=== PATIENT | male | born 1945 | race Caucasian/White ===

== ENCOUNTER 2017-10-19 16:24 | Inpatient (IN) | payer MEDICARE, BC ==
[2017-10-19] MEDS ORDERED: DILTIAZEM 5 MG/ML 5 ML VIAL IVP STA (16:54)
[2017-10-19 17:09] LABS: Basophils # (A) 0.1 k/uL (0-0.2); Basophils % (A) 1 %; Eosinophils # (A) 0.4 k/uL (0-0.7); Eosinophils % (A) 6 %; HGB 11.8 gm/dL (13.0-17.5); Hypochromasia Slight; Lymphocytes % (A) 14 %; MCH 28.2 pg (25.0-35.0); MCHC 30.3 g/dL (31.0-37.0); MCV 93.2 fL (80.0-100.0); Mean Platelet Volume 8.1; Monocytes # (A) 0.4 k/uL (0-1.0); Monocytes % (A) 6 %; Neutrophils % (A) 72 %; Platelet Count 215 k/uL (150-450); RBC 4.18 m/uL (4.30-5.90); RDW 15.4 % (11.5-15.5)
[2017-10-19 17:21] LABS: Partial Thromboplastin Time 25.6 sec (22.0-30.0)
[2017-10-19 17:22] LABS: ALT 28 U/L (21-72); AST 49 U/L (17-59); Albumin 4.4 g/dL (3.5-5.0); Alkaline Phosphatase 136 U/L (38-126); Anion Gap 11 mmol/L; Blood Urea Nitrogen 25 mg/dL (9-20); Calcium 9.5 mg/dL (8.4-10.2); Carbon Dioxide 25 mmol/L (22-30); Chloride 102 mmol/L (98-107); Creatine Kinase 276 U/L (55-170); Glucose 108 mg/dL (74-99); Magnesium 2.1 mg/dL (1.6-2.3); Phosphorus 3.3 mg/dL (2.5-4.5); Sodium 138 mmol/L (137-145); Total Protein 7.6 g/dL (6.3-8.2)
--- NOTE | 2017-10-19 17:22 | XR ---
EXAMINATION: XR chest 2V DATE AND TIME: 10/19/2017 5:13 PM ORDERING PROVIDER: Narciso Ferris DO CLINICAL INDICATION: Weakness; abnormal EKG with history atrial fibrillation and tachycardia. TECHNIQUE: 09/30/2011 COMPARISON: None. DESCRIPTION: EKG leads. The cardiac silhouette is mildly moderately enlarged, similar to the prior st udy. There is mild obscuration of the pulmonary vasculature by a fine reticular pattern, which can correla te with a clinical diagnosis of mild interstitial phase pulmonary edema, presumably of cardiogenic et iology. The right hemidiaphragm is elevated, similar to the prior study, with interposed colon underneath the right hemidiaphragm also seen on the prior study. Pectus excavatum and dextrocurvature of the thoracic spine also redemonstrated. There are no abnormal gas collections. IMPRESSION: EVIDENCE OF MILD CARDIOGENIC PULMONARY EDEMA.
[2017-10-19 17:23] LABS: Potassium 4.5 mmol/L (3.5-5.1)
[2017-10-19 17:28] LABS: INR 1.5 (<1.2); Prothrombin Time 13.7 sec (9.0-12.0)
[2017-10-19 17:34] LABS: Troponin I <0.012 ng/mL (0.000-0.034)
[2017-10-19 17:40] LABS: Creatine Kinase MB 2.6 ng/mL (0.0-2.4)
--- NOTE | 2017-10-19 17:57 | ED ---
General Adult HPI - General Chief complaint: Recheck/Abnormal Lab/Rx Stated complaint: sent by PCP abnormal EKG Time Seen by Provider: 10/19/17 16:35 Source: patient, RN notes reviewed, old records reviewed Mode of arrival: ambulatory Limitations: no limitations - History of Present Illness Initial comments: This is a 72-year-old male to the ER for evaluation of shortness of breath, increasing shortness of breath. Patient does have recent flight history. Patient suffers from heart disease CHF A. fib with RVR and anticoagulation. Patient denies any fevers does admit to congestion cough. Significant lower extremity edema and positive wakening. - Related Data Home Medications Medication Instructions Recorded Confirmed Atorvastatin [Lipitor] 20 mg PO HS 10/19/17 10/19/17 Furosemide [Lasix] 20 mg PO DAILY 10/19/17 10/19/17 Irbesartan [Avapro] 150 mg PO HS 10/19/17 10/19/17 Levothyroxine Sodium [Synthroid] 175 mcg PO DAILY 10/19/17 10/19/17 Metoprolol Succinate (ER) [Toprol 50 mg PO HS 10/19/17 10/19/17 Xl] Potassium Chloride ER [K-Dur 10] 10 meq PO DAILY 10/19/17 10/19/17 Rivaroxaban [Xarelto] 20 mg PO HS 10/19/17 10/19/17 Ubidecarenone [Co Q-10] 100 mg PO BID 10/19/17 10/19/17 Allergies Allergy/AdvReac Type Severity Reaction Status Date / Time No Known Allergies Allergy Verified 10/19/17 17:08 Review of Systems ROS Statement: Those systems with pertinent positive or pertinent negative responses have been documented in the HPI. ROS Other: All systems not noted in ROS Statement are negative. Past Medical History Past Medical History: Atrial Fibrillation, Cancer, Hyperlipidemia, Hypertension , Thyroid Disorder Additional Past Medical History / Comment(s): prostate cancer History of Any Multi-Drug Resistant Organisms: None Reported Past Surgical History: Prostate Surgery Past Psychological History: No Psychological Hx Reported Smoking Status: Never smoker Past Alcohol Use History: None Reported Past Drug Use History: None Reported General Exam Limitations: no limitations General appearance: alert, in no apparent distress, anxious Head exam: Present: atraumatic, normocephalic, normal inspection Eye exam: Present: normal appearance, PERRL, EOMI. Absent: scleral icterus, conjunctival injection, periorbital swelling ENT exam: Present: normal exam, mucous membranes moist Neck exam: Present: normal inspection. Absent: tenderness, meningismus, lymphadenopathy Respiratory exam: Present: normal lung sounds bilaterally. Absent: respiratory distress, wheezes, rales, rhonchi, stridor Cardiovascular Exam: Present: tachycardia, irregular rhythm, normal heart sounds. Absent: systolic murmur, diastolic murmur, rubs, gallop, clicks GI/Abdominal exam: Present: soft, normal bowel sounds. Absent: distended, tenderness, guarding, rebound, rigid Extremities exam: Present: normal inspection, full ROM, normal capillary refill. Absent: tenderness, pedal edema, joint swelling, calf tenderness Back exam: Present: normal inspection Neurological exam: Present: alert, oriented X3, CN II-XII intact Psychiatric exam: Present: normal affect, normal mood Skin exam: Present: warm, dry, intact, normal color. Absent: rash Course Vital Signs 10/19/17 16:28 Temperature 98.0 F Pulse Rate 124 H Respiratory 20 Rate Blood Pressure 137/82 O2 Sat by Pulse 98 Oximetry - Reevaluation(s) Reevaluation #1: 10/19/17 17:54 Dr noonan is in Ed evaluating patient EKG Findings - EKG Comments: EKG Findings:: EKG shows A. fib with RVR rate 116, QRS 94, QTC 489 Medical Decision Making - Medical Decision Making 72 male to the ED co sob, weight gain, chf on CXR and bilateral LE edema, patient also in AfibRVR and currently has adequate rate control. - Lab Data Result diagrams: 10/19/17 16:50 10/19/17 16:50 Lab Results 10/19/17 10/19/17 10/19/17 Range/Units 16:50 16:50 16:50 WBC 7.0 (3.8-10.6) k/uL RBC 4.18 L (4.30-5.90) m/uL Hgb 11.8 L (13.0-17.5) gm/dL Hct 39.0 (39.0-53.0) % MCV 93.2 (80.0-100.0) fL MCH 28.2 (25.0-35.0) pg MCHC 30.3 L (31.0-37.0) g/dL RDW 15.4 (11.5-15.5) % Plt Count 215 (150-450) k/uL Neutrophils % 72 % Lymphocytes % 14 % Monocytes % 6 % Eosinophils % 6 % Basophils % 1 % Neutrophils # 5.0 (1.3-7.7) k/uL Lymphocytes # 1.0 (1.0-4.8) k/uL Monocytes # 0.4 (0-1.0) k/uL Eosinophils # 0.4 (0-0.7) k/uL Basophils # 0.1 (0-0.2) k/uL Hypochromasia Slight PT (9.0-12.0) sec INR (<1.2) APTT (22.0-30.0) sec Sodium 138 (137-145) mmol/L Potassium 4.5 (3.5-5.1) mmol/L Chloride 102 (98-107) mmol/L Carbon Dioxide 25 (22-30) mmol/L Anion Gap 11 mmol/L BUN 25 H (9-20) mg/dL Creatinine 1.32 H (0.66-1.25) mg/dL Est GFR (MDRD) Af Amer >60 (>60 ml/min/1.73 sqM) Est GFR (MDRD) Non-Af 54 (>60 ml/min/1.73 sqM) Glucose 108 H (74-99) mg/dL Calcium 9.5 (8.4-10.2) mg/dL Phosphorus 3.3 (2.5-4.5) mg/dL Magnesium 2.1 (1.6-2.3) mg/dL Total Bilirubin 2.0 H (0.2-1.3) mg/dL AST 49 (17-59) U/L ALT 28 (21-72) U/L Alkaline Phosphatase 136 H (38-126) U/L Total Creatine Kinase 276 H (55-170) U/L CK-MB (CK-2) 2.6 H* (0.0-2.4) ng/mL CK-MB (CK-2) Rel Index 0.9 Troponin I <0.012 (0.000-0.034) ng/mL Total Protein 7.6 (6.3-8.2) g/dL Albumin 4.4 (3.5-5.0) g/dL 10/19/17 Range/Units 16:50 WBC (3.8-10.6) k/uL RBC (4.30-5.90) m/uL Hgb (13.0-17.5) gm/dL Hct (39.0-53.0) % MCV (80.0-100.0) fL MCH (25.0-35.0) pg MCHC (31.0-37.0) g/dL RDW (11.5-15.5) % Plt Count (150-450) k/uL Neutrophils % % Lymphocytes % % Monocytes % % Eosinophils % % Basophils % % Neutrophils # (1.3-7.7) k/uL Lymphocytes # (1.0-4.8) k/uL Monocytes # (0-1.0) k/uL Eosinophils # (0-0.7) k/uL Basophils # (0-0.2) k/uL Hypochromasia PT 13.7 H (9.0-12.0) sec INR 1.5 H (<1.2) APTT 25.6 (22.0-30.0) sec Sodium (137-145) mmol/L Potassium (3.5-5.1) mmol/L Chloride (98-107) mmol/L Carbon Dioxide (22-30) mmol/L Anion Gap mmol/L BUN (9-20) mg/dL Creatinine (0.66-1.25) mg/dL Est GFR (MDRD) Af Amer (>60 ml/min/1.73 sqM) Est GFR (MDRD) Non-Af (>60 ml/min/1.73 sqM) Glucose (74-99) mg/dL Calcium (8.4-10.2) mg/dL Phosphorus (2.5-4.5) mg/dL Magnesium (1.6-2.3) mg/dL Total Bilirubin (0.2-1.3) mg/dL AST (17-59) U/L ALT (21-72) U/L Alkaline Phosphatase (38-126) U/L Total Creatine Kinase (55-170) U/L CK-MB (CK-2) (0.0-2.4) ng/mL CK-MB (CK-2) Rel Index Troponin I (0.000-0.034) ng/mL Total Protein (6.3-8.2) g/dL Albumin (3.5-5.0) g/dL - Radiology Data Radiology results: report reviewed (CXR is positive for pulmonary edema), image reviewed Disposition Clinical Impression: Atrial fibrillation with RVR, CHF (congestive heart failure), Pulmonary edema Disposition: ADMITTED IP TO THIS [facility] Condition: Good Referrals: Misha Noonan MD [Primary Care Provider] - 1-2 days
[2017-10-19] MEDS: FUROSEMIDE 10 MG/ML 4 ML VIAL IV SCH (20:59)
[2017-10-19] MEDS: RIVAROXABAN 10 MG TAB PO SCH (21:00)
[2017-10-19] MEDS: ATORVASTATIN 20 MG TAB PO SCH (21:00)
[2017-10-19] MEDS ORDERED: LOSARTAN 50 MG TAB PO SCH ×2 (21:00)
[2017-10-19] MEDS ORDERED: METOPROLOL SUCCINATE (ER) 50 MG TAB.ER.24H PO SCH (21:00)
[2017-10-20] MEDS: FUROSEMIDE 10 MG/ML 4 ML VIAL IV SCH ×4 (03:15→23:33)
[2017-10-20 05:57] LABS: Anisocytosis Slight; Basophils % (A) 1 %; Eosinophils # (A) 0.3 k/uL (0-0.7); Eosinophils % (A) 6 %; HCT 32.6 % (39.0-53.0); Hypochromasia Moderate; Lymphocytes % (A) 20 %; MCH 28.4 pg (25.0-35.0); MCHC 30.4 g/dL (31.0-37.0); MCV 93.3 fL (80.0-100.0); Mean Platelet Volume 7.8; Monocytes # (A) 0.5 k/uL (0-1.0); Monocytes % (A) 10 %; Neutrophils # (A) 3.2 k/uL (1.3-7.7); Neutrophils % (A) 61 %; Platelet Count 172 k/uL (150-450); RBC 3.49 m/uL (4.30-5.90); RDW 16.5 % (11.5-15.5); WBC 5.3 k/uL (3.8-10.6)
[2017-10-20 05:58] LABS: HGB 9.9 gm/dL (13.0-17.5)
[2017-10-20 06:18] LABS: Anion Gap 8 mmol/L; Blood Urea Nitrogen 24 mg/dL (9-20); Calcium 9.1 mg/dL (8.4-10.2); Carbon Dioxide 30 mmol/L (22-30); Chloride 102 mmol/L (98-107); Glucose 101 mg/dL (74-99); Sodium 140 mmol/L (137-145)
[2017-10-20] MEDS: LEVOTHYROXINE 75 MCG TAB PO SCH (06:30)
[2017-10-20] MEDS: LEVOTHYROXINE 100 MCG TAB PO SCH (06:30)
[2017-10-20 07:37] LABS: T4, Free (Free Thyroxine) 1.52 ng/dL (0.78-2.19)
[2017-10-20] MEDS: POTASSIUM CHLORIDE ER 10 MEQ TAB.ER.PRT PO SCH (08:18)
--- NOTE | 2017-10-20 09:37 | CONS ---
CONSULTATION Mr. Hopper is a 72-year-old male with a history of hyperlipidemia, chronic persistent atrial fibrillation, who presented with progressive dyspnea, weight gain and peripheral edema. Patient has a longstanding history of atrial fibrillation, but has been stable and anticoagulated. He is active physically without difficulty, but for over the last month, he has gained about 20 pounds and has noted a progressive dyspnea predominantly when he bends down, as well as worsening peripheral edema. He denies any change in his eating habit. He denies any chest pain. No dizziness. No palpitation. No syncope. No clear PND, orthopnea, or peripheral edema. His coronary risk factors are remarkable for hyperlipidemia. He is nondiabetic. He has hypertension. He is a nonsmoker. MEDICATIONS: Include Avapro 150 mg daily, metoprolol succinate 50 mg daily, levothyroxine 0.175 mg daily, Lipitor 20 mg daily, Lasix 20 mg daily, potassium, and Xarelto 20 mg daily. REVIEW OF SYSTEMS: RESPIRATORY SYSTEM: He has mild dry cough. No wheezing. He has dyspnea on exertion. GI SYSTEM: No recent GI bleeding. No peptic ulcer disease. SYSTEM: No dysuria, hematuria. NERVOUS SYSTEM: no stroke or seizure. PHYSICAL EXAMINATION: He is a 72-year-old male, alert, oriented, in no apparent distress. Blood pressure running in the high 90s to 100 with a heart rate in the 90s. HEAD: Normocephalic, eyes sclerae nonicteric. NECK: Good upstroke. No bruit. Lungs with crackles bilaterally. HEART: Irregular, regular, S1, S2. No S3 with systolic murmur at the base. No diastolic murmur. No rub. ABDOMEN: Soft, nontender. Positive bowel sounds. No organomegaly. EXTREMITIES: +2 edema bilaterally. LAB DATA: Revealed BUN and creatinine 22 and 1.31, potassium 4.0. Troponin less than 0.012. NT proBNP is 1670. TSH of 5.5. EKG reveals atrial fibrillation with a rate of [address]-T wave changes. Chest x-ray shows evidence of CHF. IMPRESSION: 1. Congestive heart failure with increased weight gain over the last months. Evaluation of his systolic function is not available to me. 2. Chronic persistent atrial fibrillation, anticoagulated with episode of rapid ventricular response. 3. History of hypertension. 4. Hyperlipidemia. 5. Abnormal renal function tests of unknown duration. RECOMMENDATION: From the cardiac standpoint, will continue IV diuresis for another 24 hours. I will cut down the dose of his angiotensin receptor jorge because of his low blood pressure. Follow his renal function. Will evaluate his systolic function by echocardiography and depending on his progress, further recommendation will be made. Thank you for this consult. Will follow with you. MAREN / LALA: [id number] /
--- NOTE | 2017-10-20 10:41 | ECHOF ---
Referral Reason:chf MEASUREMENTS -------- HEIGHT: 182.9 cm WEIGHT: 111.6 kg BP: 96/69 RVIDd: 3.3 cm (< 3.3) IVSd: 1.0 cm (0.6 - 1.1) LVIDd: 3.2 cm (3.9 - 5.3) LVPWd: 1.1 cm (0.6 - 1.1) IVSs: 1.3 cm LVIDs: 2.9 cm LVPWs: 1.3 cm LA Diam: 3.8 cm (2.7 - 3.8) LAESV Index (A-L): 29.90 ml/m Ao Diam: 3.0 cm (2.0 - 3.7) AV Cusp: 1.8 cm (1.5 - 2.6) LA Diam: 4.1 cm (2.7 - 3.8) MV EXCURSION: 14.751 mm (> 18.000) MV EF SLOPE: 87 mm/s (70 - 150) EPSS: 0.5 cm RAP: 5.00 mmHg RVSP: 22.99 mmHg FINDINGS -------- Atrial fibrillation. This was a technically good study. The left ventricular size is normal. Left ventricular wall thickness is normal. Overall left vent ricular systolic function is low-normal with, an EF between 50 - 55 %. The right ventricle is mild to moderately enlarged. LA is moderately dilated 34-39 ml/m2 The right atrial size is normal. The aortic valve is trileaflet, and appears structurally normal. No aortic stenosis or regurgitation. Mild mitral regurgitation is present. [id number] tricuspid regurgitation present. There is no evidence of pulmonary hypertension. The right ventricular systolic pressure, as measured by Doppler, is 22.99mmHg. There is no pulmonic regurgitation present. The aortic root size is normal. There is no pericardial effusion. CONCLUSIONS -------- 1. The left ventricular size is normal. 2. Left ventricular wall thickness is normal. 3. Overall left ventricular systolic function is low-normal with, an EF between 50 - 55 %. 4. The right ventricle is mild to moderately enlarged. 5. LA is moderately dilated 34-39 ml/m2 6. The aortic valve is trileaflet, and appears structurally normal. No aortic stenosis or regurgitati on. 7. Mild mitral regurgitation is present. 8. [id number]-lrdskvlz tricuspid regurgitation present. 9. There is no evidence of pulmonary hypertension. 10. The right ventricular systolic pressure, as measured by Doppler, is 22.99mmHg. 11. There is no pulmonic regurgitation present. 12. The aortic root size is normal. 13. There is no pericardial effusion. NOVELTY CANDY MAKER: Merced Epstein RDCS
--- NOTE | 2017-10-20 11:20 | P.HPIM ---
History of Present Illness H&P Date: 10/20/17 Chief Complaint: Worsening shortness of breath and lower extremity edema This is a 72-year-old male with a known past medical history of congestive heart failure, hypothyroidism, atrial fibrillation, hyperlipidemia and prostate cancer. Patient does a lot of flying he lives in [place]. And he had recently visiting family in [place] as well. Patient came to see his father who is been sick here in [place]. And noted that his shortness of breath and lower extremity edema that he has been dealing with for the last month has continued to worsen. He therefore came into the emergency room for further evaluation and treatment. Was found to have an acute CHF exacerbation as well as A. fib with RVR. He was started on IV Lasix. Was given a dose of IV Cardizem. Patient is already noticed some improvement in his breathing as well as lower extremity edema. Cardiology is following. Echocardiogram was ordered and shows an EF of 50-55% with mild to moderate tricuspid regurgitation. EKG had shown atrial fibrillation with a heart rate of 116. BNP was elevated at 1670. Troponins were negative 3 sets. Patient remains in A. fib heart rate has shown improvement. He denies any chest pain heart palpitations any dizziness or lightheadedness. Denies any nausea or vomiting. Denies any bowel movement changes. She denies any blood in his stools. Denies any burning with urination. He has evidence of elevated kidney functions with a creatinine of 1.31 in BUN of 24. Patient was hypotensive this morning. Cardiology has decreased his losartan to 25 units daily. Patient doesn't having a cough with clear sputum for the past 2 weeks. However the cough is improving he is been afebrile with no chills or sweats. White count was normal on admission. Hemoglobin has dropped from 11.8-9.9. Patient has had no colonoscopy Review of Systems Please refer to HPI otherwise unremarkable Past Medical History Past Medical History: Atrial Fibrillation, Cancer, Hyperlipidemia, Hypertension , Thyroid Disorder Additional Past Medical History / Comment(s): prostate cancer History of Any Multi-Drug Resistant Organisms: None Reported Past Surgical History: Adenoidectomy, Prostate Surgery, Tonsillectomy Past Anesthesia/Blood Transfusion Reactions: No Reported Reaction Past Psychological History: No Psychological Hx Reported Smoking Status: Never smoker Past Alcohol Use History: None Reported Past Drug Use History: None Reported - Past Family History Father Family Medical History: Cancer Additional Family Medical History / Comment(s): prostate Mother Additional Family Medical History / Comment(s): CABG-rheumatic fever Medications and Allergies Home Medications Medication Instructions Recorded Confirmed Type Atorvastatin [Lipitor] 20 mg PO HS 10/19/17 10/19/17 History Furosemide [Lasix] 20 mg PO DAILY 10/19/17 10/19/17 History Irbesartan [Avapro] 150 mg PO HS 10/19/17 10/19/17 History Levothyroxine Sodium [Synthroid] 175 mcg PO DAILY 10/19/17 10/19/17 History Metoprolol Succinate (ER) [Toprol 50 mg PO HS 10/19/17 10/19/17 History Xl] Potassium Chloride ER [K-Dur 10] 10 meq PO DAILY 10/19/17 10/19/17 History Rivaroxaban [Xarelto] 20 mg PO HS 10/19/17 10/19/17 History Ubidecarenone [Co Q-10] 100 mg PO BID 10/19/17 10/19/17 History Allergies Allergy/AdvReac Type Severity Reaction Status Date / Time No Known Allergies Allergy Verified 10/19/17 17:08 Physical Exam Vitals: Vital Signs Temp Pulse Pulse Resp BP BP BP 10/20/17 09:27 101 H 16 97/63 10/20/17 08:00 97.4 F L 106 H 18 89/56 88/61 10/20/17 04:00 97.4 F L 109 H 18 92/69 10/20/17 00:14 119 H 18 105/67 10/19/17 20:00 97.4 F L 104 H 16 105/77 10/19/17 19:31 98.4 F 110 H 16 135/73 10/19/17 18:18 97.6 F 85 18 115/85 10/19/17 18:06 97 18 117/88 10/19/17 16:34 94 18 119/88 10/19/17 16:28 98.0 F 124 H 20 137/82 Pulse Ox 10/20/17 09:27 97 10/20/17 08:00 96 10/20/17 04:00 98 10/20/17 00:14 99 10/19/17 20:00 99 10/19/17 19:31 100 10/19/17 18:18 99 01/10/18 18:06 99 10/19/17 16:34 98 10/19/17 16:28 98 Intake and Output 10/19/17 10/20/17 10/20/17 22:59 06:59 14:59 Intake Total 240 240 Output Total 1300 200 Balance 240 -1300 40 Intake: Oral 240 240 Output: Urine 1300 200 Other: Voiding Method Urinal Urinal Weight 113.9 kg 111.7 kg Head normocephalic Neck supple Lungs crackles right lower lobe Heart regular rate and rhythm S1-S2, no rub or gallop Abdomen is soft nontender nondistended positive bowel sounds no hepatosplenomegaly Extremities no edema Neuro alert and orientated to 3 Results CBC & Chem 7: 10/20/17 05:29 10/20/17 05:29 Labs: Abnormal Lab Results - Last 24 Hours (Table) 10/19/17 10/19/17 10/19/17 Range/Units 16:50 16:50 16:50 RBC 4.18 L (4.30-5.90) m/uL Hgb 11.8 L (13.0-17.5) gm/dL Hct (39.0-53.0) % MCHC 30.3 L (31.0-37.0) g/dL RDW (11.5-15.5) % PT (9.0-12.0) sec INR (<1.2) BUN 25 H (9-20) mg/dL Creatinine 1.32 H (0.66-1.25) mg/dL Glucose 108 H (74-99) mg/dL Total Bilirubin 2.0 H (0.2-1.3) mg/dL Alkaline Phosphatase 136 H (38-126) U/L Total Creatine Kinase 276 H (55-170) U/L CK-MB (CK-2) 2.6 H* (0.0-2.4) ng/mL TSH (0.465-4.680) mIU/L 10/19/17 10/20/17 10/20/17 Range/Units 16:50 05:29 05:29 RBC 3.49 L (4.30-5.90) m/uL Hgb 9.9 L D (13.0-17.5) gm/dL Hct 32.6 L (39.0-53.0) % MCHC 30.4 L (31.0-37.0) g/dL RDW 16.5 H (11.5-15.5) % PT 13.7 H (9.0-12.0) sec INR 1.5 H (<1.2) BUN 24 H (9-20) mg/dL Creatinine 1.31 H (0.66-1.25) mg/dL Glucose 101 H (74-99) mg/dL Total Bilirubin (0.2-1.3) mg/dL Alkaline Phosphatase (38-126) U/L Total Creatine Kinase (55-170) U/L CK-MB (CK-2) (0.0-2.4) ng/mL TSH 5.560 H (0.465-4.680) mIU/L Thrombosis Risk Factor Assmnt - Choose All That Apply Any of the Below Risk Factors Present?: No Each Risk Factor Represents 2 Points: Age 61-74 years Thrombosis Risk Factor Assessment Total Risk Factor Score: 2 Thrombosis Risk Factor Assessment Level: Low Risk Assessment and Plan Assessment: 1. Acute diastolic CHF exacerbation: EF on echo was 50-55% with evidence of mild to moderate tricuspid regurgitation. Cardiology following. Patient currently on Lasix 40 mg IV every 8 hours. 2. Chronic persistent atrial fibrillation with an episode of atrial fibrillation with rapid ventricular response. Patient Harvey dose of IV Cardizem. He remains on Xarelto and metoprolol 50 mg at bedtime 3. History of essential hypertension. Patient was hypotensive this morning cardiology is decreased the losartan from 50-25 mg at bedtime 4. Anemia hemoglobin 9.9. Repeat CBC in a.m. Check iron studies. No previous history of colonoscopy. No evidence of bleeding. 5. History of hypothyroidism continue Synthroid. TSH elevated at 5.560 and free T4 normal at 1.52 6. Hyperlipidemia continue Lipitor GI prophylaxis Pepcid and DVT prophylaxis xarelto Time with Patient: Greater than 30 (Greater than 50% of the total time spent in counseling and coordination of care.I performed an examination of the patient and discussed their management with the physician Senior Trial Attorney. I have reviewed the Physician Senior Trial Attorney's notes and agree with the documented findings and plan of care)
[2017-10-20] MEDS: BENZOCAINE/MENTHOL LOZENG 1 EACH LOZENGE MUCOUS MEM PRN ×2 (13:59→21:01)
[2017-10-20 14:19] VITALS: BMI 32.5
[2017-10-20] MEDS: METOPROLOL TARTRATE 50 MG TAB PO SCH ×2 (14:43→21:00)
[2017-10-20 15:25] LABS: Iron Saturation 6.81 (15.00-50.00)
[2017-10-20] MEDS: RIVAROXABAN 10 MG TAB PO SCH (17:25)
[2017-10-20] MEDS: LOSARTAN 25 MG TAB PO SCH (21:00)
[2017-10-20] MEDS: ATORVASTATIN 20 MG TAB PO SCH (21:01)
[2017-10-21] MEDS: LEVOTHYROXINE 100 MCG TAB PO SCH (06:35)
[2017-10-21] MEDS: LEVOTHYROXINE 75 MCG TAB PO SCH (06:35)
[2017-10-21 06:43] LABS: Anisocytosis Slight; Basophils % (A) 1 %; Eosinophils # (A) 0.3 k/uL (0-0.7); Eosinophils % (A) 6 %; HCT 35.7 % (39.0-53.0); HGB 10.8 gm/dL (13.0-17.5); Hypochromasia Moderate; Lymphocytes # (A) 1.2 k/uL (1.0-4.8); Lymphocytes % (A) 25 %; MCH 28.1 pg (25.0-35.0); MCHC 30.3 g/dL (31.0-37.0); MCV 92.8 fL (80.0-100.0); Mean Platelet Volume 7.8; Monocytes # (A) 0.5 k/uL (0-1.0); Monocytes % (A) 9 %; Neutrophils # (A) 2.8 k/uL (1.3-7.7); Neutrophils % (A) 58 %; Platelet Count 195 k/uL (150-450); RBC 3.85 m/uL (4.30-5.90); RDW 16.7 % (11.5-15.5)
[2017-10-21 07:03] LABS: ALT 49 U/L (21-72); AST 30 U/L (17-59); Albumin 3.6 g/dL (3.5-5.0); Alkaline Phosphatase 114 U/L (38-126); Anion Gap 11 mmol/L; Blood Urea Nitrogen 24 mg/dL (9-20); Calcium 9.4 mg/dL (8.4-10.2); Carbon Dioxide 31 mmol/L (22-30); Chloride 99 mmol/L (98-107); Glucose 97 mg/dL (74-99); Potassium 4.2 mmol/L (3.5-5.1); Sodium 141 mmol/L (137-145); Total Bilirubin 1.7 mg/dL (0.2-1.3); Total Protein 6.4 g/dL (6.3-8.2)
[2017-10-21] MEDS: FUROSEMIDE 10 MG/ML 4 ML VIAL IV SCH ×3 (09:20→20:28)
[2017-10-21] MEDS: METOPROLOL TARTRATE 50 MG TAB PO SCH ×2 (09:20→20:28)
[2017-10-21] MEDS: POTASSIUM CHLORIDE ER 10 MEQ TAB.ER.PRT PO SCH (09:20)
[2017-10-21] MEDS: FAMOTIDINE 20 MG TAB PO SCH (09:20)
--- NOTE | 2017-10-21 09:29 | PN ---
PROGRESS NOTE Mr. Hopper is a 72-year-old male who presented with symptoms of worsening dyspnea and peripheral edema. He is feeling much better today. His breathing is stable. He is denying any chest pain. No dizziness or palpitation. He denies any nausea. He is diuresing quite well and has lost over 4 kg since his presentation. He has continued to be on Pepcid 20 mg daily, Lasix 40 mg IV q.8 hours, losartan 25 mg daily, metoprolol tartrate 50 mg twice a day and Xarelto 20 mg daily, and potassium. PHYSICAL EXAMINATION: Blood pressure 103/60 with a heart in 90s. LUNGS: Clear. HEART: Irregular, irregular. S1, S2. No S3. No rub with a systolic murmur. No diastolic murmur. ABDOMEN: Soft, nontender. EXTREMITIES: +1 edema, improved compared with pre-admission. LAB DATA: Lab data revealed a hemoglobin of 10.8, BUN and creatinine 24 and 1.41. He had an echocardiogram that showed a preserved systolic function with a mild mitral and mild-to- moderate tricuspid regurgitation. No evidence of pulmonary hypertension. IMPRESSION: 1. Symptoms of congestive heart failure with preserved systolic function. 2. Atrial fibrillation. 3. Worsening renal function. RECOMMENDATION: I will cut down the dose of his Lasix to twice a day. Continue with his medical regimen. Follow his renal function. If he remains stable, I would expect we should be able to switch him to oral diuretics tomorrow and he may be able to be discharged home. MMODL / IJN: [id number] /
--- NOTE | 2017-10-21 11:02 | P.PN ---
Subjective Progress Note Date: 10/21/17 This is a 72-year-old male with a known past medical history of congestive heart failure, hypothyroidism, atrial fibrillation, hyperlipidemia and prostate cancer. Patient does a lot of flying he lives in [facility]. And he had recently visiting family in [place] as well. Patient came to see his father who is been sick here in [place]. And noted that his shortness of breath and lower extremity edema that he has been dealing with for the last month has continued to worsen. He therefore came into the emergency room for further evaluation and treatment. Was found to have an acute CHF exacerbation as well as A. fib with RVR. He was started on IV Lasix. Was given a dose of IV Cardizem. Patient is already noticed some improvement in his breathing as well as lower extremity edema. Cardiology is following. Echocardiogram was ordered and shows an EF of 50-55% with mild to moderate tricuspid regurgitation. EKG had shown atrial fibrillation with a heart rate of 116. BNP was elevated at 1670. Troponins were negative 3 sets. Patient remains in A. fib heart rate has shown improvement. He denies any chest pain heart palpitations any dizziness or lightheadedness. Denies any nausea or vomiting. Denies any bowel movement changes. She denies any blood in his stools. Denies any burning with urination. He has evidence of elevated kidney functions with a creatinine of 1.31 in BUN of 24. Patient was hypotensive this morning. Cardiology has decreased his losartan to 25 units daily. Patient doesn't having a cough with clear sputum for the past 2 weeks. However the cough is improving he is been afebrile with no chills or sweats. White count was normal on admission. Hemoglobin has dropped from 11.8-9.9. Patient has had no colonoscopy. On 10/21/2017 patient is alert and oriented 3 in no apparent distress, he states he is feeling better, shortness of breath has improved and lower extremity swelling has improved. He denies any chest pain no headache no dizziness no palpitation no cough no nausea or vomiting no abdominal pain and no urinary symptoms. Hemoglobin has dropped, iron studies revealed evidence of low iron levels, will give 1 dose of IV iron today and tomorrow morning. Kidney function has worsened and dose of IV Lasix was cut down to twice daily Will recheck labs in a.m.. Objective - Vital Signs Vital signs: Vital Signs Temp 97.6 F 10/21/17 08:43 Pulse 109 H 10/21/17 08:43 Resp 16 10/21/17 08:43 BP 110/75 10/21/17 08:43 Pulse Ox 97 10/21/17 08:43 Intake & Output 10/20/17 10/21/17 10/21/17 18:59 06:59 18:59 Intake Total 960 180 Output Total 2200 2100 Balance -1240 -2100 180 Weight 111.7 kg 109.5 kg Intake: Oral 960 180 Output: Urine 2200 2100 Other: Voiding Method Urinal Urinal - Exam In general patient is alert and oriented 3 in no apparent distress HEENT head normocephalic and atraumatic Neck is supple no JVD no goiter no lymphadenopathy Chest exam reveals a few scattered crackles bilaterally no wheezing Cardiac exam reveals irregular heart sounds no gallops no murmurs Abdomen is soft nontender no organomegaly Extremity exam reveals 2+ edema right slightly worse than left no cyanosis or clubbing Neurological examination reveals no gross focal deficit - Labs CBC & Chem 7: 10/21/17 06:21 10/21/17 06:21 Labs: Abnormal Lab Results - Last 24 Hours (Table) 10/20/17 10/21/17 10/21/17 Range/Units 05:29 06:21 06:21 RBC 3.85 L (4.30-5.90) m/uL Hgb 10.8 L (13.0-17.5) gm/dL Hct 35.7 L (39.0-53.0) % MCHC 30.3 L (31.0-37.0) g/dL RDW 16.7 H (11.5-15.5) % Carbon Dioxide 31 H (22-30) mmol/L BUN 24 H (9-20) mg/dL Creatinine 1.41 H (0.66-1.25) mg/dL Iron 25 L (65-175) ug/dL Iron Saturation 6.81 L (15.00-50.00) Ferritin 18.0 L (22.0-322.0) ng/mL Total Bilirubin 1.7 H (0.2-1.3) mg/dL Assessment and Plan Plan: 1. Acute diastolic CHF exacerbation: EF on echo was 50-55% with evidence of mild to moderate tricuspid regurgitation. Cardiology following. Patient currently on Lasix 40 mg IV every 12 hours, will monitor electrolyte and kidney function until tomorrow 2. Chronic persistent atrial fibrillation with an episode of atrial fibrillation with rapid ventricular response. Patient Harvey dose of IV Cardizem. He remains on Xarelto and metoprolol 50 mg at bedtime 3. History of essential hypertension. Patient was hypotensive this morning cardiology is decreased the losartan from 50-25 mg at bedtime 4. Anemia hemoglobin 9.9. Repeat CBC in a.m. Check iron studies. No previous history of colonoscopy. No evidence of bleeding. Patient had colonoscopy scheduled in the past, however he was unable to keep appointment to due to busy schedule patient lives mostly in [place] and very rarely in the [place], we have discussed colonoscopy again today he is traveling away this Tuesday and will be back on December 08 where he will stay here for about 6 weeks will arrange for colonoscopy at that time, today Will give a dose of Venofer and 1 dose tomorrow 5. History of hypothyroidism continue Synthroid. TSH elevated at 5.560 and free T4 normal at 1.52 6. Hyperlipidemia continue Lipitor GI prophylaxis Pepcid and DVT prophylaxis xarelto
[2017-10-21] MEDS ORDERED: SODIUM FERRIC GLUCONAT-SUCROSE 125 MG in SODIUM CHLORIDE 0.9% 100 ML IVPB ONE (11:30)
[2017-10-21] MEDS: RIVAROXABAN 10 MG TAB PO SCH (18:05)
[2017-10-21] MEDS: LOSARTAN 25 MG TAB PO SCH (20:28)
[2017-10-21] MEDS: ATORVASTATIN 20 MG TAB PO SCH (20:28)
[2017-10-22 06:03] LABS: Anisocytosis Slight; Basophils # (A) 0.1 k/uL (0-0.2); Basophils % (A) 1 %; Eosinophils # (A) 0.3 k/uL (0-0.7); Eosinophils % (A) 7 %; HGB 10.1 gm/dL (13.0-17.5); Hypochromasia Moderate; Lymphocytes % (A) 22 %; MCH 28.2 pg (25.0-35.0); MCHC 30.7 g/dL (31.0-37.0); MCV 91.9 fL (80.0-100.0); Mean Platelet Volume 8.3; Monocytes # (A) 0.5 k/uL (0-1.0); Monocytes % (A) 10 %; Neutrophils # (A) 2.5 k/uL (1.3-7.7); Neutrophils % (A) 56 %; Platelet Count 172 k/uL (150-450); RBC 3.59 m/uL (4.30-5.90); RDW 16.5 % (11.5-15.5); WBC 4.5 k/uL (3.8-10.6)
[2017-10-22 06:22] LABS: Albumin 3.3 g/dL (3.5-5.0); Calcium 9.2 mg/dL (8.4-10.2); Potassium 3.8 mmol/L (3.5-5.1); Total Bilirubin 1.5 mg/dL (0.2-1.3); Total Protein 5.9 g/dL (6.3-8.2)
[2017-10-22] MEDS: LEVOTHYROXINE 75 MCG TAB PO SCH (06:34)
[2017-10-22] MEDS: LEVOTHYROXINE 100 MCG TAB PO SCH (06:34)
[2017-10-22] MEDS ORDERED: SODIUM FERRIC GLUCONAT-SUCROSE 125 MG in SODIUM CHLORIDE 0.9% 100 ML IVPB ONE (08:00)
[2017-10-22] MEDS: METOPROLOL TARTRATE 50 MG TAB PO SCH (08:53)
[2017-10-22] MEDS: FUROSEMIDE 10 MG/ML 4 ML VIAL IV SCH (08:53)
[2017-10-22] MEDS: FAMOTIDINE 20 MG TAB PO SCH (08:53)
[2017-10-22] MEDS: POTASSIUM CHLORIDE ER 10 MEQ TAB.ER.PRT PO SCH (08:53)
--- NOTE | 2017-10-22 12:28 | P.DS ---
Providers Date of admission: 10/19/17 18:00 Expected date of discharge: 10/22/17 Attending physician: Misha Noonan Consults: 10/19/17 20:11 Consult Physician Routine Consulting Provider: Stacy Em Consult Reason/Comments: chf,pulmonary edema,afib rvr Do you want consulting provider notified?: Yes, Notify in am Primary care physician: Misha Noonan [facility] Course: Diagoses on discharge: 1. Acute diastolic CHF exacerbation: EF on echo was 50-55% with evidence of mild to moderate tricuspid regurgitation. Cardiology following. Patient currently on Lasix 40 mg IV every 12 hours, will monitor electrolyte and kidney function until tomorrow 2. Chronic persistent atrial fibrillation with an episode of atrial fibrillation with rapid ventricular response. Patient Harvey dose of IV Cardizem. He remains on Xarelto and metoprolol 50 mg at bedtime 3. History of essential hypertension. Patient was hypotensive this morning cardiology is decreased the losartan from 50-25 mg at bedtime 4. Anemia hemoglobin 9.9. Repeat CBC in a.m. Check iron studies. No previous history of colonoscopy. No evidence of bleeding. Patient had colonoscopy scheduled in the past, however he was unable to keep appointment to due to busy schedule patient lives mostly in [place] and very rarely in the [place], we have discussed colonoscopy again today he is traveling away this Tuesday and will be back on December 08 where he will stay here for about 6 weeks will arrange for colonoscopy at that time, today Will give a dose of Venofer and 1 dose tomorrow 5. History of hypothyroidism continue Synthroid. TSH elevated at 5.560 and free T4 normal at 1.52 6. Hyperlipidemia continue Lipitor Hospital course: This is a 72-year-old male with a known past medical history of congestive heart failure, hypothyroidism, atrial fibrillation, hyperlipidemia and prostate cancer. Patient does a lot of flying he lives in [facility]. And he had recently visiting family in [place] as well. Patient came to see his father who is been sick here in [place]. And noted that his shortness of breath and lower extremity edema that he has been dealing with for the last month has continued to worsen. He therefore came into the emergency room for further evaluation and treatment. Was found to have an acute CHF exacerbation as well as A. fib with RVR. He was started on IV Lasix. Was given a dose of IV Cardizem. Patient is already noticed some improvement in his breathing as well as lower extremity edema. Cardiology is following. Echocardiogram was ordered and shows an EF of 50-55% with mild to moderate tricuspid regurgitation. EKG had shown atrial fibrillation with a heart rate of 116. BNP was elevated at 1670. Troponins were negative 3 sets. Patient remains in A. fib heart rate has shown improvement. He denies any chest pain heart palpitations any dizziness or lightheadedness. Denies any nausea or vomiting. Denies any bowel movement changes. She denies any blood in his stools. Denies any burning with urination. He has evidence of elevated kidney functions with a creatinine of 1.31 in BUN of 24. Patient was hypotensive this morning. Cardiology has decreased his losartan to 25 units daily. Patient doesn't having a cough with clear sputum for the past 2 weeks. However the cough is improving he is been afebrile with no chills or sweats. White count was normal on admission. Hemoglobin has dropped from 11.8-9.9. Patient has had no colonoscopy. On 10/21/2017 patient is alert and oriented 3 in no apparent distress, he states he is feeling better, shortness of breath has improved and lower extremity swelling has improved. He denies any chest pain no headache no dizziness no palpitation no cough no nausea or vomiting no abdominal pain and no urinary symptoms. Hemoglobin has dropped, iron studies revealed evidence of low iron levels, will give 1 dose of IV iron today and tomorrow morning. Kidney function has worsened and dose of IV Lasix was cut down to twice daily Will recheck labs in a.m.. 10/22/2017 patient is alert and oriented 3 in no apparent distress, he states he is feeling better, shortness of breath has improved and lower extremity swelling has improved. He denies any chest pain no headache no dizziness no palpitation no cough. Blood pressure slightly low, patient feeling better requesting to be discharged. Patient Condition at Discharge: Good Plan - Discharge Summary Discharge Rx Participant: No New Discharge Prescriptions: New Furosemide [Lasix] 40 mg PO DAILY 90 Days #90 tablet Losartan [Cozaar] 25 mg PO HS tab Metoprolol Tartrate [Lopressor] 50 mg PO BID tab Continue Potassium Chloride ER [K-Dur 10] 10 meq PO DAILY Rivaroxaban [Xarelto] 20 mg PO HS Ubidecarenone [Co Q-10] 100 mg PO BID Levothyroxine Sodium [Synthroid] 175 mcg PO DAILY Atorvastatin [Lipitor] 20 mg PO HS Discontinued Furosemide [Lasix] 20 mg PO DAILY Irbesartan [Avapro] 150 mg PO HS Metoprolol Succinate (ER) [Toprol Xl] 50 mg PO HS Discharge Medication List Atorvastatin [Lipitor] 20 mg PO HS 10/19/17 [History] Levothyroxine Sodium [Synthroid] 175 mcg PO DAILY 10/19/17 [History] Potassium Chloride ER [K-Dur 10] 10 meq PO DAILY 10/19/17 [History] Rivaroxaban [Xarelto] 20 mg PO HS 10/19/17 [History] Ubidecarenone [Co Q-10] 100 mg PO BID 10/19/17 [History] Furosemide [Lasix] 40 mg PO DAILY 90 Days #90 tablet 10/22/17 [Rx] Losartan [Cozaar] 25 mg PO HS tab 10/22/17 [Rx] Metoprolol Tartrate [Lopressor] 50 mg PO BID tab 10/22/17 [Rx] Follow up Appointment(s)/Referral(s): Stacy Em MD [STAFF PHYSICIAN] - 1 Week Misha Noonan MD [Primary Care Provider] - 1-2 days Patient Instructions/Handouts: Heart Failure (DC), A-fib (Atrial Fibrillation) (DC), Pulmonary Edema (DC)
[2017-10-22 12:34] VITALS: BP 97/59; PULSE 107; RESP 17; TEMP 98.3
--- NOTE | 2017-10-22 12:48 | PN ---
PROGRESS NOTE Mr. Hopper is a 72-year-old male who presented with symptoms of congestive heart failure. He received intravenous diuretics. He has history of persistent atrial fibrillation. He is feeling much better today. His breathing is stable. He has no chest pain. No dizziness. No palpitation. His breathing is better and he has been ambulating without much difficulty. He continues to be on IV Lasix 40 mg IV q.12 hours, metoprolol tartrate 50 mg twice a day, Xarelto 20 mg daily, potassium 10 mEq daily, losartan 25 mg daily, and Lipitor 20 mg daily. PHYSICAL EXAMINATION: Blood pressure 100/60 with the heart rate in the 90s. His blood pressure earlier dropped to the high 90s. LUNGS: Clear HEART: Irregular, irregular. S1, S2. No S3 with a systolic murmur. ABDOMEN: Soft, nontender. EXTREMITIES: +1 edema. LAB DATA: Lab data revealed BUN and creatinine of 28 and 1.5, potassium 3.8. IMPRESSION: 1. Congestive heart failure with preserved systolic function. 2. Chronic persistent atrial fibrillation. 3. Chronic kidney disease. RECOMMENDATION: From the cardiac standpoint, will switch him to oral diuretics. He should be able to be discharged home today and have revaluation of his renal function as an outpatient. MMODL / IJN: [id number] /
== END 2017-10-22 13:30 | disposition home or self-care (01) | DRG 291 ==
LOC: EC 16:24 → 6SEL 18:00
PROVIDERS: ADMIT Internal Medicine; ATTEND Internal Medicine
DX: I13.0 Hypertensive heart and chronic kidney disease with heart failure and stage 1 through stage 4 chronic kidney disease, or unspecified chronic kidney disease (principal); I50.33 Acute on chronic diastolic (congestive) heart failure; D64.9 Anemia, unspecified; I07.1 Rheumatic tricuspid insufficiency; I48.1 Persistent atrial fibrillation; N18.9 Chronic kidney disease, unspecified; E03.9 Hypothyroidism, unspecified; E78.5 Hyperlipidemia, unspecified; I48.2 Chronic atrial fibrillation; Z79.01 Long term (current) use of anticoagulants; Z79.899 Other long term (current) drug therapy; Z85.46 Personal history of malignant neoplasm of prostate
CPT/HCPCS: 36415; 71046; 80048; 80053; 82550; 82553; 82728; 83540; 83550; 83735; 83880; 84100; 84439; 84443; 84484; 85025; 85610; 85730; 93005; 93306; 94760; 96374; 99285

== ENCOUNTER 2017-12-15 13:50 | Day surgery (SDC) | payer MEDICARE, BC ==
[2017-12-13 16:00] VITALS: BMI 29.7
[~2017-12-15 13:50] MED LIST: LACTATED RINGERS 1,000 ML IV SCH; LIDOCAINE 1% 20 ML VIAL (10MG/ML) FOR IV START INTRADERMA PRN
[2017-12-15 14:19] VITALS: TEMP 97.2
[2017-12-15] MEDS ORDERED: LIDOCAINE 1% INJ 10MG/ML (20 ML MDV) ONE (15:17)
[2017-12-15] MEDS ORDERED: PROPOFOL 10 MG/ML 20 ML VIAL IV ONE (15:17)
--- NOTE | 2017-12-15 15:45 | P.PCN ---
Date of Procedure: 12/15/17 Procedure(s) Performed: Procedure: Colonoscopy and polypectomy. Preoperative diagnosis: Screening for neoplasia. Postoperative diagnosis: 1. Small distal sigmoid polyp snared but no large polyps or cancer. 2. Sigmoid diverticulosis with no evidence of acute diverticulitis or strictures. Preparation: HalfLytely prep. Sedation: Was provided by anesthesia. Brief clinical history: The patient is a 72-year-old male who is referred for this evaluation for screening for neoplasia age being his risk factor. There is no family history of colon cancer. He has no abdominal complaints, bleeding or anemia. This would be his first colonoscopy. Procedure: With the patient on his left lateral decubitus position and after informed consent and adequate sedation, the perianal area was inspected and it did not show any fissures or fistulas. There were no masses felt on digital rectal examination. The Olympus CFQ 160L video colonoscope was then inserted in the rectum in the usual fashion and advanced to the cecum. There were several diverticular orifices seen scattered in the sigmoid with no evidence of acute diverticulitis or strictures. In the distal sigmoid, there was a small polyp which I snared and retrieved by suction but there were no large polyps or cancer. I retroflexed the endoscope in the rectum before the endoscope was withdrawn. The patient tolerated the procedure well. Plan: The patient was reassured. Discussed dietary measures. He will follow- up with you as planned and I recommended repeat exam in 5 years.
[2017-12-15 16:06] VITALS: BP 121/89; PULSE 98; RESP 18
== END 2017-12-15 16:57 | disposition home or self-care (01) ==
LOC: ORWHC2ENDO 13:50
DX: Z12.11 Encounter for screening for malignant neoplasm of colon (principal); D12.5 Benign neoplasm of sigmoid colon; K57.30 Diverticulosis of large intestine without perforation or abscess without bleeding; I10 Essential (primary) hypertension; E78.5 Hyperlipidemia, unspecified; E07.9 Disorder of thyroid, unspecified; I48.91 Unspecified atrial fibrillation; Z79.01 Long term (current) use of anticoagulants; Z85.46 Personal history of malignant neoplasm of prostate; Z79.899 Other long term (current) drug therapy
CPT/HCPCS: 88305; 45385; J2001; J2704

== ENCOUNTER → 2017-12-23 | Outpatient (CLI) | payer MEDICARE, BC ==
[2017-12-23 11:24] LABS: Basophils % (A) 1 %; Eosinophils # (A) 0.2 k/uL (0-0.7); Eosinophils % (A) 5 %; HCT 36.4 % (39.0-53.0); HGB 10.9 gm/dL (13.0-17.5); Hypochromasia Slight; Lymphocytes # (A) 0.8 k/uL (1.0-4.8); Lymphocytes % (A) 17 %; MCH 27.4 pg (25.0-35.0); MCV 91.2 fL (80.0-100.0); Mean Platelet Volume 9.1; Monocytes # (A) 0.3 k/uL (0-1.0); Monocytes % (A) 7 %; Neutrophils # (A) 3.1 k/uL (1.3-7.7); Neutrophils % (A) 68 %; Platelet Count 126 k/uL (150-450); RBC 3.99 m/uL (4.30-5.90); RDW 15.5 % (11.5-15.5); WBC 4.6 k/uL (3.8-10.6)
[2017-12-23 11:55] LABS: Potassium 4.4 mmol/L (3.5-5.1)
== END | disposition home or self-care (01) ==
LOC: LABPAT 10:53
PROVIDERS: ATTEND Surgery
DX: Z01.812 Encounter for preprocedural laboratory examination (principal); K43.9 Ventral hernia without obstruction or gangrene; D64.9 Anemia, unspecified; F17.200 Nicotine dependence, unspecified, uncomplicated
CPT/HCPCS: 36415; 80051; 85025

== ENCOUNTER 2017-12-28 07:00 | Day surgery (SDC) | payer MEDICARE, BC ==
[2017-12-23 13:02] VITALS: BMI 29.7
[~2017-12-28 07:00] MED LIST changes: +HEPARIN SODIUM,PORCINE 5,000 UNIT/ML 1 ML VIAL SQ ONE; +HYDROmorphone 0.5 MG/0.5 ML SYRINGE IVP PRN; -LIDOCAINE 1% 20 ML VIAL (10MG/ML) FOR IV START INTRADERMA PRN; +ONDANSETRON 4 MG/2 ML VIAL IVP PRN
[2017-12-28] MEDS ORDERED: LIDOCAINE 1% 20 ML VIAL (10MG/ML) FOR IV START INTRADERMA ONE (08:00)
--- NOTE | 2017-12-28 08:17 | P.GSHP ---
History of Present Illness H&P Date: 12/28/17 Chief Complaint: Ventral hernia Assessment 72-year-old male referred from Dr. may. Patient developed a ventral hernia above his umbilicus. He presents today for laparoscopic robotic system repair. Past Medical History Past Medical History: Atrial Fibrillation, Cancer, Hyperlipidemia, Hypertension , Thyroid Disorder Additional Past Medical History / Comment(s): abdominal hernia,prostate cancer- 2011-no radiation/chemo History of Any Multi-Drug Resistant Organisms: None Reported Past Surgical History: Adenoidectomy, Prostate Surgery, Tonsillectomy Additional Past Surgical History / Comment(s): prostatectomy,hinge applied sternum post traumatic accident Past Anesthesia/Blood Transfusion Reactions: No Reported Reaction Additional Past Anesthesia/Blood Transfusion Reaction / Comment(s): claustrophobic Past Psychological History: No Psychological Hx Reported Smoking Status: Never smoker Past Alcohol Use History: Occasional Past Drug Use History: None Reported - Past Family History Father Family Medical History: Cancer Additional Family Medical History / Comment(s): prostate Mother Additional Family Medical History / Comment(s): CABG-rheumatic fever Medications and Allergies Home Medications Medication Instructions Recorded Confirmed Type Atorvastatin [Lipitor] 20 mg PO HS 10/19/17 12/23/17 History Levothyroxine Sodium [Synthroid] 175 mcg PO QAM 10/19/17 12/23/17 History Potassium Chloride ER [K-Dur 10] 10 meq PO DAILY 10/19/17 12/23/17 History Rivaroxaban [Xarelto] 20 mg PO HS 10/19/17 12/23/17 History Ubidecarenone [Co Q-10] 100 mg PO BID 10/19/17 12/23/17 History Furosemide [Lasix] 40 mg PO DAILY 90 Days #90 tablet 10/22/17 12/23/17 Rx Losartan [Cozaar] 25 mg PO HS tab 10/22/17 12/23/17 Rx Metoprolol Tartrate [Lopressor] 50 mg PO BID tab 10/22/17 12/23/17 Rx Cholecalciferol [Vitamin D3] 1,000 unit PO DAILY 12/13/17 12/23/17 History Cyanocobalamin (Vitamin B-12) 1,000 mcg PO DAILY 12/13/17 12/23/17 History [Vitamin B-12] Magnesium Oxide 400 mg PO DAILY 12/13/17 12/23/17 History Allergies Allergy/AdvReac Type Severity Reaction Status Date / Time No Known Allergies Allergy Verified 12/22/17 11:33 Surgical - Exam Vital Signs Temp Pulse Resp BP Pulse Ox 97.7 F 94 18 114/76 100 12/28/17 08:13 12/28/17 08:13 12/28/17 08:13 12/28/17 08:13 12/28/17 08:13 - General well developed, no distress - Eyes PERRL - ENT normal pinna - Neck no masses - Respiratory normal expansion - Cardiovascular Rhythm: regular - Abdomen Or centimeter ventral hernia located approximately 5 cm above the umbilicus Abdomen: soft, non tender Assessment and Plan Assessment: Ventral hernia. We'll perform laparoscopic robotic system repair.
[2017-12-28] MEDS ORDERED: GLYCOPYRROLATE 0.2 MG/ML 2 ML VIAL ONE (08:21)
[2017-12-28] MEDS ORDERED: fentaNYL (PF) 50 MCG/ML 2 ML AMP ONE (08:21)
[2017-12-28] MEDS ORDERED: KETOROLAC 30 MG/ML 1 ML VIAL ONE (08:21)
[2017-12-28] MEDS ORDERED: PHENYLEPHRINE-0.9% NACL SYG 1 MG/10 ML SYRINGE ONE (08:21)
[2017-12-28] MEDS ORDERED: PROPOFOL 10 MG/ML 20 ML VIAL IV ONE (08:21)
[2017-12-28] MEDS: ceFAZolin IN SWFI 2 GM/20 ML SYRINGE IVP ONE ×2 (08:21→08:50)
[2017-12-28] MEDS ORDERED: NEOSTIGMINE 1 MG/ML 10 ML VIAL ONE (08:21)
[2017-12-28] MEDS ORDERED: ePHEDrine SULFATE/0.9% NACL/PF 50 MG/5 ML SYRINGE IV ONE (08:21)
[2017-12-28] MEDS ORDERED: SUCCINYLCHOLINE CHLORIDE 100 MG/5 ML SYR IV ONE (08:21)
[2017-12-28] MEDS ORDERED: MIDAZOLAM 2 MG/2 ML VIAL ONE (08:21)
[2017-12-28] MEDS ORDERED: ROCURONIUM BROMIDE 10 MG/ML 10 ML VIAL IV ONE (08:21)
[2017-12-28] MEDS ORDERED: BUPIVACAINE (PF) 0.25% 30 ML VIAL SQ ONE (08:50)
[2017-12-28] MEDS ORDERED: LIDOCAINE 1%-EPI 1:100,000 30 ML VIAL SQ ONE (09:15)
[2017-12-28 10:01] VITALS: TEMP 97
--- NOTE | 2017-12-28 10:15 | P.OP ---
Date of Procedure: 12/28/17 Preoperative Diagnosis: Incarcerated ventral hernia Postoperative Diagnosis: Carcinoid ventral hernia Procedure(s) Performed: Laparoscopic robotic-assisted repair of incarcerated ventral hernia Excision of omentum and hernia sac Anesthesia: JOSEPH Surgeon: Kd Amezquita Estimated Blood Loss (ml): 10 Pathology: other (Hernia sac/omentum) Condition: stable Disposition: PACU Description of Procedure: The patient was placed on the operating table in the supine position. He received general anesthesia. His abdomen was prepped and draped usual fashion. Using a 5 mm optical trocar under direct visualization the peritoneal cavity was entered in the left upper quadrant. The abdomen was then insufflated. The laparoscope was placed back into the perineal cavity. Next a 8 mm robotic trocar was placed in the left lower quadrant and a 12 mm robotic trocar was placed in the left lateral position. The original 5 mm trocar was exchanged for a 8 mm robotic trocar. The patient's placed in the left side up position. And the patient was docked to the robot. The ventral hernia was visualized. Using hook cautery the peritoneum over the incisional hernia was excised. The incarcerated omentum was dissected free using cautery. The fascial opening was repaired using 0V LOC suture. Next a piece of 11 cm round ventral light ST mesh was placed into the. Cavity and secured with 2 OV lock suture. The patient was undocked the robot. The needles were retrieved. The hernia sac and omentum were retrieved. The fascia of the 12 mm trocar site was closed with 0 Ethibond suture. Skin was closed interrupted 3-0 Monocryl suture. Dermabond dressings was applied. Patient tolerated procedure well and was sent to recovery room stable condition.
[2017-12-28 10:25] VITALS: RESP 16
[2017-12-28] MEDS ORDERED: HYDROcodone/APAP 7.5-325MG 1 EACH TAB PO ONE (11:01)
[2017-12-28 12:23] VITALS: BP 124/80; PULSE 100
[2017-12-28] MEDS ORDERED: LACTATED RINGERS 1,000 ML IV ONE ×2 (12:43→14:38)
== END 2017-12-28 15:45 | disposition home or self-care (01) ==
LOC: OR 07:00
PROVIDERS: ATTEND Surgery
DX: I10 Essential (primary) hypertension (principal); E78.5 Hyperlipidemia, unspecified; E07.9 Disorder of thyroid, unspecified; I48.91 Unspecified atrial fibrillation; Z79.01 Long term (current) use of anticoagulants; Z85.46 Personal history of malignant neoplasm of prostate; Z79.899 Other long term (current) drug therapy
CPT/HCPCS: 49653; 88302; C1781; J2250; J1644; J2710; J2405; J3010; J1885; J2370; J0330; J2704; J0690; 86850; 86900; 86901

== ENCOUNTER 2018-05-29 07:15 | Emergency (ER) | payer MEDICARE, BC ==
[2018-05-29 07:25] VITALS: RESP 18; TEMP 98.2
[2018-05-29] MEDS ORDERED: LIDOCAINE 2%-EPI 1:200,000 20 ML VIAL SQ STA (07:34)
[2018-05-29] MEDS ORDERED: LIDOCAINE 1%-EPI 1:100,000 30 ML VIAL SQ STA (07:40)
--- NOTE | 2018-05-29 07:56 | ED ---
Lower Extremity Injury HPI - General Chief Complaint: Extremity Injury, Lower Stated Complaint: Leg bleeding Time Seen by Provider: 05/29/18 07:28 Source: patient, RN notes reviewed Mode of arrival: ambulatory Limitations: no limitations - History of Present Illness Initial Comments: This is a 72-year-old male presents emergency Department with chief complaint of bleeding varicose vein on his left leg. Patient states started earlier this morning he has put pressure on it but the bleeding persists. Patient states that he does take Xarelto. Patient states she's had this happen twice in the past. He has not seen a vascular surgeon for this issue. Patient states that he has no pain to the area he states that he had no injury. - Related Data Home Medications Medication Instructions Recorded Confirmed Atorvastatin [Lipitor] 20 mg PO HS 10/19/17 12/23/17 Levothyroxine Sodium [Synthroid] 175 mcg PO QAM 10/19/17 12/23/17 Potassium Chloride ER [K-Dur 10] 10 meq PO DAILY 10/19/17 12/23/17 Rivaroxaban [Xarelto] 20 mg PO HS 10/19/17 12/23/17 Ubidecarenone [Co Q-10] 100 mg PO BID 10/19/17 12/23/17 Cholecalciferol [Vitamin D3] 1,000 unit PO DAILY 12/13/17 12/23/17 Cyanocobalamin (Vitamin B-12) 1,000 mcg PO DAILY 12/13/17 12/23/17 [Vitamin B-12] Magnesium Oxide 400 mg PO DAILY 12/13/17 12/23/17 Previous Rx's Medication Instructions Recorded Furosemide [Lasix] 40 mg PO DAILY 90 Days #90 tablet 10/22/17 Losartan [Cozaar] 25 mg PO HS tab 10/22/17 Metoprolol Tartrate [Lopressor] 50 mg PO BID tab 10/22/17 Docusate [Colace] 100 mg PO BID #20 capsule 12/28/17 HYDROcodone/APAP 7.5-325MG [Valatie 1 each PO Q4H PRN #30 tab 12/28/17 7.5] Allergies Allergy/AdvReac Type Severity Reaction Status Date / Time No Known Allergies Allergy Verified 12/22/17 11:33 Review of Systems ROS Statement: Those systems with pertinent positive or pertinent negative responses have been documented in the HPI. ROS Other: All systems not noted in ROS Statement are negative. Past Medical History Past Medical History: Atrial Fibrillation, Cancer, Hyperlipidemia, Hypertension , Thyroid Disorder Additional Past Medical History / Comment(s): abdominal hernia,prostate cancer- 2011-no radiation/chemo History of Any Multi-Drug Resistant Organisms: None Reported Past Surgical History: Adenoidectomy, Prostate Surgery, Tonsillectomy Additional Past Surgical History / Comment(s): prostatectomy,hinge applied sternum post traumatic accident Past Anesthesia/Blood Transfusion Reactions: No Reported Reaction Additional Past Anesthesia/Blood Transfusion Reaction / Comment(s): claustrophobic Past Psychological History: No Psychological Hx Reported Smoking Status: Never smoker Past Alcohol Use History: Occasional Past Drug Use History: None Reported - Past Family History Father Family Medical History: Cancer Additional Family Medical History / Comment(s): prostate Mother Additional Family Medical History / Comment(s): CABG-rheumatic fever General Exam Limitations: no limitations General appearance: alert, in no apparent distress Head exam: Present: atraumatic, normocephalic, normal inspection Respiratory exam: Present: normal lung sounds bilaterally. Absent: respiratory distress, wheezes, rales, rhonchi, stridor Cardiovascular Exam: Present: regular rate, normal rhythm, normal heart sounds. Absent: systolic murmur, diastolic murmur, rubs, gallop, clicks Extremities exam: Present: other (Left lower extremity there is however, she is noted pedal pulses equal bilaterally, there is a varicose vein that is bleeding significantly at this time it is able to stop with pressure) Course Vital Signs 05/29/18 07:20 Temperature 98.2 F Pulse Rate 106 H Respiratory 18 Rate Blood Pressure 105/67 O2 Sat by Pulse 100 Oximetry Procedures - Procedures Initial comment: left lower extremity varicosity: 1% lidocaine with epinephrine 8 mL of lidocaine were used to anesthetize the area bleeding and asked side with epinephrine, 4-0 Ethilon suture was used, 2 [id number] sutures were placed bleeding subsided. Patient tolerated well no complications Medical Decision Making - Medical Decision Making 72-year-old male presented for a bleeding varicosity. This was ligated using 4 SUTURES. HE HAS BEEN STABLE FOR OVER 30 MINUTES AND WAS ABLE TO FAMILY WITH NO REBLEEDING. PATIENT WILL BE DISCHARGED AND FOLLOW-UP WITH VASCULAR SURGERY. Disposition Clinical Impression: Bleeding from varicose veins of left lower extremity Disposition: HOME SELF-CARE Condition: Stable Instructions: Varicose Veins (ED) Additional Instructions: Have sutures removed in 10 days. Please follow-up with vascular surgery.Please return to the Emergency Department if symptoms worsen or any other concerns. Is patient prescribed a controlled substance at d/c from ED?: No Referrals: Misha Noonan MD [Primary Care Provider] - 1-2 days Socrates Cormier MD [STAFF PHYSICIAN] - 1-2 days Time of Disposition: 08:40
[2018-05-29 08:52] VITALS: BP 105/62; PULSE 96
== END 2018-05-29 08:52 | disposition home or self-care (01) ==
LOC: EC 07:15
DX: I83.892 Varicose veins of left lower extremity with other complications (principal); E78.5 Hyperlipidemia, unspecified; I10 Essential (primary) hypertension; I48.91 Unspecified atrial fibrillation; E07.9 Disorder of thyroid, unspecified; Z79.01 Long term (current) use of anticoagulants; Z79.899 Other long term (current) drug therapy; Z85.46 Personal history of malignant neoplasm of prostate; Z90.79 Acquired absence of other genital organ(s)
CPT/HCPCS: 12001; 99283

== ENCOUNTER 2018-08-28 15:32 | Observation (INO) | payer MEDICARE, BC ==
--- NOTE | 2018-08-28 16:00 | ED ---
General Adult HPI - General Chief complaint: Recheck/Abnormal Lab/Rx Stated complaint: abn test results Source: patient Mode of arrival: wheelchair Limitations: no limitations - History of Present Illness Initial comments: Dictation was produced using [employer] dictation software. please excuse any grammatical, word or spelling errors. Chief Complaint: 73-year-old male past medical history of atrial fibrillation, prostate disorder, hypertension presents with abnormal outpatient CBC History of Present Illness: Is a 73-year-old male with multiple comorbidities presents with abnormal outpatient CBC. Patient was sent in by his primary care physician Dr. Noonan for hemoglobin of 6.2. Patient denies any pain. He does feel short of breath with exertion. Denies any shortness of breath at rest. Patient has history of atrial fibrillation for which she takes Xarelto. Patient has any blood or coffee-ground stool. Denies any nausea or vomiting. Denies any back pain. Patient has had serial hemoglobins for several months now that have been managed outpatient. Patient is well traveled and has also received transfusions oversees while he vacations in [facility]. Patient otherwise feels fine. Patient is on Xarelto for atrial fibrillation. The ROS documented in this emergency department record has been reviewed and confirmed by me. Those systems with pertinent positive or negative responses have been documented in the HPI. All other systems are other negative and/or noncontributory. - Related Data Home Medications Medication Instructions Recorded Confirmed Atorvastatin [Lipitor] 20 mg PO DAILY 10/19/17 08/28/18 Levothyroxine Sodium [Synthroid] 200 mcg PO DAILY 10/19/17 08/28/18 Potassium Chloride ER [K-Dur 10] 10 meq PO DAILY 10/19/17 08/28/18 Rivaroxaban [Xarelto] 20 mg PO AC-SUPPER 10/19/17 08/28/18 Ubidecarenone [Co Q-10] 100 mg PO BID 10/19/17 08/28/18 Cholecalciferol [Vitamin D3] 1,000 unit PO DAILY 12/13/17 08/28/18 Cyanocobalamin (Vitamin B-12) 1,000 mcg PO DAILY 12/13/17 08/28/18 [Vitamin B-12] Furosemide [Lasix] 40 mg PO DAILY 06/09/18 08/28/18 Previous Rx's Medication Instructions Recorded Losartan [Cozaar] 25 mg PO HS tab 10/22/17 Metoprolol Tartrate [Lopressor] 50 mg PO BID tab 10/22/17 Allergies Allergy/AdvReac Type Severity Reaction Status Date / Time No Known Allergies Allergy Verified 08/28/18 16:41 Review of Systems ROS Statement: Those systems with pertinent positive or pertinent negative responses have been documented in the HPI. ROS Other: All systems not noted in ROS Statement are negative. Past Medical History Past Medical History: Atrial Fibrillation, Blood Disorder, Cancer, Hyperlipidemia, Hypertension, Thyroid Disorder Additional Past Medical History / Comment(s): abdominal hernia,prostate cancer- 2011-no radiation/chemo. Anemia with blood transfusion d/t ruptured varicose vein on left leg. History of Any Multi-Drug Resistant Organisms: None Reported Past Surgical History: Adenoidectomy, Hernia Repair, Prostate Surgery, Tonsillectomy Additional Past Surgical History / Comment(s): prostatectomy,hinge applied sternum post traumatic accident. Sutured varicose vein left leg. Past Anesthesia/Blood Transfusion Reactions: No Reported Reaction Additional Past Anesthesia/Blood Transfusion Reaction / Comment(s): claustrophobic Past Psychological History: No Psychological Hx Reported Smoking Status: Never smoker Past Alcohol Use History: None Reported Past Drug Use History: None Reported - Past Family History Father Family Medical History: Cancer Additional Family Medical History / Comment(s): prostate Mother Additional Family Medical History / Comment(s): CABG-rheumatic fever General Exam - General Exam Comments Initial Comments: PHYSICAL EXAM: General Impression: Alert and oriented x3, not in acute distress HEENT: Normocephalic atraumatic, extra-ocular movements intact, pupils equal and reactive to light bilaterally, mucous membranes moist. Cardiovascular: Heart regular rate and rhythm, S1&S2 audible, no murmurs, rubs or gallops Chest: Lungs clear to auscultation bilaterally, no rhonchi, no wheeze, no rales Abdomen: Bowel sounds present, abdomen soft, non-tender, non-distended, no organomegaly Musculoskeletal: Pulses present and equal in all extremities, no peripheral edema Motor: Power 5/5 bilaterally, no focal deficits noted Neurological: CN II-XII grossly intact, no focal motor or sensory deficits noted Skin: Intact with no visualized rashes Psych: Normal affect and mood Limitations: no limitations Course Vital Signs 1108/28/18 08/28/18 15:33 16:07 16:30 Temperature 97.5 F L Pulse Rate 133 H 129 H Respiratory 18 20 18 Rate Blood Pressure 115/73 128/71 O2 Sat by Pulse 100 100 Oximetry 08/28/18 08/28/18 17:00 17:30 Temperature Pulse Rate 113 H 118 H Respiratory 20 21 Rate Blood Pressure 136/78 O2 Sat by Pulse 100 100 Oximetry Medical Decision Making - Medical Decision Making ED course: 73-year-old male with multiple comorbidities presents with abnormal hemoglobin done outpatient by his primary care physician. As upon arrival shows heart rate of 133, rest of vital signs within normal limits. Patient has a history of atrial fibrillation. He does take beta blockers. Medications were reviewed. Patient is on Xarelto for atrial fibrillation.Laboratory evaluation obtained. Hemoglobin is 7.5 which is above patient's stated level of 6.2. Aggressive CBC shows microcytic anemia with elevated RDW. Coag panel unremarkable. Metabolic panel is within acceptable limits. Rest of labs unremarkable. Chest x-ray shows no acute processes. Patient vital signs improved with his heart rate in the low 100s. No indication for aggressive rate controlling medications at this time. Discussed patient case with primary care physician of aggressive patient be admitted to the hospital. Patient is agreeable with disposition. We will continue patient on current medications. EKG interpretation: Ventricular rate 117, atrial fibrillation with rapid ventricular response, QS 96, QTC 390. No CT prolongation, no QTC prolongation, no ST or T-wave changes noted. - Lab Data Result diagrams: 08/28/18 15:49 08/28/18 15:49 Lab Results 08/28/18 08/28/18 08/28/18 Range/Units 15:49 15:49 15:49 WBC 5.1 (3.8-10.6) k/uL RBC 3.05 L (4.30-5.90) m/uL Hgb 7.5 L (13.0-17.5) gm/dL Hct 24.7 L (39.0-53.0) % MCV 81.0 (80.0-100.0) fL MCH 24.7 L (25.0-35.0) pg MCHC 30.5 L (31.0-37.0) g/dL RDW 19.4 H (11.5-15.5) % Plt Count 251 (150-450) k/uL Neutrophils % (Manual) 68 % Lymphocytes % (Manual) 16 % Monocytes % (Manual) 7 % Eosinophils % (Manual) 8 % Basophils % (Manual) 1 % Neutrophils # (Manual) 3.47 (1.3-7.7) k/uL Lymphocytes # (Manual) 0.82 L (1.0-4.8) k/uL Monocytes # (Manual) 0.36 (0-1.0) k/uL Eosinophils # (Manual) 0.41 (0-0.7) k/uL Basophils # (Manual) 0.05 (0-0.2) k/uL Nucleated RBCs 0 (0-0) /100 WBC Manual Slide Review Performed Polychromasia Present Hypochromasia Marked Anisocytosis Slight Anisocytosis (manual) Present Microcytosis Slight Target Cells Present PT (9.0-12.0) sec INR (<1.2) APTT (22.0-30.0) sec Sodium (137-145) mmol/L Potassium (3.5-5.1) mmol/L Chloride (98-107) mmol/L Carbon Dioxide (22-30) mmol/L Anion Gap mmol/L BUN (9-20) mg/dL Creatinine (0.66-1.25) mg/dL Est GFR (CKD-EPI)AfAm (>60 ml/min/1.73 sqM) Est GFR (CKD-EPI)NonAf (>60 ml/min/1.73 sqM) Glucose (74-99) mg/dL Calcium (8.4-10.2) mg/dL Magnesium (1.6-2.3) mg/dL Total Bilirubin (0.2-1.3) mg/dL AST (17-59) U/L ALT (21-72) U/L Alkaline Phosphatase (38-126) U/L Total Creatine Kinase 93 (55-170) U/L CK-MB (CK-2) 0.7 (0.0-2.4) ng/mL CK-MB (CK-2) Rel Index 0.8 Troponin I <0.012 (0.000-0.034) ng/mL Total Protein (6.3-8.2) g/dL Albumin (3.5-5.0) g/dL Blood Type O Positive Blood Type Recheck No Antibody Screen POSITIVE Direct Antiglob Test Negative Spec Expiration Date 08/31/2018 - 234808/28/18 08/28/18 Range/Units 15:49 15:49 WBC (3.8-10.6) k/uL RBC (4.30-5.90) m/uL Hgb (13.0-17.5) gm/dL Hct (39.0-53.0) % MCV (80.0-100.0) fL MCH (25.0-35.0) pg MCHC (31.0-37.0) g/dL RDW (11.5-15.5) % Plt Count (150-450) k/uL Neutrophils % (Manual) % Lymphocytes % (Manual) % Monocytes % (Manual) % Eosinophils % (Manual) % Basophils % (Manual) % Neutrophils # (Manual) (1.3-7.7) k/uL Lymphocytes # (Manual) (1.0-4.8) k/uL Monocytes # (Manual) (0-1.0) k/uL Eosinophils # (Manual) (0-0.7) k/uL Basophils # (Manual) (0-0.2) k/uL Nucleated RBCs (0-0) /100 WBC Manual Slide Review Polychromasia Hypochromasia Anisocytosis Anisocytosis (manual) Microcytosis Target Cells PT 14.5 H (9.0-12.0) sec INR 1.6 H (<1.2) APTT 29.2 (22.0-30.0) sec Sodium 140 (137-145) mmol/L Potassium 4.4 (3.5-5.1) mmol/L Chloride 103 (98-107) mmol/L Carbon Dioxide 27 (22-30) mmol/L Anion Gap 10 mmol/L BUN 39 H (9-20) mg/dL Creatinine 1.64 H (0.66-1.25) mg/dL Est GFR (CKD-EPI)AfAm 48 (>60 ml/min/1.73 sqM) Est GFR (CKD-EPI)NonAf 42 (>60 ml/min/1.73 sqM) Glucose 101 H (74-99) mg/dL Calcium 9.2 (8.4-10.2) mg/dL Magnesium 2.2 (1.6-2.3) mg/dL Total Bilirubin 2.1 H (0.2-1.3) mg/dL AST 32 (17-59) U/L ALT 30 (21-72) U/L Alkaline Phosphatase 317 H (38-126) U/L Total Creatine Kinase (55-170) U/L CK-MB (CK-2) (0.0-2.4) ng/mL CK-MB (CK-2) Rel Index Troponin I (0.000-0.034) ng/mL Total Protein 6.9 (6.3-8.2) g/dL Albumin 3.6 (3.5-5.0) g/dL Blood Type Blood Type Recheck Antibody Screen Direct Antiglob Test Spec Expiration Date Disposition Clinical Impression: Dyspnea Disposition: ADMITTED IP TO THIS HOSP Condition: Fair Referrals: Misha Noonan MD [Primary Care Provider] - 1-2 days Decision Time: 18:52
--- NOTE | 2018-08-28 16:32 | XR ---
EXAMINATION TYPE: XR chest 2V DATE OF EXAM: 08/28/2018 COMPARISON: Prior chest x-ray 10/19/2017 HISTORY: Difficulty breathing TECHNIQUE: Frontal and lateral views of the chest are obtained. FINDINGS: There is no focal air space opacity, pleural effusion, or pneumothorax seen. The cardiac silhouette size is stable, enlarged. There is elevation of the right hemidiaphragm, there may be inf iltration. There is a spinal curvature, suspect a pectus deformity. The osseous structures are intact . IMPRESSION: No acute cardiopulmonary process.
[2018-08-28 16:34] LABS: Albumin 3.6 g/dL (3.5-5.0); Calcium 9.2 mg/dL (8.4-10.2); Magnesium 2.2 mg/dL (1.6-2.3); Potassium 4.4 mmol/L (3.5-5.1); Total Bilirubin 2.1 mg/dL (0.2-1.3); Total Protein 6.9 g/dL (6.3-8.2)
[2018-08-28 16:38] LABS: Anisocytosis Slight; HCT 24.7 % (39.0-53.0); HGB 7.5 gm/dL (13.0-17.5); Hypochromasia Marked; MCH 24.7 pg (25.0-35.0); MCHC 30.5 g/dL (31.0-37.0); Mean Platelet Volume 7.2; Microcytosis Slight; Platelet Count 251 k/uL (150-450); RBC 3.05 m/uL (4.30-5.90); RDW 19.4 % (11.5-15.5); WBC 5.1 k/uL (3.8-10.6)
[2018-08-28 16:39] LABS: INR 1.6 (<1.2); Partial Thromboplastin Time 29.2 sec (22.0-30.0); Prothrombin Time 14.5 sec (9.0-12.0)
[2018-08-28 16:45] LABS: Creatine Kinase 93 U/L (55-170)
[2018-08-28 16:58] LABS: Creatine Kinase MB 0.7 ng/mL (0.0-2.4); Troponin I <0.012 ng/mL (0.000-0.034)
[2018-08-28 17:02] LABS: Basophils # (M) 0.05 k/uL (0-0.2); Eosinophils # (M) 0.41 k/uL (0-0.7); Lymphocytes # (M) 0.82 k/uL (1.0-4.8); Monocytes # (M) 0.36 k/uL (0-1.0); Neutrophils # (M) 3.47 k/uL (1.3-7.7); Neutrophils % (M) 68 %; Nucleated Red Blood Cells 0 /100 WBC (0-0); Total Cells Counted 100
[2018-08-28 17:03] LABS: Anisocytosis (M) Present; Polychromasia Present; Target Cells Present
[2018-08-28] MEDS ORDERED: NALOXONE 0.4 MG/ML 1 ML VIAL IV PRN (18:36)
[2018-08-28] MEDS ORDERED: LOSARTAN 25 MG TAB PO SCH (21:00)
[2018-08-28] MEDS: METOPROLOL TARTRATE 50 MG TAB PO SCH (22:33)
[2018-08-29] MEDS: LEVOTHYROXINE 100 MCG TAB PO SCH (05:24)
[2018-08-29] MEDS ORDERED: ATORVASTATIN 20 MG TAB PO SCH (09:00)
[2018-08-29] MEDS: CHOLECALCIFEROL 1,000 UNIT TAB PO SCH (09:07)
[2018-08-29] MEDS: METOPROLOL TARTRATE 50 MG TAB PO SCH ×2 (09:10→21:18)
[2018-08-29 10:06] LABS: Anisocytosis Slight; HCT 23.5 % (39.0-53.0); HGB 7.1 gm/dL (13.0-17.5); Hypochromasia Marked; INR 1.7 (<1.2); MCH 24.7 pg (25.0-35.0); MCHC 30.1 g/dL (31.0-37.0); MCV 82.1 fL (80.0-100.0); Microcytosis Slight; Platelet Count 223 k/uL (150-450); Prothrombin Time 15.9 sec (9.0-12.0); RBC 2.87 m/uL (4.30-5.90); RDW 19.9 % (11.5-15.5); WBC 4.8 k/uL (3.8-10.6)
[2018-08-29 10:30] LABS: Calcium 9.2 mg/dL (8.4-10.2); Potassium 4.8 mmol/L (3.5-5.1)
--- NOTE | 2018-08-29 11:24 | P.HPIM ---
History of Present Illness H&P Date: 08/29/18 Chief Complaint: Shortness of breath and weakness This is a 73-year-old male patient who presented to the emergency room for low hemoglobin. Patient states he presented to his primary care provider and he was told his hemoglobin was 6.2. Patient has known past medical history of atrial fibrillation in which hes has been on Xeralto for 3 years. Patient states that in May of this year he had a varicose vein that bled profusely which led him to come to the emergency room and receive stitches. After that patient was seen by primary care provider with complaints of weakness and was found to have a a low hemoglobin. Patient at that time received 2 units of PRBCs. Patient then traveled to [facility]. During his time over sees patient states he became weak and received 2 additional units of PRBC in [facility]. Additional medical history includes atrial fibrillation, prostate, cancer, hyperlipidemia, hypertension and thyroid disorder. Patient also reports that over the past few weeks he's noticed yellowing in his eyes in a.m. that seem to subside throughout the day. Chest x-ray completed in emergency room showing no acute cardiopulmonary process. EKG completed showing atrial fibrillation with rapid ventricular response. Heart rate 117. At this time will order abdominal ultrasound and hepatitis panel. Patient denies any signs of bleeding in stool or urine. Hemoglobin 7.1. Total bili elevated at 2.1 alkaline phosphatase 317. GI services have been consulted. Dr. Wright also consulted for hematology. At this time patient denies chest pain or shortness breath. Patient denies nausea vomiting or diarrhea. Patient denies any urinary burning or frequency. Review of Systems Please refer to HPI otherwise Past Medical History Past Medical History: Atrial Fibrillation, Blood Disorder, Cancer, Hyperlipidemia, Hypertension, Thyroid Disorder Additional Past Medical History / Comment(s): abdominal hernia with repain in 2017 ,prostate [id number] radiation/chemo. Anemia with blood transfusion d/ t ruptured varicose vein on left leg. History of Any Multi-Drug Resistant Organisms: None Reported Past Surgical History: Adenoidectomy, Appendectomy, Hernia Repair, Prostate Surgery, Tonsillectomy Additional Past Surgical History / Comment(s): prostatectomy,hinge applied sternum post traumatic accident. Sutured varicose vein left leg. Past Anesthesia/Blood Transfusion Reactions: No Reported Reaction Additional Past Anesthesia/Blood Transfusion Reaction / Comment(s): claustrophobic Smoking Status: Never smoker - Past Family History Father Family Medical History: Cancer Additional Family Medical History / Comment(s): prostate Mother Additional Family Medical History / Comment(s): CABG-rheumatic fever Medications and Allergies Home Medications Medication Instructions Recorded Confirmed Type Atorvastatin [Lipitor] 20 mg PO DAILY 10/19/17 08/28/18 History Levothyroxine Sodium [Synthroid] 200 mcg PO DAILY 10/19/17 08/28/18 History Potassium Chloride ER [K-Dur 10] 10 meq PO DAILY 10/19/17 08/28/18 History Rivaroxaban [Xarelto] 20 mg PO AC-SUPPER 10/19/17 08/28/18 History Ubidecarenone [Co Q-10] 250 mg PO BID 10/19/17 08/28/18 History Losartan [Cozaar] 25 mg PO HS tab 10/22/17 08/28/18 Rx Metoprolol Tartrate [Lopressor] 50 mg PO BID tab 10/22/17 08/28/18 Rx Cholecalciferol [Vitamin D3] 1,000 unit PO DAILY 12/13/17 08/28/18 History Cyanocobalamin (Vitamin B-12) 1,000 mcg PO DAILY 12/13/17 08/28/18 History [Vitamin B-12] Furosemide [Lasix] 40 mg PO DAILY 06/09/18 08/28/18 History Allergies Allergy/AdvReac Type Severity Reaction Status Date / Time No Known Allergies Allergy Verified 08/28/18 22:30 Physical Exam Vitals: Vital Signs Temp Pulse Pulse Resp BP BP Pulse Ox 08/29/18 08:00 94 18 08/29/18 07:15 97.5 F L 94 18 98/69 100 08/29/18 03:26 16 08/29/18 03:20 97.7 F 91 18 92/57 97 08/28/18 22:35 16 08/28/18 22:24 97.9 F 110 H 16 105/71 100 08/28/18 22:11 97.8 F 08/28/18 22:00 94/72 08/28/18 21:30 105 H 5 L 106/71 99 08/28/18 21:00 110 H 17 99/74 100 08/28/18 18:30 99 20 97/70 98 08/28/18 18:00 105 H 16 90/69 100 08/28/18 17:30 118 H 21 136/78 100 08/28/18 17:00 113 H 20 100 08/28/18 16:30 129 H 18 128/71 100 08/28/18 16:07 20 08/28/18 15:33 97.5 F L 133 H 18 115/73 100 Intake and Output 08/28/18 08/29/18 08/29/18 22:59 06:59 14:59 Other: Voiding Method Toilet Toilet Toilet # Voids 2 Weight 109.8 kg Head normocephalic Neck supple Lungs clear to auscultation bilaterally no wheezing or crackles Heart regular rate and rhythm S1-S2, no rub or gallop Abdomen is soft nontender nondistended positive bowel sounds no hepatosplenomegaly Extremities no edema Neuro alert and orientated to 3 Results CBC & Chem 7: 08/29/18 08:08 08/29/18 08:08 Labs: Abnormal Lab Results - Last 24 Hours (Table) 08/28/18 08/28/18 08/28/18 Range/Units 15:49 15:49 15:49 RBC 3.05 L (4.30-5.90) m/uL Hgb 7.5 L (13.0-17.5) gm/dL Hct 24.7 L (39.0-53.0) % MCH 24.7 L (25.0-35.0) pg MCHC 30.5 L (31.0-37.0) g/dL RDW 19.4 H (11.5-15.5) % Lymphocytes # (Manual) 0.82 L (1.0-4.8) k/uL PT 14.5 H (9.0-12.0) sec INR 1.6 H (<1.2) BUN 39 H (9-20) mg/dL Creatinine 1.64 H (0.66-1.25) mg/dL Glucose 101 H (74-99) mg/dL Total Bilirubin 2.1 H (0.2-1.3) mg/dL Alkaline Phosphatase 317 H (38-126) U/L 08/29/18 08/29/18 08/29/18 Range/Units 08:08 08:08 08:08 RBC 2.87 L (4.30-5.90) m/uL Hgb 7.1 L (13.0-17.5) gm/dL Hct 23.5 L (39.0-53.0) % MCH 24.7 L (25.0-35.0) pg MCHC 30.1 L (31.0-37.0) g/dL RDW 19.9 H (11.5-15.5) % Lymphocytes # (Manual) (1.0-4.8) k/uL PT 15.9 H (9.0-12.0) sec INR 1.7 H (<1.2) BUN 39 H (9-20) mg/dL Creatinine 1.63 H (0.66-1.25) mg/dL Glucose 106 H (74-99) mg/dL Total Bilirubin (0.2-1.3) mg/dL Alkaline Phosphatase (38-126) U/L Thrombosis Risk Factor Assmnt - Choose All That Apply Any of the Below Risk Factors Present?: Yes Each Factor Represents 1 point: Obesity (BMI >25), Swollen legs (current) Other Risk Factors: Yes Each Risk Factor Represents 2 Points: Age 61-74 years Other congenital or acquired thrombophilia - If yes, enter type in comment: No Thrombosis Risk Factor Assessment Total Risk Factor Score: 4 Thrombosis Risk Factor Assessment Level: Moderate Risk Assessment and Plan Assessment: 1. Anemia. Patient currently maintained on Xarelto for atrial fibrillation. Hemoglobin 7.1. Stool for occult blood ordered. Dr. wright consulted for hematology 2. Recent international travel with blood transfusions overseas. Patient recently and [facility] where he received 2 units of PRBCs 3. Elevated total bilirubin and alkaline phosphatase. Patient also reporting yellowing of eyes in a.m. total bilirubin 2.1 and alkaline 317. Abdominal ultrasound ordered. Hepatitis panel ordered. GI services consult 4. Acute on chronic kidney disease. Creatinine elevated at 1.63 and bun 39. This does appear higher than baseline for patient. Lasix 40 mg daily currently on hold 5. Atrial fibrillation. Patient currently maintained on Xarelto. 6. History of essential hypertension. Patient maintained on Lopressor and Cozaar 7. History of hypothyroidism. Patient maintained on Synthroid 8. Hyperlipidemia. Lipitor currently on hold due to elevated liver enzymes 9. History of prostate cancer 10. History of abdominal hernia with repair in December 2017 DVT prophylaxis Xarelto. GI prophylaxis Protonix Time with Patient: Greater than 30 (Greater than 60% of the total time spent in counseling and coordination of care. I performed an examination of the patient and discussed their management with the Nurse Practitioner. I have reviewed the Nurse Practitioner's notes and agree with the documented findings and plan of care)
[2018-08-29 11:48] LABS: Albumin 3.5 g/dL (3.5-5.0); Bilirubin, Delta 1.3 mg/dL (0.0-0.2); Bilirubin,Unconjugated 0.6 mg/dL (0.0-1.1); Total Bilirubin 1.9 mg/dL (0.2-1.3); Total Protein 6.7 g/dL (6.3-8.2)
--- NOTE | 2018-08-29 16:45 | US ---
EXAMINATION TYPE: US abdomen complete DATE OF EXAM: 08/29/2018 COMPARISON: NONE CLINICAL HISTORY: elevated liver enzymes. low hemoglobin EXAM MEASUREMENTS: Liver Length: 18.6 cm Gallbladder Wall: 0.5 cm CBD: 0.7 cm Spleen: 11.1 cm Right Kidney: 9.9 x 5.6 x 5.7 cm Left Kidney: 10.4 x 4.4 x 5.6 cm Pancreas: wnl Liver: There is a somewhat coarse appearance, nodular contour is present and I suspect the measureme nt obtained under represents the size. Gallbladder: multiple echogenic foci with thickened wall and there is ringdown artifact Evidence for sonographic Mathis's sign: no CBD: wnl Spleen: 1.8cm well circumscribed isoechoic area medially that may represent a splenule is present ad jacent to the spleen Right Kidney: wnl Left Kidney: wnl Upper IVC: wnl Abd Aorta: bowel gas obscures portions Kidneys show normal cortical medullary differentiation. There is no ascites. IMPRESSION: There may be underlying hepatocellular disease, cirrhosis. There may be underlying adenom yomatosis within the gallbladder, possible cholelithiasis
[2018-08-29] MEDS ORDERED: RIVAROXABAN 20 MG TAB PO SCH (17:30)
[2018-08-29 20:40] LABS: Hepatitis A Antibody IgM Non-Reactive (Non-Reactive); Hepatitis B Core IgM Non-Reactive (Non-Reactive)
[2018-08-30] MEDS: LEVOTHYROXINE 100 MCG TAB PO SCH (06:21)
[2018-08-30] MEDS ORDERED: PANTOPRAZOLE 40 MG TABLET PO SCH (07:30)
[2018-08-30 08:19] VITALS: RESP 16
[2018-08-30] MEDS: METOPROLOL TARTRATE 50 MG TAB PO SCH (09:14)
[2018-08-30] MEDS: CHOLECALCIFEROL 1,000 UNIT TAB PO SCH (09:14)
[2018-08-30 09:32] LABS: Albumin 3.7 g/dL (3.5-5.0); Anisocytosis Slight; Calcium 9.3 mg/dL (8.4-10.2); HCT 25.7 % (39.0-53.0); HGB 7.5 gm/dL (13.0-17.5); Hypochromasia Marked; MCH 24.1 pg (25.0-35.0); MCHC 29.1 g/dL (31.0-37.0); MCV 82.6 fL (80.0-100.0); Mean Platelet Volume 7.4; Microcytosis Slight; Platelet Count 241 k/uL (150-450); RBC 3.11 m/uL (4.30-5.90); RDW 19.3 % (11.5-15.5); Total Bilirubin 2.1 mg/dL (0.2-1.3); Total Protein 7.1 g/dL (6.3-8.2); WBC 4.9 k/uL (3.8-10.6)
[2018-08-30 09:54] LABS: Eosinophils # (M) 0.15 k/uL (0-0.7); Lymphocytes # (M) 0.88 k/uL (1.0-4.8); Monocytes # (M) 0.54 k/uL (0-1.0); Neutrophils # (M) 3.33 k/uL (1.3-7.7); Neutrophils % (M) 68 %; Nucleated Red Blood Cells 0 /100 WBC (0-0); Total Cells Counted 100
[2018-08-30 09:55] LABS: Poikilocytosis (M) Present
[2018-08-30 11:51] LABS: Reticulocyte % 3.2 % (0.5-2.0)
[2018-08-30 12:16] VITALS: BP 98/69; PULSE 89; TEMP 97.4
--- NOTE | 2018-08-30 13:00 | P.CONS ---
History of Present Illness - Reason for Consult Consult date: 08/30/18 Elevated liver enzymes Requesting physician: Misha Noonan - Chief Complaint Weakness - History of Present Illness The patient is a very pleasant 73-year-old male with a known medical history of atrial fibrillation on Xarelto, hyperlipidemia, hypertension and thyroid disorder who presented to the hospital with complaints of weakness. The patient has a recent history of bleeding from a varicose vein in his legs which required stitching and transfusion of blood. He traveled to his home in [facility] and continue to be symptomatic and required further transfusions of blood there. He reports that almost immediately after the transfusions he noticed jaundice. With significant yellowing of his skin and eyes. His urine. He denies any prior episodes of jaundice or liver dysfunction. The patient reports that he had serologic evaluation for viral hepatitis and Marquez which was negative. He also reports evaluation with an abdominal ultrasound which was also negative. He reports that the jaundice resolved within approximately one week time. He's had no further yellowing of the skin. He denies any history of illicit drug use, tobacco use, excessive alcohol use, recent antibiotics or changes in his medications and notes that all tattoos were done in the remote past. On admission the patient has has stable elevation in his liver enzymes and predominantly a cholestatic pattern, with a normal AST and ALTs, a total bilirubin of 2.1 and an alkaline phosphatase in the 300s on repeat labs. Ultrasound of the liver was very nonspecific regarding possible hepatocellular disease, and possible choledocholithiasis. The patient reports he is in a monogamous sexual relationship. Review of Systems On physical examination, patient appears comfortable in no apparent distress. HEAD: Normocephalic, atraumatic. EYES: No scleral icterus. No conjunctival injection. MOUTH: No lesions, tongue midline. NECK: Trachea midline, no gross abnormalities. CHEST: Clear to auscultation with no wheezing or rhonchi appreciated. HEART: Irregularly irregular. ABDOMEN: Soft, obese. Bowel sounds are positive. No organomegaly. No guarding or rigidity. EXTREMITIES: Bilateral pedal edema. SKIN: No rashes, no jaundice, he reports that previously noted jaundice resolved in approximately 7 days. NEUROLOGIC: Alert and oriented x3. No focal deficits. Past Medical History Past Medical History: Atrial Fibrillation, Blood Disorder, Cancer, Hyperlipidemia, Hypertension, Thyroid Disorder Additional Past Medical History / Comment(s): abdominal hernia with repain in 2017 ,prostate [id number] radiation/chemo. Anemia with blood transfusion d/ t ruptured varicose vein on left leg. History of Any Multi-Drug Resistant Organisms: None Reported Past Surgical History: Adenoidectomy, Appendectomy, Hernia Repair, Prostate Surgery, Tonsillectomy Additional Past Surgical History / Comment(s): prostatectomy,hinge applied sternum post traumatic accident. Sutured varicose vein left leg. Past Anesthesia/Blood Transfusion Reactions: No Reported Reaction Additional Past Anesthesia/Blood Transfusion Reaction / Comm: claustrophobic Smoking Status: Never smoker - Past Family History Father Family Medical History: Cancer Additional Family Medical History / Comment(s): prostate Mother Additional Family Medical History / Comment(s): CABG-rheumatic fever Medications and Allergies Home Medications Medication Instructions Recorded Confirmed Type Atorvastatin [Lipitor] 20 mg PO DAILY 10/19/17 08/28/18 History Levothyroxine Sodium [Synthroid] 200 mcg PO DAILY 10/19/17 08/28/18 History Potassium Chloride ER [K-Dur 10] 10 meq PO DAILY 10/19/17 08/28/18 History Rivaroxaban [Xarelto] 20 mg PO AC-SUPPER 10/19/17 08/28/18 History Ubidecarenone [Co Q-10] 250 mg PO BID 10/19/17 08/28/18 History Losartan [Cozaar] 25 mg PO HS tab 10/22/17 08/28/18 Rx Metoprolol Tartrate [Lopressor] 50 mg PO BID tab 10/22/17 08/28/18 Rx Cholecalciferol [Vitamin D3] 1,000 unit PO DAILY 12/13/17 08/28/18 History Cyanocobalamin (Vitamin B-12) 1,000 mcg PO DAILY 12/13/17 08/28/18 History [Vitamin B-12] Furosemide [Lasix] 40 mg PO DAILY 06/09/18 08/28/18 History Allergies Allergy/AdvReac Type Severity Reaction Status Date / Time No Known Allergies Allergy Verified 08/28/18 22:30 Physical Exam Vitals: Vital Signs Temp Pulse Resp BP Pulse Ox 08/30/18 12:15 97.4 F L 89 98/69 93 L 08/30/18 08:00 97.9 F 94 16 105/74 100 08/30/18 03:57 97.5 F L 96 18 102/69 98 08/30/18 03:33 16 08/30/18 00:00 16 08/29/18 23:52 97.5 F L 85 16 89/59 99 08/29/18 20:00 16 08/29/18 19:52 97.4 F L 114 H 16 112/60 99 08/29/18 16:00 98 18 08/29/18 15:40 97.5 F L 98 18 97/65 100 Intake and Output 08/29/18 08/30/18 08/30/18 22:59 06:59 14:59 Intake Total 300 Balance 300 Intake: Oral 300 Other: Voiding Method Toilet Toilet # Voids 2 2 Results CBC & Chem 7: 08/30/18 08:49 08/30/18 08:49 Labs: Abnormal Lab Results - Last 24 Hours (Table) 08/30/18 08/30/18 08/30/18 Range/Units 08:49 08:49 08:49 RBC 3.11 L (4.30-5.90) m/uL Hgb 7.5 L (13.0-17.5) gm/dL Hct 25.7 L (39.0-53.0) % MCH 24.1 L (25.0-35.0) pg MCHC 29.1 L (31.0-37.0) g/dL RDW 19.3 H (11.5-15.5) % Lymphocytes # (Manual) 0.88 L (1.0-4.8) k/uL Retic Count 3.2 H (0.5-2.0) % BUN 41 H (9-20) mg/dL Creatinine 1.58 H (0.66-1.25) mg/dL Glucose 100 H (74-99) mg/dL Total Bilirubin 2.1 H (0.2-1.3) mg/dL Alkaline Phosphatase 373 H (38-126) U/L Lactate Dehydrogenase (313-618) U/L 08/30/18 Range/Units 08:49 RBC (4.30-5.90) m/uL Hgb (13.0-17.5) gm/dL Hct (39.0-53.0) % MCH (25.0-35.0) pg MCHC (31.0-37.0) g/dL RDW (11.5-15.5) % Lymphocytes # (Manual) (1.0-4.8) k/uL Retic Count (0.5-2.0) % BUN (9-20) mg/dL Creatinine (0.66-1.25) mg/dL Glucose (74-99) mg/dL Total Bilirubin (0.2-1.3) mg/dL Alkaline Phosphatase (38-126) U/L Lactate Dehydrogenase 643 H (313-618) U/L US - abdomen: report reviewed (Ultrasound showing possible hepatocellular disease and possible cholelithiasis) Assessment and Plan (1) Elevated liver enzymes Narrative/Plan: Nonspecific elevation of the patient's liver enzymes and predominantly a cholestatic pattern with the patient reporting a prior episode of jaundice. Etiology is unclear, but the liver enzymes remain stable with no elevation in the AST or ALT. Differential diagnosis includes viral etiology, with hepatitis A/B/C testing all negative other viruses including herpes simplex virus, EBV and CMV are all known to cause elevation in liver enzymes. Differential also includes medication effect, although the patient reports medications of been stable denies any recent antibiotics, with consideration for full serology as well as testing for sexually transmitted diseases if liver enzymes remain persistently elevated. Current Visit: Yes Status: Acute Code(s): R74.8 - ABNORMAL LEVELS OF OTHER SERUM ENZYMES SNOMED Code(s): 593910211 Plan: Supportive care Okay for diet Okay for discharge with follow-up in 1-2 weeks for repeat liver enzymes testing His liver enzymes remain elevated consideration is for a full serology and possible evaluation with liver fibrosis testing Patient is okay for discharge from a gastroenterology standpoint Thank you for allowing us to participate in the care of this patient we will continue to follow
--- NOTE | 2018-08-30 15:04 | P.DS ---
Providers Date of admission: 08/28/18 18:36 Expected date of discharge: 08/30/18 Attending physician: Misha Noonan Consults: 08/29/18 10:58 Consult Physician Routine Consulting Provider: Ismael Wright Consult Reason/Comments: reoccuring anemia Do you want consulting provider notified?: Yes 08/29/18 10:59 Consult Physician Routine Consulting Provider: Gifty Rodríguez Consult Reason/Comments: elevated liver enzymes. recent international travel Do you want consulting provider notified?: Yes Primary care physician: Misha Noonan [facility] Course: Discharge diagnosis 1. Anemia. Patient currently maintained on Xarelto for atrial fibrillation. Hemoglobin 7.1. Stool for occult blood ordered. Hemoglobin improving 7.5. Discussed case with Dr. Wright per oncology services. Okay to discharge patient at this time with hemoglobin of 7.5. Iron studies have been ordered prior to discharge. patient to follow-up closely with oncology services and may require outpatient IV iron infusions 2. Recent international travel with blood transfusions overseas. Patient recently and [facility] where he received 2 units of PRBCs 3. Elevated total bilirubin and alkaline phosphatase. Patient also reporting yellowing of eyes in a.m. total bilirubin 2.1 and alkaline 317. Hepatitis negative. Abdominal ultrasound completed showing underlying hepatocellular disease, cirrhosis there may be underlining adeno may notice within the gallbladder possible cholecystolithiasis. Patient has been cleared for discharge from GI standpoint. Will repeat CMP in 1 week. Patient may require possible evaluation with liver fibrosis testing. 4. Acute on chronic kidney disease. Creatinine elevated at 1.63 and bun 39. This does appear higher than baseline for patient. Cozaar will be discontinued. Repeat Lasix resumed 5. Atrial fibrillation. Patient currently maintained on Xarelto. 6. History of essential hypertension. Patient maintained on Lopressor 7. History of hypothyroidism. Patient maintained on Synthroid 8. Hyperlipidemia. Lipitor currently on hold due to elevated liver enzymes. Lipitor DC'd 9. History of prostate cancer 10. Abdominal ultrasound showing underlining adenomyomatosiss within the gallbladder, possible cholelithiasis. Patient to follow up outpatient with Dr. ocampo for surgical evaluation. Hospital Course This is a 73-year-old male patient who presented to the emergency room for low hemoglobin. Patient states he presented to his primary care provider and he was told his hemoglobin was 6.2. Patient has known past medical history of atrial fibrillation in which hes has been on Xeralto for 3 years. Patient states that in May of this year he had a varicose vein that bled profusely which led him to come to the emergency room and receive stitches. After that patient was seen by primary care provider with complaints of weakness and was found to have a a low hemoglobin. Patient at that time received 2 units of PRBCs. Patient then traveled to [facility]. During his time over sees patient states he became weak and received 2 additional units of PRBC in [facility]. Additional medical history includes atrial fibrillation, prostate, cancer, hyperlipidemia, hypertension and thyroid disorder. Patient also reports that over the past few weeks he's noticed yellowing in his eyes in a.m. that seem to subside throughout the day. Chest x-ray completed in emergency room showing no acute cardiopulmonary process. EKG completed showing atrial fibrillation with rapid ventricular response. Heart rate 117. At this time will order abdominal ultrasound and hepatitis panel. Patient denies any signs of bleeding in stool or urine. Hemoglobin 7.1. Total bili elevated at 2.1 alkaline phosphatase 317. GI services have been consulted. Dr. Wright also consulted for hematology. At this time patient denies chest pain or shortness breath. Patient denies nausea vomiting or diarrhea. Patient denies any urinary burning or frequency. On 08/30/2018 patient is alert and oriented 3. Patient is very eager to go home. Discussed case with Dr. Rizzo cardiology services. Patient has been cleared for discharge patient to follow-up outpatient for possible iron transfusions. Iron studies to be completed prior to discharge. GI services also cleared patient for discharge. We'll repeat CBC and CMP outpatient to monitor liver enzymes and hemoglobin. Patient follow-up with GI services outpatient. At this time patient denies chest pain or shortness breath. Patient denies nausea vomiting or diarrhea. Patient denies any urinary burning or frequency. I performed an examination of the patient and discussed their management with the Nurse Practitioner. I have reviewed the Nurse Practitioner's notes and agree with the documented findings and plan of care Patient Condition at Discharge: Stable Plan - Discharge Summary Discharge Rx Participant: No New Discharge Prescriptions: Continue Rivaroxaban [Xarelto] 20 mg PO AC-SUPPER Ubidecarenone [Co Q-10] 250 mg PO BID Levothyroxine Sodium [Synthroid] 200 mcg PO DAILY Metoprolol Tartrate [Lopressor] 50 mg PO BID tab Cholecalciferol [Vitamin D3] 1,000 unit PO DAILY Cyanocobalamin (Vitamin B-12) [Vitamin B-12] 1,000 mcg PO DAILY Furosemide [Lasix] 40 mg PO DAILY Discontinued Potassium Chloride ER [K-Dur 10] 10 meq PO DAILY Atorvastatin [Lipitor] 20 mg PO DAILY Losartan [Cozaar] 25 mg PO HS tab Discharge Medication List Levothyroxine Sodium [Synthroid] 200 mcg PO DAILY 10/19/17 [History] Rivaroxaban [Xarelto] 20 mg PO AC-SUPPER 10/19/17 [History] Ubidecarenone [Co Q-10] 250 mg PO BID 10/19/17 [History] Metoprolol Tartrate [Lopressor] 50 mg PO BID tab 10/22/17 [Rx] Cholecalciferol [Vitamin D3] 1,000 unit PO DAILY 12/13/17 [History] Cyanocobalamin (Vitamin B-12) [Vitamin B-12] 1,000 mcg PO DAILY 12/13/17 [ History] Furosemide [Lasix] 40 mg PO DAILY 06/09/18 [History] Follow up Appointment(s)/Referral(s): Misha Noonan MD [Primary Care Provider] - 1-2 days Ismael Wright MD [STAFF PHYSICIAN] - 1 Week Dave Blunt MD [STAFF PHYSICIAN] - 1 Week Ambulatory/Diagnostic Orders: Complete Blood Count w/diff [LAB.AMB] Time Frame: 1 Week, Location: None Selected Comprehensive Metabolic Panel [LAB.AMB] Time Frame: 1 Week, Location: None Selected Activity/Diet/Wound Care/Special Instructions: Diet heart healthy Activity as tolerated Discharge Disposition: HOME SELF-CARE
--- NOTE | 2018-08-30 17:45 | P.CONS ---
History of Present Illness - Reason for Consult Consult date: 08/30/18 anemia - History of Present Illness The patient is a 73-year-old white male with overall well-controlled medical problems. He has been on xarelto for more than 3 years for atrial fibrillation. The patient had presented in 05/27 with hemoglobin of 6.2. This was found, after he came to the emergency room due to bleeding from a varicose vein that he had cut accidentally. He did receive 2 units of blood at the time. He had a GI workup in 12/25 that was negative other than one to 2 small polyps. The patient was in [facility], a few weeks ago and went in progressive weakness and shortness of breath on exertion or a few weeks. He was again found with hemoglobin in the 6 range and received 2 units of blood. He states that he was placed on oral iron but stopped taking it due to severe constipation. He continued to feel easily fatigued and went to his PCP's office where CBC revealed a hemoglobin in the 6 range. He was therefore sent in to the emergency room. However repeat hemoglobin here has been in the 7 range. He denies any obvious bleeding. Consult was placed for further evaluation and recommendations. No family history of any blood related problems. Review of Systems Constitutional: Reports weakness Eyes: denies blurred vision, denies pain Ears: deny: decreased hearing, ear discharge, earache, tinnitus Ears, nose, mouth and throat: Denies headache, Denies sore throat Cardiovascular: Reports dyspnea on exertion Respiratory: Reports dyspnea Gastrointestinal: Denies abdominal pain, Denies diarrhea, Denies nausea, Denies vomiting Genitourinary: Reports as per HPI Musculoskeletal: Denies myalgias Integumentary: Reports wounds (Bleeding due to laceration involving lower extremity varicose veins in 05/27. No recurrence) Neurological: Reports weakness, Denies numbness Psychiatric: Denies anxiety, Denies depression Endocrine: Denies fatigue, Denies weight change Hematologic/Lymphatic: Reports as per HPI Past Medical History Past Medical History: Atrial Fibrillation, Blood Disorder, Cancer, Hyperlipidemia, Hypertension, Thyroid Disorder Additional Past Medical History / Comment(s): abdominal hernia with repain in 2017 ,prostate [id number] radiation/chemo. Anemia with blood transfusion d/ t ruptured varicose vein on left leg. History of Any Multi-Drug Resistant Organisms: None Reported Past Surgical History: Adenoidectomy, Appendectomy, Hernia Repair, Prostate Surgery, Tonsillectomy Additional Past Surgical History / Comment(s): prostatectomy,hinge applied sternum post traumatic accident. Sutured varicose vein left leg. Past Anesthesia/Blood Transfusion Reactions: No Reported Reaction Additional Past Anesthesia/Blood Transfusion Reaction / Comm: claustrophobic Smoking Status: Never smoker - Past Family History Father Family Medical History: Cancer Additional Family Medical History / Comment(s): prostate Mother Additional Family Medical History / Comment(s): CABG-rheumatic fever Medications and Allergies Home Medications Medication Instructions Recorded Confirmed Type Levothyroxine Sodium [Synthroid] 200 mcg PO DAILY 10/19/17 08/28/18 History Rivaroxaban [Xarelto] 20 mg PO AC-SUPPER 10/19/17 08/28/18 History Ubidecarenone [Co Q-10] 250 mg PO BID 10/19/17 08/28/18 History Metoprolol Tartrate [Lopressor] 50 mg PO BID tab 10/22/17 08/28/18 Rx Cholecalciferol [Vitamin D3] 1,000 unit PO DAILY 12/13/17 08/28/18 History Cyanocobalamin (Vitamin B-12) 1,000 mcg PO DAILY 12/13/17 08/28/18 History [Vitamin B-12] Furosemide [Lasix] 40 mg PO DAILY 06/09/18 08/28/18 History Allergies Allergy/AdvReac Type Severity Reaction Status Date / Time No Known Allergies Allergy Verified 08/28/18 22:30 Physical Exam Vitals: Vital Signs Temp Pulse Resp BP Pulse Ox 08/30/18 12:15 97.4 F L 89 98/69 93 L 08/30/18 08:00 97.9 F 94 16 105/74 100 08/30/18 03:57 97.5 F L 96 18 102/69 98 08/30/18 03:33 16 08/30/18 00:00 16 08/29/18 23:52 97.5 F L 85 16 89/59 99 08/29/18 20:00 16 08/29/18 19:52 97.4 F L 114 H 16 112/60 99 08/29/18 16:00 98 18 08/29/18 15:40 97.5 F L 98 18 97/65 100 Intake and Output 08/30/18 08/30/18 08/30/18 06:59 14:59 22:59 Intake Total 118 Balance 118 Intake: Oral 118 Other: Voiding Method Toilet # Voids 2 1 - Constitutional General appearance: no acute distress - EENT Eyes: EOMI, PERRLA ENT: hearing grossly normal, normal oropharynx - Neck Neck: no lymphadenopathy Thyroid: bilateral: normal size - Respiratory Respiratory: bilateral: CTA - Cardiovascular Rhythm: regular Heart sounds: normal: S1, S2 - Gastrointestinal General gastrointestinal: normal bowel sounds, soft - Integumentary Integumentary: normal - Neurologic Neurologic: CNII-XII intact - Musculoskeletal Musculoskeletal: generalized weakness, strength equal bilaterally - Psychiatric Psychiatric: A&O x's 3, appropriate affect Results CBC & Chem 7: 08/30/18 08:49 08/30/18 08:49 Labs: Abnormal Lab Results - Last 24 Hours (Table) 08/30/18 08/30/18 08/30/18 Range/Units 08:49 08:49 08:49 RBC 3.11 L (4.30-5.90) m/uL Hgb 7.5 L (13.0-17.5) gm/dL Hct 25.7 L (39.0-53.0) % MCH 24.1 L (25.0-35.0) pg MCHC 29.1 L (31.0-37.0) g/dL RDW 19.3 H (11.5-15.5) % Lymphocytes # (Manual) 0.88 L (1.0-4.8) k/uL Retic Count 3.2 H (0.5-2.0) % BUN 41 H (9-20) mg/dL Creatinine 1.58 H (0.66-1.25) mg/dL Glucose 100 H (74-99) mg/dL Total Bilirubin 2.1 H (0.2-1.3) mg/dL Alkaline Phosphatase 373 H (38-126) U/L Lactate Dehydrogenase (313-618) U/L 08/30/18 Range/Units 08:49 RBC (4.30-5.90) m/uL Hgb (13.0-17.5) gm/dL Hct (39.0-53.0) % MCH (25.0-35.0) pg MCHC (31.0-37.0) g/dL RDW (11.5-15.5) % Lymphocytes # (Manual) (1.0-4.8) k/uL Retic Count (0.5-2.0) % BUN (9-20) mg/dL Creatinine (0.66-1.25) mg/dL Glucose (74-99) mg/dL Total Bilirubin (0.2-1.3) mg/dL Alkaline Phosphatase (38-126) U/L Lactate Dehydrogenase 643 H (313-618) U/L Chest x-ray: report reviewed US - abdomen: report reviewed Assessment and Plan (1) Anemia Narrative/Plan: At this time anemia due to chronic blood loss is most likely. The patient has been on Xarelto for 3 years for atrial fibrillation. Doppler ultrasound revealed possible hepatocellular disease, that is a risk factor for small bowel arteriovenous malformations. - The patient's colonoscopy report and pathology were reviewed. He stated that he had an EGD also at that time, but I did not see any record of that in the EMR. - The patient's peripheral smear does show microcytosis, spherocytosis, target cells. However these findings can occur due to recent blood transfusion and breakdown of transfused cells. - The liver check iron studies. I will also check hemolysis labs. Repeat hemoglobin during this admission was in the 7 range and has remained stable. Case was discussed in detail with the admitting service. With hemoglobin greater than 7, and the patient being relatively symptomatic, blood transfusion is not required currently. He can be discharged from our standpoint. If iron studies are appropriate, he'll receive IV iron as an outpatient, and will be set up for outpatient follow-up and monitoring. - As stopping Xarelto could expose him to increased risk of thromboembolism, and thus it would be reasonable to continue along with close monitoring and aggressive iron supplementation (likely from the IV, given his intolerance of oral iron). If we're able to maintain his hemoglobin with aggressive iron supplementation, then he can continue on Xarelto Status: Acute Code(s): D64.9 - ANEMIA, UNSPECIFIED SNOMED Code(s): 849165786 Plan: Defer to the admitting service for management of his other medical problems
[2018-08-30 20:14] LABS: Iron Saturation 3.96 (15.00-50.00)
[2018-09-01 12:15] LABS: Haptoglobin 87.7 mg/dL (31.2-198.0)
== END 2018-08-30 16:54 | disposition home or self-care (01) ==
LOC: EC 15:32 → 1SOBS 18:36
PROVIDERS: ADMIT Internal Medicine; ATTEND Internal Medicine
DX: D64.9 Anemia, unspecified (principal); I48.91 Unspecified atrial fibrillation; Z79.01 Long term (current) use of anticoagulants; I12.9 Hypertensive chronic kidney disease with stage 1 through stage 4 chronic kidney disease, or unspecified chronic kidney disease; E80.7 Disorder of bilirubin metabolism, unspecified; N18.9 Chronic kidney disease, unspecified; K76.9 Liver disease, unspecified; E03.9 Hypothyroidism, unspecified; E78.5 Hyperlipidemia, unspecified; R74.8 Abnormal levels of other serum enzymes; I83.90 Asymptomatic varicose veins of unspecified lower extremity; D50.0 Iron deficiency anemia secondary to blood loss (chronic); Z85.46 Personal history of malignant neoplasm of prostate; Z79.899 Other long term (current) drug therapy; Z79.890 Hormone replacement therapy; E66.9 Obesity, unspecified; M79.89 Other specified soft tissue disorders; Z68.31 Body mass index [BMI] 31.0-31.9, adult; Z82.49 Family history of ischemic heart disease and other diseases of the circulatory system; D58.0 Hereditary spherocytosis
CPT/HCPCS: 99284; 36415; 93005; 86900; 86901; 80053 ×2; 80048; 80076; 80074; 82728; 82550; 82553; 83540; 83550; 83615; 83735; 84484; 85025 ×2; 85027; 85610 ×2; 85045; 85730; 86850 ×2; 86870; 86880 ×2; 86860; 86885; 83010; 71046; 76700; G0378 ×3

== ENCOUNTER 2018-09-28 09:12 | Day surgery (SDC) | payer MEDICARE, BC ==
[2018-09-28 09:51] VITALS: TEMP 98.4
[2018-09-28] MEDS ORDERED: LACTATED RINGERS 1,000 ML IV ONE (09:55)
[2018-09-28] MEDS ORDERED: PROPOFOL 10 MG/ML 20 ML VIAL IV ONE (10:44)
[2018-09-28] MEDS ORDERED: LIDOCAINE 1% INJ 10MG/ML (20 ML MDV) ONE (10:44)
[2018-09-28 11:36] VITALS: BP 114/75; PULSE 103; RESP 18
--- NOTE | 2018-09-28 12:00 | P.PCN ---
Date of Procedure: 09/28/18 Description of Procedure: BRIEF HISTORY: Patient is a 73-year-old, pleasant, patient with a known history of atrial fibrillation, hyperlipidemia, hypertension and thyroid disorder who was seen in the clinic after recent hospitalization for elevation in his liver enzymes. During discussion with the patient he noted a long-standing history of anemia for which she has been was receiving treatment with iron infusions. Initially the patient thought that the anemia was secondary to a lower extremity bleed however has remained persistent. He does have a colonoscopy which was performed in 12/2017 significant for a tubular adenoma in the sigmoid colon and is up-to-date. He has no prior history of EGD. PROCEDURE PERFORMED: Esophagogastroduodenoscopy with biopsy. PREOPERATIVE DIAGNOSIS: Iron deficiency anemia. ESTIMATED BLOOD LOSS: Minimal. IV sedation per anesthesia. PROCEDURE: After informed consent was obtained, the patient was brought into the endoscopy unit. IV sedation was administered by Anesthesia under continuous monitoring. Initially the Olympus GIF-190 video endoscope was inserted into the mouth. Esophagus intubated without any difficulty. It was gradually advanced into the stomach and duodenum and carefully examined. The bulb and the second part of the duodenum appeared normal, with biopsies taken given history of anemia. The scope at this time was withdrawn to the stomach, adequately insufflated with air, and upon careful examination, mucosa of the antrum, body, cardia and the fundus appeared normal. Moderate scattered erythema in the antrum of the stomach was noted and biopsied. No active evidence of GI bleeding. A small polyp was noted in the body of the stomach and was removed with cold forcep polypectomy. The scope was then withdrawn into the esophagus. The GE junction was located at 39 cm from the incisors. The esophagus appeared normal. There were no erosions or ulcerations seen and the patient tolerated the procedure well. IMPRESSION: 1. Duodenal biopsies. 2. Moderate antral gastritis, biopsied. 3. Gastric polyp, biopsied. RECOMMENDATIONS: The findings of this examination were discussed with the patient. Continue to monitor hemoglobin. Continue iron therapy. Await pathology from biopsies. We' ll initiate daily PPI therapy. If the patient remains anemic would recommend capsule endoscopy.
== END 2018-09-28 12:13 | disposition home or self-care (01) ==
LOC: ORWHC2ENDO 09:12
PROVIDERS: ATTEND Internal Medicine
DX: K29.50 Unspecified chronic gastritis without bleeding (principal); K22.10 Ulcer of esophagus without bleeding; K31.7 Polyp of stomach and duodenum; Z80.42 Family history of malignant neoplasm of prostate; D50.9 Iron deficiency anemia, unspecified; I48.91 Unspecified atrial fibrillation; E78.5 Hyperlipidemia, unspecified; I10 Essential (primary) hypertension; E07.9 Disorder of thyroid, unspecified; Z85.46 Personal history of malignant neoplasm of prostate; Z90.79 Acquired absence of other genital organ(s); Z79.01 Long term (current) use of anticoagulants; Z79.890 Hormone replacement therapy; Z79.899 Other long term (current) drug therapy
CPT/HCPCS: 88305; 43239; J2001; J2704

== ENCOUNTER → 2018-10-12 | Outpatient (CLI) | payer MEDICARE, BC ==
--- NOTE | 2018-10-15 17:30 | MR ---
EXAMINATION TYPE: MR abdomen wo/w con DATE OF EXAM: 10/12/2018 COMPARISON: 08/29/2018 HISTORY: 73-year-old male abnormal levels of serum enzymes Technique: Multiplanar, multisequence images of the abdomen were obtained before and after administra tion of 12 mL intravenous Gadavist gadolinium contrast. FINDINGS: Heart upper limits of normal in size. Mild diffuse anasarca type changes noted. No pleural effusion. Tiny hiatal hernia. Liver is mildly enlarged at 19.1 cm and shows a 1.1 cm cyst along gallbladder fossa. There is no sig nificant loss of signal on T1 out of phase sequence to suggest fatty infiltration. No discrete enhanc ing liver lesion seen. There is distention of the IVC suggesting fluid overload state. The numerous abnormal echogenic foci seen within the gallbladder on the patient's 08/29/2018 ultrasou nd shows no corresponding abnormality on MRI. No abnormal gallbladder distention. No biliary ductal dilatation. Portal venous system is patent. There appears to be a replaced left hepatic artery from the left gastric artery. There is interposition of the hepatic flexure of the colon between the right hemidiaphragm and hepati c dome. Small 8 mm T2 hyperintensity within the lower pole right kidney, likely cyst. Larger exophytic 1.9 cm cortical cyst from the lower pole of the left kidney. Spleen is normal size with a small inferior splenule. Adrenal glands appear satisfactory. Nodular appearing area of tissue along the pancreatic tail measuring 1.6 cm shows relatively similar enhancement as the remainder of the pancreas. Otherwise, the pancreas appears within normal limits. Some borderline-sized upper abdominal lymph nodes measure up to 8 mm in the lore hepatis and 6 mm in the gastrohepatic ligament region. Some additional mildly enlarged mesenteric lymph nodes measure up to 1.1 cm, coronal postcontrast image 35. No upper abdominal ascites or gross bowel abnormality seen. IMPRESSION: 1. Mild hepatomegaly (19.1 cm). No suspicious hepatic lesion. No MRI evidence for significant fatty i nfiltration. Further clinical correlation recommended if concern for underlying nonspecific hepatocel lular disease. 2. There is distention of the IVC and mild diffuse anasarca type change suggesting fluid overload sta te. Clinically correlate. 3. Some nonspecific borderline in mildly enlarged upper abdominal lymph nodes measuring up to 1.1 cm in the mesentery. Findings likely reactive/post inflammatory. 4. 1.6 cm nodular configuration of tissue at the pancreatic tail could represent normal variation in pancreatic parenchyma. Overall enhancement of this region measures that of the pancreas. 3 month foll ow-up CT recommended as a precautionary measure to ensure stability and exclude the less likely possi bility of a small early pancreatic mass.
== END | disposition home or self-care (01) ==
LOC: RADMRIMAIN 14:37
PROVIDERS: ATTEND Internal Medicine
DX: R16.0 Hepatomegaly, not elsewhere classified (principal); R60.1 Generalized edema; R59.0 Localized enlarged lymph nodes
CPT/HCPCS: 82565; 74183; 36415; A9585

== ENCOUNTER 2018-10-13 14:32 | Inpatient (IN) | payer MEDICARE, BC ==
--- NOTE | 2018-10-13 15:04 | ED ---
Recheck HPI - General Chief Complaint: Recheck/Abnormal Lab/Rx Stated Complaint: low hemoglobin, trouble walking and breathing Time Seen by Provider: 10/13/18 14:46 Source: patient, RN notes reviewed Mode of arrival: wheelchair Limitations: no limitations - History of Present Illness Initial Comments: This is a 73-year-old male who presents with complaints of shortness of breath increased weakness. He has a history of anemia he's had a total 6 blood transfusions since May of this past year 2 of them were in [place]. He states he has a lot of antibodies and blood he has had no bleeding he is on Xarelto for A. fib. He had an MRI done yesterday is receiving an ultrasound done. He does not know the results. A chest pain he does have exertional dyspnea and weakness as stated. Fevers chills or sweats no nausea vomiting. No blood per rectum - Related Data Home Medications Medication Instructions Recorded Confirmed Rivaroxaban [Xarelto] 20 mg PO AC-SUPPER 10/19/17 10/13/18 Ubidecarenone [Co Q-10] 100 mg PO BID 10/19/17 10/13/18 Cholecalciferol [Vitamin D3] 1,000 unit PO DAILY 12/13/17 10/13/18 Cyanocobalamin (Vitamin B-12) 1,000 mcg PO DAILY 12/13/17 10/13/18 [Vitamin B-12] Furosemide [Lasix] 40 mg PO DAILY@0530 06/09/18 10/13/18 Levothyroxine Sodium [Synthroid] 200 mcg PO DAILY@0530 10/13/18 10/13/18 Previous Rx's Medication Instructions Recorded Metoprolol Tartrate [Lopressor] 50 mg PO BID tab 10/22/17 Allergies Allergy/AdvReac Type Severity Reaction Status Date / Time No Known Allergies Allergy Verified 10/13/18 16:16 Review of Systems ROS Statement: Those systems with pertinent positive or pertinent negative responses have been documented in the HPI. ROS Other: All systems not noted in ROS Statement are negative. Past Medical History Past Medical History: Atrial Fibrillation, Blood Disorder, Cancer, Hyperlipidemia, Hypertension, Thyroid Disorder Additional Past Medical History / Comment(s): abdominal hernia,prostate cancer- 2011-no radiation/chemo. Anemia with blood transfusion d/t ruptured varicose vein on left leg. History of Any Multi-Drug Resistant Organisms: None Reported Past Surgical History: Adenoidectomy, Hernia Repair, Prostate Surgery, Tonsillectomy Additional Past Surgical History / Comment(s): prostatectomy,hinge applied sternum post traumatic accident. Sutured varicose vein left leg. Past Anesthesia/Blood Transfusion Reactions: No Reported Reaction Additional Past Anesthesia/Blood Transfusion Reaction / Comment(s): claustrophobic Past Psychological History: No Psychological Hx Reported Smoking Status: Never smoker Past Alcohol Use History: None Reported Past Drug Use History: None Reported - Past Family History Father Family Medical History: Cancer Additional Family Medical History / Comment(s): prostate Mother Additional Family Medical History / Comment(s): CABG-rheumatic fever General Exam - General Exam Comments Initial Comments: This is a well-developed well-nourished awake alert pale appearing male Limitations: no limitations General appearance: alert, in no apparent distress Head exam: Present: atraumatic, normocephalic, normal inspection Eye exam: Present: normal appearance, PERRL, EOMI. Absent: scleral icterus, conjunctival injection, periorbital swelling ENT exam: Present: normal exam, mucous membranes moist Neck exam: Present: normal inspection. Absent: tenderness, meningismus, lymphadenopathy Respiratory exam: Present: normal lung sounds bilaterally. Absent: respiratory distress, wheezes, rales, rhonchi, stridor Cardiovascular Exam: Present: tachycardia, irregular rhythm, normal heart sounds. Absent: systolic murmur, diastolic murmur, rubs, gallop, clicks GI/Abdominal exam: Present: soft, normal bowel sounds. Absent: distended, tenderness, guarding, rebound, rigid Rectal exam: Present: deferred Extremities exam: Present: normal inspection, full ROM, normal capillary refill. Absent: tenderness, pedal edema, joint swelling, calf tenderness Back exam: Present: normal inspection Neurological exam: Present: alert, oriented X3, CN II-XII intact Psychiatric exam: Present: normal affect, normal mood Skin exam: Present: warm, dry, intact, pallor. Absent: rash Course Vital Signs 10/13/18 10/13/18 14:37 15:12 Temperature 97.8 F Pulse Rate 105 H Respiratory 20 20 Rate Blood Pressure 123/77 O2 Sat by Pulse 100 Oximetry Medical Decision Making - Medical Decision Making I did discuss [employer] the patient family members and with Dr. Noonan. Patient be admitted with consultation by Dr. Wright and KIMMY. - Lab Data Result diagrams: 10/13/18 15:00 10/13/18 15:00 Lab Results 10/13/18 10/13/18 10/13/18 Range/Units 15:00 15:00 15:00 WBC 5.6 (3.8-10.6) k/uL RBC 2.93 L (4.30-5.90) m/uL Hgb 7.2 L (13.0-17.5) gm/dL Hct 25.4 L (39.0-53.0) % MCV 86.6 (80.0-100.0) fL MCH 24.5 L (25.0-35.0) pg MCHC 28.2 L (31.0-37.0) g/dL RDW 23.9 H (11.5-15.5) % Plt Count 279 (150-450) k/uL Neutrophils % 69 % Lymphocytes % 12 % Monocytes % 8 % Eosinophils % 7 % Basophils % 1 % Neutrophils # 3.8 (1.3-7.7) k/uL Lymphocytes # 0.7 L (1.0-4.8) k/uL Monocytes # 0.5 (0-1.0) k/uL Eosinophils # 0.4 (0-0.7) k/uL Basophils # 0.1 (0-0.2) k/uL Polychromasia Present Hypochromasia Marked Poikilocytosis Slight Anisocytosis Moderate Microcytosis Slight Macrocytosis Slight Ovalocytes Present PT (9.0-12.0) sec INR (<1.2) APTT (22.0-30.0) sec Sodium 137 (137-145) mmol/L Potassium 3.9 (3.5-5.1) mmol/L Chloride 98 (98-107) mmol/L Carbon Dioxide 30 (22-30) mmol/L Anion Gap 9 mmol/L BUN 37 H (9-20) mg/dL Creatinine 1.46 H (0.66-1.25) mg/dL Est GFR (CKD-EPI)AfAm 55 (>60 ml/min/1.73 sqM) Est GFR (CKD-EPI)NonAf 48 (>60 ml/min/1.73 sqM) Glucose 113 H (74-99) mg/dL Calcium 8.9 (8.4-10.2) mg/dL Magnesium 2.1 (1.6-2.3) mg/dL Total Bilirubin 2.4 H (0.2-1.3) mg/dL AST 44 (17-59) U/L ALT 36 (21-72) U/L Alkaline Phosphatase 264 H (38-126) U/L Total Creatine Kinase 81 (55-170) U/L CK-MB (CK-2) 0.6 (0.0-2.4) ng/mL CK-MB (CK-2) Rel Index 0.7 Troponin I <0.012 (0.000-0.034) ng/mL NT-Pro-B Natriuret Pep pg/mL Total Protein 6.9 (6.3-8.2) g/dL Albumin 3.7 (3.5-5.0) g/dL 10/13/18 10/13/18 Range/Units 15:00 15:00 WBC (3.8-10.6) k/uL RBC (4.30-5.90) m/uL Hgb (13.0-17.5) gm/dL Hct (39.0-53.0) % MCV (80.0-100.0) fL MCH (25.0-35.0) pg MCHC (31.0-37.0) g/dL RDW (11.5-15.5) % Plt Count (150-450) k/uL Neutrophils % % Lymphocytes % % Monocytes % % Eosinophils % % Basophils % % Neutrophils # (1.3-7.7) k/uL Lymphocytes # (1.0-4.8) k/uL Monocytes # (0-1.0) k/uL Eosinophils # (0-0.7) k/uL Basophils # (0-0.2) k/uL Polychromasia Hypochromasia Poikilocytosis Anisocytosis Microcytosis Macrocytosis Ovalocytes PT 14.1 H (9.0-12.0) sec INR 1.4 H (<1.2) APTT 28.5 (22.0-30.0) sec Sodium (137-145) mmol/L Potassium (3.5-5.1) mmol/L Chloride (98-107) mmol/L Carbon Dioxide (22-30) mmol/L Anion Gap mmol/L BUN (9-20) mg/dL Creatinine (0.66-1.25) mg/dL Est GFR (CKD-EPI)AfAm (>60 ml/min/1.73 sqM) Est GFR (CKD-EPI)NonAf (>60 ml/min/1.73 sqM) Glucose (74-99) mg/dL Calcium (8.4-10.2) mg/dL Magnesium (1.6-2.3) mg/dL Total Bilirubin (0.2-1.3) mg/dL AST (17-59) U/L ALT (21-72) U/L Alkaline Phosphatase (38-126) U/L Total Creatine Kinase (55-170) U/L CK-MB (CK-2) (0.0-2.4) ng/mL CK-MB (CK-2) Rel Index Troponin I (0.000-0.034) ng/mL NT-Pro-B Natriuret Pep 1230 pg/mL Total Protein (6.3-8.2) g/dL Albumin (3.5-5.0) g/dL - EKG Data -: EKG Interpreted by Al EKG shows normal: sinus rhythm (Atrial fibrillation rate of 109 QRS 92 QT since QTC 382/514 low-voltage QRS nonspecific inferior and anterior changes) - Radiology Data Radiology results: report reviewed (Review the imaging no acute findings), image reviewed Disposition Clinical Impression: Symptomatic anemia, Renal insufficiency syndrome, Chronic atrial fibrillation Disposition: ADMITTED IP TO THIS [facility] Condition: Stable Referrals: Misha Noonan MD [Primary Care Provider] - 1-2 days
[2018-10-13 15:20] LABS: Anisocytosis Moderate; Basophils # (A) 0.1 k/uL (0-0.2); Basophils % (A) 1 %; Eosinophils # (A) 0.4 k/uL (0-0.7); Eosinophils % (A) 7 %; HCT 25.4 % (39.0-53.0); HGB 7.2 gm/dL (13.0-17.5); Hypochromasia Marked; Lymphocytes # (A) 0.7 k/uL (1.0-4.8); Lymphocytes % (A) 12 %; MCH 24.5 pg (25.0-35.0); MCHC 28.2 g/dL (31.0-37.0); MCV 86.6 fL (80.0-100.0); Macrocytosis Slight; Mean Platelet Volume 7.8; Microcytosis Slight; Monocytes # (A) 0.5 k/uL (0-1.0); Monocytes % (A) 8 %; Neutrophils # (A) 3.8 k/uL (1.3-7.7); Neutrophils % (A) 69 %; Platelet Count 279 k/uL (150-450); Poikilocytosis Slight; RBC 2.93 m/uL (4.30-5.90); RDW 23.9 % (11.5-15.5); WBC 5.6 k/uL (3.8-10.6)
[2018-10-13 15:23] LABS: INR 1.4 (<1.2); Partial Thromboplastin Time 28.5 sec (22.0-30.0); Prothrombin Time 14.1 sec (9.0-12.0)
[2018-10-13 15:28] LABS: Albumin 3.7 g/dL (3.5-5.0); Calcium 8.9 mg/dL (8.4-10.2); Magnesium 2.1 mg/dL (1.6-2.3); Potassium 3.9 mmol/L (3.5-5.1); Total Bilirubin 2.4 mg/dL (0.2-1.3); Total Protein 6.9 g/dL (6.3-8.2)
[2018-10-13 15:30] LABS: Creatine Kinase 81 U/L (55-170)
--- NOTE | 2018-10-13 15:30 | XR ---
EXAMINATION TYPE: XR chest 2V DATE OF EXAM: 10/13/2018 COMPARISON: 08/28/2018 HISTORY: Shortness of breath TECHNIQUE: Frontal and lateral views of the chest are obtained. FINDINGS: Scattered senescent parenchymal changes noted. Hyperinflation compatible with COPD. Patchy density right lower lobe may reflect atelectasis or infiltrate. Heart size is stable. Mediastinal structures are stable and grossly unremarkable. No evidence for hilar prominence. Degenerative changes dorsal spine. IMPRESSION: 1. Patchy density right lower lobe may reflect atelectasis or infiltrate.
[2018-10-13 15:40] LABS: Ovalocytes Present; Polychromasia Present
[2018-10-13 15:42] LABS: Creatine Kinase MB 0.6 ng/mL (0.0-2.4); Troponin I <0.012 ng/mL (0.000-0.034)
[2018-10-13] MEDS ORDERED: NALOXONE 0.4 MG/ML 1 ML VIAL IV PRN (17:10)
[2018-10-13] MEDS ORDERED: NON-FORMULARY DRUG (Ubidecarenone [Co Q-10] 100 MG) PO SCH (21:00)
[2018-10-13] MEDS: RIVAROXABAN 20 MG TAB PO SCH (22:27)
[2018-10-13] MEDS: METOPROLOL TARTRATE 50 MG TAB PO SCH (22:28)
[2018-10-14] MEDS: FUROSEMIDE 40 MG TAB PO SCH (07:06)
[2018-10-14] MEDS: LEVOTHYROXINE 100 MCG TAB PO SCH (07:06)
[2018-10-14] MEDS: CYANOCOBALAMIN 500 MCG TAB PO SCH (09:22)
[2018-10-14] MEDS: PANTOPRAZOLE 40 MG/10 ML VIAL IV SCH (09:23)
[2018-10-14] MEDS: METOPROLOL TARTRATE 50 MG TAB PO SCH ×2 (09:23→21:18)
--- NOTE | 2018-10-14 11:42 | P.HPIM ---
History of Present Illness H&P Date: 10/14/18 Chief Complaint: Severe weakness Walker Hopper is a 73-year-old male who presented to [facility] emergency room with a chief complaint of severe weakness, and shortness of breath, patient has a known history of anemia he has required multiple red blood cell transfusions, in fact he had 6 transfusion in the last 1 year 2 of them were in [place] where he partially lives, he has multiple antibodies and blood for transfusion is extremely hard to get. Patient also has a known history of atrial fibrillation he is maintained on Xarelto, he does not have any evidence of gastrointestinal bleeding, he is followed as outpatient by gastroenterology for evaluation of his chronic anemia he had an EGD and colonoscopy recently biopsies were done and results are still pending he also had an MRI of the abdomen on 10/12/2018 results are still pending. Patient was evaluated in the emergency room he had evidence of atrial fibrillation was rapid ventricular response heart rate improved gradually, his hemoglobin on presentation was 7.2, BUN and creatinine were elevated at 37 and 1.46 he was admitted to medical floor gastroenterology consultation and hematology consultation were requested. On presentation patient had a chest x-ray that revealed evidence of a small infiltrate versus atelectasis patient does not have any clinical symptoms of pneumonia there is no fever or cough his white blood count is 5.6 at this time will withhold antibiotics will use incentive spirometry and recheck chest x-ray in a.m.. Past Medical History Past Medical History: Atrial Fibrillation, Blood Disorder, Cancer, Hyperlipidemia, Hypertension, Thyroid Disorder Additional Past Medical History / Comment(s): abdominal hernia,prostate cancer- 2011-no radiation/chemo. Anemia with blood transfusion d/t ruptured varicose vein on left leg. has had a pne vaccine approx 3 years ago not sure of date.journalists and other writers unable to verify date at time of admit,please f/u in am w/dr office. History of Any Multi-Drug Resistant Organisms: None Reported Past Surgical History: Adenoidectomy, Hernia Repair, Prostate Surgery, Tonsillectomy Additional Past Surgical History / Comment(s): prostatectomy,hinge applied sternum post traumatic accident. Sutured varicose vein left leg.EGD W/ BX PT STATED HE HAS'NT GOTTEN RESULTS YET. Past Anesthesia/Blood Transfusion Reactions: No Reported Reaction Additional Past Anesthesia/Blood Transfusion Reaction / Comment(s): claustrophobic Past Psychological History: No Psychological Hx Reported Smoking Status: Never smoker Past Alcohol Use History: Rare Past Drug Use History: None Reported - Past Family History Father Family Medical History: Cancer Additional Family Medical History / Comment(s): prostate Mother Additional Family Medical History / Comment(s): CABG-rheumatic fever Medications and Allergies Home Medications Medication Instructions Recorded Confirmed Type Rivaroxaban [Xarelto] 20 mg PO AC-SUPPER 10/19/17 10/13/18 History Ubidecarenone [Co Q-10] 100 mg PO BID 10/19/17 10/13/18 History Metoprolol Tartrate [Lopressor] 50 mg PO BID tab 10/22/17 10/13/18 Rx Cholecalciferol [Vitamin D3] 1,000 unit PO DAILY 12/13/17 10/13/18 History Cyanocobalamin (Vitamin B-12) 1,000 mcg PO DAILY 12/13/17 10/13/18 History [Vitamin B-12] Furosemide [Lasix] 40 mg PO DAILY@0530 06/09/18 10/13/18 History Levothyroxine Sodium [Synthroid] 200 mcg PO DAILY@0530 10/13/18 10/13/18 History Allergies Allergy/AdvReac Type Severity Reaction Status Date / Time No Known Allergies Allergy Verified 10/13/18 16:16 Physical Exam Vitals: Vital Signs Temp Pulse Pulse Resp BP BP Pulse Ox 10/14/18 05:24 95 10/14/18 00:15 97.8 F 119 H 17 110/72 100 10/13/18 22:15 97.8 F 108 H 18 105/70 100 10/13/18 19:50 98.0 F 115 H 17 101/66 96 10/13/18 18:15 97.4 F L 110 H 111/74 99 10/13/18 18:03 98.4 F 104 H 18 104/80 96 10/13/18 16:45 101 H 18 101/70 99 10/13/18 15:12 20 10/13/18 14:37 97.8 F 105 H 20 123/77 100 Intake and Output 10/13/18 10/14/18 10/14/18 22:59 06:59 14:59 Other: # Voids 1 2 Weight 113.398 kg In general patient is alert and oriented 3 in no apparent distress HEENT head normocephalic and atraumatic Neck is supple no JVD no goiter no lymphadenopathy Chest exam reveals a few scattered rhonchi bilaterally no wheezing Cardiac exam reveals irregular heart sounds S1 and S2 no gallops no murmurs Abdomen is soft nontender no organomegaly with normal bowel sounds Extremity exam reveals mild edema bilaterally no cyanosis or clubbing Neurological examination reveals no gross focal deficit Results CBC & Chem 7: 10/13/18 15:00 10/13/18 15:00 Labs: Abnormal Lab Results - Last 24 Hours (Table) 10/13/18 10/13/18 10/13/18 Range/Units 15:00 15:00 15:00 RBC 2.93 L (4.30-5.90) m/uL Hgb 7.2 L (13.0-17.5) gm/dL Hct 25.4 L (39.0-53.0) % MCH 24.5 L (25.0-35.0) pg MCHC 28.2 L (31.0-37.0) g/dL RDW 23.9 H (11.5-15.5) % Lymphocytes # 0.7 L (1.0-4.8) k/uL PT (9.0-12.0) sec INR (<1.2) BUN 37 H (9-20) mg/dL Creatinine 1.46 H (0.66-1.25) mg/dL Glucose 113 H (74-99) mg/dL Total Bilirubin 2.4 H (0.2-1.3) mg/dL Alkaline Phosphatase 264 H (38-126) U/L Crossmatch See Detail 10/13/18 Range/Units 15:00 RBC (4.30-5.90) m/uL Hgb (13.0-17.5) gm/dL Hct (39.0-53.0) % MCH (25.0-35.0) pg MCHC (31.0-37.0) g/dL RDW (11.5-15.5) % Lymphocytes # (1.0-4.8) k/uL PT 14.1 H (9.0-12.0) sec INR 1.4 H (<1.2) BUN (9-20) mg/dL Creatinine (0.66-1.25) mg/dL Glucose (74-99) mg/dL Total Bilirubin (0.2-1.3) mg/dL Alkaline Phosphatase (38-126) U/L Crossmatch Thrombosis Risk Factor Assmnt - Choose All That Apply Each Risk Factor Represents 2 Points: Age 61-74 years Thrombosis Risk Factor Assessment Total Risk Factor Score: 2 Thrombosis Risk Factor Assessment Level: Low Risk Assessment and Plan Plan: #1 chronic anemia, cause is unclear, will admit to inpatient, will check iron levels vitamin B12 level and folate level, will give IV iron if iron level is low, consultation for gastroenterology and hematology were initiated, patient had extensive workup in the last 3 months by hematology and gastroenterology. #2 severe weakness likely related to anemia will monitor progress closely #3 infiltrate on chest x-ray without any clinical evidence of pneumonia will use incentive spirometry and recheck chest x-ray in a.m. no need for antibiotic at this time no evidence of pneumonia clinically. #4 underlying history of hypothyroidism maintained on Synthroid 200 g will continue Will check TSH level #5 underlying history of atrial fibrillation, heart rate was elevated on presentation, also patient had abnormal EKG with T-wave inversion in anterior and inferior leads, cardiology consult was initiated. #6 chronic kidney disease cause is unclear patient was never evaluated by nephrology consultation was requested #7 underlying history of hypertension well-controlled continue Cozaar and Lopressor #8 underlying history of hyperlipidemia #9 previous history of prostate cancer with history of prostatectomy At this time will monitor patient on the medical floor awaiting specialist input Will give IV iron if iron level is low Will follow closely
[2018-10-14 12:16] LABS: Anisocytosis Moderate; Basophils % (A) 1 %; Eosinophils # (A) 0.4 k/uL (0-0.7); Eosinophils % (A) 9 %; HCT 22.1 % (39.0-53.0); Hypochromasia Marked; Lymphocytes # (A) 0.7 k/uL (1.0-4.8); Lymphocytes % (A) 14 %; MCHC 29.4 g/dL (31.0-37.0); MCV 84.9 fL (80.0-100.0); Microcytosis Slight; Monocytes # (A) 0.5 k/uL (0-1.0); Monocytes % (A) 10 %; Neutrophils # (A) 2.9 k/uL (1.3-7.7); Neutrophils % (A) 62 %; Platelet Count 236 k/uL (150-450); Poikilocytosis Slight; RBC 2.61 m/uL (4.30-5.90); RDW 23.7 % (11.5-15.5); WBC 4.7 k/uL (3.8-10.6)
[2018-10-14 12:24] LABS: Albumin 3.3 g/dL (3.5-5.0); Calcium 8.7 mg/dL (8.4-10.2); Potassium 3.8 mmol/L (3.5-5.1); Total Bilirubin 2.1 mg/dL (0.2-1.3); Total Protein 6.2 g/dL (6.3-8.2)
--- NOTE | 2018-10-14 13:11 | P.NPCON ---
History of Present Illness - Reason for Consult Consult date: 10/14/18 acute renal failure, chronic renal failure - Chief Complaint Chronic kidney disease - History of Present Illness This is a 73-year-old male seen in consultation because of an elevated creatinine. He has chronic kidney disease with a baseline 1.4. Previously in 2013 creatinine was 1.2. He came in because of weakness and shortness of breath he has chronic recurrent anemia requiring large amount of blood transfusion has had trouble with obtaining transfusion because of antibody levels. Also relevant history is off the prostate 2011 with robotic surgery. Fairly asymptomatic since then. No history of hematuria. He is known with atrial fibrillation, uncontrolled toe, Does not have obvious bleeding. His anemia has been thoroughly worked up including EGD colonoscopy and supposedly MRI of the abdomen. A capsule endoscopy has not been performed. He also has significant edema and is on Lasix. His Lasix was decreased recently from 68-40 a day. This morning he does complain of postural dizziness. No history of falls. Past Medical History Past Medical History: Atrial Fibrillation, Blood Disorder, Cancer, Hyperlipidemia, Hypertension, Thyroid Disorder Additional Past Medical History / Comment(s): abdominal hernia,prostate cancer- 2011-no radiation/chemo. Anemia with blood transfusion d/t ruptured varicose vein on left leg. has had a pne vaccine approx 3 years ago not sure of date.travel writer unable to verify date at time of admit,please f/u in am w/dr office. History of Any Multi-Drug Resistant Organisms: None Reported Past Surgical History: Adenoidectomy, Hernia Repair, Prostate Surgery, Tonsillectomy Additional Past Surgical History / Comment(s): prostatectomy,hinge applied sternum post traumatic accident. Sutured varicose vein left leg.EGD W/ BX PT STATED HE HAS'NT GOTTEN RESULTS YET. Past Anesthesia/Blood Transfusion Reactions: No Reported Reaction Additional Past Anesthesia/Blood Transfusion Reaction / Comment(s): claustrophobic Past Psychological History: No Psychological Hx Reported Smoking Status: Never smoker Past Alcohol Use History: Rare Past Drug Use History: None Reported - Past Family History Father Family Medical History: Cancer Additional Family Medical History / Comment(s): prostate Mother Additional Family Medical History / Comment(s): CABG-rheumatic fever Medications and Allergies Home Medications Medication Instructions Recorded Confirmed Type Rivaroxaban [Xarelto] 20 mg PO AC-SUPPER 10/19/17 10/13/18 History Ubidecarenone [Co Q-10] 100 mg PO BID 10/19/17 10/13/18 History Metoprolol Tartrate [Lopressor] 50 mg PO BID tab 10/22/17 10/13/18 Rx Cholecalciferol [Vitamin D3] 1,000 unit PO DAILY 12/13/17 10/13/18 History Cyanocobalamin (Vitamin B-12) 1,000 mcg PO DAILY 12/13/17 10/13/18 History [Vitamin B-12] Furosemide [Lasix] 40 mg PO DAILY@52906/09/18 10/13/18 History Levothyroxine Sodium [Synthroid] 200 mcg PO DAILY@52910/13/18 10/13/18 History Allergies Allergy/AdvReac Type Severity Reaction Status Date / Time No Known Allergies Allergy Verified 10/13/18 16:16 Physical Exam Vitals: Vital Signs Temp Pulse Pulse Resp BP BP Pulse Ox 10/14/18 07:00 97.8 F 103 H 18 114/78 100 10/14/18 05:24 95 10/14/18 00:15 97.8 F 119 H 17 110/72 100 10/13/18 22:15 97.8 F 108 H 18 105/70 100 10/13/18 19:50 98.0 F 115 H 17 101/66 96 10/13/18 18:15 97.4 F L 110 H 111/74 99 10/13/18 18:03 98.4 F 104 H 18 104/80 96 10/13/18 16:45 101 H 18 101/70 99 10/13/18 15:12 20 10/13/18 14:37 97.8 F 105 H 20 123/77 100 Intake and Output 10/13/18 10/14/18 10/14/18 22:59 06:59 14:59 Other: # Voids 1 2 Weight 113.398 kg On examination is awake alert oriented somewhat pale HEENT exam no JVP neck is supple no facial asymmetry. Lungs are clear to auscultation good air entry bilaterally Heart sounds are unremarkable for any murmur rub gallop he is in atrial fibrillation Abdomen is obese nontender no masses felt Extremity exam was moderate edema warm to touch Neurologically awake alert oriented. Was able to sit up but did feel some dizziness. Moves all his extremities. Results - Lab Results Most recent lab results Calcium 8.7 mg/dL (8.4-10.2) 10/14/18 11:44 Magnesium 2.1 mg/dL (1.6-2.3) 10/13/18 15:00 10/14/18 11:44 10/14/18 11:44 Assessment and Plan Assessment: Impression 1. Chronic kidney disease Baseline creatinine 1.4 currently 1.4. Etiology is nephrosclerosis. His creatinine was 1.2 on 04/03/2014. No urinalysis available. An abdominal ultrasound dated 08/29/2018 shows right kidney to be 9.9 and left kidney be 10.4 cm. 2. Chronic edema, ejection fraction is 50-50% on echocardiogram done on 2017 a year ago, no evidence of pulmonary hypertension. causes of this edema is not clear. Rule out any nephrotic syndrome although doubt it. Serum albumin is 3.7 yesterday and 3.3 today 3. Ultrasound of the abdomen October 2017 a year ago shows steatosis in the liver that might possibly cause cirrhosis and edema. Recommendation. 1. Maintain diuretic regimen. 2. check orthostatic changes. 3. Check urinalysis. Check urine protein to creatinine ratio. 4. If there is significant orthostatic change we'll reduce the diuretic dose. 5. We will continue to follow thank you for this consultation
[2018-10-14] MEDS: RIVAROXABAN 20 MG TAB PO SCH (16:51)
[2018-10-14 17:27] LABS: Folate, Serum 14.3 ng/mL; Iron Saturation 3.46 (15.00-50.00)
[2018-10-14] MEDS ORDERED: SODIUM FERRIC GLUCONAT-SUCROSE 125 MG in SODIUM CHLORIDE 0.9% 100 ML IVPB ONE (18:00)
[2018-10-14] MEDS: SODIUM FERRIC GLUCONAT-SUCROSE 125 MG in SODIUM CHLORIDE 0.9% 100 ML IVPB SCH (18:24)
[2018-10-14 22:26] LABS: Appearance,Urine Clear (Clear); Bilirubin,Urine Negative (Negative); Blood,Urine Negative (Negative); Color,Urine Yellow; Glucose,Urine (UA) Negative (Negative); Ketones,Urine Negative (Negative); Leukocyte Esterase,Urine Negative (Negative); Nitrite,Urine Negative (Negative); Protein,Urine Negative (Negative); Specific Gravity,Urine 1.017 (1.001-1.035); Urobilinogen,Urine <2.0 mg/dL (<2.0)
[2018-10-15] MEDS: LEVOTHYROXINE 100 MCG TAB PO SCH (06:04)
[2018-10-15] MEDS: FUROSEMIDE 40 MG TAB PO SCH (06:04)
--- NOTE | 2018-10-15 08:28 | CONS ---
CONSULTATION DATE OF SERVICE: October 14, 2018. REASON FOR CONSULTATION: Anemia. CHIEF COMPLAINT: Weak and swollen legs. HISTORY OF PRESENT ILLNESS: Miguel is a very pleasant, 73 years old gentleman known to our practice. He was previously evaluated by Dr. Wright for anemia. His anemia started in May of 2017 when he required blood transfusion and he has had about 6 times. The part of it was done in [place] and the issues the patient has had issues with multiple antibodies which had delayed multiple blood transfusions. He did have a extensive GI workup done in the past, which was which was negative. He was started on Xarelto for atrial fibrillation about 3 years ago. His previous iron studies have indicated evidence of significant iron deficiency anemia and he did receive parenteral iron supplement in our office on 09/12/2018 and 09/15/2018. The patient came in this time to the hospital with significant drop in his hemoglobin. He was feeling very tired. He did have a CBC done on 10/12/2017, which revealed hemoglobin down to 7.3 g/dL. The patient ended up being admitted to the hospital for blood transfusion. Repeat CBC in the hospital today revealed that his hemoglobin is down to 6.5 g/dL. The patient complains of chronic swelling in his legs. He denies any fever or chills. He has chronic exertional dyspnea and fatigue. His weight is relatively stable. No dysphagia. No nausea or vomiting. He denies any melena. However, he stated that back in early September, he had 2 episodes of large bowel movement which were black tarry stool. Denies any hematuria, hemoptysis, hematemesis or epistaxis. PAST MEDICAL HISTORY: In addition to what is stated with his anemia, he has a history of atrial fibrillation, hyperlipidemia hypertension, congestive heart failure. He has a history of prostate cancer diagnosed in 2011. He has a hernia repair in the past. Prostatectomy, inguinal hernia repair, tonsillectomy, and appendectomy. Chronic kidney disease. FAMILY HISTORY: For malignancy, his father had prostate cancer. SOCIAL HISTORY: No history of smoking, alcohol abuse, substance abuse. REVIEW OF SYSTEMS: As stated above in the history of present illness, otherwise negative. ALLERGIES: No known drug allergies. CURRENT MEDICATION: Reviewed in his electronic medical record which includes Xarelto 20 mg daily. PHYSICAL EXAMINATION: He is alert, oriented x3. He does not appear to be in distress. His vital signs are temperature 97.6 afebrile, pulse 67 and irregular, respiration 19, the blood pressure 93/62. HEENT: Normocephalic, atraumatic. He has obvious scleral icterus. NECK: Supple. No jugular venous distention. Chest equal expansion bilaterally. LUNGS: Clear to auscultation and percussion. Heart is irregularly irregular. ABDOMEN: Soft. He has mild hepatic splenomegaly. No obvious ascites. Extremities reveal 3+ edema bilaterally. Skin a few bruises. No ecchymosis or petechiae. LYMPHATICS: No peripherally enlarged cervical or supraclavicular nodes. MUSCULOSKELETAL: Moving all extremities appropriately. No percussion tenderness detected over the spine or sternum. RECENT LABORATORY DATA: WBC are 4.7, hemoglobin 6.5, hematocrit 22.1, platelet 236. Sodium 139, potassium 4.8, chloride 92, BUN 35, creatinine 1.4. His total bilirubin is 2.1, AST is 29, ALT 30 alkaline phosphatase 232, ferritin is 20, B12 is 948. IMPRESSION: 1. Recurrent anemia. His previous iron studies and his current ferritin level being only 20. This is highly suggestive of iron deficiency anemia. This is probably related to chronic use of anticoagulation. The patient has clinical and radiographic evidence of underlying hepatocellular disease. His previous ultrasound of the abdomen revealed evidence of hepatocellular disease and possible liver cirrhosis. He has just had an MRI of his abdomen and results are pending. That could explain his elevated bilirubin and liver enzymes and significant lower extremity edema, which is probably related to that. His cardiac ejection fraction is about 50 percent, which may not account for this significant edema the patient has by itself. Underlying hepatocellular disease is highly suspected and this could make the risk of bleeding from oral Xarelto even higher. The patient has underlying chronic kidney disease, which also may add to potential increased risk of bleeding from Xarelto. 2. Atrial fibrillation requiring anticoagulation. 3. Multiple antibodies related to blood transfusion, in the past. 4. Multiple other comorbidities as stated above. RECOMMENDATION: 1. I would recommend to proceed with parenteral iron supplement. 2. We will obtain other additional laboratory workup to rule out any significant hemolytic anemia which is felt to be less likely usually most hemolytic anemia related to antibodies are extravascular and usually associated with high iron level. 3. Awaiting result of liver MRI. 4. Consider Gastroenterology evaluation for possible underlying liver cirrhosis. 5. I would highly recommend to reduce the dose of Xarelto. The above was discussed in detail with the patient. I have answered all his questions. Thank you very much for asking me to partake in the care of this nice gentleman. MAREN / LALA: [id number] /
[2018-10-15] MEDS ORDERED: SODIUM FERRIC GLUCONAT-SUCROSE 125 MG in SODIUM CHLORIDE 0.9% 100 ML IVPB ONE (08:32)
[2018-10-15] MEDS: SODIUM FERRIC GLUCONAT-SUCROSE 125 MG in SODIUM CHLORIDE 0.9% 100 ML IVPB SCH (09:43)
[2018-10-15] MEDS: PANTOPRAZOLE 40 MG/10 ML VIAL IV SCH (09:43)
[2018-10-15] MEDS: CYANOCOBALAMIN 500 MCG TAB PO SCH (09:44)
[2018-10-15] MEDS: METOPROLOL TARTRATE 50 MG TAB PO SCH ×2 (09:44→21:16)
--- NOTE | 2018-10-15 10:11 | P.PN ---
Subjective Progress Note Date: 10/15/18 Principal diagnosis: This is a 73-year-old male seen in consultation because of chronic kidney disease stage III, nephrosclerosis with a baseline creatinine 1.4. Previously creatinine was 1.2 in 2014. Additionally he has chronic edema for the last 3 years with no clear-cut cause. His serum albumin is nearly normal at 3.3 or 3.7. Urine protein to creatinine ratio was unremarkable, pcr is 9/133. Echocardiogram does not show any systolic compromise with ejection fraction 50- 55% and no pulmonary hypertension. Does not have liver disease. He does have hypothyroidism and is on replacement therapy. Last TSH is normal at 2.8 on He came in because of chronic anemia with recurrent requiring frequent blood transfusions. He has had trouble obtaining blood because of antibody levels. No cause of his chronic iron deficiency anemia is been found out he has had workup. He has atrial fibrillation and is on anticoagulation with Xaralto. Objective - Vital Signs Vital signs: Vital Signs Temp 97.3 F L 10/15/18 07:00 Pulse 98 10/15/18 07:00 Resp 15 10/15/18 07:00 BP 104/71 10/15/18 07:00 Pulse Ox 99 10/15/18 07:00 Intake & Output 10/14/18 10/15/18 10/15/18 18:59 06:59 18:59 Other: # Voids 4 1 On examination is awake alert oriented comfortable somewhat pale. HEENT exam no JVP lymphadenopathy neck is supple no facial asymmetry Lungs clear to auscultation good air entry bilaterally Heart sounds are unremarkable for any murmur rub gallop he is in atrial fibrillation. Abdomen soft nontender no masses felt Extremity exam was moderate edema. Neurologically awake alert oriented. - Labs CBC & Chem 7: 10/14/18 11:44 10/14/18 11:44 Labs: Abnormal Lab Results - Last 24 Hours (Table) 10/14/18 10/14/18 10/14/18 Range/Units 11:44 11:44 11:44 RBC 2.61 L (4.30-5.90) m/uL Hgb 6.5 L* (13.0-17.5) gm/dL Hct 22.1 L (39.0-53.0) % MCHC 29.4 L (31.0-37.0) g/dL RDW 23.7 H (11.5-15.5) % Lymphocytes # 0.7 L (1.0-4.8) k/uL Retic Count (0.5-2.0) % Carbon Dioxide 32 H (22-30) mmol/L BUN 35 H (9-20) mg/dL Creatinine 1.40 H (0.66-1.25) mg/dL Glucose 101 H (74-99) mg/dL Iron (65-175) ug/dL Iron Saturation (15.00-50.00) Ferritin 20.8 L (22.0-322.0) ng/mL Total Bilirubin 2.1 H (0.2-1.3) mg/dL Alkaline Phosphatase 232 H (38-126) U/L Total Protein 6.2 L (6.3-8.2) g/dL Albumin 3.3 L (3.5-5.0) g/dL Vitamin B12 (200.0-944.0) pg/mL 10/14/18 10/14/18 10/14/18 Range/Units 11:44 11:44 11:44 RBC (4.30-5.90) m/uL Hgb (13.0-17.5) gm/dL Hct (39.0-53.0) % MCHC (31.0-37.0) g/dL RDW (11.5-15.5) % Lymphocytes # (1.0-4.8) k/uL Retic Count 3.0 H (0.5-2.0) % Carbon Dioxide (22-30) mmol/L BUN (9-20) mg/dL Creatinine (0.66-1.25) mg/dL Glucose (74-99) mg/dL Iron 14 L (65-175) ug/dL Iron Saturation 3.46 L (15.00-50.00) Ferritin (22.0-322.0) ng/mL Total Bilirubin (0.2-1.3) mg/dL Alkaline Phosphatase (38-126) U/L Total Protein (6.3-8.2) g/dL Albumin (3.5-5.0) g/dL Vitamin B12 948.0 H (200.0-944.0) pg/mL Assessment and Plan Assessment: Impression 1. Chronic kidney disease stage III, GFR is estimated between 46 by MDRD and 50 by CK DAP equation. Baseline creatinine 1.4 currently 1.4. Etiology is nephrosclerosis. His creatinine was 1.2 on 04/03/2014. No urinalysis available. An abdominal ultrasound dated 08/29/2018 shows right kidney to be 9.9 and left kidney be 10.4 cm. 2. Chronic edema, ejection fraction is 50-50% on echocardiogram done on 2017 a year ago, no evidence of pulmonary hypertension. causes of this edema is not clear. Ruled out any nephrotic syndrome, with a urine protein to creatinine ratio of 9/133. No liver disease. Likely is a combination of chronic diastolic heart failure, chronic kidney disease and some amount of venous insufficiency. An MRI of the abdomen has been done but not reported. We 'll rule out any masses in the pelvic area that might be causing venous obstruction. 3. Ultrasound of the abdomen October 2017 a year ago shows steatosis in the liver that might possibly cause cirrhosis and edema. Recommendation. 1. Maintain diuretic regimen. 2. check orthostatic changes. 3. If there is significant orthostatic change we'll reduce the diuretic dose. 5. We will continue to follow thank you for this consultation
[2018-10-15 10:14] LABS: Anisocytosis Moderate; Hypochromasia Marked; MCH 24.7 pg (25.0-35.0); MCHC 28.1 g/dL (31.0-37.0); MCV 87.7 fL (80.0-100.0); Macrocytosis Slight; Mean Platelet Volume 7.1; Microcytosis Slight; Platelet Count 228 k/uL (150-450); Poikilocytosis Slight; RBC 2.73 m/uL (4.30-5.90); RDW 23.4 % (11.5-15.5)
[2018-10-15 10:20] LABS: Albumin 3.3 g/dL (3.5-5.0); Total Bilirubin 2.3 mg/dL (0.2-1.3); Total Protein 6.3 g/dL (6.3-8.2)
[2018-10-15 10:29] LABS: HGB 6.7 gm/dL (13.0-17.5)
--- NOTE | 2018-10-15 10:36 | P.PN ---
Subjective Progress Note Date: 10/15/18 Walker Hopper is a 73-year-old male who presented to [facility] emergency room with a chief complaint of severe weakness, and shortness of breath, patient has a known history of anemia he has required multiple red blood cell transfusions, in fact he had 6 transfusion in the last 1 year 2 of them were in [place] where he partially lives, he has multiple antibodies and blood for transfusion is extremely hard to get. Patient also has a known history of atrial fibrillation he is maintained on Xarelto, he does not have any evidence of gastrointestinal bleeding, he is followed as outpatient by gastroenterology for evaluation of his chronic anemia he had an EGD and colonoscopy recently biopsies were done and results are still pending he also had an MRI of the abdomen on 10/12/2018 results are still pending. Patient was evaluated in the emergency room he had evidence of atrial fibrillation was rapid ventricular response heart rate improved gradually, his hemoglobin on presentation was 7.2, BUN and creatinine were elevated at 37 and 1.46 he was admitted to medical floor gastroenterology consultation and hematology consultation were requested. On presentation patient had a chest x-ray that revealed evidence of a small infiltrate versus atelectasis patient does not have any clinical symptoms of pneumonia there is no fever or cough his white blood count is 5.6 at this time will withhold antibiotics will use incentive spirometry and recheck chest x-ray in a.m.. On 10/15/2018 patient was seen and examined on the medical floor he is alert and oriented 3 in no apparent distress he is still complaining of severe weakness and complaining of lower extremity edema otherwise he denies any other complaint there is no fever or chills no headache or dizziness no chest pain no shortness of breath at rest he has shortness of breath with activity there is no cough no nausea or vomiting no abdominal pain no diarrhea and no urinary symptoms. Objective - Vital Signs Vital signs: Vital Signs Temp 97.3 F L 10/15/18 07:00 Pulse 98 10/15/18 07:00 Resp 15 10/15/18 07:00 BP 104/71 10/15/18 07:00 Pulse Ox 99 10/15/18 07:00 Intake & Output 10/14/18 10/15/18 10/15/18 18:59 06:59 18:59 Other: # Voids 4 1 - Exam In general patient is alert and oriented 3 in no apparent distress HEENT head normocephalic and atraumatic Neck is supple no JVD no goiter no lymphadenopathy Chest exam reveals a few scattered rhonchi bilaterally no wheezing Cardiac exam reveals irregular heart sounds S1 and S2 no gallops no murmurs Abdomen is soft nontender no organomegaly with normal bowel sounds Extremity exam reveals 3+ edema bilaterally no cyanosis or clubbing Neurological examination reveals no gross focal deficit - Labs CBC & Chem 7: 10/15/18 09:33 10/15/18 09:33 Labs: Abnormal Lab Results - Last 24 Hours (Table) 10/14/18 10/14/18 10/14/18 Range/Units 11:44 11:44 11:44 RBC 2.61 L (4.30-5.90) m/uL Hgb 6.5 L* (13.0-17.5) gm/dL Hct 22.1 L (39.0-53.0) % MCH (25.0-35.0) pg MCHC 29.4 L (31.0-37.0) g/dL RDW 23.7 H (11.5-15.5) % Lymphocytes # 0.7 L (1.0-4.8) k/uL Retic Count (0.5-2.0) % Carbon Dioxide 32 H (22-30) mmol/L BUN 35 H (9-20) mg/dL Creatinine 1.40 H (0.66-1.25) mg/dL Glucose 101 H (74-99) mg/dL Iron (65-175) ug/dL Iron Saturation (15.00-50.00) Ferritin 20.8 L (22.0-322.0) ng/mL Total Bilirubin 2.1 H (0.2-1.3) mg/dL Alkaline Phosphatase 232 H (38-126) U/L Total Protein 6.2 L (6.3-8.2) g/dL Albumin 3.3 L (3.5-5.0) g/dL Vitamin B12 (200.0-944.0) pg/mL 10/14/18 10/14/18 10/14/18 Range/Units 11:44 11:44 11:44 RBC (4.30-5.90) m/uL Hgb (13.0-17.5) gm/dL Hct (39.0-53.0) % MCH (25.0-35.0) pg MCHC (31.0-37.0) g/dL RDW (11.5-15.5) % Lymphocytes # (1.0-4.8) k/uL Retic Count 3.0 H (0.5-2.0) % Carbon Dioxide (22-30) mmol/L BUN (9-20) mg/dL Creatinine (0.66-1.25) mg/dL Glucose (74-99) mg/dL Iron 14 L (65-175) ug/dL Iron Saturation 3.46 L (15.00-50.00) Ferritin (22.0-322.0) ng/mL Total Bilirubin (0.2-1.3) mg/dL Alkaline Phosphatase (38-126) U/L Total Protein (6.3-8.2) g/dL Albumin (3.5-5.0) g/dL Vitamin B12 948.0 H (200.0-944.0) pg/mL 10/15/18 10/15/18 Range/Units 09:33 09:33 RBC 2.73 L (4.30-5.90) m/uL Hgb 6.7 L* (13.0-17.5) gm/dL Hct 24.0 L (39.0-53.0) % MCH 24.7 L (25.0-35.0) pg MCHC 28.1 L (31.0-37.0) g/dL RDW 23.4 H (11.5-15.5) % Lymphocytes # (1.0-4.8) k/uL Retic Count (0.5-2.0) % Carbon Dioxide (22-30) mmol/L BUN 36 H (9-20) mg/dL Creatinine 1.45 H (0.66-1.25) mg/dL Glucose 108 H (74-99) mg/dL Iron (65-175) ug/dL Iron Saturation (15.00-50.00) Ferritin (22.0-322.0) ng/mL Total Bilirubin 2.3 H (0.2-1.3) mg/dL Alkaline Phosphatase 236 H (38-126) U/L Total Protein (6.3-8.2) g/dL Albumin 3.3 L (3.5-5.0) g/dL Vitamin B12 (200.0-944.0) pg/mL Assessment and Plan Plan: #1 chronic anemia, cause is unclear, will admit to inpatient, will check iron levels vitamin B12 level and folate level, will give IV iron if iron level is low, consultation for gastroenterology and hematology were initiated, patient had extensive workup in the last 3 months by hematology and gastroenterology. #2 severe weakness likely related to anemia will monitor progress closely #3 infiltrate on chest x-ray without any clinical evidence of pneumonia will use incentive spirometry and recheck chest x-ray in a.m. no need for antibiotic at this time no evidence of pneumonia clinically. #4 underlying history of hypothyroidism maintained on Synthroid 200 g will continue Will check TSH level #5 underlying history of atrial fibrillation, heart rate was elevated on presentation, also patient had abnormal EKG with T-wave inversion in anterior and inferior leads, cardiology consult was initiated. #6 chronic kidney disease cause is unclear patient was never evaluated by nephrology consultation was requested #7 underlying history of hypertension well-controlled continue Cozaar and Lopressor #8 underlying history of hyperlipidemia #9 previous history of prostate cancer with history of prostatectomy At this time will continue to monitor patient on the medical floor Will continue to give IV iron, Input from hematology reviewed at this time will discontinue Xarelto, will restart at a lower dose when hemoglobin Stabilize Input from nephrology reviewed Will follow closely, recheck labs in a.m.
[2018-10-15 12:26] LABS: Eosinophils # (M) 0.35 k/uL (0-0.7); Lymphocytes # (M) 0.65 k/uL (1.0-4.8); Neutrophils % (M) 76 %; Nucleated Red Blood Cells 0 /100 WBC (0-0); Total Cells Counted 100
[2018-10-15 12:28] LABS: Mixed Population RBC Present; Polychromasia Present
[2018-10-15 12:29] LABS: Toxic Granulation Present
--- NOTE | 2018-10-15 16:21 | PN ---
PROGRESS NOTE DATE OF SERVICE: October 15, 2018. CHIEF COMPLAINT: Tired. Walker is seen today as a followup. He feels tired. He continues to have swelling in lower extremities. He has been receiving parenteral iron. He denies any melena, hematochezia, hematuria, hemoptysis or hematemesis. His was held last night by Dr. Noonan. CURRENT MEDICATION: Reviewed in the electronic medical record. PHYSICAL EXAMINATION: He is alert, oriented x3. He does not appear to be in distress. Vital signs: Temperature 97.9, pulse 106 and regular, respiration 15, blood pressure 96/65. HEENT: Normocephalic, atraumatic. He has scleral icterus. NECK: Supple. Chest equal expansion bilaterally. LUNGS: Clear. ABDOMEN: Soft. No tenderness. Extremities: Revealed 2+ edema. LABORATORY DATA: From today, WBC are 5.0, hemoglobin 6.7, hematocrit 24.0, platelets are 228. Sodium 139, potassium 4.0, chloride 100, CO2 is 30, BUN 36, creatinine 1.45. Iron saturation is 3.4. Serum iron is 14, total iron-binding capacity is 405, ferritin is 20.8, total bilirubin is 2.3, alkaline phosphatase 239. IMPRESSION: 1. Recurrent anemia. This is related to iron deficiency anemia. His previous and current iron studies are highly consistent with iron deficiency anemia. This is likely related to chronic use of anticoagulation. In addition the patient has underlying clinical and radiographic evidence consistent with liver cirrhosis which puts him at high risk of bleeding complication from oral anticoagulation and also he has underlying chronic kidney disease, which also puts him at high risk of bleeding complication with the use of oral . 2. Atrial fibrillation. 3. Other comorbidities. RECOMMENDATION: 1. Continue parenteral iron supplement. The patient appears to be responding to it. 2. Agree with holding and I would highly recommend if needed if indicated for his atrial fibrillation to resume it at a reduced dose. 3. His hemoglobin remains stable, he could be discharged home and follow up with Dr. Wright in the outpatient setting. Likely he will require additional parenteral iron supplement. 4. Avoid anti-platelet therapy at the present time. MMODL / IJN: [id number] /
[2018-10-15] MEDS: SPIRONOLACTONE 25 MG TAB PO SCH (21:16)
[2018-10-16] MEDS: FUROSEMIDE 40 MG TAB PO SCH ×2 (06:36→15:37)
[2018-10-16] MEDS: LEVOTHYROXINE 100 MCG TAB PO SCH (06:36)
[2018-10-16 08:23] LABS: HGB 6.5 gm/dL (13.0-17.5)
[2018-10-16] MEDS: PANTOPRAZOLE 40 MG/10 ML VIAL IV SCH (08:43)
[2018-10-16] MEDS: CYANOCOBALAMIN 500 MCG TAB PO SCH (08:43)
[2018-10-16] MEDS: METOPROLOL TARTRATE 50 MG TAB PO SCH ×2 (08:43→21:49)
[2018-10-16] MEDS: SPIRONOLACTONE 25 MG TAB PO SCH ×2 (08:43→21:49)
[2018-10-16 08:55] LABS: Anisocytosis Moderate; Basophils # (A) 0.1 k/uL (0-0.2); Basophils % (A) 1 %; Eosinophils # (A) 0.3 k/uL (0-0.7); Eosinophils % (A) 6 %; HCT 23.1 % (39.0-53.0); Hypochromasia Marked; Lymphocytes # (A) 0.7 k/uL (1.0-4.8); Lymphocytes % (A) 13 %; MCH 24.9 pg (25.0-35.0); MCHC 28.9 g/dL (31.0-37.0); MCV 86.1 fL (80.0-100.0); Macrocytosis Slight; Mean Platelet Volume 7.4; Microcytosis Slight; Monocytes # (A) 0.5 k/uL (0-1.0); Monocytes % (A) 9 %; Neutrophils # (A) 3.5 k/uL (1.3-7.7); Neutrophils % (A) 67 %; Platelet Count 245 k/uL (150-450); Poikilocytosis Moderate; RBC 2.69 m/uL (4.30-5.90); WBC 5.1 k/uL (3.8-10.6)
[2018-10-16 08:57] LABS: HGB 6.7 gm/dL (13.0-17.5)
[2018-10-16 09:09] LABS: Albumin 3.3 g/dL (3.5-5.0); Calcium 8.9 mg/dL (8.4-10.2); Total Bilirubin 2.1 mg/dL (0.2-1.3); Total Protein 6.3 g/dL (6.3-8.2)
[2018-10-16] MEDS: SODIUM FERRIC GLUCONAT-SUCROSE 125 MG in SODIUM CHLORIDE 0.9% 100 ML IVPB SCH (09:39)
--- NOTE | 2018-10-16 10:20 | CONS ---
CONSULTATION This patient's records reviewed and the patient was interrogated. The patient was admitted primarily with weakness and swollen legs. The patient has been found to have significant anemia. This patient has been found to be anemic for the last 6 months. He had multiple blood transfusions. Patient has extensive workup done in the past and a GI workup has been negative. The patient's previous studies are suggestive of iron deficiency anemia. The patient is admitted this time and his hemoglobin is 6.5 g. He is feeling weak. He says he had some black stools in September. The patient also has a history suggestive of some hepatocellular disease with a past history of alcohol abuse. The patient has elevated liver enzymes. The patient is currently getting supplementation. He has a problem with multiple antibodies and so it is difficult to give him frequent blood transfusion. The patient denies any orthopnea or PND. He has chronic swelling in the legs, however, his BNP is not significantly elevated. The patient also has a mild degree of chronic kidney disease. The patient has a history of chronic atrial fibrillation and has been treated with Xarelto for last 3-4 years. There is no prior history of myocardial infarction. PAST MEDICAL HISTORY: Includes a history of prostate cancer. History of hernia repair, appendectomy and chronic kidney disease. MEDICATIONS: The patient's current medications are reviewed. The patient used to take Xarelto 15 mg daily, which has been on hold at present. PHYSICAL EXAMINATION: At present reveals a 73-year-old gentleman who does not appear to be in any acute distress. Patient's blood pressure is 100/60 mmHg. HEENT examination is negative. Neck is supple. No significant jugular venous pressure, distention can be appreciated. HEART: First and second heart sounds are normal. LUNGS are clear to auscultation and percussion. ABDOMEN is soft. It appears to be distended. Possible he has some ascites. The liver is palpable. EXTREMITIES: There is a 2+ pedal edema. The patient's recent hemoglobin is 6.5, bilirubin is 2.1. MRI of the liver is being awaited. FINAL IMPRESSION: 1. This patient has been admitted with recurrent anemia. The patient has a significant iron deficiency anemia. However exact source of gastrointestinal bleeding is not found. 2. Atrial fibrillation with a controlled ventricular response. Patient has been currently getting Xarelto 50 mg daily. RECOMMENDATIONS: At present, we will recommend to hold the Xarelto. Continue to give iron supplementation. Echo and Doppler study will be obtained. We will discuss with Dr. Del Real and if the Xarelto is contributing significantly to this patient's anemia, we can consider the patient for left atrial appendage closure device, Watchman device placement. Thank you very much for letting us participate in the care of this nice gentleman. MMRENEE / HUMPHREYN: [id number] /
--- NOTE | 2018-10-16 12:45 | P.PN ---
Subjective Progress Note Date: 10/16/18 Walker Hopper is a 73-year-old male who presented to [facility] emergency room with a chief complaint of severe weakness, and shortness of breath, patient has a known history of anemia he has required multiple red blood cell transfusions, in fact he had 6 transfusion in the last 1 year 2 of them were in [place] where he partially lives, he has multiple antibodies and blood for transfusion is extremely hard to get. Patient also has a known history of atrial fibrillation he is maintained on Xarelto, he does not have any evidence of gastrointestinal bleeding, he is followed as outpatient by gastroenterology for evaluation of his chronic anemia he had an EGD and colonoscopy recently biopsies were done and results are still pending he also had an MRI of the abdomen on 10/12/2018 results are still pending. Patient was evaluated in the emergency room he had evidence of atrial fibrillation was rapid ventricular response heart rate improved gradually, his hemoglobin on presentation was 7.2, BUN and creatinine were elevated at 37 and 1.46 he was admitted to medical floor gastroenterology consultation and hematology consultation were requested. On presentation patient had a chest x-ray that revealed evidence of a small infiltrate versus atelectasis patient does not have any clinical symptoms of pneumonia there is no fever or cough his white blood count is 5.6 at this time will withhold antibiotics will use incentive spirometry and recheck chest x-ray in a.m.. On 10/15/2018 patient was seen and examined on the medical floor he is alert and oriented 3 in no apparent distress he is still complaining of severe weakness and complaining of lower extremity edema otherwise he denies any other complaint there is no fever or chills no headache or dizziness no chest pain no shortness of breath at rest he has shortness of breath with activity there is no cough no nausea or vomiting no abdominal pain no diarrhea and no urinary symptoms. On 10/16/2018 patient is alert and oriented 3. Still complaining of some weakness. At this time patient denies chest pain or shortness of breath. Patient denies nausea vomiting or diarrhea. Patient denies any urinary burning or frequency Objective - Vital Signs Vital signs: Vital Signs Temp 97.9 F 10/16/18 07:00 Pulse 98 10/16/18 07:00 Resp 16 10/16/18 07:00 BP 108/75 10/16/18 07:00 Pulse Ox 98 10/16/18 07:00 Intake & Output 10/15/18 10/16/18 10/16/18 18:59 06:59 18:59 Intake Total 100 Balance 100 Weight 124 kg Intake: Intake, IV Titration 100 Amount Sodium Ferric Gluconat- 100 Sucrose 125 mg In Sodium Chloride 0.9% 100 ml @ 100 mls/hr IVPB ONCE ONE Rx#:[id number] Other: # Voids 1 - Exam In general patient is alert and oriented 3 in no apparent distress HEENT head normocephalic and atraumatic Neck is supple no JVD no goiter no lymphadenopathy Chest exam reveals a few scattered rhonchi bilaterally no wheezing Cardiac exam reveals irregular heart sounds S1 and S2 no gallops no murmurs Abdomen is soft nontender no organomegaly with normal bowel sounds Extremity exam reveals 3+ edema bilaterally no cyanosis or clubbing Neurological examination reveals no gross focal deficit - Labs CBC & Chem 7: 10/16/18 08:15 10/16/18 08:15 Labs: Abnormal Lab Results - Last 24 Hours (Table) 10/14/18 10/16/18 10/16/18 Range/Units 11:44 08:15 08:15 RBC 2.69 L (4.30-5.90) m/uL Hgb 6.5 L* 6.7 L* (13.0-17.5) gm/dL Hct 23.1 L (39.0-53.0) % MCH 24.9 L (25.0-35.0) pg MCHC 28.9 L (31.0-37.0) g/dL RDW 24.0 H (11.5-15.5) % Lymphocytes # 0.7 L (1.0-4.8) k/uL Carbon Dioxide 32 H (22-30) mmol/L BUN 34 H (9-20) mg/dL Creatinine 1.44 H (0.66-1.25) mg/dL Glucose 115 H (74-99) mg/dL Total Bilirubin 2.1 H (0.2-1.3) mg/dL Alkaline Phosphatase 247 H (38-126) U/L Albumin 3.3 L (3.5-5.0) g/dL Assessment and Plan Assessment: #1 chronic anemia, cause is unclear, will admit to inpatient, will check iron levels vitamin B12 level and folate level, will give IV iron if iron level is low, consultation for gastroenterology and hematology were initiated, patient had extensive workup in the last 3 months by hematology and gastroenterology. #2 severe weakness likely related to anemia will monitor progress closely #3 infiltrate on chest x-ray without any clinical evidence of pneumonia will use incentive spirometry and recheck chest x-ray in a.m. no need for antibiotic at this time no evidence of pneumonia clinically. #4 underlying history of hypothyroidism maintained on Synthroid 200 g will continue Will check TSH level #5 underlying history of atrial fibrillation, heart rate was elevated on presentation, also patient had abnormal EKG with T-wave inversion in anterior and inferior leads, cardiology consult was initiated. At this time cardiology recommended to hold Xarelto. 2-D echo has been ordered. Possible consideration for left atrial appendage closure device, watchman device placement. #6 chronic kidney disease cause is unclear patient was never evaluated by nephrology consultation was requested #7 underlying history of hypertension well-controlled continue Cozaar and Lopressor #8 underlying history of hyperlipidemia #9 previous history of prostate cancer with history of prostatectomy I performed an examination of the patient and discussed their management with the Nurse Practitioner. I have reviewed the Nurse Practitioner's notes and agree with the documented findings and plan of care
--- NOTE | 2018-10-16 14:10 | P.PN ---
Subjective This is a pleasant 73-year-old male past medical history significant for chronic persistent atrial fibrillation on termite helper anticoagulation with xarelto, hyperetnsion, dyslipidemia and anemia. He follows with Dr. Em in the office. He presented to the hospital with increased weakness and shortness of breath. he was found to have hgb of 6.5. Due to specific antibodies, he is unable to undergo a simple blood transfusion. His xaerlto has been held. Dr. Del Real has seen the patient and due to his underlying liver and kidney disease which places him at higher risk for bleeding. Also his iron deficiency anemia seems to be related to chronic use of anti-coagulation. 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 Laboratory data reviewed, hemoglobin 6.7, platelets 245, sodium 138, potassium 4, creatinine 1.44. Currently maintained on Aldactone 25 mg twice a day, Lopressor 50 mg twice a day and Lasix 40 mg twice a day. Blood pressure 108/75 heart rate 98 afebrile maintaining oxygen saturation on room air. Echocardiogram obtained October 20, 2017 reveals preserved left ventricular systolic function with ejection fraction 50-55%, moderately dilated left atrium, mild MR and mild to moderate TR. GENERAL: Well-appearing, well-nourished and in no acute distress. NECK: Supple without JVD or thyromegaly. LUNGS: Breath sounds clear to auscultation bilaterally. Respiration equal and unlabored. No wheezes, rales or rhonchi. HEART: Irregular rate and rhythm without murmurs, rubs or gallops. S1 and S2 heard. EXTREMITIES: Normal range of motion, 2+ pitting lower extremity edema bilaterally. No clubbing or cyanosis. Peripheral pulses intact. ASSESSMENT Chronic persistent atrial fibrillation, anti-coagulation currently held. Iron deficiency anemia Hypertension Dyslipidemia Chronic kidney disease History of chronic liver disease PLAN Continue to hold anti-coagulation. Follow up with Dr. Em in the office in 1 week for discussion of Watchman procedure. Appointment has been made. Risks of holding anti-coagulation explained to the patient in great detail including blood clot, stroke and even . Nurse Practitioner note has been reviewed, I agree with a documented findings and plan of care. Patient was seen and examined. Objective - Vital Signs Vital signs: Vital Signs Temp 97.9 F 10/16/18 07:00 Pulse 98 10/16/18 07:00 Resp 16 10/16/18 07:00 BP 108/75 10/16/18 07:00 Pulse Ox 98 10/16/18 07:00 Intake & Output 10/15/18 10/16/18 10/16/18 18:59 06:59 18:59 Intake Total 100 Balance 100 Weight 124 kg Intake: Intake, IV Titration 100 Amount Sodium Ferric Gluconat- 100 Sucrose 125 mg In Sodium Chloride 0.9% 100 ml @ 100 mls/hr IVPB ONCE ONE Rx#:[id number] Other: # Voids 1 - Labs CBC & Chem 7: 10/16/18 08:15 10/16/18 08:15 Labs: Abnormal Lab Results - Last 24 Hours (Table) 10/14/18 10/16/18 10/16/18 Range/Units 11:44 08:15 08:15 RBC 2.69 L (4.30-5.90) m/uL Hgb 6.5 L* 6.7 L* (13.0-17.5) gm/dL Hct 23.1 L (39.0-53.0) % MCH 24.9 L (25.0-35.0) pg MCHC 28.9 L (31.0-37.0) g/dL RDW 24.0 H (11.5-15.5) % Lymphocytes # 0.7 L (1.0-4.8) k/uL Carbon Dioxide 32 H (22-30) mmol/L BUN 34 H (9-20) mg/dL Creatinine 1.44 H (0.66-1.25) mg/dL Glucose 115 H (74-99) mg/dL Total Bilirubin 2.1 H (0.2-1.3) mg/dL Alkaline Phosphatase 247 H (38-126) U/L Albumin 3.3 L (3.5-5.0) g/dL
--- NOTE | 2018-10-16 14:52 | P.PN ---
Subjective Progress Note Date: 10/16/18 Principal diagnosis: anemia Patient seen today in follow-up. Denies any bleeding, no black or bloody stool , hematuria. Patient has significant lower extremity swelling, patient states he is currently carrying an additional 35+ pounds. He has tolerated parenteral iron, today is day 3 of dosing. Denies any other complaints on a 10 point review of systems at this time. Objective - Vital Signs Vital signs: Vital Signs Temp 97.9 F 10/16/18 07:00 Pulse 98 10/16/18 07:00 Resp 16 10/16/18 07:00 BP 108/75 10/16/18 07:00 Pulse Ox 98 10/16/18 07:00 Intake & Output 10/15/18 10/16/18 10/16/18 18:59 06:59 18:59 Intake Total 100 200 Balance 100 200 Weight 124 kg Intake: Intake, IV Titration 100 Amount Sodium Ferric Gluconat- 100 Sucrose 125 mg In Sodium Chloride 0.9% 100 ml @ 100 mls/hr IVPB ONCE ONE Rx#:[id number] Other 200 Other: # Voids 1 3 - Constitutional General appearance: Present: cooperative, morbidly obese, no acute distress - EENT Eyes: Present: anicteric sclerae, EOMI ENT: Present: hearing grossly normal - Respiratory Respiratory: bilateral: CTA - Cardiovascular Heart sounds: normal: S1, S2 - Peripheral edema leg Peripheral Edema: bilateral: 4+ - Gastrointestinal General gastrointestinal: Present: distended, normal bowel sounds, soft - Integumentary Integumentary: Present: pale - Neurologic Neurologic: Present: CNII-XII intact - Musculoskeletal Musculoskeletal: Present: generalized weakness, strength equal bilaterally - Psychiatric Psychiatric: Present: A&O x's 3, appropriate affect, intact judgment & insight - Labs CBC & Chem 7: 10/16/18 08:15 10/16/18 08:15 Labs: Abnormal Lab Results - Last 24 Hours (Table) 10/14/18 10/16/18 10/16/18 Range/Units 11:44 08:15 08:15 RBC 2.69 L (4.30-5.90) m/uL Hgb 6.5 L* 6.7 L* (13.0-17.5) gm/dL Hct 23.1 L (39.0-53.0) % MCH 24.9 L (25.0-35.0) pg MCHC 28.9 L (31.0-37.0) g/dL RDW 24.0 H (11.5-15.5) % Lymphocytes # 0.7 L (1.0-4.8) k/uL Carbon Dioxide 32 H (22-30) mmol/L BUN 34 H (9-20) mg/dL Creatinine 1.44 H (0.66-1.25) mg/dL Glucose 115 H (74-99) mg/dL Total Bilirubin 2.1 H (0.2-1.3) mg/dL Alkaline Phosphatase 247 H (38-126) U/L Albumin 3.3 L (3.5-5.0) g/dL Assessment and Plan (1) Symptomatic anemia Narrative/Plan: Anemia workup suggestive of chronic blood loss related to chronic anticoagulation. Patient has required iron infusions in the past and these have improved his hemoglobin. Patient also has a degree of renal insufficiency that may be contributing. Hemoglobin today is stable at 6.7. no transfusion, continue monitoring with daily CBC. Pt has f/u with Dr. Wright already scheduled next week, he will keep that f/u. Current Visit: Yes Status: Acute Priority: High Code(s): D64.9 - ANEMIA, UNSPECIFIED SNOMED Code(s): 275616044 (2) Chronic atrial fibrillation Current Visit: Yes Status: Chronic Priority: Medium Code(s): I48.2 - CHRONIC ATRIAL FIBRILLATION SNOMED Code(s): 984636899
[2018-10-16] MEDS ORDERED: FUROSEMIDE 10 MG/ML 4 ML VIAL IV STA (15:36)
--- NOTE | 2018-10-16 17:55 | PN ---
PROGRESS NOTE Patient is seen for followup for her acute kidney injury. Renal function is fairly stable with creatinine staying at about 1.4 mg/dL. The patient has had good urine output. His creatinine previously has been at about 1.4 as well. He is currently being diuresed and patient states he continues to have lower extremity edema. He denies any shortness of breath. EXAMINATION: Today blood pressure was 108/75, heart rate 98 per minute. He is afebrile. Examination of the heart S1, S2. Examination of lungs bilateral breath sounds are heard. Abdomen is soft, nontender. Examination lower extremities shows edema 2+ bilaterally. 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 LABS: Hemoglobin 6.7, sodium 138, potassium 4.0, BUN 34, serum creatinine 1.4. UA is completely benign. ASSESSMENT: 1. Chronic kidney disease stage 3 with baseline GFR at 1.4, which is stable. Etiology is nephrosclerosis. 2. Chronic edema. No evidence of nephrotic syndrome. No significant liver disease. Possibly related to elevated right heart pressures. I will continue with the diuretics and give the patient a dose of IV Lasix today. We will also check his weight today. 3. Chronic atrial fibrillation with controlled ventricular response. 4. Anemia with multiple antibodies, currently anticoagulation is on hold. The patient is being followed by Hematology. No active bleeding noted at this time. PLAN: IV Lasix times one today as well as in a.m. Repeat labs in a.m. Avoid nephrotoxic agents. MMODL / IJN: [id number] /
--- NOTE | 2018-10-17 01:41 | P.PN ---
Subjective Progress Note Date: 10/16/18 Principal diagnosis: Anemia, elevated liver enzymes Patient sitting in bed with no acute complaints. Tolerating diet. No abdominal pain. Objective - Vital Signs Vital signs: Vital Signs Temp 97.6 F 10/16/18 19:15 Pulse 98 10/16/18 19:15 Resp 16 10/16/18 19:15 BP 103/66 10/16/18 19:15 Pulse Ox 95 10/16/18 19:15 Intake & Output 10/16/18 10/16/18 10/17/18 06:59 18:59 06:59 Intake Total 200 Balance 200 Weight 124 kg Intake: Other 200 Other: # Voids 1 3 - Exam On physical examination, patient appears comfortable in no apparent distress. HEAD: Normocephalic, atraumatic. EYES: No scleral icterus. No conjunctival injection. MOUTH: No lesions, tongue midline. NECK: Trachea midline, no gross abnormalities. CHEST: Clear to auscultation with no wheezing or rhonchi appreciated. HEART: Regular rate and rhythm. ABDOMEN: Soft, obese. Bowel sounds are positive. No organomegaly. No guarding or rigidity. EXTREMITIES: Bilateral lower extremity edema. SKIN: No rashes, no jaundice. NEUROLOGIC: Alert and oriented x3. No focal deficits. - Labs CBC & Chem 7: 10/16/18 08:15 10/16/18 08:15 Labs: Abnormal Lab Results - Last 24 Hours (Table) 10/14/18 10/16/18 10/16/18 Range/Units 11:44 08:15 08:15 RBC 2.69 L (4.30-5.90) m/uL Hgb 6.5 L* 6.7 L* (13.0-17.5) gm/dL Hct 23.1 L (39.0-53.0) % MCH 24.9 L (25.0-35.0) pg MCHC 28.9 L (31.0-37.0) g/dL RDW 24.0 H (11.5-15.5) % Lymphocytes # 0.7 L (1.0-4.8) k/uL Carbon Dioxide 32 H (22-30) mmol/L BUN 34 H (9-20) mg/dL Creatinine 1.44 H (0.66-1.25) mg/dL Glucose 115 H (74-99) mg/dL Total Bilirubin 2.1 H (0.2-1.3) mg/dL Alkaline Phosphatase 247 H (38-126) U/L Albumin 3.3 L (3.5-5.0) g/dL Assessment and Plan (1) Symptomatic anemia Narrative/Plan: Symptomatic anemia of unknown etiology. Evaluation for GI bleed with colonoscopy and EGD has been negative. Patient denies any signs or symptoms of GI bleeding. Current Visit: Yes Status: Acute Priority: High Code(s): D64.9 - ANEMIA, UNSPECIFIED SNOMED Code(s): 110338264 (2) Elevated liver enzymes Narrative/Plan: Predominantly cholestatic pattern of unknown etiology. MRI of the abdomen essentially negative for biliary etiology. Full serology was ordered an outpatient setting and is pending. Current Visit: No Status: Acute Code(s): R74.8 - ABNORMAL LEVELS OF OTHER SERUM ENZYMES SNOMED Code(s): 280742167 Plan: Supportive care Okay for diet Monitor hemoglobin and transfuse as needed Liver serology pending EGD and colonoscopy negative for GI bleed, we'll plan on ordering capsule endoscopy prior to discharge Thank you for allowing us to participate in the care of the patient we will continue to follow
[2018-10-17] MEDS: LEVOTHYROXINE 100 MCG TAB PO SCH (05:31)
[2018-10-17] MEDS: FUROSEMIDE 40 MG TAB PO SCH ×2 (05:31→15:12)
[2018-10-17] MEDS: SPIRONOLACTONE 25 MG TAB PO SCH ×2 (08:04→20:43)
[2018-10-17] MEDS: PANTOPRAZOLE 40 MG/10 ML VIAL IV SCH (08:04)
[2018-10-17] MEDS: METOPROLOL TARTRATE 50 MG TAB PO SCH ×2 (08:05→20:43)
[2018-10-17] MEDS: CYANOCOBALAMIN 500 MCG TAB PO SCH (08:05)
--- NOTE | 2018-10-17 08:27 | XR ---
EXAMINATION TYPE: XR chest 2V DATE OF EXAM: 10/17/2018 COMPARISON: Prior chest x-ray 10/13/2018 HISTORY: Cough and congestion, abnormal chest x-ray TECHNIQUE: Frontal and lateral views of the chest are obtained. FINDINGS: Heart remains enlarged. There is a spinal curvature. No pneumothorax or evident effusion. No airspace disease. Pulmonary vascularity and vitaly are not significantly changed. There is elevation of the right hemidiaphragm. Interstitium is mildly increased. IMPRESSION: Cardiomegaly, elevated right hemidiaphragm. Correlate to exclude pulmonary venous hypert ension and edema, possible underlying interstitial lung disease.
[2018-10-17 09:37] LABS: Albumin 3.6 g/dL (3.5-5.0); Calcium 8.9 mg/dL (8.4-10.2); Potassium 3.9 mmol/L (3.5-5.1); Total Bilirubin 2.3 mg/dL (0.2-1.3); Total Protein 6.7 g/dL (6.3-8.2)
[2018-10-17 10:12] LABS: Anisocytosis Marked; HCT 24.4 % (39.0-53.0); Hypochromasia Marked; MCH 24.7 pg (25.0-35.0); MCHC 28.4 g/dL (31.0-37.0); MCV 86.9 fL (80.0-100.0); Macrocytosis Slight; Microcytosis Slight; Platelet Count 240 k/uL (150-450); Poikilocytosis Slight; RBC 2.81 m/uL (4.30-5.90); RDW 24.9 % (11.5-15.5)
[2018-10-17 10:19] LABS: HGB 6.9 gm/dL (13.0-17.5)
--- NOTE | 2018-10-17 10:31 | P.PN ---
Subjective Progress Note Date: 10/17/18 Principal diagnosis: Anemia elevated liver enzymes 73-year-old male iron deficiency anemia. Denies hematemesis hematochezia melena. No fevers. No abdominal pain. Tolerating diet. Hemoglobin 6.9. Total bilirubin slightly elevated 2.3 chronically elevated greater than one year. AST ALT within normal limits. AP 258. Chronic serologic workup for chronic liver disease and process. Objective - Vital Signs Vital signs: Vital Signs Temp 98.0 F 10/17/18 07:26 Pulse 103 H 10/17/18 07:26 Resp 16 10/17/18 07:26 BP 96/65 10/17/18 07:26 Pulse Ox 99 10/17/18 07:26 Intake & Output 10/16/18 10/17/18 10/17/18 18:59 06:59 18:59 Intake Total 200 150 296 Balance 200 150 296 Weight 124 kg Intake: Oral 150 296 Other 200 Other: Voiding Method Toilet Toilet # Voids 3 2 1 - Exam General appearance: The patient is alert, oriented, in no acute distress. HET: Head is normocephalic and atraumatic. Pupils are equal and reactive. Oropharynx is clear without lesions. Neck: Supple without lymphadenopathy. Trachea midline. Heart: S1 S2. Regular rate and rhythm. Lungs: No crackles or wheezes are heard. Abdomen: Soft, nontender, nondistended with bowel sounds. No peritoneal signs. No palpable organomegaly or masses. Extremities: + lower extremity edema. Neurological: No focal deficits. Strength and sensation are grossly intact. - Labs CBC & Chem 7: 10/17/18 08:39 10/17/18 08:39 Labs: Abnormal Lab Results - Last 24 Hours (Table) 10/17/18 10/17/18 Range/Units 08:39 08:39 RBC 2.81 L (4.30-5.90) m/uL Hgb 6.9 L* (13.0-17.5) gm/dL Hct 24.4 L (39.0-53.0) % MCH 24.7 L (25.0-35.0) pg MCHC 28.4 L (31.0-37.0) g/dL RDW 24.9 H (11.5-15.5) % BUN 35 H (9-20) mg/dL Creatinine 1.58 H (0.66-1.25) mg/dL Glucose 100 H (74-99) mg/dL Total Bilirubin 2.3 H (0.2-1.3) mg/dL Alkaline Phosphatase 258 H (38-126) U/L Assessment and Plan (1) Symptomatic anemia Narrative/Plan: Symptomatic iron deficiency anemia without overt bleeding such as hematemesis hematochezia or melena status post recent EGD moderate antral gastritis. Colonoscopy December 2017 polypectomy no significant findings. Underlying small bowel source contributing to his anemia cannot be entirely excluded. Current Visit: Yes Status: Acute Priority: High Code(s): D64.9 - ANEMIA, UNSPECIFIED SNOMED Code(s): 080971048 (2) Elevated liver enzymes Narrative/Plan: Chronic elevation of total bilirubin greater than 1 year, AST ALT unremarkable elevated alkaline phosphatase 2 months. MRI abdomen 10/12/2018 reported hepatomegaly 19.1 cm with no suspicious hepatic lesion. Distention and IVC diffuse anasarca suggestive of fluid overload state. Nonspecific borderline mild enlarged upper abdominal lymph nodes 1.1 cm. 1.6 and later nodular configuration of tissue at the pancreatic tail possible normal variation pancreatic parenchyma less likely possibility of a small early pancreatic mass. Repeat CT 3 months recommended. Current Visit: No Status: Acute Code(s): R74.8 - ABNORMAL LEVELS OF OTHER SERUM ENZYMES SNOMED Code(s): 203844141 (3) Chronic kidney disease, stage 3 Current Visit: Yes Status: Acute Code(s): N18.3 - CHRONIC KIDNEY DISEASE, STAGE 3 (MODERATE) SNOMED Code(s): 486434585 (4) Chronic atrial fibrillation Current Visit: Yes Status: Chronic Priority: Medium Code(s): I48.2 - CHRONIC ATRIAL FIBRILLATION SNOMED Code(s): 305842366 Plan: 1. CBC monitoring. Continue with iron transfusions. Will set up for small bowel capsule endoscopy in a.m. Stool occult blood requested. We'll continue to follow. Assessment and plan a care discussed with Dr. Blunt
--- NOTE | 2018-10-17 12:16 | P.PN ---
Subjective Progress Note Date: 10/17/18 Walker Hopper is a 73-year-old male who presented to [facility] emergency room with a chief complaint of severe weakness, and shortness of breath, patient has a known history of anemia he has required multiple red blood cell transfusions, in fact he had 6 transfusion in the last 1 year 2 of them were in [place] where he partially lives, he has multiple antibodies and blood for transfusion is extremely hard to get. Patient also has a known history of atrial fibrillation he is maintained on Xarelto, he does not have any evidence of gastrointestinal bleeding, he is followed as outpatient by gastroenterology for evaluation of his chronic anemia he had an EGD and colonoscopy recently biopsies were done and results are still pending he also had an MRI of the abdomen on 10/12/2018 results are still pending. Patient was evaluated in the emergency room he had evidence of atrial fibrillation was rapid ventricular response heart rate improved gradually, his hemoglobin on presentation was 7.2, BUN and creatinine were elevated at 37 and 1.46 he was admitted to medical floor gastroenterology consultation and hematology consultation were requested. On presentation patient had a chest x-ray that revealed evidence of a small infiltrate versus atelectasis patient does not have any clinical symptoms of pneumonia there is no fever or cough his white blood count is 5.6 at this time will withhold antibiotics will use incentive spirometry and recheck chest x-ray in a.m.. On 10/15/2018 patient was seen and examined on the medical floor he is alert and oriented 3 in no apparent distress he is still complaining of severe weakness and complaining of lower extremity edema otherwise he denies any other complaint there is no fever or chills no headache or dizziness no chest pain no shortness of breath at rest he has shortness of breath with activity there is no cough no nausea or vomiting no abdominal pain no diarrhea and no urinary symptoms. On 10/16/2018 patient is alert and oriented 3. Still complaining of some weakness. At this time patient denies chest pain or shortness of breath. Patient denies nausea vomiting or diarrhea. Patient denies any urinary burning or frequency L1 05/29/2019 patient is alert and oriented 3. Hemoglobin slightly improving to 6.9. Possible capsule study per GI services. Patient is still complaining of significant lower extremity edema. Patient did receive an additional 40 mg of IV Lasix history per nephrology services. At this time patient denies chest pain or shortness of breath. Patient denies nausea vomiting or diarrhea. Patient denies any urinary burning or frequency or frequency Objective - Vital Signs Vital signs: Vital Signs Temp 98.0 F 10/17/18 07:26 Pulse 103 H 10/17/18 07:26 Resp 16 10/17/18 07:26 BP 96/65 10/17/18 07:26 Pulse Ox 99 10/17/18 07:26 Intake & Output 10/16/18 10/17/18 10/17/18 18:59 06:59 18:59 Intake Total 200 150 296 Balance 200 150 296 Weight 124 kg 124.8 kg Intake: Oral 150 296 Other 200 Other: Voiding Method Toilet Toilet # Voids 3 2 1 - Exam In general patient is alert and oriented 3 in no apparent distress HEENT head normocephalic and atraumatic Neck is supple no JVD no goiter no lymphadenopathy Chest exam reveals a few scattered rhonchi bilaterally no wheezing Cardiac exam reveals irregular heart sounds S1 and S2 no gallops no murmurs Abdomen is soft nontender no organomegaly with normal bowel sounds Extremity exam reveals 3+ edema bilaterally no cyanosis or clubbing Neurological examination reveals no gross focal deficit - Labs CBC & Chem 7: 10/17/18 08:39 10/17/18 08:39 Labs: Abnormal Lab Results - Last 24 Hours (Table) 10/17/18 10/17/18 Range/Units 08:39 08:39 RBC 2.81 L (4.30-5.90) m/uL Hgb 6.9 L* (13.0-17.5) gm/dL Hct 24.4 L (39.0-53.0) % MCH 24.7 L (25.0-35.0) pg MCHC 28.4 L (31.0-37.0) g/dL RDW 24.9 H (11.5-15.5) % BUN 35 H (9-20) mg/dL Creatinine 1.58 H (0.66-1.25) mg/dL Glucose 100 H (74-99) mg/dL Total Bilirubin 2.3 H (0.2-1.3) mg/dL Alkaline Phosphatase 258 H (38-126) U/L Assessment and Plan Assessment: #1 chronic anemia, cause is unclear, will admit to inpatient, will check iron levels vitamin B12 level and folate level, will give IV iron if iron level is low, consultation for gastroenterology and hematology were initiated, patient had extensive workup in the last 3 months by hematology and gastroenterology. Per GI services patient will have small bowel capsule endoscopy in a.m. tomorrow #2 severe weakness likely related to anemia will monitor progress closely #3 infiltrate on chest x-ray without any clinical evidence of pneumonia will use incentive spirometry and recheck chest x-ray in a.m. no need for antibiotic at this time no evidence of pneumonia clinically. Repeat chest x-ray completed showing cardiomegaly, elevated right hemidiaphragm. Correlate to exclude pulmonary venous hypertension edema, possible underlining interstitial lung disease. #4 underlying history of hypothyroidism maintained on Synthroid 200 g will continue Will check TSH level #5 underlying history of atrial fibrillation, heart rate was elevated on presentation, also patient had abnormal EKG with T-wave inversion in anterior and inferior leads, cardiology consult was initiated. At this time cardiology recommended to hold Xarelto. 2-D echo has been ordered. Per cardiology continue to hold anticoagulation. Plan to follow-up with Dr. Marin office in one week for discussion of watchman procedure. Per cardiology risk of only anticoagulation explained to the patient #6 acute on chronic chronic kidney disease. Per nephrology etiologies nephrosclerosis #7 underlying history of hypertension well-controlled continue Cozaar and Lopressor #8 underlying history of hyperlipidemia #9 previous history of prostate cancer with history of prostatectomy #10. Increased peripheral edema. Patient currently on scheduled by mouth Lasix. Patient did receive an additional IV Lasix per nephrology services yesterday I performed an examination of the patient and discussed their management with the Nurse Practitioner. I have reviewed the Nurse Practitioner's notes and agree with the documented findings and plan of care
[2018-10-17 12:35] LABS: Eosinophils # (M) 0.31 k/uL (0-0.7); Neutrophils % (M) 76 %; Nucleated Red Blood Cells 1 /100 WBC (0-0); Total Cells Counted 200
[2018-10-17 12:36] LABS: Lymphocytes # (M) 0.56 k/uL (1.0-4.8); Monocytes # (M) 0.41 k/uL (0-1.0); Neutrophils # (M) 3.88 k/uL (1.3-7.7); WBC 5.1 k/uL (3.8-10.6)
[2018-10-17 12:37] LABS: Polychromasia Present; Target Cells Present
--- NOTE | 2018-10-17 15:12 | PN ---
PROGRESS NOTE Patient is seen for followup for acute kidney injury. He currently has significant lower extremity edema. Patient was given IV Lasix yesterday. His creatinine is slightly high at 1.5 today. However, he had put on a significant amount of fluid weight. Patient denies any shortness of breath. PHYSICAL EXAMINATION: Blood pressure was 96/65, heart rate 103 per minute. He is afebrile. Examination of the heart, S1, S2. Examination of the lungs, decreased breath sounds at the bases. Abdomen is soft, nontender. Examination of lower extremities shows edema 2+ bilaterally. COMMISSIONING ENGINEER exam is grossly intact. LABS: Show sodium of 137, potassium 3.9, BUN 35, serum creatinine 1.58, hemoglobin of 6.9 g/dL. ASSESSMENT: 1. Chronic kidney disease, NKF stage III, with baseline creatinine about 1.2 current mg/dL. Patient does have an element of acute kidney injury associated with recent diuresis. His blood pressure remains on the lower side. However, he is not on any antihypertensive medications. I will give another dose of IV Lasix tonight and then continue with oral tablets tomorrow. I will also add midodrine as blood pressure remains low. This should help with renal perfusion as well. Serum creatinine was at 1.4 more recently, it was 1.2 in 2014. Therefore, patient is not too far from his baseline. 2. Chronic lower extremity edema with no evidence of proteinuria. 3. History of prostatic cancer, status post prostatectomy. 4. Atrial fibrillation with controlled ventricular response. PLAN: Add midodrine. Repeat IV Lasix tonight and then switch to oral Lasix. Maintain good oral protein intake. Repeat labs in a.m. MMODL / IJN: [id number] /
[2018-10-17 15:38] LABS: T4, Free (Free Thyroxine) 2.25 ng/dL (0.78-2.19)
[2018-10-17] MEDS: MIDODRINE 5 MG TAB PO SCH (16:39)
[2018-10-17] MEDS ORDERED: MAGNESIUM CITRATE 296 ML BOTTLE PO ONE (17:00)
[2018-10-17] MEDS ORDERED: FUROSEMIDE 10 MG/ML 2 ML VIAL IV ONE (17:26)
[2018-10-18] MEDS ORDERED: SIMETHICONE 40 MG/0.6 ML DROPS 2,000 MG/30 ML BOTTLE PO ONE (07:04)
[2018-10-18] MEDS: FUROSEMIDE 40 MG TAB PO SCH ×2 (09:27→17:35)
[2018-10-18 09:31] LABS: Albumin 3.5 g/dL (3.5-5.0); Calcium 9.1 mg/dL (8.4-10.2); Potassium 4.6 mmol/L (3.5-5.1); Total Bilirubin 2.8 mg/dL (0.2-1.3); Total Protein 6.6 g/dL (6.3-8.2)
[2018-10-18 09:41] LABS: Anisocytosis Marked; Basophils % (A) 1 %; Eosinophils # (A) 0.3 k/uL (0-0.7); Eosinophils % (A) 5 %; HCT 26.5 % (39.0-53.0); HGB 7.6 gm/dL (13.0-17.5); Hypochromasia Marked; Lymphocytes % (A) 20 %; MCH 24.9 pg (25.0-35.0); MCHC 28.6 g/dL (31.0-37.0); MCV 87.1 fL (80.0-100.0); Macrocytosis Slight; Mean Platelet Volume 8.7; Microcytosis Slight; Monocytes # (A) 0.5 k/uL (0-1.0); Monocytes % (A) 10 %; Neutrophils % (A) 62 %; Platelet Count 224 k/uL (150-450); Poikilocytosis Slight; RBC 3.05 m/uL (4.30-5.90); RDW 25.8 % (11.5-15.5); WBC 4.8 k/uL (3.8-10.6)
[2018-10-18 11:13] LABS: Polychromasia Present
[2018-10-18 11:14] LABS: RBC Fragments Present
[2018-10-18] MEDS: METOPROLOL TARTRATE 50 MG TAB PO SCH ×2 (11:51→20:42)
[2018-10-18] MEDS: MIDODRINE 5 MG TAB PO SCH ×3 (11:51→17:18)
[2018-10-18] MEDS: CYANOCOBALAMIN 500 MCG TAB PO SCH (11:52)
[2018-10-18] MEDS: SPIRONOLACTONE 25 MG TAB PO SCH ×2 (11:52→20:41)
[2018-10-18] MEDS: PANTOPRAZOLE 40 MG/10 ML VIAL IV SCH (11:53)
[2018-10-18] MEDS: LEVOTHYROXINE 100 MCG TAB PO SCH (11:55)
--- NOTE | 2018-10-18 12:42 | P.PN ---
Subjective Progress Note Date: 10/18/18 Walker Hopper is a 73-year-old male who presented to [facility] emergency room with a chief complaint of severe weakness, and shortness of breath, patient has a known history of anemia he has required multiple red blood cell transfusions, in fact he had 6 transfusion in the last 1 year 2 of them were in [place] where he partially lives, he has multiple antibodies and blood for transfusion is extremely hard to get. Patient also has a known history of atrial fibrillation he is maintained on Xarelto, he does not have any evidence of gastrointestinal bleeding, he is followed as outpatient by gastroenterology for evaluation of his chronic anemia he had an EGD and colonoscopy recently biopsies were done and results are still pending he also had an MRI of the abdomen on 10/12/2018 results are still pending. Patient was evaluated in the emergency room he had evidence of atrial fibrillation was rapid ventricular response heart rate improved gradually, his hemoglobin on presentation was 7.2, BUN and creatinine were elevated at 37 and 1.46 he was admitted to medical floor gastroenterology consultation and hematology consultation were requested. On presentation patient had a chest x-ray that revealed evidence of a small infiltrate versus atelectasis patient does not have any clinical symptoms of pneumonia there is no fever or cough his white blood count is 5.6 at this time will withhold antibiotics will use incentive spirometry and recheck chest x-ray in a.m.. On 10/15/2018 patient was seen and examined on the medical floor he is alert and oriented 3 in no apparent distress he is still complaining of severe weakness and complaining of lower extremity edema otherwise he denies any other complaint there is no fever or chills no headache or dizziness no chest pain no shortness of breath at rest he has shortness of breath with activity there is no cough no nausea or vomiting no abdominal pain no diarrhea and no urinary symptoms. On 10/16/2018 patient is alert and oriented 3. Still complaining of some weakness. At this time patient denies chest pain or shortness of breath. Patient denies nausea vomiting or diarrhea. Patient denies any urinary burning or frequency On 10/17/2018 patient is alert and oriented 3. Hemoglobin slightly improving to 6.9. Possible capsule study per GI services. Patient is still complaining of significant lower extremity edema. Patient did receive an additional 40 mg of IV Lasix history per nephrology services. At this time patient denies chest pain or shortness of breath. Patient denies nausea vomiting or diarrhea. Patient denies any urinary burning or frequency or frequency On 10/18/2018 patient is alert and oriented 3. Capsule study currently in progress. Slight improvement with lower extremity edema. At this time patient denies chest pain or shortness of breath. Patient denies nausea vomiting or diarrhea. Patient denies urinary burning or frequency. Objective - Vital Signs Vital signs: Vital Signs Temp 98.1 F 10/18/18 09:25 Pulse 96 10/18/18 09:25 Resp 16 10/18/18 00:25 BP 104/70 10/18/18 09:25 Pulse Ox 96 10/18/18 09:25 Intake & Output 10/17/18 10/18/18 10/18/18 18:59 06:59 18:59 Intake Total 296 400 Balance 296 400 Weight 124.8 kg Intake: Oral 296 400 Other: Voiding Method Toilet Toilet Toilet # Voids 1 2 - Exam In general patient is alert and oriented 3 in no apparent distress HEENT head normocephalic and atraumatic Neck is supple no JVD no goiter no lymphadenopathy Chest exam reveals a few scattered rhonchi bilaterally no wheezing Cardiac exam reveals irregular heart sounds S1 and S2 no gallops no murmurs Abdomen is soft nontender no organomegaly with normal bowel sounds Extremity exam reveals 3+ edema bilaterally no cyanosis or clubbing Neurological examination reveals no gross focal deficit - Labs CBC & Chem 7: 10/18/18 07:57 10/18/18 07:57 Labs: Abnormal Lab Results - Last 24 Hours (Table) 10/17/18 10/18/18 10/18/18 Range/Units 08:39 07:57 07:57 RBC 3.05 L (4.30-5.90) m/uL Hgb 7.6 L (13.0-17.5) gm/dL Hct 26.5 L (39.0-53.0) % MCH 24.9 L (25.0-35.0) pg MCHC 28.6 L (31.0-37.0) g/dL RDW 25.8 H (11.5-15.5) % BUN 36 H (9-20) mg/dL Creatinine 1.68 H (0.66-1.25) mg/dL Total Bilirubin 2.8 H (0.2-1.3) mg/dL Alkaline Phosphatase 284 H (38-126) U/L TSH 7.500 H (0.465-4.680) mIU/L Free T4 2.25 H (0.78-2.19) ng/dL Assessment and Plan Assessment: #1 chronic anemia, cause is unclear, will admit to inpatient, will check iron levels vitamin B12 level and folate level, will give IV iron if iron level is low, consultation for gastroenterology and hematology were initiated, patient had extensive workup in the last 3 months by hematology and gastroenterology. Capsule study currently in progress per GI services #2 severe weakness likely related to anemia will monitor progress closely #3 infiltrate on chest x-ray without any clinical evidence of pneumonia will use incentive spirometry and recheck chest x-ray in a.m. no need for antibiotic at this time no evidence of pneumonia clinically. Repeat chest x-ray completed showing cardiomegaly, elevated right hemidiaphragm. Correlate to exclude pulmonary venous hypertension edema, possible underlining interstitial lung disease. #4 underlying history of hypothyroidism maintained on Synthroid 200 g will continue Will check TSH level #5 underlying history of atrial fibrillation, heart rate was elevated on presentation, also patient had abnormal EKG with T-wave inversion in anterior and inferior leads, cardiology consult was initiated. At this time cardiology recommended to hold Xarelto. 2-D echo has been ordered. Per cardiology continue to hold anticoagulation. Plan to follow-up with Dr. Marin office in one week for discussion of watchman procedure. Per cardiology risk of only anticoagulation explained to the patient #6 acute on chronic chronic kidney disease. Per nephrology etiologies nephrosclerosis #7 underlying history of hypertension well-controlled continue Cozaar and Lopressor #8 underlying history of hyperlipidemia #9 previous history of prostate cancer with history of prostatectomy #10. Increased peripheral edema. Patient currently on scheduled by mouth Lasix. Patient did receive an additional IV Lasix per nephrology services yesterday I performed an examination of the patient and discussed their management with the Nurse Practitioner. I have reviewed the Nurse Practitioner's notes and agree with the documented findings and plan of care
--- NOTE | 2018-10-18 13:13 | PN ---
PROGRESS NOTE Patient is seen for followup for acute kidney injury and chronic kidney disease. His renal function has been slightly worse with creatinine up to 1.6 today from 1.5. Baseline creatinine is about 1.4 mg/dL. Currently, patient is maintained on loop diuretics. He did have a few doses of IV Lasix. He is now maintained on oral Lasix for lower extremity edema. The patient denies any chest pains or shortness of breath. PHYSICAL EXAMINATION: On examination, blood pressure was 104/70, heart rate 96 per minute. He is afebrile. EXAMINATION OF THE HEART: S1, S2. EXAMINATION OF THE LUNGS: Bilateral breath sounds are heard. Abdomen is soft, nontender. Examination of the lower extremities shows 2+ edema bilaterally. 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 LABS: Labs show sodium 139, potassium 4.6, chloride 99, BUN 36, serum creatinine 1.68, hemoglobin 7.6 g/dL. TSH was 7.5 yesterday. ASSESSMENT: 1. Acute kidney injury associated with hypotension hypoperfusion and recent diuresis. The patient is maintained on midodrine. The patient was started on midodrine yesterday which I will continue. We may continue with the oral diuretics. 2. Chronic anemia with no evidence of active bleeding noted, being followed by Hematology. 3. Hypothyroidism. TSH of 7.5. The patient is maintained on supplementation. 4. Atrial fibrillation with controlled ventricular response. 5. History of prostatic cancer, status post prostatectomy. 6. Chronic lower extremity edema with no evidence of proteinuria. PLAN: May continue with oral diuretics. Continue with midodrine. Maintain good oral intake. Change diet to heart healthy, to avoid high salt intake. MMODL / IJN: [id number] /
[2018-10-19] MEDS: LEVOTHYROXINE 100 MCG TAB PO SCH (05:59)
[2018-10-19] MEDS: FUROSEMIDE 40 MG TAB PO SCH ×2 (06:01→15:57)
[2018-10-19 08:23] LABS: Anisocytosis Marked; HCT 25.7 % (39.0-53.0); HGB 7.5 gm/dL (13.0-17.5); Hypochromasia Marked; MCH 25.9 pg (25.0-35.0); MCHC 29.3 g/dL (31.0-37.0); MCV 88.3 fL (80.0-100.0); Macrocytosis Slight; Mean Platelet Volume 7.6; Microcytosis Slight; Platelet Count 218 k/uL (150-450); Poikilocytosis Slight; RBC 2.91 m/uL (4.30-5.90); WBC 4.6 k/uL (3.8-10.6)
[2018-10-19 08:26] LABS: RDW 26.2 % (11.5-15.5)
[2018-10-19] MEDS: METOPROLOL TARTRATE 50 MG TAB PO SCH ×2 (09:07→20:07)
[2018-10-19] MEDS: CYANOCOBALAMIN 500 MCG TAB PO SCH (09:07)
[2018-10-19] MEDS: MIDODRINE 5 MG TAB PO SCH ×3 (09:07→17:00)
[2018-10-19] MEDS: PANTOPRAZOLE 40 MG/10 ML VIAL IV SCH (09:07)
[2018-10-19] MEDS: SPIRONOLACTONE 25 MG TAB PO SCH ×2 (09:12→20:07)
[2018-10-19 09:21] LABS: Albumin 3.4 g/dL (3.5-5.0); Calcium 9.2 mg/dL (8.4-10.2); Potassium 4.2 mmol/L (3.5-5.1); Total Bilirubin 2.8 mg/dL (0.2-1.3); Total Protein 6.4 g/dL (6.3-8.2)
[2018-10-19] MEDS ORDERED: LACTATED RINGERS 500 ML IV SCH (09:30)
--- NOTE | 2018-10-19 10:40 | US ---
EXAMINATION TYPE: US venous doppler duplex UE LT DATE OF EXAM: 10/19/2018 COMPARISON: NONE CLINICAL HISTORY: swelling . Edema left arm. Recent IV left arm that was removed last night SIDE PERFORMED: left Left Arm: Apparent branch superior to IJV/subclavian vein junction that appears to have debris, non- occlusive, unable to compress. No evidence of DVT at IJV, subclavian vein, axillary vein, brachial ve in, radial vein and ulnar veins. Superficial thrombus noted cephalic vein at antecubital fossa Grayscale, color doppler, spectral doppler imaging performed of the deep veins of the left upper extr emities. IMPRESSION: Partial occlusive thrombus in branch vessel peripheral to the left internal jugular vein. Focal compl etely occlusive thrombus in the superficial left cephalic vein. Subcutaneous edema confirmed in the l eft upper extremity near superficial basilic and cephalic veins. A Yellow level critical message alert has been initiated for Misha Noonan MD via the [employer] Critical Results System on 10/19/2018 10:38 AM. This message alert has been sent to Misha Noonan MD via the preferences provided by the clinician for the receipt of Radiology Critical Findings. Messag e ID [id number].
[2018-10-19 10:43] LABS: Eosinophils # (M) 0.23 k/uL (0-0.7); Lymphocytes # (M) 0.74 k/uL (1.0-4.8); Monocytes # (M) 0.46 k/uL (0-1.0); Neutrophils # (M) 3.17 k/uL (1.3-7.7); Neutrophils % (M) 69 %; Nucleated Red Blood Cells 0 /100 WBC (0-0); Total Cells Counted 100
[2018-10-19 10:47] LABS: Polychromasia Present
--- NOTE | 2018-10-19 10:52 | P.PN ---
Subjective Progress Note Date: 10/19/18 Principal diagnosis: Anemia elevated liver enzymes 73-year-old male iron deficiency anemia. Denies hematemesis hematochezia melena. No fevers. No abdominal pain. Tolerating diet. Hemoglobin stable 7.5. Capsule endoscopy completed yesterday results are pending. Total bilirubin slightly elevated 2.8. AST/ALT within normal limits. AP 278. Objective - Vital Signs Vital signs: Vital Signs Temp 97.9 F 10/19/18 07:10 Pulse 89 10/19/18 07:10 Resp 18 10/19/18 07:10 BP 117/74 10/19/18 07:10 Pulse Ox 98 10/19/18 07:10 Intake & Output 10/18/18 10/19/18 10/19/18 18:59 06:59 18:59 Intake Total 118 Balance 118 Weight 125.1 kg Intake: Oral 118 Other: Voiding Method Toilet # Voids 2 2 - Exam General appearance: The patient is alert, oriented, in no acute distress. HET: Head is normocephalic and atraumatic. Pupils are equal and reactive. Oropharynx is clear without lesions. Neck: Supple without lymphadenopathy. Trachea midline. Heart: S1 S2. Regular rate and rhythm. Lungs: No crackles or wheezes are heard. Abdomen: Soft, nontender, nondistended with bowel sounds. No peritoneal signs. No palpable organomegaly or masses. Extremities: + lower extremity edema. Neurological: No focal deficits. Strength and sensation are grossly intact. - Labs CBC & Chem 7: 10/19/18 07:34 10/19/18 07:34 Labs: Abnormal Lab Results - Last 24 Hours (Table) 10/18/18 10/19/18 10/19/18 Range/Units 07:57 07:34 07:34 RBC 3.05 L 2.91 L (4.30-5.90) m/uL Hgb 7.6 L 7.5 L (13.0-17.5) gm/dL Hct 26.5 L 25.7 L (39.0-53.0) % MCH 24.9 L (25.0-35.0) pg MCHC 28.6 L 29.3 L (31.0-37.0) g/dL RDW 25.8 H 26.2 H (11.5-15.5) % Lymphocytes # (Manual) 0.74 L (1.0-4.8) k/uL Carbon Dioxide 31 H (22-30) mmol/L BUN 38 H (9-20) mg/dL Creatinine 1.58 H (0.66-1.25) mg/dL Total Bilirubin 2.8 H (0.2-1.3) mg/dL Alkaline Phosphatase 278 H (38-126) U/L Albumin 3.4 L (3.5-5.0) g/dL Assessment and Plan (1) Symptomatic anemia Narrative/Plan: Symptomatic iron deficiency anemia without overt bleeding such as hematemesis hematochezia or melena status post recent EGD moderate antral gastritis. Colonoscopy December 2017 polypectomy no significant findings. Underlying small bowel source contributing to his anemia cannot be entirely excluded. Small bowel capsule endoscopy completed results are pending. Current Visit: Yes Status: Acute Priority: High Code(s): D64.9 - ANEMIA, UNSPECIFIED SNOMED Code(s): 628765746 (2) Elevated liver enzymes Narrative/Plan: Chronic elevation of total bilirubin greater than 1 year, AST ALT unremarkable elevated alkaline phosphatase 2 months. MRI abdomen 10/12/2018 reported hepatomegaly 19.1 cm with no suspicious hepatic lesion. Distention and IVC diffuse anasarca suggestive of fluid overload state. Nonspecific borderline mild enlarged upper abdominal lymph nodes 1.1 cm. 1.6 and later nodular configuration of tissue at the pancreatic tail possible normal variation pancreatic parenchyma less likely possibility of a small early pancreatic mass. Repeat CT 3 months recommended. Current Visit: No Status: Acute Code(s): R74.8 - ABNORMAL LEVELS OF OTHER SERUM ENZYMES SNOMED Code(s): 387174057 (3) Chronic kidney disease, stage 3 Current Visit: Yes Status: Acute Code(s): N18.3 - CHRONIC KIDNEY DISEASE, STAGE 3 (MODERATE) SNOMED Code(s): 544012744 (4) Chronic atrial fibrillation Current Visit: Yes Status: Chronic Priority: Medium Code(s): I48.2 - CHRONIC ATRIAL FIBRILLATION SNOMED Code(s): 129321412 Plan: 1. CBC monitoring. Continue with iron transfusions. Event Operations Manager to evaluate capsule study once results are available. Stool occult blood requested. We'll continue to follow. Assessment and plan a care discussed with Dr. Blunt
--- NOTE | 2018-10-19 11:58 | P.PN ---
Subjective Progress Note Date: 10/19/18 Walker Hopper is a 73-year-old male who presented to [facility] emergency room with a chief complaint of severe weakness, and shortness of breath, patient has a known history of anemia he has required multiple red blood cell transfusions, in fact he had 6 transfusion in the last 1 year 2 of them were in [place] where he partially lives, he has multiple antibodies and blood for transfusion is extremely hard to get. Patient also has a known history of atrial fibrillation he is maintained on Xarelto, he does not have any evidence of gastrointestinal bleeding, he is followed as outpatient by gastroenterology for evaluation of his chronic anemia he had an EGD and colonoscopy recently biopsies were done and results are still pending he also had an MRI of the abdomen on 10/12/2018 results are still pending. Patient was evaluated in the emergency room he had evidence of atrial fibrillation was rapid ventricular response heart rate improved gradually, his hemoglobin on presentation was 7.2, BUN and creatinine were elevated at 37 and 1.46 he was admitted to medical floor gastroenterology consultation and hematology consultation were requested. On presentation patient had a chest x-ray that revealed evidence of a small infiltrate versus atelectasis patient does not have any clinical symptoms of pneumonia there is no fever or cough his white blood count is 5.6 at this time will withhold antibiotics will use incentive spirometry and recheck chest x-ray in a.m.. On 10/15/2018 patient was seen and examined on the medical floor he is alert and oriented 3 in no apparent distress he is still complaining of severe weakness and complaining of lower extremity edema otherwise he denies any other complaint there is no fever or chills no headache or dizziness no chest pain no shortness of breath at rest he has shortness of breath with activity there is no cough no nausea or vomiting no abdominal pain no diarrhea and no urinary symptoms. On 10/16/2018 patient is alert and oriented 3. Still complaining of some weakness. At this time patient denies chest pain or shortness of breath. Patient denies nausea vomiting or diarrhea. Patient denies any urinary burning or frequency On 10/17/2018 patient is alert and oriented 3. Hemoglobin slightly improving to 6.9. Possible capsule study per GI services. Patient is still complaining of significant lower extremity edema. Patient did receive an additional 40 mg of IV Lasix history per nephrology services. At this time patient denies chest pain or shortness of breath. Patient denies nausea vomiting or diarrhea. Patient denies any urinary burning or frequency or frequency On 10/18/2018 patient is alert and oriented 3. Capsule study currently in progress. Slight improvement with lower extremity edema. At this time patient denies chest pain or shortness of breath. Patient denies nausea vomiting or diarrhea. Patient denies urinary burning or frequency. On 10/19/2018 patient is alert and oriented 3. Still awaiting results on capsule study. Hemoglobin stable at 7.5. Patient is still having significant lower extremity edema. Patient is also having increasing creatinine IV Lasix DC 'd patient remains on by mouth Lasix. Patient denies chest pain or shortness of breath. Denies any urinary burning or frequency. She also having increased edema to left upper extremity venous Doppler study has been ordered. Objective - Vital Signs Vital signs: Vital Signs Temp 97.9 F 10/19/18 07:10 Pulse 89 10/19/18 09:07 Resp 18 10/19/18 09:07 BP 117/74 10/19/18 07:10 Pulse Ox 98 10/19/18 07:10 Intake & Output 10/18/18 10/19/18 10/19/18 18:59 06:59 18:59 Intake Total 118 Balance 118 Weight 125.1 kg Intake: Oral 118 Other: Voiding Method Toilet Toilet # Voids 2 2 - Exam In general patient is alert and oriented 3 in no apparent distress HEENT head normocephalic and atraumatic Neck is supple no JVD no goiter no lymphadenopathy Chest exam reveals a few scattered rhonchi bilaterally no wheezing Cardiac exam reveals irregular heart sounds S1 and S2 no gallops no murmurs Abdomen is soft nontender no organomegaly with normal bowel sounds Extremity exam reveals 3+ edema bilaterally no cyanosis or clubbing Neurological examination reveals no gross focal deficit - Labs CBC & Chem 7: 10/19/18 07:34 10/19/18 07:34 Labs: Abnormal Lab Results - Last 24 Hours (Table) 10/19/18 10/19/18 Range/Units 07:34 07:34 RBC 2.91 L (4.30-5.90) m/uL Hgb 7.5 L (13.0-17.5) gm/dL Hct 25.7 L (39.0-53.0) % MCHC 29.3 L (31.0-37.0) g/dL RDW 26.2 H (11.5-15.5) % Lymphocytes # (Manual) 0.74 L (1.0-4.8) k/uL Carbon Dioxide 31 H (22-30) mmol/L BUN 38 H (9-20) mg/dL Creatinine 1.58 H (0.66-1.25) mg/dL Total Bilirubin 2.8 H (0.2-1.3) mg/dL Alkaline Phosphatase 278 H (38-126) U/L Albumin 3.4 L (3.5-5.0) g/dL Assessment and Plan Assessment: #1 chronic anemia, cause is unclear, will admit to inpatient, will check iron levels vitamin B12 level and folate level, will give IV iron if iron level is low, consultation for gastroenterology and hematology were initiated, patient had extensive workup in the last 3 months by hematology and gastroenterology. Awaiting capsule study reading #2 severe weakness likely related to anemia will monitor progress closely #3 infiltrate on chest x-ray without any clinical evidence of pneumonia will use incentive spirometry and recheck chest x-ray in a.m. no need for antibiotic at this time no evidence of pneumonia clinically. Repeat chest x-ray completed showing cardiomegaly, elevated right hemidiaphragm. Correlate to exclude pulmonary venous hypertension edema, possible underlining interstitial lung disease. #4 underlying history of hypothyroidism maintained on Synthroid 200 g. TSH level 7.50 #5 underlying history of atrial fibrillation, heart rate was elevated on presentation, also patient had abnormal EKG with T-wave inversion in anterior and inferior leads, cardiology consult was initiated. At this time cardiology recommended to hold Xarelto. 2-D echo has been ordered. Per cardiology continue to hold anticoagulation. Plan to follow-up with Dr. Marin office in one week for discussion of watchman procedure. Per cardiology risk of only anticoagulation explained to the patient #6 acute on chronic chronic kidney disease. Per nephrology etiologies nephrosclerosis #7 underlying history of hypertension well-controlled continue on Lopressor #8 underlying history of hyperlipidemia #9 previous history of prostate cancer with history of prostatectomy #10. Increased peripheral edema. Patient currently on scheduled by mouth Lasix. Patient did receive an additional IV Lasix per nephrology services yesterday #11 increased upper extremity edema to the left arm. Venous Doppler completed showing partial occlusive thrombus in the branch vessels are felt to the left jugular vein. Focal completely occlusive thrombus in the superficial left cephalic vein. Subcutaneous edema confirmed in the left upper extremity near superficial basilic and cephalic veins. I performed an examination of the patient and discussed their management with the Nurse Practitioner. I have reviewed the Nurse Practitioner's notes and agree with the documented findings and plan of care
--- NOTE | 2018-10-19 13:22 | PN ---
PROGRESS NOTE The patient is seen for followup for chronic kidney disease and acute kidney injury. The patient is currently comfortable. He denies any significant complaints. His diuretics have been switched over to p.o. PHYSICAL EXAMINATION: On examination this morning, blood pressure was 117/74, heart rate of 89 per minute. Patient is afebrile. EXAMINATION OF THE HEART: S1, S2. EXAMINATION OF THE LUNGS: Bilateral breath sounds are heard. Abdomen is soft, nontender, obese. Examination of the lower extremities shows 2+ edema bilaterally. VARNISH MIXER exam is grossly intact. LABS: Labs shows hemoglobin 7.5, sodium 139, potassium 4.2, serum creatinine 1.58. ASSESSMENT: 1. Chronic kidney disease NKF stage 3, baseline creatinine 1.4 to 1.5 secondary to nephrosclerosis. 2. Acute kidney injury associated with hypoperfusion and recent diuresis, currently improved. 3. Chronic lower extremity edema with no evidence of proteinuria, ejection fraction on previous echocardiogram was 50% to 55%. PLAN: Continue with current dose of oral diuretics. Monitor labs frequently as outpatient. MMODL / IJN: [id number] /
[2018-10-19] MEDS ORDERED: SODIUM FERRIC GLUCONAT-SUCROSE 125 MG in SODIUM CHLORIDE 0.9% 100 ML IVPB ONE (13:45)
--- NOTE | 2018-10-19 15:53 | US ---
EXAMINATION TYPE: US venous doppler duplex LE DATE OF EXAM: 10/19/2018 3:07 PM COMPARISON: NONE CLINICAL HISTORY: r/o DVT. SIDE PERFORMED: Bilateral TECHNIQUE: The lower extremity deep venous system is examined utilizing real time linear array sonog moshe with graded compression, doppler sonography and color-flow sonography. VESSELS IMAGED: External Iliac Vein (EIV) Common Femoral Vein Deep Femoral Vein Greater Saphenous Vein * Femoral Vein Popliteal Vein Small Saphenous Vein * Proximal Calf Veins (* superficial vessels) Patient has very large legs with extensive swelling. Technically difficult. Right Leg: Negative for DVT Left Leg: Negative for DVT Grayscale, color doppler, spectral doppler imaging performed of the deep veins of the bilateral lower extremities. There is normal flow, compressibility, vascular waveforms. IMPRESSION: Suboptimal study without acute DVT identified in either lower extremity. Subcutaneous ed carolyn is noted below the knees bilaterally on images saved.
[2018-10-19] MEDS: RIVAROXABAN 20 MG TAB PO SCH (17:00)
[2018-10-20] MEDS: LEVOTHYROXINE 100 MCG TAB PO SCH (05:54)
[2018-10-20] MEDS: LEVOTHYROXINE 125 MCG TAB PO SCH (05:54)
[2018-10-20] MEDS: FUROSEMIDE 40 MG TAB PO SCH ×2 (05:54→15:45)
[2018-10-20 08:30] LABS: Anisocytosis Marked; Basophils # (A) 0.1 k/uL (0-0.2); Basophils % (A) 1 %; Eosinophils # (A) 0.2 k/uL (0-0.7); Eosinophils % (A) 4 %; HCT 26.8 % (39.0-53.0); HGB 7.8 gm/dL (13.0-17.5); Hypochromasia Marked; Lymphocytes # (A) 0.8 k/uL (1.0-4.8); Lymphocytes % (A) 14 %; MCH 25.4 pg (25.0-35.0); MCV 87.8 fL (80.0-100.0); Macrocytosis Slight; Microcytosis Slight; Monocytes # (A) 0.5 k/uL (0-1.0); Monocytes % (A) 10 %; Neutrophils # (A) 3.7 k/uL (1.3-7.7); Neutrophils % (A) 68 %; Platelet Count 243 k/uL (150-450); Poikilocytosis Slight; RBC 3.05 m/uL (4.30-5.90); WBC 5.4 k/uL (3.8-10.6)
[2018-10-20 08:38] LABS: RDW 25.8 % (11.5-15.5)
[2018-10-20 08:44] LABS: Albumin 3.8 g/dL (3.5-5.0); Calcium 9.4 mg/dL (8.4-10.2); Potassium 4.5 mmol/L (3.5-5.1); Total Bilirubin 2.9 mg/dL (0.2-1.3)
[2018-10-20] MEDS ORDERED: ENOXAPARIN 40 MG/0.4 ML SYRINGE SQ SCH (09:00)
[2018-10-20] MEDS: MIDODRINE 5 MG TAB PO SCH ×3 (09:39→17:08)
[2018-10-20] MEDS: SPIRONOLACTONE 25 MG TAB PO SCH ×2 (09:39→20:05)
[2018-10-20] MEDS: CYANOCOBALAMIN 500 MCG TAB PO SCH (09:39)
[2018-10-20] MEDS: METOPROLOL TARTRATE 50 MG TAB PO SCH ×2 (09:40→20:05)
[2018-10-20] MEDS: PANTOPRAZOLE 40 MG TABLET PO SCH (09:40)
--- NOTE | 2018-10-20 10:47 | P.PN ---
Subjective Progress Note Date: 10/20/18 Walker Hopper is a 73-year-old male who presented to [facility] emergency room with a chief complaint of severe weakness, and shortness of breath, patient has a known history of anemia he has required multiple red blood cell transfusions, in fact he had 6 transfusion in the last 1 year 2 of them were in [place] where he partially lives, he has multiple antibodies and blood for transfusion is extremely hard to get. Patient also has a known history of atrial fibrillation he is maintained on Xarelto, he does not have any evidence of gastrointestinal bleeding, he is followed as outpatient by gastroenterology for evaluation of his chronic anemia he had an EGD and colonoscopy recently biopsies were done and results are still pending he also had an MRI of the abdomen on 10/12/2018 results are still pending. Patient was evaluated in the emergency room he had evidence of atrial fibrillation was rapid ventricular response heart rate improved gradually, his hemoglobin on presentation was 7.2, BUN and creatinine were elevated at 37 and 1.46 he was admitted to medical floor gastroenterology consultation and hematology consultation were requested. On presentation patient had a chest x-ray that revealed evidence of a small infiltrate versus atelectasis patient does not have any clinical symptoms of pneumonia there is no fever or cough his white blood count is 5.6 at this time will withhold antibiotics will use incentive spirometry and recheck chest x-ray in a.m.. On 10/15/2018 patient was seen and examined on the medical floor he is alert and oriented 3 in no apparent distress he is still complaining of severe weakness and complaining of lower extremity edema otherwise he denies any other complaint there is no fever or chills no headache or dizziness no chest pain no shortness of breath at rest he has shortness of breath with activity there is no cough no nausea or vomiting no abdominal pain no diarrhea and no urinary symptoms. On 10/16/2018 patient is alert and oriented 3. Still complaining of some weakness. At this time patient denies chest pain or shortness of breath. Patient denies nausea vomiting or diarrhea. Patient denies any urinary burning or frequency On 10/17/2018 patient is alert and oriented 3. Hemoglobin slightly improving to 6.9. Possible capsule study per GI services. Patient is still complaining of significant lower extremity edema. Patient did receive an additional 40 mg of IV Lasix history per nephrology services. At this time patient denies chest pain or shortness of breath. Patient denies nausea vomiting or diarrhea. Patient denies any urinary burning or frequency or frequency On 10/18/2018 patient is alert and oriented 3. Capsule study currently in progress. Slight improvement with lower extremity edema. At this time patient denies chest pain or shortness of breath. Patient denies nausea vomiting or diarrhea. Patient denies urinary burning or frequency. On 10/19/2018 patient is alert and oriented 3. Still awaiting results on capsule study. Hemoglobin stable at 7.5. Patient is still having significant lower extremity edema. Patient is also having increasing creatinine IV Lasix DC 'd patient remains on by mouth Lasix. Patient denies chest pain or shortness of breath. Denies any urinary burning or frequency. She also having increased edema to left upper extremity venous Doppler study has been ordered. On 10/20/2017 patient is alert and oriented 3. Patient was found to have left upper extremity DVT. Discussed case and topically with oncology services and per oncology patient was started back on Xarelto. Venous Doppler of lower extremities were negative for DVT bilaterally. Awaiting final results from capsule study. Hemoglobin stable at 7.8 patient rated. Patient did receive IV iron yesterday. Creatinine increasing to 1.82. Nephrology services are following. At this time patient denies chest pain or shortness breath. Patient denies nausea vomiting or diarrhea. Patient denies any urinary burning or frequency. Patient is still complaining of significant lower extremity edema. Patient does remain on by mouth Lasix. IV Lasix DC'd due to increasing creatinine. Objective - Vital Signs Vital signs: Vital Signs Temp 98.1 F 10/20/18 00:30 Pulse 110 H 10/20/18 05:11 Resp 17 10/20/18 00:30 BP 105/69 10/20/18 05:11 Pulse Ox 100 10/20/18 00:30 Intake & Output 10/19/18 10/20/18 10/20/18 18:59 06:59 18:59 Intake Total 694 Balance 694 Intake: Oral 694 Other: Voiding Method Toilet # Voids 3 0 - Exam In general patient is alert and oriented 3 in no apparent distress HEENT head normocephalic and atraumatic Neck is supple no JVD no goiter no lymphadenopathy Chest exam reveals a few scattered rhonchi bilaterally no wheezing Cardiac exam reveals irregular heart sounds S1 and S2 no gallops no murmurs Abdomen is soft nontender no organomegaly with normal bowel sounds Extremity exam reveals 3+ edema bilaterally no cyanosis or clubbing Neurological examination reveals no gross focal deficit - Labs CBC & Chem 7: 10/20/18 07:55 10/20/18 07:55 Labs: Abnormal Lab Results - Last 24 Hours (Table) 10/13/18 10/19/18 10/20/18 Range/Units 15:00 07:34 07:55 RBC 3.05 L (4.30-5.90) m/uL Hgb 7.8 L (13.0-17.5) gm/dL Hct 26.8 L (39.0-53.0) % MCHC 29.0 L (31.0-37.0) g/dL RDW 25.8 H (11.5-15.5) % Lymphocytes # (Manual) 0.74 L (1.0-4.8) k/uL Carbon Dioxide (22-30) mmol/L BUN (9-20) mg/dL Creatinine (0.66-1.25) mg/dL Glucose (74-99) mg/dL Total Bilirubin (0.2-1.3) mg/dL Alkaline Phosphatase (38-126) U/L Crossmatch See Detail 10/20/18 Range/Units 07:55 RBC (4.30-5.90) m/uL Hgb (13.0-17.5) gm/dL Hct (39.0-53.0) % MCHC (31.0-37.0) g/dL RDW (11.5-15.5) % Lymphocytes # (Manual) (1.0-4.8) k/uL Carbon Dioxide 31 H (22-30) mmol/L BUN 38 H (9-20) mg/dL Creatinine 1.82 H (0.66-1.25) mg/dL Glucose 106 H (74-99) mg/dL Total Bilirubin 2.9 H (0.2-1.3) mg/dL Alkaline Phosphatase 285 H (38-126) U/L Crossmatch Assessment and Plan Assessment: #1 chronic anemia, cause is unclear, will admit to inpatient, will check iron levels vitamin B12 level and folate level, will give IV iron if iron level is low, consultation for gastroenterology and hematology were initiated, patient had extensive workup in the last 3 months by hematology and gastroenterology. Awaiting capsule study reading #2 severe weakness likely related to anemia will monitor progress closely #3 infiltrate on chest x-ray without any clinical evidence of pneumonia will use incentive spirometry and recheck chest x-ray in a.m. no need for antibiotic at this time no evidence of pneumonia clinically. Repeat chest x-ray completed showing cardiomegaly, elevated right hemidiaphragm. Correlate to exclude pulmonary venous hypertension edema, possible underlining interstitial lung disease. #4 underlying history of hypothyroidism maintained on Synthroid 200 g. TSH level 7.50. Synthroid increased to 225 #5 underlying history of atrial fibrillation, heart rate was elevated on presentation, also patient had abnormal EKG with T-wave inversion in anterior and inferior leads, cardiology consult was initiated. At this time cardiology recommended to hold Xarelto. 2-D echo has been ordered. Per cardiology continue to hold anticoagulation. Plan to follow-up with Dr. Marin office in one week for discussion of watchman procedure. Per cardiology risk of holding anticoagulation explained to the patient. Xarelto has been resumed per oncology recommendation due to upper extremity venous Doppler result. #6 acute on chronic chronic kidney disease. Per nephrology etiologies nephrosclerosis #7 underlying history of hypertension well-controlled continue on Lopressor #8 underlying history of hyperlipidemia #9 previous history of prostate cancer with history of prostatectomy #10. Increased peripheral edema. Patient currently on scheduled by mouth Lasix. Patient did receive an additional IV Lasix per nephrology services yesterday #11 increased upper extremity edema to the left arm. Venous Doppler completed showing partial occlusive thrombus in the branch vessels are felt to the left jugular vein. Focal completely occlusive thrombus in the superficial left cephalic vein. Subcutaneous edema confirmed in the left upper extremity near superficial basilic and cephalic veins. Discussed case with Elisabeth EDEN per oncology services and cardiology services. Oncology recommending we restart patient Xarelto. DVT prophylaxis Xarelto. GI prophylaxis Protonix I performed an examination of the patient and discussed their management with the Nurse Practitioner. I have reviewed the Nurse Practitioner's notes and agree with the documented findings and plan of care
[2018-10-20 11:18] LABS: RBC Fragments Present; Target Cells Present
[2018-10-20 11:20] LABS: Polychromasia Present
[2018-10-20] MEDS: RIVAROXABAN 20 MG TAB PO SCH (17:08)
[2018-10-21] MEDS: FUROSEMIDE 40 MG TAB PO SCH (05:29)
[2018-10-21] MEDS: LEVOTHYROXINE 125 MCG TAB PO SCH (05:29)
[2018-10-21] MEDS: LEVOTHYROXINE 100 MCG TAB PO SCH (05:29)
[2018-10-21] MEDS: CYANOCOBALAMIN 500 MCG TAB PO SCH (08:53)
[2018-10-21] MEDS: METOPROLOL TARTRATE 50 MG TAB PO SCH ×2 (08:53→21:06)
[2018-10-21] MEDS: MIDODRINE 5 MG TAB PO SCH ×3 (08:53→17:36)
[2018-10-21] MEDS: SPIRONOLACTONE 25 MG TAB PO SCH ×2 (08:53→21:00)
[2018-10-21] MEDS: PANTOPRAZOLE 40 MG TABLET PO SCH (08:53)
--- NOTE | 2018-10-21 11:05 | P.PN ---
Subjective Patient is seen in follow-up for acute kidney injury on chronic kidney disease. Patient has chronic kidney disease stage III with baseline creatinine in the range of 1.4-1.5 secondary to nephrosclerosis. Patient has history of diastolic CHF. Admits to significant edema. Also shortness of breath with minimal exertion. Lasix is held last night due to low blood pressure. Vital signs are stable. General: The patient appeared well nourished and normally developed. HEENT: Head exam is unremarkable. Neck is without jugular venous distension. LUNGS: Breath sounds decreased. HEART: Rate and Rhythm are regular. First and second heart sounds normal. No murmurs, rubs or gallops. ABDOMEN: Abdominal exam reveals normal bowel sounds. Non-tender and non- distended. No evidence of peritonitis. EXTREMITITES: 2+ edema. Objective - Vital Signs Vital signs: Vital Signs Temp 97.8 F 10/21/18 07:07 Pulse 92 10/21/18 07:07 Resp 16 10/21/18 07:07 BP 100/68 10/21/18 07:07 Pulse Ox 99 10/21/18 07:07 Intake & Output 10/20/18 10/21/18 10/21/18 18:59 06:59 18:59 Intake Total 1000 118 Balance 1000 118 Weight 125.1 kg 125.3 kg Intake: Oral 1000 118 Other: Voiding Method Toilet Toilet # Voids 1 - Labs CBC & Chem 7: 10/20/18 07:55 10/20/18 07:55 Labs: Abnormal Lab Results - Last 24 Hours (Table) 10/20/18 Range/Units 07:55 RBC 3.05 L (4.30-5.90) m/uL Hgb 7.8 L (13.0-17.5) gm/dL Hct 26.8 L (39.0-53.0) % MCHC 29.0 L (31.0-37.0) g/dL RDW 25.8 H (11.5-15.5) % Lymphocytes # 0.8 L (1.0-4.8) k/uL Assessment and Plan Plan: Assessment: 1. 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 Creatinine up to 1.82 yesterday. 2. Diastolic CHF. 3. Volume overload. No evidence of DVT. 4. Chronic kidney disease stage III with baseline creatinine in the range of 1.4-1.5 secondary to nephrosclerosis. 5. Hypotension maintained on midodrine. Plan: Increase midodrine to 10 mg 3 times daily. I will change Lasix to 40 mg IV twice daily. Maintain Aldactone. Hold if systolic blood pressure less than 110. Low-salt diet. Avoid nephrotoxins. Repeat electrolytes in the morning.
[2018-10-21 11:39] LABS: Calcium 9.1 mg/dL (8.4-10.2); Magnesium 2.1 mg/dL (1.6-2.3); Potassium 4.5 mmol/L (3.5-5.1)
[2018-10-21] MEDS: FUROSEMIDE 10 MG/ML 4 ML VIAL IV SCH ×2 (12:16→21:06)
--- NOTE | 2018-10-21 13:51 | P.PN ---
Subjective Progress Note Date: 10/21/18 Walker Hopper is a 73-year-old male who presented to [facility] emergency room with a chief complaint of severe weakness, and shortness of breath, patient has a known history of anemia he has required multiple red blood cell transfusions, in fact he had 6 transfusion in the last 1 year 2 of them were in [place] where he partially lives, he has multiple antibodies and blood for transfusion is extremely hard to get. Patient also has a known history of atrial fibrillation he is maintained on Xarelto, he does not have any evidence of gastrointestinal bleeding, he is followed as outpatient by gastroenterology for evaluation of his chronic anemia he had an EGD and colonoscopy recently biopsies were done and results are still pending he also had an MRI of the abdomen on 10/12/2018 results are still pending. Patient was evaluated in the emergency room he had evidence of atrial fibrillation was rapid ventricular response heart rate improved gradually, his hemoglobin on presentation was 7.2, BUN and creatinine were elevated at 37 and 1.46 he was admitted to medical floor gastroenterology consultation and hematology consultation were requested. On presentation patient had a chest x-ray that revealed evidence of a small infiltrate versus atelectasis patient does not have any clinical symptoms of pneumonia there is no fever or cough his white blood count is 5.6 at this time will withhold antibiotics will use incentive spirometry and recheck chest x-ray in a.m.. On 10/15/2018 patient was seen and examined on the medical floor he is alert and oriented 3 in no apparent distress he is still complaining of severe weakness and complaining of lower extremity edema otherwise he denies any other complaint there is no fever or chills no headache or dizziness no chest pain no shortness of breath at rest he has shortness of breath with activity there is no cough no nausea or vomiting no abdominal pain no diarrhea and no urinary symptoms. On 10/16/2018 patient is alert and oriented 3. Still complaining of some weakness. At this time patient denies chest pain or shortness of breath. Patient denies nausea vomiting or diarrhea. Patient denies any urinary burning or frequency On 10/17/2018 patient is alert and oriented 3. Hemoglobin slightly improving to 6.9. Possible capsule study per GI services. Patient is still complaining of significant lower extremity edema. Patient did receive an additional 40 mg of IV Lasix history per nephrology services. At this time patient denies chest pain or shortness of breath. Patient denies nausea vomiting or diarrhea. Patient denies any urinary burning or frequency or frequency On 10/18/2018 patient is alert and oriented 3. Capsule study currently in progress. Slight improvement with lower extremity edema. At this time patient denies chest pain or shortness of breath. Patient denies nausea vomiting or diarrhea. Patient denies urinary burning or frequency. On 10/19/2018 patient is alert and oriented 3. Still awaiting results on capsule study. Hemoglobin stable at 7.5. Patient is still having significant lower extremity edema. Patient is also having increasing creatinine IV Lasix DC 'd patient remains on by mouth Lasix. Patient denies chest pain or shortness of breath. Denies any urinary burning or frequency. She also having increased edema to left upper extremity venous Doppler study has been ordered. On 10/20/2017 patient is alert and oriented 3. Patient was found to have left upper extremity DVT. Discussed case and topically with oncology services and per oncology patient was started back on Xarelto. Venous Doppler of lower extremities were negative for DVT bilaterally. Awaiting final results from capsule study. Hemoglobin stable at 7.8 patient rated. Patient did receive IV iron yesterday. Creatinine increasing to 1.82. Nephrology services are following. At this time patient denies chest pain or shortness breath. Patient denies nausea vomiting or diarrhea. Patient denies any urinary burning or frequency. Patient is still complaining of significant lower extremity edema. Patient does remain on by mouth Lasix. IV Lasix DC'd due to increasing creatinine. On 10/21/2017 patient is alert and oriented 3. Patient remains on Xarelto for DVT in left upper extremity. Creatinine improving to 1.54. Patient has received a one-time dose of Lasix IV per nephrology services. Hemoglobin 7.8 will repeat today and tomorrow. This time patient denies chest pain or shortness of breath. Patient denies nausea vomiting or diarrhea. Patient denies any urinary burning or frequency. Objective - Vital Signs Vital signs: Vital Signs Temp 97.8 F 10/21/18 07:07 Pulse 106 H 10/21/18 12:02 Resp 16 10/21/18 07:07 BP 104/69 10/21/18 12:02 Pulse Ox 100 10/21/18 12:02 Intake & Output 0110/21/18 10/21/18 18:59 06:59 18:59 Intake Total 1000 118 Balance 1000 118 Weight 125.1 kg 125.3 kg Intake: Oral 1000 118 Other: Voiding Method Toilet Toilet # Voids 1 3 - Exam In general patient is alert and oriented 3 in no apparent distress HEENT head normocephalic and atraumatic Neck is supple no JVD no goiter no lymphadenopathy Chest exam reveals a few scattered rhonchi bilaterally no wheezing Cardiac exam reveals irregular heart sounds S1 and S2 no gallops no murmurs Abdomen is soft nontender no organomegaly with normal bowel sounds Extremity exam reveals 3+ edema bilaterally no cyanosis or clubbing Neurological examination reveals no gross focal deficit - Labs CBC & Chem 7: 10/20/18 07:55 10/21/18 11:01 Labs: Abnormal Lab Results - Last 24 Hours (Table) 10/21/18 Range/Units 11:01 BUN 39 H (9-20) mg/dL Creatinine 1.54 H (0.66-1.25) mg/dL Glucose 100 H (74-99) mg/dL Assessment and Plan Assessment: #1 chronic anemia, cause is unclear, will admit to inpatient, will check iron levels vitamin B12 level and folate level, will give IV iron if iron level is low, consultation for gastroenterology and hematology were initiated, patient had extensive workup in the last 3 months by hematology and gastroenterology. Awaiting capsule study reading #2 severe weakness likely related to anemia will monitor progress closely #3 infiltrate on chest x-ray without any clinical evidence of pneumonia will use incentive spirometry and recheck chest x-ray in a.m. no need for antibiotic at this time no evidence of pneumonia clinically. Repeat chest x-ray completed showing cardiomegaly, elevated right hemidiaphragm. Correlate to exclude pulmonary venous hypertension edema, possible underlining interstitial lung disease. #4 underlying history of hypothyroidism maintained on Synthroid 200 g. TSH level 7.50. Synthroid increased to 225 #5 underlying history of atrial fibrillation, heart rate was elevated on presentation, also patient had abnormal EKG with T-wave inversion in anterior and inferior leads, cardiology consult was initiated. At this time cardiology recommended to hold Xarelto. 2-D echo has been ordered. Per cardiology continue to hold anticoagulation. Plan to follow-up with Dr. Marin office in one week for discussion of watchman procedure. Per cardiology risk of holding anticoagulation explained to the patient. Xarelto has been resumed per oncology recommendation due to upper extremity venous Doppler result. #6 acute on chronic chronic kidney disease. Per nephrology etiologies nephrosclerosis #7 underlying history of hypertension well-controlled continue on Lopressor #8 underlying history of hyperlipidemia #9 previous history of prostate cancer with history of prostatectomy #10. Increased peripheral edema. Patient currently on scheduled by mouth Lasix. Patient did receive an additional IV Lasix per nephrology services today #11 increased upper extremity edema to the left arm. Venous Doppler completed showing partial occlusive thrombus in the branch vessels are felt to the left jugular vein. Focal completely occlusive thrombus in the superficial left cephalic vein. Subcutaneous edema confirmed in the left upper extremity near superficial basilic and cephalic veins. Discussed case with Elisabeth EDEN per oncology services and cardiology services. Oncology recommending we restart patient Xarelto. DVT prophylaxis Xarelto. GI prophylaxis Protonix I performed an examination of the patient and discussed their management with the Nurse Practitioner. I have reviewed the Nurse Practitioner's notes and agree with the documented findings and plan of care
[2018-10-21 15:22] LABS: Anisocytosis Marked; HCT 26.8 % (39.0-53.0); HGB 7.7 gm/dL (13.0-17.5); Hypochromasia Marked; MCH 25.4 pg (25.0-35.0); MCHC 28.9 g/dL (31.0-37.0); Macrocytosis Slight; Mean Platelet Volume 7.4; Microcytosis Slight; Platelet Count 192 k/uL (150-450); Poikilocytosis Slight; RBC 3.05 m/uL (4.30-5.90); WBC 4.5 k/uL (3.8-10.6)
[2018-10-21 15:24] LABS: RDW 25.6 % (11.5-15.5)
[2018-10-21 15:34] LABS: Anisocytosis (M) Present; Basophils # (M) 0.09 k/uL (0-0.2); Eosinophils # (M) 0.05 k/uL (0-0.7); Hypochromasia (M) Present; Lymphocytes # (M) 0.54 k/uL (1.0-4.8); Monocytes # (M) 0.41 k/uL (0-1.0); Neutrophils # (M) 3.42 k/uL (1.3-7.7); Neutrophils % (M) 76 %; Nucleated Red Blood Cells 0 /100 WBC (0-0); Polychromasia Present; Total Cells Counted 100
[2018-10-21 15:35] LABS: Mixed Population RBC Present; Poikilocytosis (M) Present
[2018-10-21] MEDS: RIVAROXABAN 20 MG TAB PO SCH (17:36)
--- NOTE | 2018-10-21 19:10 | P.PN ---
Subjective Progress Note Date: 10/21/18 Principal diagnosis: Anemia, elevated liver enzymes Patient sitting in bed with no acute complaints. Tolerating diet. No abdominal pain or signs or symptoms of GI bleeding. Objective - Vital Signs Vital signs: Vital Signs Temp 98.1 F 10/21/18 15:00 Pulse 101 H 10/21/18 15:00 Resp 16 10/21/18 15:00 BP 97/63 10/21/18 15:00 Pulse Ox 100 10/21/18 15:00 Intake & Output 10/21/18 10/21/18 10/22/18 06:59 18:59 06:59 Intake Total 688 Balance 688 Weight 125.3 kg Intake: Oral 688 Other: Voiding Method Toilet # Voids 1 3 - Exam On physical examination, patient appears comfortable in no apparent distress. HEAD: Normocephalic, atraumatic. EYES: No scleral icterus. No conjunctival injection. MOUTH: No lesions, tongue midline. NECK: Trachea midline, no gross abnormalities. CHEST: Clear to auscultation with no wheezing or rhonchi appreciated. ABDOMEN: Soft, obese. Bowel sounds are positive. No organomegaly. No guarding or rigidity. EXTREMITIES: 2+ Bilateral lower extremity edema. SKIN: No rashes, no jaundice. NEUROLOGIC: Alert and oriented x3. No focal deficits. - Labs CBC & Chem 7: 10/21/18 14:22 10/21/18 11:01 Labs: Abnormal Lab Results - Last 24 Hours (Table) 10/21/18 10/21/18 Range/Units 11:01 14:22 RBC 3.05 L (4.30-5.90) m/uL Hgb 7.7 L (13.0-17.5) gm/dL Hct 26.8 L (39.0-53.0) % MCHC 28.9 L (31.0-37.0) g/dL RDW 25.6 H (11.5-15.5) % Lymphocytes # (Manual) 0.54 L (1.0-4.8) k/uL BUN 39 H (9-20) mg/dL Creatinine 1.54 H (0.66-1.25) mg/dL Glucose 100 H (74-99) mg/dL Assessment and Plan (1) Symptomatic anemia Narrative/Plan: Symptomatic anemia of unknown etiology. Evaluation for GI bleed with colonoscopy and EGD has been negative. Capsule endoscopy which was performed during this admission also was negative for any pathology that could explain anemia. Would recommend continued evaluation by the hematology service. Current Visit: Yes Status: Acute Priority: High Code(s): D64.9 - ANEMIA, UNSPECIFIED SNOMED Code(s): 463621883 (2) Elevated liver enzymes Narrative/Plan: Predominantly cholestatic pattern of unknown etiology. MRI of the abdomen essentially negative for biliary etiology. Full serology was ordered an outpatient setting and is pending. Current Visit: No Status: Acute Code(s): R74.8 - ABNORMAL LEVELS OF OTHER SERUM ENZYMES SNOMED Code(s): 774360926 Plan: Supportive care Okay for diet Monitor hemoglobin and transfuse as needed Liver serology pending, patient is scheduled to follow up in the outpatient setting EGD and colonoscopy negative for GI bleed, with video capsule endoscopy on this admission also negative for any pathology to explain anemia Would recommend continued evaluation by hematology service Recommend follow-up with gastroenterology after discharge Patient will need repeat computed tomography scan or MRI in 3 months for evaluation of possible liver lesion Thank you for allowing us to participate in the care of the patient, the gastroenterology service will stand by at this time, please call us back with any questions or concerns or if signs or symptoms of GI bleeding occur while on anticoagulation therapy for second look upper endoscopy
[2018-10-22] MEDS: LEVOTHYROXINE 100 MCG TAB PO SCH (05:31)
[2018-10-22] MEDS: LEVOTHYROXINE 125 MCG TAB PO SCH (05:31)
[2018-10-22 07:50] LABS: Anisocytosis Marked; Basophils % (A) 1 %; Eosinophils # (A) 0.2 k/uL (0-0.7); Eosinophils % (A) 4 %; HCT 25.9 % (39.0-53.0); HGB 7.3 gm/dL (13.0-17.5); Hypochromasia Marked; Lymphocytes # (A) 0.8 k/uL (1.0-4.8); Lymphocytes % (A) 17 %; MCH 24.7 pg (25.0-35.0); MCHC 28.3 g/dL (31.0-37.0); MCV 87.2 fL (80.0-100.0); Macrocytosis Slight; Mean Platelet Volume 8.4; Microcytosis Slight; Monocytes # (A) 0.4 k/uL (0-1.0); Monocytes % (A) 9 %; Neutrophils % (A) 65 %; Platelet Count 206 k/uL (150-450); Poikilocytosis Slight; RBC 2.97 m/uL (4.30-5.90); WBC 4.6 k/uL (3.8-10.6)
[2018-10-22 08:10] LABS: RDW 25.3 % (11.5-15.5)
[2018-10-22 08:26] LABS: Calcium 9.1 mg/dL (8.4-10.2); Potassium 4.6 mmol/L (3.5-5.1)
[2018-10-22] MEDS: SPIRONOLACTONE 25 MG TAB PO SCH ×2 (08:41→20:40)
[2018-10-22] MEDS: PANTOPRAZOLE 40 MG TABLET PO SCH (08:41)
[2018-10-22] MEDS: FUROSEMIDE 10 MG/ML 4 ML VIAL IV SCH ×2 (08:41→20:44)
[2018-10-22] MEDS: CYANOCOBALAMIN 500 MCG TAB PO SCH (08:41)
[2018-10-22] MEDS: MIDODRINE 5 MG TAB PO SCH ×3 (08:41→18:00)
[2018-10-22] MEDS: METOPROLOL TARTRATE 50 MG TAB PO SCH ×2 (08:41→20:44)
--- NOTE | 2018-10-22 10:38 | P.PN ---
Subjective Patient is seen in follow-up for acute kidney injury on chronic kidney disease. Patient has chronic kidney disease stage III with baseline creatinine in the range of 1.4-1.5 secondary to nephrosclerosis. Patient has history of diastolic CHF. Patient's is edema is improved compared to yesterday. Admits to good urine output. Currently maintained on Lasix 40 mg IV twice daily. Vital signs are stable. General: The patient appeared well nourished and normally developed. HEENT: Head exam is unremarkable. Neck is without jugular venous distension. LUNGS: Breath sounds decreased. HEART: Rate and Rhythm are regular. First and second heart sounds normal. No murmurs, rubs or gallops. ABDOMEN: Abdominal exam reveals normal bowel sounds. Non-tender and non- distended. No evidence of peritonitis. EXTREMITITES: 2+ edema. Objective - Vital Signs Vital signs: Vital Signs Temp 98.0 F 10/22/18 07:40 Pulse 108 H 10/22/18 07:40 Resp 16 10/22/18 07:40 BP 101/70 10/22/18 07:40 Pulse Ox 98 10/22/18 07:40 Intake & Output 10/21/18 10/22/18 10/22/18 18:59 06:59 18:59 Intake Total 688 520 296 Balance 688 520 296 Intake: Oral 688 520 296 Other: Voiding Method Toilet Toilet # Voids 3 - Labs CBC & Chem 7: 10/22/18 07:29 10/22/18 07:29 Labs: Abnormal Lab Results - Last 24 Hours (Table) 10/21/18 10/21/18 10/22/18 Range/Units 11:01 14:22 07:29 RBC 3.05 L (4.30-5.90) m/uL Hgb 7.7 L (13.0-17.5) gm/dL Hct 26.8 L (39.0-53.0) % MCH (25.0-35.0) pg MCHC 28.9 L (31.0-37.0) g/dL RDW 25.6 H (11.5-15.5) % Lymphocytes # (1.0-4.8) k/uL Lymphocytes # (Manual) 0.54 L (1.0-4.8) k/uL Carbon Dioxide 31 H (22-30) mmol/L BUN 39 H 47 H (9-20) mg/dL Creatinine 1.54 H 1.63 H (0.66-1.25) mg/dL Glucose 100 H (74-99) mg/dL 10/22/18 Range/Units 07:29 RBC 2.97 L (4.30-5.90) m/uL Hgb 7.3 L (13.0-17.5) gm/dL Hct 25.9 L (39.0-53.0) % MCH 24.7 L (25.0-35.0) pg MCHC 28.3 L (31.0-37.0) g/dL RDW 25.3 H (11.5-15.5) % Lymphocytes # 0.8 L (1.0-4.8) k/uL Lymphocytes # (Manual) (1.0-4.8) k/uL Carbon Dioxide (22-30) mmol/L BUN (9-20) mg/dL Creatinine (0.66-1.25) mg/dL Glucose (74-99) mg/dL Assessment and Plan Plan: Assessment: 1. Acute kidney injury mostly prerenal secondary to cardiorenal syndrome. Creatinine 1.63 today. 2. Diastolic CHF. 3. Volume overload. No evidence of DVT. 4. Chronic kidney disease stage III with baseline creatinine in the range of 1.4-1.5 secondary to nephrosclerosis. 5. Hypotension maintained on midodrine. Plan: Maintain Lasix 40 mg IV twice daily. Maintain Aldactone. Hold if systolic blood pressure less than 110. Low-salt diet. Avoid nephrotoxins. Repeat electrolytes in the morning.
--- NOTE | 2018-10-22 12:13 | P.PN ---
Subjective Progress Note Date: 10/22/18 Walker Hopper is a 73-year-old male who presented to [facility] emergency room with a chief complaint of severe weakness, and shortness of breath, patient has a known history of anemia he has required multiple red blood cell transfusions, in fact he had 6 transfusion in the last 1 year 2 of them were in [place] where he partially lives, he has multiple antibodies and blood for transfusion is extremely hard to get. Patient also has a known history of atrial fibrillation he is maintained on Xarelto, he does not have any evidence of gastrointestinal bleeding, he is followed as outpatient by gastroenterology for evaluation of his chronic anemia he had an EGD and colonoscopy recently biopsies were done and results are still pending he also had an MRI of the abdomen on 10/12/2018 results are still pending. Patient was evaluated in the emergency room he had evidence of atrial fibrillation was rapid ventricular response heart rate improved gradually, his hemoglobin on presentation was 7.2, BUN and creatinine were elevated at 37 and 1.46 he was admitted to medical floor gastroenterology consultation and hematology consultation were requested. On presentation patient had a chest x-ray that revealed evidence of a small infiltrate versus atelectasis patient does not have any clinical symptoms of pneumonia there is no fever or cough his white blood count is 5.6 at this time will withhold antibiotics will use incentive spirometry and recheck chest x-ray in a.m.. On 10/15/2018 patient was seen and examined on the medical floor he is alert and oriented 3 in no apparent distress he is still complaining of severe weakness and complaining of lower extremity edema otherwise he denies any other complaint there is no fever or chills no headache or dizziness no chest pain no shortness of breath at rest he has shortness of breath with activity there is no cough no nausea or vomiting no abdominal pain no diarrhea and no urinary symptoms. On 10/16/2018 patient is alert and oriented 3. Still complaining of some weakness. At this time patient denies chest pain or shortness of breath. Patient denies nausea vomiting or diarrhea. Patient denies any urinary burning or frequency On 10/17/2018 patient is alert and oriented 3. Hemoglobin slightly improving to 6.9. Possible capsule study per GI services. Patient is still complaining of significant lower extremity edema. Patient did receive an additional 40 mg of IV Lasix history per nephrology services. At this time patient denies chest pain or shortness of breath. Patient denies nausea vomiting or diarrhea. Patient denies any urinary burning or frequency or frequency On 10/18/2018 patient is alert and oriented 3. Capsule study currently in progress. Slight improvement with lower extremity edema. At this time patient denies chest pain or shortness of breath. Patient denies nausea vomiting or diarrhea. Patient denies urinary burning or frequency. On 10/19/2018 patient is alert and oriented 3. Still awaiting results on capsule study. Hemoglobin stable at 7.5. Patient is still having significant lower extremity edema. Patient is also having increasing creatinine IV Lasix DC 'd patient remains on by mouth Lasix. Patient denies chest pain or shortness of breath. Denies any urinary burning or frequency. She also having increased edema to left upper extremity venous Doppler study has been ordered. On 10/20/2018 patient is alert and oriented 3. Patient was found to have left upper extremity DVT. Discussed case and topically with oncology services and per oncology patient was started back on Xarelto. Venous Doppler of lower extremities were negative for DVT bilaterally. Awaiting final results from capsule study. Hemoglobin stable at 7.8 patient rated. Patient did receive IV iron yesterday. Creatinine increasing to 1.82. Nephrology services are following. At this time patient denies chest pain or shortness breath. Patient denies nausea vomiting or diarrhea. Patient denies any urinary burning or frequency. Patient is still complaining of significant lower extremity edema. Patient does remain on by mouth Lasix. IV Lasix DC'd due to increasing creatinine. On 10/21/2018 patient is alert and oriented 3. Patient remains on Xarelto for DVT in left upper extremity. Creatinine improving to 1.54. Patient has received a one-time dose of Lasix IV per nephrology services. Hemoglobin 7.8 will repeat today and tomorrow. This time patient denies chest pain or shortness of breath. Patient denies nausea vomiting or diarrhea. Patient denies any urinary burning or frequency. On 10/22/2018 patient is alert and oriented 3. Patient is currently on IV Lasix twice a day per nephrology services. Hemoglobin 7.3. At this time patient denies chest pain or shortness breath. Patient denies nausea vomiting or diarrhea. Patient denies any urinary burning or frequency Objective - Vital Signs Vital signs: Vital Signs Temp 98.0 F 10/22/18 07:40 Pulse 108 H 10/22/18 07:40 Resp 16 10/22/18 07:40 BP 101/70 10/22/18 07:40 Pulse Ox 98 10/22/18 07:40 Intake & Output 10/21/18 10/22/18 10/22/18 18:59 06:59 18:59 Intake Total 688 520 296 Balance 688 520 296 Intake: Oral 688 520 296 Other: Voiding Method Toilet Toilet # Voids 3 - Exam In general patient is alert and oriented 3 in no apparent distress HEENT head normocephalic and atraumatic Neck is supple no JVD no goiter no lymphadenopathy Chest exam reveals a few scattered rhonchi bilaterally no wheezing Cardiac exam reveals irregular heart sounds S1 and S2 no gallops no murmurs Abdomen is soft nontender no organomegaly with normal bowel sounds Extremity exam reveals 3+ edema bilaterally no cyanosis or clubbing Neurological examination reveals no gross focal deficit - Labs CBC & Chem 7: 10/22/18 07:29 10/22/18 07:29 Labs: Abnormal Lab Results - Last 24 Hours (Table) 10/21/18 10/22/18 10/22/18 Range/Units 14:22 07:29 07:29 RBC 3.05 L 2.97 L (4.30-5.90) m/uL Hgb 7.7 L 7.3 L (13.0-17.5) gm/dL Hct 26.8 L 25.9 L (39.0-53.0) % MCH 24.7 L (25.0-35.0) pg MCHC 28.9 L 28.3 L (31.0-37.0) g/dL RDW 25.6 H 25.3 H (11.5-15.5) % Lymphocytes # 0.8 L (1.0-4.8) k/uL Lymphocytes # (Manual) 0.54 L (1.0-4.8) k/uL Carbon Dioxide 31 H (22-30) mmol/L BUN 47 H (9-20) mg/dL Creatinine 1.63 H (0.66-1.25) mg/dL Assessment and Plan Assessment: #1 chronic anemia, cause is unclear, will admit to inpatient, will check iron levels vitamin B12 level and folate level, will give IV iron if iron level is low, consultation for gastroenterology and hematology were initiated, patient had extensive workup in the last 3 months by hematology and gastroenterology. Awaiting capsule study reading #2 severe weakness likely related to anemia will monitor progress closely #3 infiltrate on chest x-ray without any clinical evidence of pneumonia will use incentive spirometry and recheck chest x-ray in a.m. no need for antibiotic at this time no evidence of pneumonia clinically. Repeat chest x-ray completed showing cardiomegaly, elevated right hemidiaphragm. Correlate to exclude pulmonary venous hypertension edema, possible underlining interstitial lung disease. #4 underlying history of hypothyroidism maintained on Synthroid 200 g. TSH level 7.50. Synthroid increased to 225 #5 underlying history of atrial fibrillation, heart rate was elevated on presentation, also patient had abnormal EKG with T-wave inversion in anterior and inferior leads, cardiology consult was initiated. At this time cardiology recommended to hold Xarelto. 2-D echo has been ordered. Per cardiology continue to hold anticoagulation. Plan to follow-up with Dr. Marin office in one week for discussion of watchman procedure. Per cardiology risk of holding anticoagulation explained to the patient. Xarelto has been resumed per oncology recommendation due to upper extremity venous Doppler result. #6 acute on chronic chronic kidney disease. Per nephrology etiologies nephrosclerosis #7 underlying history of hypertension well-controlled continue on Lopressor #8 underlying history of hyperlipidemia #9 previous history of prostate cancer with history of prostatectomy #10. Increased peripheral edema. Patient currently on scheduled by mouth Lasix. Patient did receive an additional IV Lasix per nephrology services today. Patient is now scheduled Lasix twice a day IV per nephrology #11 increased upper extremity edema to the left arm. Venous Doppler completed showing partial occlusive thrombus in the branch vessels are felt to the left jugular vein. Focal completely occlusive thrombus in the superficial left cephalic vein. Subcutaneous edema confirmed in the left upper extremity near superficial basilic and cephalic veins. Discussed case with Elisabeth EDEN per oncology services and cardiology services. Oncology recommending we restart patient Xarelto. DVT prophylaxis Xarelto. GI prophylaxis Protonix I performed an examination of the patient and discussed their management with the Nurse Practitioner. I have reviewed the Nurse Practitioner's notes and agree with the documented findings and plan of care
[2018-10-22] MEDS: DARBEPOETIN ALFA 40 MCG/0.4 ML SYRINGE SQ SCH (13:48)
[2018-10-22] MEDS: RIVAROXABAN 20 MG TAB PO SCH (18:00)
[2018-10-23] MEDS: LEVOTHYROXINE 100 MCG TAB PO SCH (05:23)
[2018-10-23] MEDS: LEVOTHYROXINE 125 MCG TAB PO SCH (05:23)
[2018-10-23 07:33] LABS: Calcium 9.1 mg/dL (8.4-10.2); Magnesium 2.1 mg/dL (1.6-2.3); Potassium 4.9 mmol/L (3.5-5.1)
[2018-10-23 08:00] LABS: Anisocytosis Marked; HCT 24.7 % (39.0-53.0); HGB 7.2 gm/dL (13.0-17.5); Hypochromasia Marked; MCH 25.4 pg (25.0-35.0); MCHC 29.2 g/dL (31.0-37.0); Macrocytosis Slight; Mean Platelet Volume 8.2; Microcytosis Slight; Platelet Count 211 k/uL (150-450); Poikilocytosis Slight; RBC 2.84 m/uL (4.30-5.90); WBC 4.1 k/uL (3.8-10.6)
[2018-10-23] MEDS: PANTOPRAZOLE 40 MG TABLET PO SCH (08:55)
[2018-10-23] MEDS: METOPROLOL TARTRATE 50 MG TAB PO SCH ×2 (08:55→22:06)
[2018-10-23] MEDS: MIDODRINE 5 MG TAB PO SCH ×3 (08:55→17:08)
[2018-10-23] MEDS: CYANOCOBALAMIN 500 MCG TAB PO SCH (08:55)
[2018-10-23] MEDS: FUROSEMIDE 10 MG/ML 4 ML VIAL IV SCH ×2 (08:56→22:07)
[2018-10-23] MEDS: SPIRONOLACTONE 25 MG TAB PO SCH ×2 (08:56→21:58)
[2018-10-23 09:02] LABS: Basophils # (M) 0.04 k/uL (0-0.2); Eosinophils # (M) 0.12 k/uL (0-0.7); Lymphocytes # (M) 0.66 k/uL (1.0-4.8); Monocytes # (M) 0.49 k/uL (0-1.0); Neutrophils # (M) 2.79 k/uL (1.3-7.7); Neutrophils % (M) 68 %; Nucleated Red Blood Cells 0 /100 WBC (0-0); Polychromasia Present; Total Cells Counted 100
[2018-10-23 10:17] LABS: Iron Saturation 7.24 (15.00-50.00)
--- NOTE | 2018-10-23 12:25 | P.PN ---
Subjective Progress Note Date: 10/23/18 Walker Hopper is a 73-year-old male who presented to [facility] emergency room with a chief complaint of severe weakness, and shortness of breath, patient has a known history of anemia he has required multiple red blood cell transfusions, in fact he had 6 transfusion in the last 1 year 2 of them were in [place] where he partially lives, he has multiple antibodies and blood for transfusion is extremely hard to get. Patient also has a known history of atrial fibrillation he is maintained on Xarelto, he does not have any evidence of gastrointestinal bleeding, he is followed as outpatient by gastroenterology for evaluation of his chronic anemia he had an EGD and colonoscopy recently biopsies were done and results are still pending he also had an MRI of the abdomen on 10/12/2018 results are still pending. Patient was evaluated in the emergency room he had evidence of atrial fibrillation was rapid ventricular response heart rate improved gradually, his hemoglobin on presentation was 7.2, BUN and creatinine were elevated at 37 and 1.46 he was admitted to medical floor gastroenterology consultation and hematology consultation were requested. On presentation patient had a chest x-ray that revealed evidence of a small infiltrate versus atelectasis patient does not have any clinical symptoms of pneumonia there is no fever or cough his white blood count is 5.6 at this time will withhold antibiotics will use incentive spirometry and recheck chest x-ray in a.m.. On 10/15/2018 patient was seen and examined on the medical floor he is alert and oriented 3 in no apparent distress he is still complaining of severe weakness and complaining of lower extremity edema otherwise he denies any other complaint there is no fever or chills no headache or dizziness no chest pain no shortness of breath at rest he has shortness of breath with activity there is no cough no nausea or vomiting no abdominal pain no diarrhea and no urinary symptoms. On 10/16/2018 patient is alert and oriented 3. Still complaining of some weakness. At this time patient denies chest pain or shortness of breath. Patient denies nausea vomiting or diarrhea. Patient denies any urinary burning or frequency On 10/17/2018 patient is alert and oriented 3. Hemoglobin slightly improving to 6.9. Possible capsule study per GI services. Patient is still complaining of significant lower extremity edema. Patient did receive an additional 40 mg of IV Lasix history per nephrology services. At this time patient denies chest pain or shortness of breath. Patient denies nausea vomiting or diarrhea. Patient denies any urinary burning or frequency or frequency On 10/18/2018 patient is alert and oriented 3. Capsule study currently in progress. Slight improvement with lower extremity edema. At this time patient denies chest pain or shortness of breath. Patient denies nausea vomiting or diarrhea. Patient denies urinary burning or frequency. On 10/19/2018 patient is alert and oriented 3. Still awaiting results on capsule study. Hemoglobin stable at 7.5. Patient is still having significant lower extremity edema. Patient is also having increasing creatinine IV Lasix DC 'd patient remains on by mouth Lasix. Patient denies chest pain or shortness of breath. Denies any urinary burning or frequency. She also having increased edema to left upper extremity venous Doppler study has been ordered. On 10/20/2018 patient is alert and oriented 3. Patient was found to have left upper extremity DVT. Discussed case and topically with oncology services and per oncology patient was started back on Xarelto. Venous Doppler of lower extremities were negative for DVT bilaterally. Awaiting final results from capsule study. Hemoglobin stable at 7.8 patient rated. Patient did receive IV iron yesterday. Creatinine increasing to 1.82. Nephrology services are following. At this time patient denies chest pain or shortness breath. Patient denies nausea vomiting or diarrhea. Patient denies any urinary burning or frequency. Patient is still complaining of significant lower extremity edema. Patient does remain on by mouth Lasix. IV Lasix DC'd due to increasing creatinine. On 10/21/2018 patient is alert and oriented 3. Patient remains on Xarelto for DVT in left upper extremity. Creatinine improving to 1.54. Patient has received a one-time dose of Lasix IV per nephrology services. Hemoglobin 7.8 will repeat today and tomorrow. This time patient denies chest pain or shortness of breath. Patient denies nausea vomiting or diarrhea. Patient denies any urinary burning or frequency. On 10/22/2018 patient is alert and oriented 3. Patient is currently on IV Lasix twice a day per nephrology services. Hemoglobin 7.3. At this time patient denies chest pain or shortness breath. Patient denies nausea vomiting or diarrhea. Patient denies any urinary burning or frequency On 10/23/2018 patient remains alert and oriented 3. Patient did have significant weight loss from 125.3 kg to 122.8. Patient remains on IV Lasix twice a day per nephrology services. Creatinine remained stable. Patient does still have significant peripheral edema recommending an additional 24 hours of IV Lasix at this time. Discussed case with oncology services Dr. Wright in regards to venous Doppler ultrasound of the left upper extremity and patient Vincent with chronic anemia. Awaiting oncology's final recommendation in regards to continuing anticoagulation versus DC'd. At this time patient denies chest pain or shortness breath. Patient denies nausea vomiting or diarrhea. Patient denies any urinary burning or frequency Objective - Vital Signs Vital signs: Vital Signs Temp 97.6 F 10/23/18 07:25 Pulse 100 10/23/18 07:25 Resp 16 10/23/18 07:25 BP 85/57 10/23/18 07:25 Pulse Ox 100 10/23/18 07:25 Intake & Output 10/22/18 10/23/18 10/23/18 18:59 06:59 18:59 Intake Total 1488 140 Balance 1488 140 Weight 122.8 kg Intake: Oral 1488 140 Other: Voiding Method Toilet # Voids 3 - Exam In general patient is alert and oriented 3 in no apparent distress HEENT head normocephalic and atraumatic Neck is supple no JVD no goiter no lymphadenopathy Chest exam reveals a few scattered rhonchi bilaterally no wheezing Cardiac exam reveals irregular heart sounds S1 and S2 no gallops no murmurs Abdomen is soft nontender no organomegaly with normal bowel sounds Extremity exam reveals 3+ edema bilaterally no cyanosis or clubbing Neurological examination reveals no gross focal deficit - Labs CBC & Chem 7: 10/23/18 06:33 10/23/18 06:33 Labs: Abnormal Lab Results - Last 24 Hours (Table) 10/22/18 10/23/18 10/23/18 Range/Units 07:29 06:33 06:33 RBC 2.84 L (4.30-5.90) m/uL Hgb 7.2 L (13.0-17.5) gm/dL Hct 24.7 L (39.0-53.0) % MCHC 29.2 L (31.0-37.0) g/dL RDW 25.0 H (11.5-15.5) % Lymphocytes # (Manual) 0.66 L (1.0-4.8) k/uL Carbon Dioxide 31 H (22-30) mmol/L BUN 52 H (9-20) mg/dL Creatinine 1.65 H (0.66-1.25) mg/dL Iron 27 L (65-175) ug/dL Iron Saturation 7.24 L (15.00-50.00) Assessment and Plan Assessment: #1 chronic anemia, cause is unclear, will admit to inpatient, will check iron levels vitamin B12 level and folate level, will give IV iron if iron level is low, consultation for gastroenterology and hematology were initiated, patient had extensive workup in the last 3 months by hematology and gastroenterology. Per GI EGD video capsule study negative for any pathology to explain anemia #2 severe weakness likely related to anemia will monitor progress closely #3 infiltrate on chest x-ray without any clinical evidence of pneumonia will use incentive spirometry and recheck chest x-ray in a.m. no need for antibiotic at this time no evidence of pneumonia clinically. Repeat chest x-ray completed showing cardiomegaly, elevated right hemidiaphragm. Correlate to exclude pulmonary venous hypertension edema, possible underlining interstitial lung disease. #4 underlying history of hypothyroidism maintained on Synthroid 200 g. TSH level 7.50. Synthroid increased to 225 #5 underlying history of atrial fibrillation, heart rate was elevated on presentation, also patient had abnormal EKG with T-wave inversion in anterior and inferior leads, cardiology consult was initiated. At this time cardiology recommended to hold Xarelto. 2-D echo has been ordered. Per cardiology continue to hold anticoagulation. Plan to follow-up with Dr. Marin office in one week for discussion of watchman procedure. Per cardiology risk of holding anticoagulation explained to the patient. Xarelto has been resumed per oncology recommendation due to upper extremity venous Doppler result. #6 acute on chronic chronic kidney disease. Per nephrology etiologies nephrosclerosis. Creatinine staying around 1.65 #7 underlying history of hypertension well-controlled continue on Lopressor #8 underlying history of hyperlipidemia #9 previous history of prostate cancer with history of prostatectomy #10. Increased peripheral edema. Patient currently on scheduled by mouth Lasix. Patient did receive an additional IV Lasix per nephrology services today. Patient is now scheduled Lasix twice a day IV per nephrology. Patient did have significant weight loss with IV Lasix. Per nephrology will continue for an additional 24 hours #11 increased upper extremity edema to the left arm. Venous Doppler completed showing partial occlusive thrombus in the branch vessels are felt to the left jugular vein. Focal completely occlusive thrombus in the superficial left cephalic vein. Subcutaneous edema confirmed in the left upper extremity near superficial basilic and cephalic veins. Discussed case with Elisabeth EDEN per oncology services and cardiology services. Oncology recommending we restart patient Xarelto. Awaiting oncology center recommendation in regards to continuing Xarelto for anticoagulation versus DC DVT prophylaxis Xarelto. GI prophylaxis Protonix I performed an examination of the patient and discussed their management with the Nurse Practitioner. I have reviewed the Nurse Practitioner's notes and agree with the documented findings and plan of care
[2018-10-23] MEDS ORDERED: SODIUM FERRIC GLUCONAT-SUCROSE 125 MG in SODIUM CHLORIDE 0.9% 100 ML IVPB ONE (14:00)
--- NOTE | 2018-10-23 15:02 | PN ---
PROGRESS NOTE Patient is seen for followup for chronic kidney disease and acute kidney injury. He is currently maintained on IV Lasix for worsening volume overload, particularly over the weekend. Patient has had good urine output. His weight is down by about 3 kg. He overall feels better. PHYSICAL EXAMINATION: This morning, blood pressure was 85/57, heart rate 100 per minute. He is afebrile. Examination of the heart, S1, S2. Examination of the lungs, bilateral breath sounds are heard. Abdomen is soft, nontender. Examination of the lower extremities shows edema 2+ bilaterally. CASTING COORDINATOR exam is grossly intact. LABS: Show hemoglobin 7.2, sodium 140, potassium 4.9, BUN 52, serum creatinine 1.65. ASSESSMENT: 1. Acute kidney injury mainly secondary to hypotension, hypoperfusion, maintained on midodrine. Patient is also being diuresed for significant volume overload. His creatinine is stable for the last 2 days. We will continue with the IV Lasix for now. 2. Chronic kidney disease, baseline creatinine 1.4 to 1.5, secondary to nephrosclerosis. 3. Hypotension, maintained on midodrine which were increased. PLAN: Continue with the IV Lasix for now. Repeat labs in a.m. MMODL / IJN: [id number] /
[2018-10-23] MEDS: RIVAROXABAN 15 MG TAB PO SCH (17:08)
--- NOTE | 2018-10-23 18:43 | P.PN ---
Subjective Progress Note Date: 10/23/18 Principal diagnosis: anemia Pale, no signs of bleeding Objective - Vital Signs Vital signs: Vital Signs Temp 97.4 F L 10/23/18 15:15 Pulse 96 10/23/18 15:15 Resp 19 10/23/18 15:15 BP 101/68 10/23/18 15:15 Pulse Ox 92 L 10/23/18 15:15 Intake & Output 10/22/18 10/23/18 10/23/18 18:59 06:59 18:59 Intake Total 1488 140 480 Balance 1488 140 480 Weight 122.8 kg Intake: Oral 1488 140 480 Other: Voiding Method Toilet # Voids 3 - Exam Constitutional General appearance: Present: cooperative, morbidly obese, no acute distress - EENT Eyes: Present: anicteric sclerae, EOMI ENT: Present: hearing grossly normal - Respiratory Respiratory: bilateral: CTA - Cardiovascular Heart sounds: normal: S1, S2 - Peripheral edema leg Peripheral Edema: bilateral: 4+ - Gastrointestinal General gastrointestinal: Present: distended, normal bowel sounds, soft - Integumentary Integumentary: Present: pale - Neurologic Neurologic: Present: CNII-XII intact - Musculoskeletal Musculoskeletal: Present: generalized weakness, strength equal bilaterally - Psychiatric Psychiatric: Present: A&O x's 3, appropriate affect, intact judgment & insight - Labs CBC & Chem 7: 10/23/18 06:33 10/23/18 06:33 Labs: Abnormal Lab Results - Last 24 Hours (Table) 10/22/18 10/23/18 10/23/18 Range/Units 07:29 06:33 06:33 RBC 2.84 L (4.30-5.90) m/uL Hgb 7.2 L (13.0-17.5) gm/dL Hct 24.7 L (39.0-53.0) % MCHC 29.2 L (31.0-37.0) g/dL RDW 25.0 H (11.5-15.5) % Lymphocytes # (Manual) 0.66 L (1.0-4.8) k/uL Carbon Dioxide 31 H (22-30) mmol/L BUN 52 H (9-20) mg/dL Creatinine 1.65 H (0.66-1.25) mg/dL Iron 27 L (65-175) ug/dL Iron Saturation 7.24 L (15.00-50.00) Assessment and Plan Plan: (1) Symptomatic anemia Narrative/Plan: - Hemoglobin 7.2 today, no transfusion needed. CBC in am - Anemia workup suggestive of chronic blood loss related to chronic anticoagulation. - Patient has required iron infusions in the past and these have improved his hemoglobin. Patient also has a degree of renal insufficiency that may be contributing. (2) Chronic atrial fibrillation Current Visit: Yes Status: Chronic Priority: Medium Code(s): I48.2 - CHRONIC ATRIAL FIBRILLATION SNOMED Code(s): 357595329
[2018-10-24] MEDS: LEVOTHYROXINE 125 MCG TAB PO SCH (05:27)
[2018-10-24] MEDS: LEVOTHYROXINE 100 MCG TAB PO SCH (05:27)
[2018-10-24 08:23] LABS: Albumin 3.4 g/dL (3.5-5.0); Calcium 9.1 mg/dL (8.4-10.2); Potassium 4.4 mmol/L (3.5-5.1); Total Bilirubin 2.4 mg/dL (0.2-1.3); Total Protein 6.4 g/dL (6.3-8.2)
[2018-10-24 08:40] LABS: Anisocytosis Marked; Basophils # (A) 0.1 k/uL (0-0.2); Basophils % (A) 2 %; Eosinophils # (A) 0.2 k/uL (0-0.7); Eosinophils % (A) 4 %; HCT 25.1 % (39.0-53.0); HGB 7.2 gm/dL (13.0-17.5); Hypochromasia Marked; Lymphocytes # (A) 0.7 k/uL (1.0-4.8); Lymphocytes % (A) 18 %; MCH 25.4 pg (25.0-35.0); MCHC 28.5 g/dL (31.0-37.0); Macrocytosis Slight; Mean Platelet Volume 7.3; Microcytosis Slight; Monocytes # (A) 0.5 k/uL (0-1.0); Monocytes % (A) 13 %; Neutrophils # (A) 2.3 k/uL (1.3-7.7); Neutrophils % (A) 60 %; Platelet Count 194 k/uL (150-450); Poikilocytosis Slight; RBC 2.82 m/uL (4.30-5.90); RDW 24.5 % (11.5-15.5); WBC 3.8 k/uL (3.8-10.6)
[2018-10-24] MEDS: MIDODRINE 5 MG TAB PO SCH ×3 (09:58→19:18)
[2018-10-24] MEDS: PANTOPRAZOLE 40 MG TABLET PO SCH (09:58)
[2018-10-24] MEDS: CYANOCOBALAMIN 500 MCG TAB PO SCH (09:59)
[2018-10-24] MEDS: METOPROLOL TARTRATE 50 MG TAB PO SCH ×2 (09:59→20:25)
[2018-10-24] MEDS: FUROSEMIDE 10 MG/ML 4 ML VIAL IV SCH ×2 (09:59→20:25)
[2018-10-24] MEDS: SPIRONOLACTONE 25 MG TAB PO SCH ×2 (09:59→20:25)
--- NOTE | 2018-10-24 11:05 | P.PN ---
Subjective Progress Note Date: 10/24/18 Walker Hopper is a 73-year-old male who presented to [facility] emergency room with a chief complaint of severe weakness, and shortness of breath, patient has a known history of anemia he has required multiple red blood cell transfusions, in fact he had 6 transfusion in the last 1 year 2 of them were in [place] where he partially lives, he has multiple antibodies and blood for transfusion is extremely hard to get. Patient also has a known history of atrial fibrillation he is maintained on Xarelto, he does not have any evidence of gastrointestinal bleeding, he is followed as outpatient by gastroenterology for evaluation of his chronic anemia he had an EGD and colonoscopy recently biopsies were done and results are still pending he also had an MRI of the abdomen on 10/12/2018 results are still pending. Patient was evaluated in the emergency room he had evidence of atrial fibrillation was rapid ventricular response heart rate improved gradually, his hemoglobin on presentation was 7.2, BUN and creatinine were elevated at 37 and 1.46 he was admitted to medical floor gastroenterology consultation and hematology consultation were requested. On presentation patient had a chest x-ray that revealed evidence of a small infiltrate versus atelectasis patient does not have any clinical symptoms of pneumonia there is no fever or cough his white blood count is 5.6 at this time will withhold antibiotics will use incentive spirometry and recheck chest x-ray in a.m.. On 10/15/2018 patient was seen and examined on the medical floor he is alert and oriented 3 in no apparent distress he is still complaining of severe weakness and complaining of lower extremity edema otherwise he denies any other complaint there is no fever or chills no headache or dizziness no chest pain no shortness of breath at rest he has shortness of breath with activity there is no cough no nausea or vomiting no abdominal pain no diarrhea and no urinary symptoms. On 10/16/2018 patient is alert and oriented 3. Still complaining of some weakness. At this time patient denies chest pain or shortness of breath. Patient denies nausea vomiting or diarrhea. Patient denies any urinary burning or frequency On 10/17/2018 patient is alert and oriented 3. Hemoglobin slightly improving to 6.9. Possible capsule study per GI services. Patient is still complaining of significant lower extremity edema. Patient did receive an additional 40 mg of IV Lasix history per nephrology services. At this time patient denies chest pain or shortness of breath. Patient denies nausea vomiting or diarrhea. Patient denies any urinary burning or frequency or frequency On 10/18/2018 patient is alert and oriented 3. Capsule study currently in progress. Slight improvement with lower extremity edema. At this time patient denies chest pain or shortness of breath. Patient denies nausea vomiting or diarrhea. Patient denies urinary burning or frequency. On 10/19/2018 patient is alert and oriented 3. Still awaiting results on capsule study. Hemoglobin stable at 7.5. Patient is still having significant lower extremity edema. Patient is also having increasing creatinine IV Lasix DC 'd patient remains on by mouth Lasix. Patient denies chest pain or shortness of breath. Denies any urinary burning or frequency. She also having increased edema to left upper extremity venous Doppler study has been ordered. On 10/20/2018 patient is alert and oriented 3. Patient was found to have left upper extremity DVT. Discussed case and topically with oncology services and per oncology patient was started back on Xarelto. Venous Doppler of lower extremities were negative for DVT bilaterally. Awaiting final results from capsule study. Hemoglobin stable at 7.8 patient rated. Patient did receive IV iron yesterday. Creatinine increasing to 1.82. Nephrology services are following. At this time patient denies chest pain or shortness breath. Patient denies nausea vomiting or diarrhea. Patient denies any urinary burning or frequency. Patient is still complaining of significant lower extremity edema. Patient does remain on by mouth Lasix. IV Lasix DC'd due to increasing creatinine. On 10/21/2018 patient is alert and oriented 3. Patient remains on Xarelto for DVT in left upper extremity. Creatinine improving to 1.54. Patient has received a one-time dose of Lasix IV per nephrology services. Hemoglobin 7.8 will repeat today and tomorrow. This time patient denies chest pain or shortness of breath. Patient denies nausea vomiting or diarrhea. Patient denies any urinary burning or frequency. On 10/22/2018 patient is alert and oriented 3. Patient is currently on IV Lasix twice a day per nephrology services. Hemoglobin 7.3. At this time patient denies chest pain or shortness breath. Patient denies nausea vomiting or diarrhea. Patient denies any urinary burning or frequency On 10/23/2018 patient remains alert and oriented 3. Patient did have significant weight loss from 125.3 kg to 122.8. Patient remains on IV Lasix twice a day per nephrology services. Creatinine remained stable. Patient does still have significant peripheral edema recommending an additional 24 hours of IV Lasix at this time. Discussed case with oncology services Dr. Wright in regards to venous Doppler ultrasound of the left upper extremity and patient Xarelto with chronic anemia. Awaiting oncology's final recommendation in regards to continuing anticoagulation versus DC'd. At this time patient denies chest pain or shortness breath. Patient denies nausea vomiting or diarrhea. Patient denies any urinary burning or frequency. On 10/24/2018 patient remains alert and oriented 3 sitting up at site of bed. Patient's weight continues to drop from 122.8 kg 121.7 kg. patient still has significant edema to lower extremities. Patient remains on IV Lasix 40 mg twice a day at this time. Creatinine slightly increased to 1.70. Hemoglobin 7.2. Patient's Xarelto has been decreased to 15 mg. Awaiting oncology's final recommendation for anticoagulation first. At this time patient denies chest pain or shortness breath. Patient denies any urinary burning or frequency. Objective - Vital Signs Vital signs: Vital Signs Temp 97.9 F 10/24/18 07:15 Pulse 82 10/24/18 07:15 Resp 16 10/24/18 07:15 BP 95/63 10/24/18 07:15 Pulse Ox 95 10/24/18 07:15 Intake & Output 10/23/18 10/24/18 10/24/18 18:59 06:59 18:59 Intake Total 480 560 Balance 480 560 Weight 121.7 kg Intake: Oral 480 560 - Exam In general patient is alert and oriented 3 in no apparent distress HEENT head normocephalic and atraumatic Neck is supple no JVD no goiter no lymphadenopathy Chest exam reveals a few scattered rhonchi bilaterally no wheezing Cardiac exam reveals irregular heart sounds S1 and S2 no gallops no murmurs Abdomen is soft nontender no organomegaly with normal bowel sounds Extremity exam reveals 3+ edema bilaterally no cyanosis or clubbing Neurological examination reveals no gross focal deficit - Labs CBC & Chem 7: 10/24/18 07:18 10/24/18 07:18 Labs: Abnormal Lab Results - Last 24 Hours (Table) 10/24/18 10/24/18 Range/Units 07:18 07:18 RBC 2.82 L (4.30-5.90) m/uL Hgb 7.2 L (13.0-17.5) gm/dL Hct 25.1 L (39.0-53.0) % MCHC 28.5 L (31.0-37.0) g/dL RDW 24.5 H (11.5-15.5) % Lymphocytes # 0.7 L (1.0-4.8) k/uL BUN 52 H (9-20) mg/dL Creatinine 1.70 H (0.66-1.25) mg/dL Total Bilirubin 2.4 H (0.2-1.3) mg/dL Alkaline Phosphatase 249 H (38-126) U/L Albumin 3.4 L (3.5-5.0) g/dL Assessment and Plan Assessment: #1 chronic anemia, cause is unclear, will admit to inpatient, will check iron levels vitamin B12 level and folate level, will give IV iron if iron level is low, consultation for gastroenterology and hematology were initiated, patient had extensive workup in the last 3 months by hematology and gastroenterology. Per GI EGD video capsule study negative for any pathology to explain anemia #2 severe weakness likely related to anemia will monitor progress closely #3 infiltrate on chest x-ray without any clinical evidence of pneumonia will use incentive spirometry and recheck chest x-ray in a.m. no need for antibiotic at this time no evidence of pneumonia clinically. Repeat chest x-ray completed showing cardiomegaly, elevated right hemidiaphragm. Correlate to exclude pulmonary venous hypertension edema, possible underlining interstitial lung disease. #4 underlying history of hypothyroidism maintained on Synthroid 200 g. TSH level 7.50. Synthroid increased to 225 #5 underlying history of atrial fibrillation, heart rate was elevated on presentation, also patient had abnormal EKG with T-wave inversion in anterior and inferior leads, cardiology consult was initiated. At this time cardiology recommended to hold Xarelto. 2-D echo has been ordered. Per cardiology continue to hold anticoagulation. Plan to follow-up with Dr. Marin office in one week for discussion of watchman procedure. Per cardiology risk of holding anticoagulation explained to the patient. Xarelto has been resumed per oncology recommendation due to upper extremity venous Doppler result. #6 acute on chronic chronic kidney disease. Per nephrology etiologies nephrosclerosis. Creatinine staying around 1.65 #7 underlying history of hypertension well-controlled continue on Lopressor #8 underlying history of hyperlipidemia #9 previous history of prostate cancer with history of prostatectomy #10. Increased peripheral edema. Patient currently on scheduled by mouth Lasix. Patient did receive an additional IV Lasix per nephrology services today. Patient is now scheduled Lasix twice a day IV per nephrology. Patient did have significant weight loss with IV Lasix. Per nephrology will continue for an additional 24 hours #11 increased upper extremity edema to the left arm. Venous Doppler completed showing partial occlusive thrombus in the branch vessels are felt to the left jugular vein. Focal completely occlusive thrombus in the superficial left cephalic vein. Subcutaneous edema confirmed in the left upper extremity near superficial basilic and cephalic veins. Discussed case with Elisabeth EDEN per oncology services and cardiology services. Oncology recommending we restart patient Xarelto. Awaiting oncology center recommendation in regards to continuing Xarelto for anticoagulation versus DC. Xarelto has been decreased to 15 DVT prophylaxis Xarelto. GI prophylaxis Protonix I performed an examination of the patient and discussed their management with the Nurse Practitioner. I have reviewed the Nurse Practitioner's notes and agree with the documented findings and plan of care
--- NOTE | 2018-10-24 13:26 | P.PN ---
Subjective Patient is seen in follow-up for acute kidney injury on chronic kidney disease. Patient has chronic kidney disease stage III with baseline creatinine in the range of 1.4-1.5 secondary to nephrosclerosis. Patient has history of diastolic CHF. Edema is gradually improving. Admits to good urine output. Currently maintained on Lasix 40 mg IV twice daily. Vital signs are stable. General: The patient appeared well nourished and normally developed. HEENT: Head exam is unremarkable. Neck is without jugular venous distension. LUNGS: Breath sounds decreased. HEART: Rate and Rhythm are regular. First and second heart sounds normal. No murmurs, rubs or gallops. ABDOMEN: Abdominal exam reveals normal bowel sounds. Non-tender and non- distended. No evidence of peritonitis. EXTREMITITES: 2+ edema. Objective - Vital Signs Vital signs: Vital Signs Temp 97.9 F 10/24/18 07:15 Pulse 82 10/24/18 07:15 Resp 16 10/24/18 07:15 BP 95/63 10/24/18 07:15 Pulse Ox 95 10/24/18 07:15 Intake & Output 10/23/18 10/24/18 10/24/18 18:59 06:59 18:59 Intake Total 480 560 Balance 480 560 Weight 121.7 kg Intake: Oral 480 560 - Labs CBC & Chem 7: 10/24/18 07:18 10/24/18 07:18 Labs: Abnormal Lab Results - Last 24 Hours (Table) 10/24/18 10/24/18 Range/Units 07:18 07:18 RBC 2.82 L (4.30-5.90) m/uL Hgb 7.2 L (13.0-17.5) gm/dL Hct 25.1 L (39.0-53.0) % MCHC 28.5 L (31.0-37.0) g/dL RDW 24.5 H (11.5-15.5) % Lymphocytes # 0.7 L (1.0-4.8) k/uL BUN 52 H (9-20) mg/dL Creatinine 1.70 H (0.66-1.25) mg/dL Total Bilirubin 2.4 H (0.2-1.3) mg/dL Alkaline Phosphatase 249 H (38-126) U/L Albumin 3.4 L (3.5-5.0) g/dL Assessment and Plan Plan: Assessment: 1. Acute kidney injury mostly prerenal secondary to cardiorenal syndrome. Renal function relatively stable. 2. Diastolic CHF. 3. Volume overload. No evidence of DVT. 4. Chronic kidney disease stage III with baseline creatinine in the range of 1.4-1.5 secondary to nephrosclerosis. 5. Hypotension maintained on midodrine. Plan: Maintain Lasix 40 mg IV twice daily. Add metolazone 2.5 mg once daily. Maintain Aldactone. Hold if systolic blood pressure less than 110. Low-salt diet. Avoid nephrotoxins. Repeat electrolytes in the morning.
[2018-10-24] MEDS ORDERED: SODIUM FERRIC GLUCONAT-SUCROSE 125 MG in SODIUM CHLORIDE 0.9% 100 ML IVPB ONE (15:00)
--- NOTE | 2018-10-24 15:29 | P.PN ---
Subjective Progress Note Date: 10/24/18 Principal diagnosis: anemia Pale, no signs of bleeding. Hemoglobin has not worsened today. Stable 7.2 Objective - Vital Signs Vital signs: Vital Signs Temp 97.9 F 10/24/18 07:15 Pulse 82 10/24/18 07:15 Resp 16 10/24/18 07:15 BP 95/63 10/24/18 07:15 Pulse Ox 95 10/24/18 07:15 Intake & Output 10/23/18 10/24/18 10/24/18 18:59 06:59 18:59 Intake Total 480 560 Balance 480 560 Weight 121.7 kg Intake: Oral 480 560 Other: # Voids 0 - Exam Constitutional General appearance: Present: cooperative, morbidly obese, no acute distress - EENT Eyes: Present: anicteric sclerae, EOMI ENT: Present: hearing grossly normal - Respiratory Respiratory: bilateral: CTA - Cardiovascular Heart sounds: normal: S1, S2 - Peripheral edema leg Peripheral Edema: bilateral: 4+ - Gastrointestinal General gastrointestinal: Present: distended, normal bowel sounds, soft - Integumentary Integumentary: Present: pale - Neurologic Neurologic: Present: CNII-XII intact - Musculoskeletal Musculoskeletal: Present: generalized weakness, strength equal bilaterally - Psychiatric Psychiatric: Present: A&O x's 3, appropriate affect, intact judgment & insight - Labs CBC & Chem 7: 10/24/18 07:18 10/24/18 07:18 Labs: Abnormal Lab Results - Last 24 Hours (Table) 10/24/18 10/24/18 Range/Units 07:18 07:18 RBC 2.82 L (4.30-5.90) m/uL Hgb 7.2 L (13.0-17.5) gm/dL Hct 25.1 L (39.0-53.0) % MCHC 28.5 L (31.0-37.0) g/dL RDW 24.5 H (11.5-15.5) % Lymphocytes # 0.7 L (1.0-4.8) k/uL BUN 52 H (9-20) mg/dL Creatinine 1.70 H (0.66-1.25) mg/dL Total Bilirubin 2.4 H (0.2-1.3) mg/dL Alkaline Phosphatase 249 H (38-126) U/L Albumin 3.4 L (3.5-5.0) g/dL Assessment and Plan Plan: (1) Symptomatic anemia Narrative/Plan: - Iron Deficiency Component without evidence of acute bleeding maybe related to AVM GI Blood loss component. - Hemoglobin 7.2 today, no transfusion needed. CBC in am - Anemia workup suggestive of chronic blood loss related to chronic anticoagulation. - Patient has required iron infusions in the past and these have improved his hemoglobin. Patient also has a degree of renal insufficiency that may be contributing. - Continue to monitor daily CBC (2) Chronic atrial fibrillation Current Visit: Yes Status: Chronic Priority: Medium Code(s): I48.2 - CHRONIC ATRIAL FIBRILLATION SNOMED Code(s): 248869158
[2018-10-24] MEDS: METOLAZONE 2.5 MG TAB PO SCH (16:32)
[2018-10-24] MEDS: RIVAROXABAN 15 MG TAB PO SCH (19:18)
[2018-10-25] MEDS: LEVOTHYROXINE 100 MCG TAB PO SCH (06:53)
[2018-10-25] MEDS: LEVOTHYROXINE 125 MCG TAB PO SCH (06:53)
[2018-10-25 08:40] LABS: Anisocytosis Marked; Basophils # (A) 0.1 k/uL (0-0.2); Basophils % (A) 1 %; Eosinophils # (A) 0.2 k/uL (0-0.7); Eosinophils % (A) 3 %; HCT 27.2 % (39.0-53.0); HGB 7.8 gm/dL (13.0-17.5); Hypochromasia Marked; Lymphocytes # (A) 0.8 k/uL (1.0-4.8); Lymphocytes % (A) 17 %; MCH 25.4 pg (25.0-35.0); MCHC 28.9 g/dL (31.0-37.0); MCV 87.9 fL (80.0-100.0); Macrocytosis Slight; Mean Platelet Volume 8.2; Microcytosis Slight; Monocytes # (A) 0.5 k/uL (0-1.0); Monocytes % (A) 11 %; Neutrophils % (A) 65 %; Platelet Count 226 k/uL (150-450); Poikilocytosis Slight; RBC 3.09 m/uL (4.30-5.90); RDW 24.8 % (11.5-15.5); WBC 4.6 k/uL (3.8-10.6)
[2018-10-25] MEDS: METOLAZONE 2.5 MG TAB PO SCH ×2 (08:58→22:45)
[2018-10-25] MEDS: FUROSEMIDE 10 MG/ML 4 ML VIAL IV SCH (08:58)
[2018-10-25] MEDS: MIDODRINE 5 MG TAB PO SCH ×3 (08:59→17:13)
[2018-10-25] MEDS: PANTOPRAZOLE 40 MG TABLET PO SCH (08:59)
[2018-10-25] MEDS: CYANOCOBALAMIN 500 MCG TAB PO SCH (08:59)
[2018-10-25 09:06] LABS: Albumin 3.7 g/dL (3.5-5.0); Calcium 9.6 mg/dL (8.4-10.2); Potassium 4.4 mmol/L (3.5-5.1); Total Bilirubin 2.5 mg/dL (0.2-1.3); Total Protein 6.8 g/dL (6.3-8.2)
[2018-10-25] MEDS: METOPROLOL TARTRATE 50 MG TAB PO SCH ×2 (10:26→20:18)
--- NOTE | 2018-10-25 10:28 | P.PN ---
Subjective Patient is seen in follow-up for acute kidney injury on chronic kidney disease. Patient has chronic kidney disease stage III with baseline creatinine in the range of 1.4-1.5 secondary to nephrosclerosis. Patient has history of diastolic CHF. Edema is gradually improving. Admits to good urine output. Currently maintained on Lasix 40 mg IV twice daily. Also on Aldactone and metolazone. Vital signs are stable. General: The patient appeared well nourished and normally developed. HEENT: Head exam is unremarkable. Neck is without jugular venous distension. LUNGS: Breath sounds decreased. HEART: Rate and Rhythm are regular. First and second heart sounds normal. No murmurs, rubs or gallops. ABDOMEN: Abdominal exam reveals normal bowel sounds. Non-tender and non- distended. No evidence of peritonitis. EXTREMITITES: 2+ edema. Objective - Vital Signs Vital signs: Vital Signs Temp 97.7 F 10/25/18 07:34 Pulse 109 H 10/25/18 10:21 Resp 17 10/25/18 00:30 BP 90/61 10/25/18 10:21 Pulse Ox 98 10/25/18 07:34 Intake & Output 10/24/18 10/25/18 10/25/18 18:59 06:59 18:59 Intake Total 1100 Balance 1100 Weight 121.1 kg Intake: Intake, IV Titration 100 Amount Sodium Ferric Gluconat- 100 Sucrose 125 mg In Sodium Chloride 0.9% 100 ml @ 100 mls/hr IVPB ONCE ONE Rx#:[id number] Oral 1000 Other: Voiding Method Toilet Toilet # Voids 0 2 - Labs CBC & Chem 7: 10/25/18 07:58 10/25/18 07:58 Labs: Abnormal Lab Results - Last 24 Hours (Table) 10/25/18 10/25/18 Range/Units 07:58 07:58 RBC 3.09 L (4.30-5.90) m/uL Hgb 7.8 L (13.0-17.5) gm/dL Hct 27.2 L (39.0-53.0) % MCHC 28.9 L (31.0-37.0) g/dL RDW 24.8 H (11.5-15.5) % Lymphocytes # 0.8 L (1.0-4.8) k/uL Carbon Dioxide 32 H (22-30) mmol/L BUN 51 H (9-20) mg/dL Creatinine 1.96 H (0.66-1.25) mg/dL Glucose 106 H (74-99) mg/dL Total Bilirubin 2.5 H (0.2-1.3) mg/dL Alkaline Phosphatase 248 H (38-126) U/L Assessment and Plan Plan: Assessment: 1. Acute kidney injury mostly prerenal secondary to cardiorenal syndrome. Renal function worse today due to diuresis. Creatinine 1.96. 2. Diastolic CHF. 3. Volume overload. No evidence of DVT. 4. Chronic kidney disease stage III with baseline creatinine in the range of 1.4-1.5 secondary to nephrosclerosis. 5. Hypotension maintained on midodrine. Plan: Maintain Lasix 40 mg IV twice daily. Increase metolazone to 2.5 mg twice daily. Maintain Aldactone. Hold if systolic blood pressure less than 110. Low-salt diet and 1.5 L fluid restriction. Avoid nephrotoxins. Repeat electrolytes in the morning.
[2018-10-25] MEDS: SPIRONOLACTONE 25 MG TAB PO SCH ×2 (10:34→20:08)
--- NOTE | 2018-10-25 14:44 | P.PN ---
Subjective Progress Note Date: 10/25/18 Walker Hopper is a 73-year-old male who presented to [facility] emergency room with a chief complaint of severe weakness, and shortness of breath, patient has a known history of anemia he has required multiple red blood cell transfusions, in fact he had 6 transfusion in the last 1 year 2 of them were in [place] where he partially lives, he has multiple antibodies and blood for transfusion is extremely hard to get. Patient also has a known history of atrial fibrillation he is maintained on Xarelto, he does not have any evidence of gastrointestinal bleeding, he is followed as outpatient by gastroenterology for evaluation of his chronic anemia he had an EGD and colonoscopy recently biopsies were done and results are still pending he also had an MRI of the abdomen on 10/12/2018 results are still pending. Patient was evaluated in the emergency room he had evidence of atrial fibrillation was rapid ventricular response heart rate improved gradually, his hemoglobin on presentation was 7.2, BUN and creatinine were elevated at 37 and 1.46 he was admitted to medical floor gastroenterology consultation and hematology consultation were requested. On presentation patient had a chest x-ray that revealed evidence of a small infiltrate versus atelectasis patient does not have any clinical symptoms of pneumonia there is no fever or cough his white blood count is 5.6 at this time will withhold antibiotics will use incentive spirometry and recheck chest x-ray in a.m.. On 10/15/2018 patient was seen and examined on the medical floor he is alert and oriented 3 in no apparent distress he is still complaining of severe weakness and complaining of lower extremity edema otherwise he denies any other complaint there is no fever or chills no headache or dizziness no chest pain no shortness of breath at rest he has shortness of breath with activity there is no cough no nausea or vomiting no abdominal pain no diarrhea and no urinary symptoms. On 10/16/2018 patient is alert and oriented 3. Still complaining of some weakness. At this time patient denies chest pain or shortness of breath. Patient denies nausea vomiting or diarrhea. Patient denies any urinary burning or frequency On 10/17/2018 patient is alert and oriented 3. Hemoglobin slightly improving to 6.9. Possible capsule study per GI services. Patient is still complaining of significant lower extremity edema. Patient did receive an additional 40 mg of IV Lasix history per nephrology services. At this time patient denies chest pain or shortness of breath. Patient denies nausea vomiting or diarrhea. Patient denies any urinary burning or frequency or frequency On 10/18/2018 patient is alert and oriented 3. Capsule study currently in progress. Slight improvement with lower extremity edema. At this time patient denies chest pain or shortness of breath. Patient denies nausea vomiting or diarrhea. Patient denies urinary burning or frequency. On 10/19/2018 patient is alert and oriented 3. Still awaiting results on capsule study. Hemoglobin stable at 7.5. Patient is still having significant lower extremity edema. Patient is also having increasing creatinine IV Lasix DC 'd patient remains on by mouth Lasix. Patient denies chest pain or shortness of breath. Denies any urinary burning or frequency. She also having increased edema to left upper extremity venous Doppler study has been ordered. On 10/20/2018 patient is alert and oriented 3. Patient was found to have left upper extremity DVT. Discussed case and topically with oncology services and per oncology patient was started back on Xarelto. Venous Doppler of lower extremities were negative for DVT bilaterally. Awaiting final results from capsule study. Hemoglobin stable at 7.8 patient rated. Patient did receive IV iron yesterday. Creatinine increasing to 1.82. Nephrology services are following. At this time patient denies chest pain or shortness breath. Patient denies nausea vomiting or diarrhea. Patient denies any urinary burning or frequency. Patient is still complaining of significant lower extremity edema. Patient does remain on by mouth Lasix. IV Lasix DC'd due to increasing creatinine. On 10/21/2018 patient is alert and oriented 3. Patient remains on Xarelto for DVT in left upper extremity. Creatinine improving to 1.54. Patient has received a one-time dose of Lasix IV per nephrology services. Hemoglobin 7.8 will repeat today and tomorrow. This time patient denies chest pain or shortness of breath. Patient denies nausea vomiting or diarrhea. Patient denies any urinary burning or frequency. On 10/22/2018 patient is alert and oriented 3. Patient is currently on IV Lasix twice a day per nephrology services. Hemoglobin 7.3. At this time patient denies chest pain or shortness breath. Patient denies nausea vomiting or diarrhea. Patient denies any urinary burning or frequency On 10/23/2018 patient remains alert and oriented 3. Patient did have significant weight loss from 125.3 kg to 122.8. Patient remains on IV Lasix twice a day per nephrology services. Creatinine remained stable. Patient does still have significant peripheral edema recommending an additional 24 hours of IV Lasix at this time. Discussed case with oncology services Dr. Wright in regards to venous Doppler ultrasound of the left upper extremity and patient Xarelto with chronic anemia. Awaiting oncology's final recommendation in regards to continuing anticoagulation versus DC'd. At this time patient denies chest pain or shortness breath. Patient denies nausea vomiting or diarrhea. Patient denies any urinary burning or frequency. On 10/24/2018 patient remains alert and oriented 3 sitting up at site of bed. Patient's weight continues to drop from 122.8 kg 121.7 kg. patient still has significant edema to lower extremities. Patient remains on IV Lasix 40 mg twice a day at this time. Creatinine slightly increased to 1.70. Hemoglobin 7.2. Patient's Xarelto has been decreased to 15 mg. Awaiting oncology's final recommendation for anticoagulation first. At this time patient denies chest pain or shortness breath. Patient denies any urinary burning or frequency. On 10/25/2018 patient is alert and oriented 3 resting comfortably in bed. Weight is continuing to decrease. Patient remains on IV Lasix per nephrology. Discussed case in topically with oncology services per oncology discussing switching patient to eliquis instead of Xarelto for anticoagulation due to kidney function. At this time patient denies chest pain or shortness of breath. Patient denies nausea vomiting or diarrhea. Patient denies any urinary burning or frequency Objective - Vital Signs Vital signs: Vital Signs Temp 97.7 F 10/25/18 07:34 Pulse 109 H 10/25/18 10:21 Resp 17 10/25/18 00:30 BP 90/61 10/25/18 10:21 Pulse Ox 98 10/25/18 07:34 Intake & Output 10/24/18 10/25/18 10/25/18 18:59 06:59 18:59 Intake Total 1100 Balance 1100 Weight 121.1 kg Intake: Intake, IV Titration 100 Amount Sodium Ferric Gluconat- 100 Sucrose 125 mg In Sodium Chloride 0.9% 100 ml @ 100 mls/hr IVPB ONCE ONE Rx#:[id number] Oral 1000 Other: Voiding Method Toilet Toilet # Voids 0 2 - Exam In general patient is alert and oriented 3 in no apparent distress HEENT head normocephalic and atraumatic Neck is supple no JVD no goiter no lymphadenopathy Chest exam reveals a few scattered rhonchi bilaterally no wheezing Cardiac exam reveals irregular heart sounds S1 and S2 no gallops no murmurs Abdomen is soft nontender no organomegaly with normal bowel sounds Extremity exam reveals 3+ edema bilaterally no cyanosis or clubbing Neurological examination reveals no gross focal deficit - Labs CBC & Chem 7: 10/25/18 07:58 10/25/18 07:58 Labs: Abnormal Lab Results - Last 24 Hours (Table) 10/25/18 10/25/18 Range/Units 07:58 07:58 RBC 3.09 L (4.30-5.90) m/uL Hgb 7.8 L (13.0-17.5) gm/dL Hct 27.2 L (39.0-53.0) % MCHC 28.9 L (31.0-37.0) g/dL RDW 24.8 H (11.5-15.5) % Lymphocytes # 0.8 L (1.0-4.8) k/uL Carbon Dioxide 32 H (22-30) mmol/L BUN 51 H (9-20) mg/dL Creatinine 1.96 H (0.66-1.25) mg/dL Glucose 106 H (74-99) mg/dL Total Bilirubin 2.5 H (0.2-1.3) mg/dL Alkaline Phosphatase 248 H (38-126) U/L Assessment and Plan Assessment: #1 chronic anemia, cause is unclear, will admit to inpatient, will check iron levels vitamin B12 level and folate level, will give IV iron if iron level is low, consultation for gastroenterology and hematology were initiated, patient had extensive workup in the last 3 months by hematology and gastroenterology. Per GI EGD video capsule study negative for any pathology to explain anemia #2 severe weakness likely related to anemia will monitor progress closely #3 infiltrate on chest x-ray without any clinical evidence of pneumonia will use incentive spirometry and recheck chest x-ray in a.m. no need for antibiotic at this time no evidence of pneumonia clinically. Repeat chest x-ray completed showing cardiomegaly, elevated right hemidiaphragm. Correlate to exclude pulmonary venous hypertension edema, possible underlining interstitial lung disease. #4 underlying history of hypothyroidism maintained on Synthroid 200 g. TSH level 7.50. Synthroid increased to 225 #5 underlying history of atrial fibrillation, heart rate was elevated on presentation, also patient had abnormal EKG with T-wave inversion in anterior and inferior leads, cardiology consult was initiated. At this time cardiology recommended to hold Xarelto. 2-D echo has been ordered. Per cardiology continue to hold anticoagulation. Plan to follow-up with Dr. Marin office in one week for discussion of watchman procedure. Per cardiology risk of holding anticoagulation explained to the patient. Xarelto has been resumed per oncology recommendation due to upper extremity venous Doppler result. #6 acute on chronic chronic kidney disease. Per nephrology etiologies nephrosclerosis. Creatinine staying around 1.65 #7 underlying history of hypertension well-controlled continue on Lopressor #8 underlying history of hyperlipidemia #9 previous history of prostate cancer with history of prostatectomy #10. Increased peripheral edema. Patient currently on scheduled by mouth Lasix. Patient did receive an additional IV Lasix per nephrology services today. Patient is now scheduled Lasix twice a day IV per nephrology. Patient did have significant weight loss with IV Lasix. Per nephrology will continue for an additional 24 hours #11 increased upper extremity edema to the left arm. Venous Doppler completed showing partial occlusive thrombus in the branch vessels are felt to the left jugular vein. Focal completely occlusive thrombus in the superficial left cephalic vein. Subcutaneous edema confirmed in the left upper extremity near superficial basilic and cephalic veins. Discussed case with Elisabeth EDEN per oncology services and cardiology services. Oncology recommending we restart patient Xarelto. Awaiting oncology center recommendation in regards to continuing Xarelto for anticoagulation versus DC. Xarelto has been decreased to 15mg. discussed case in depth delay with oncology [employer] Jolene. Considering changing patient to eliquis for anticoagulation due to kidney function. DVT prophylaxis Xarelto. GI prophylaxis Protonix I performed an examination of the patient and discussed their management with the Nurse Practitioner. I have reviewed the Nurse Practitioner's notes and agree with the documented findings and plan of care
[2018-10-25] MEDS ORDERED: SODIUM FERRIC GLUCONAT-SUCROSE 125 MG in SODIUM CHLORIDE 0.9% 100 ML IVPB ONE (15:30)
--- NOTE | 2018-10-25 16:13 | P.PN ---
Subjective Progress Note Date: 10/25/18 Principal diagnosis: anemia Renal Function is worsened today, patient states he did have a few dark black stools, but he states he did not think this was blood. He did receive IV Iron and cannot recall if these stool changes began before or after. With his creatinine increasing and Anticoagulation as a stroke prophylaxis I discussed with Dr. Wright and Eliquis would be better to utilize in this situation, for the opportunity of renal dosing. We will also need to closely monitor his iron saturation as this is required to be greater than 20% for epogen to be beneficial. Recommend another two doses of IV Ferrlicet. - Stool for OB ordered - RN instructed to hold Eliquis dose tonight until after the stool for OB is resulted, if negative may continue. Objective - Vital Signs Vital signs: Vital Signs Temp 97.5 F L 10/25/18 14:30 Pulse 109 H 10/25/18 14:30 Resp 17 10/25/18 14:30 BP 97/65 10/25/18 14:30 Pulse Ox 98 10/25/18 14:30 Intake & Output 10/24/18 10/25/18 10/25/18 18:59 06:59 18:59 Intake Total 1100 100 Balance 1100 100 Weight 121.1 kg Intake: Intake, IV Titration 100 100 Amount Sodium Ferric Gluconat- 100 Sucrose 125 mg In Sodium Chloride 0.9% 100 ml @ 100 mls/hr IVPB ONCE ONE Rx#:[id number] Sodium Ferric Gluconat- 100 Sucrose 125 mg In Sodium Chloride 0.9% 100 ml @ 100 mls/hr IVPB ONCE ONE Rx#:[id number] Oral 1000 Other: Voiding Method Toilet Toilet # Voids 0 2 3 - Exam Constitutional General appearance: Present: cooperative, morbidly obese, no acute distress - EENT Eyes: Present: anicteric sclerae, EOMI ENT: Present: hearing grossly normal - Respiratory Respiratory: bilateral: CTA - Cardiovascular Heart sounds: normal: S1, S2 - Peripheral edema leg Peripheral Edema: bilateral: 4+ - Gastrointestinal General gastrointestinal: Present: distended, normal bowel sounds, soft - Integumentary Integumentary: Present: pale - Neurologic Neurologic: Present: CNII-XII intact - Musculoskeletal Musculoskeletal: Present: generalized weakness, strength equal bilaterally - Psychiatric Psychiatric: Present: A&O x's 3, appropriate affect, intact judgment & insight - Labs CBC & Chem 7: 10/25/18 07:58 10/25/18 07:58 Labs: Abnormal Lab Results - Last 24 Hours (Table) 10/25/18 10/25/18 Range/Units 07:58 07:58 RBC 3.09 L (4.30-5.90) m/uL Hgb 7.8 L (13.0-17.5) gm/dL Hct 27.2 L (39.0-53.0) % MCHC 28.9 L (31.0-37.0) g/dL RDW 24.8 H (11.5-15.5) % Lymphocytes # 0.8 L (1.0-4.8) k/uL Carbon Dioxide 32 H (22-30) mmol/L BUN 51 H (9-20) mg/dL Creatinine 1.96 H (0.66-1.25) mg/dL Glucose 106 H (74-99) mg/dL Total Bilirubin 2.5 H (0.2-1.3) mg/dL Alkaline Phosphatase 248 H (38-126) U/L Assessment and Plan Plan: (1) Symptomatic anemia Narrative/Plan: - Iron Deficiency Component without evidence of acute bleeding maybe related to AVM GI Blood loss component. - Hemoglobin 7.2 today, no transfusion needed. CBC in am - Anemia workup suggestive of chronic blood loss related to chronic anticoagulation. - Patient has required iron infusions in the past and these have improved his hemoglobin. Patient also has a degree of renal insufficiency that may be contributing. - Continue to monitor daily CBC (2) Chronic atrial fibrillation (3) Acute on Chronic Renal Failure: - Nephrology Following - Will switch Anticoagulation to Eliquis Current Visit: Yes Status: Chronic Priority: Medium Code(s): I48.2 - CHRONIC ATRIAL FIBRILLATION SNOMED Code(s): 498322845 Plan: - Continue on IV Iron at this time as the Iron saturation should be increased near or above 20% for epogen effectiveness - Switch to Eliquis 2.5mg po BID (renal insufficiency), do not start untill after stool for OB is obtained - Monitor daily CBC - Discussed in detail with Primary team
[2018-10-26] MEDS: FUROSEMIDE 10 MG/ML 4 ML VIAL IV SCH ×3 (00:13→16:15)
[2018-10-26] MEDS: APIXABAN 2.5 MG TABLET PO SCH ×2 (03:03→08:35)
[2018-10-26] MEDS: LEVOTHYROXINE 125 MCG TAB PO SCH (05:16)
[2018-10-26] MEDS: LEVOTHYROXINE 100 MCG TAB PO SCH (05:16)
[2018-10-26 08:09] LABS: Anisocytosis Marked; Basophils % (A) 1 %; Eosinophils # (A) 0.2 k/uL (0-0.7); Eosinophils % (A) 4 %; HCT 26.8 % (39.0-53.0); HGB 7.7 gm/dL (13.0-17.5); Hypochromasia Marked; Lymphocytes # (A) 0.6 k/uL (1.0-4.8); Lymphocytes % (A) 12 %; MCH 25.7 pg (25.0-35.0); MCHC 28.7 g/dL (31.0-37.0); MCV 89.5 fL (80.0-100.0); Macrocytosis Slight; Microcytosis Slight; Monocytes # (A) 0.5 k/uL (0-1.0); Monocytes % (A) 12 %; Neutrophils # (A) 3.1 k/uL (1.3-7.7); Neutrophils % (A) 68 %; Platelet Count 200 k/uL (150-450); Poikilocytosis Slight; RBC 2.99 m/uL (4.30-5.90); WBC 4.5 k/uL (3.8-10.6)
[2018-10-26 08:26] LABS: Albumin 3.8 g/dL (3.5-5.0); Calcium 9.7 mg/dL (8.4-10.2); Magnesium 2.1 mg/dL (1.6-2.3); Potassium 3.9 mmol/L (3.5-5.1); Total Bilirubin 2.6 mg/dL (0.2-1.3); Total Protein 6.8 g/dL (6.3-8.2)
[2018-10-26 08:29] LABS: RDW 25.3 % (11.5-15.5)
[2018-10-26] MEDS: MIDODRINE 5 MG TAB PO SCH ×3 (08:35→17:50)
[2018-10-26] MEDS: METOPROLOL TARTRATE 50 MG TAB PO SCH ×2 (08:36→20:20)
[2018-10-26] MEDS: CYANOCOBALAMIN 500 MCG TAB PO SCH (08:36)
[2018-10-26] MEDS: PANTOPRAZOLE 40 MG TABLET PO SCH (08:36)
--- NOTE | 2018-10-26 10:16 | US ---
EXAMINATION TYPE: US venous doppler duplex UE DATE OF EXAM: 10/26/2018 COMPARISON: NONE CLINICAL HISTORY: rule out clot on right upper ext, fu on left upper. SIDE PERFORMED: Bilateral Grayscale, color doppler, spectral doppler imaging performed of the deep veins of the upper extremiti es. There is normal flow, compressibility and vascular waveforms. Right Arm: Negative for DVT. Positive for superficial thrombosis at the right forearm at the area of patient's recent IV. Left Arm: Negative for DVT. Area of concern from previous ultrasound is visualized and compressible w ith color flow visualized within. IMPRESSION: No sonographic evidence of deep venous thrombosis within either upper extremity however t he exam is positive for superficial venous thrombosis of the right forearm in the patient's area of r ecent IV.
--- NOTE | 2018-10-26 10:46 | P.PN ---
Subjective Patient is seen in follow-up for acute kidney injury on chronic kidney disease. Patient has chronic kidney disease stage III with baseline creatinine in the range of 1.4-1.5 secondary to nephrosclerosis. Patient has history of diastolic CHF. Edema is gradually improving. Admits to good urine output. Currently maintained on Lasix 40 mg IV twice daily. Also on Aldactone and metolazone. Renal function stable. Vital signs are stable. General: The patient appeared well nourished and normally developed. HEENT: Head exam is unremarkable. Neck is without jugular venous distension. LUNGS: Breath sounds decreased. HEART: Rate and Rhythm are regular. First and second heart sounds normal. No murmurs, rubs or gallops. ABDOMEN: Abdominal exam reveals normal bowel sounds. Non-tender and non- distended. No evidence of peritonitis. EXTREMITITES: 2+ edema. Objective - Vital Signs Vital signs: Vital Signs Temp 97.6 F 10/26/18 07:28 Pulse 71 10/26/18 07:28 Resp 18 10/26/18 07:28 BP 106/67 10/26/18 07:28 Pulse Ox 96 10/26/18 07:28 Intake & Output 10/25/18 10/26/18 10/26/18 18:59 06:59 18:59 Intake Total 100 1000 Output Total 1 Balance 100 999 Weight 117.9 kg Intake: Intake, IV Titration 100 Amount Sodium Ferric Gluconat- 100 Sucrose 125 mg In Sodium Chloride 0.9% 100 ml @ 100 mls/hr IVPB ONCE ONE Rx#:[id number] Oral 1000 Output: Stool 1 Other: Voiding Method Toilet Toilet # Voids 3 3 - Labs CBC & Chem 7: 10/26/18 07:13 10/26/18 07:13 Labs: Abnormal Lab Results - Last 24 Hours (Table) 10/26/18 10/26/18 Range/Units 07:13 07:13 RBC 2.99 L (4.30-5.90) m/uL Hgb 7.7 L (13.0-17.5) gm/dL Hct 26.8 L (39.0-53.0) % MCHC 28.7 L (31.0-37.0) g/dL RDW 25.3 H (11.5-15.5) % Lymphocytes # 0.6 L (1.0-4.8) k/uL BUN 52 H (9-20) mg/dL Creatinine 1.86 H (0.66-1.25) mg/dL Total Bilirubin 2.6 H (0.2-1.3) mg/dL Alkaline Phosphatase 263 H (38-126) U/L Assessment and Plan Plan: Assessment: 1. Acute kidney injury mostly prerenal secondary to cardiorenal syndrome. Renal function stable. 2. Diastolic CHF. 3. Volume overload. No evidence of DVT. Gradually improving. 4. Chronic kidney disease stage III with baseline creatinine in the range of 1.4-1.5 secondary to nephrosclerosis. 5. Hypotension maintained on midodrine. Plan: Maintain Lasix 40 mg IV twice daily. Maintain metolazone 2.5 mg twice daily. Maintain Aldactone. Hold if systolic blood pressure less than 110. Low-salt diet and 1.5 L fluid restriction. Avoid nephrotoxins. Repeat electrolytes in the morning.
--- NOTE | 2018-10-26 11:05 | P.PN ---
Subjective Progress Note Date: 10/26/18 Walker Hopper is a 73-year-old male who presented to [facility] emergency room with a chief complaint of severe weakness, and shortness of breath, patient has a known history of anemia he has required multiple red blood cell transfusions, in fact he had 6 transfusion in the last 1 year 2 of them were in [place] where he partially lives, he has multiple antibodies and blood for transfusion is extremely hard to get. Patient also has a known history of atrial fibrillation he is maintained on Xarelto, he does not have any evidence of gastrointestinal bleeding, he is followed as outpatient by gastroenterology for evaluation of his chronic anemia he had an EGD and colonoscopy recently biopsies were done and results are still pending he also had an MRI of the abdomen on 10/12/2018 results are still pending. Patient was evaluated in the emergency room he had evidence of atrial fibrillation was rapid ventricular response heart rate improved gradually, his hemoglobin on presentation was 7.2, BUN and creatinine were elevated at 37 and 1.46 he was admitted to medical floor gastroenterology consultation and hematology consultation were requested. On presentation patient had a chest x-ray that revealed evidence of a small infiltrate versus atelectasis patient does not have any clinical symptoms of pneumonia there is no fever or cough his white blood count is 5.6 at this time will withhold antibiotics will use incentive spirometry and recheck chest x-ray in a.m.. On 10/15/2018 patient was seen and examined on the medical floor he is alert and oriented 3 in no apparent distress he is still complaining of severe weakness and complaining of lower extremity edema otherwise he denies any other complaint there is no fever or chills no headache or dizziness no chest pain no shortness of breath at rest he has shortness of breath with activity there is no cough no nausea or vomiting no abdominal pain no diarrhea and no urinary symptoms. On 10/16/2018 patient is alert and oriented 3. Still complaining of some weakness. At this time patient denies chest pain or shortness of breath. Patient denies nausea vomiting or diarrhea. Patient denies any urinary burning or frequency On 10/17/2018 patient is alert and oriented 3. Hemoglobin slightly improving to 6.9. Possible capsule study per GI services. Patient is still complaining of significant lower extremity edema. Patient did receive an additional 40 mg of IV Lasix history per nephrology services. At this time patient denies chest pain or shortness of breath. Patient denies nausea vomiting or diarrhea. Patient denies any urinary burning or frequency or frequency On 10/18/2018 patient is alert and oriented 3. Capsule study currently in progress. Slight improvement with lower extremity edema. At this time patient denies chest pain or shortness of breath. Patient denies nausea vomiting or diarrhea. Patient denies urinary burning or frequency. On 10/19/2018 patient is alert and oriented 3. Still awaiting results on capsule study. Hemoglobin stable at 7.5. Patient is still having significant lower extremity edema. Patient is also having increasing creatinine IV Lasix DC 'd patient remains on by mouth Lasix. Patient denies chest pain or shortness of breath. Denies any urinary burning or frequency. She also having increased edema to left upper extremity venous Doppler study has been ordered. On 10/20/2018 patient is alert and oriented 3. Patient was found to have left upper extremity DVT. Discussed case and topically with oncology services and per oncology patient was started back on Xarelto. Venous Doppler of lower extremities were negative for DVT bilaterally. Awaiting final results from capsule study. Hemoglobin stable at 7.8 patient rated. Patient did receive IV iron yesterday. Creatinine increasing to 1.82. Nephrology services are following. At this time patient denies chest pain or shortness breath. Patient denies nausea vomiting or diarrhea. Patient denies any urinary burning or frequency. Patient is still complaining of significant lower extremity edema. Patient does remain on by mouth Lasix. IV Lasix DC'd due to increasing creatinine. On 10/21/2018 patient is alert and oriented 3. Patient remains on Xarelto for DVT in left upper extremity. Creatinine improving to 1.54. Patient has received a one-time dose of Lasix IV per nephrology services. Hemoglobin 7.8 will repeat today and tomorrow. This time patient denies chest pain or shortness of breath. Patient denies nausea vomiting or diarrhea. Patient denies any urinary burning or frequency. On 10/22/2018 patient is alert and oriented 3. Patient is currently on IV Lasix twice a day per nephrology services. Hemoglobin 7.3. At this time patient denies chest pain or shortness breath. Patient denies nausea vomiting or diarrhea. Patient denies any urinary burning or frequency On 10/23/2018 patient remains alert and oriented 3. Patient did have significant weight loss from 125.3 kg to 122.8. Patient remains on IV Lasix twice a day per nephrology services. Creatinine remained stable. Patient does still have significant peripheral edema recommending an additional 24 hours of IV Lasix at this time. Discussed case with oncology services Dr. Wright in regards to venous Doppler ultrasound of the left upper extremity and patient Xarelto with chronic anemia. Awaiting oncology's final recommendation in regards to continuing anticoagulation versus DC'd. At this time patient denies chest pain or shortness breath. Patient denies nausea vomiting or diarrhea. Patient denies any urinary burning or frequency. On 10/24/2018 patient remains alert and oriented 3 sitting up at site of bed. Patient's weight continues to drop from 122.8 kg 121.7 kg. patient still has significant edema to lower extremities. Patient remains on IV Lasix 40 mg twice a day at this time. Creatinine slightly increased to 1.70. Hemoglobin 7.2. Patient's Xarelto has been decreased to 15 mg. Awaiting oncology's final recommendation for anticoagulation first. At this time patient denies chest pain or shortness breath. Patient denies any urinary burning or frequency. On 10/25/2018 patient is alert and oriented 3 resting comfortably in bed. Weight is continuing to decrease. Patient remains on IV Lasix per nephrology. Discussed case in topically with oncology services per oncology discussing switching patient to eliquis instead of Xarelto for anticoagulation due to kidney function. At this time patient denies chest pain or shortness of breath. Patient denies nausea vomiting or diarrhea. Patient denies any urinary burning or frequency On 10/26/2018 patient's alert and oriented 3. Patient's weight has decreased from 121.7-117.9. Discussed case with nephrology services recommending patient stay on IV Lasix for an additional 24 hours and possible DC tomorrow with Lasix 40 mg twice a day. Per oncology patient has been switched to eliquis for anticoagulation. At this time plans are to DC patient with anticoagulation. Concerns for right forearm swelling. Will obtain venous Doppler to rule out DVT. At this time patient denies chest pain or shortness of breath. Patient denies nausea vomiting or diarrhea. Denies any urinary burning or frequency. Objective - Vital Signs Vital signs: Vital Signs Temp 97.6 F 10/26/18 07:28 Pulse 71 10/26/18 07:28 Resp 18 10/26/18 07:28 BP 106/67 10/26/18 07:28 Pulse Ox 96 10/26/18 07:28 Intake & Output 10/25/18 10/26/18 10/26/18 18:59 06:59 18:59 Intake Total 100 1000 Output Total 1 Balance 100 999 Weight 117.9 kg Intake: Intake, IV Titration 100 Amount Sodium Ferric Gluconat- 100 Sucrose 125 mg In Sodium Chloride 0.9% 100 ml @ 100 mls/hr IVPB ONCE ONE Rx#:[id number] Oral 1000 Output: Stool 1 Other: Voiding Method Toilet Toilet # Voids 3 3 - Exam In general patient is alert and oriented 3 in no apparent distress HEENT head normocephalic and atraumatic Neck is supple no JVD no goiter no lymphadenopathy Chest exam reveals a few scattered rhonchi bilaterally no wheezing Cardiac exam reveals irregular heart sounds S1 and S2 no gallops no murmurs Abdomen is soft nontender no organomegaly with normal bowel sounds Extremity exam reveals 3+ edema bilaterally no cyanosis or clubbing Neurological examination reveals no gross focal deficit - Labs CBC & Chem 7: 10/26/18 07:13 10/26/18 07:13 Labs: Abnormal Lab Results - Last 24 Hours (Table) 10/26/18 10/26/18 Range/Units 07:13 07:13 RBC 2.99 L (4.30-5.90) m/uL Hgb 7.7 L (13.0-17.5) gm/dL Hct 26.8 L (39.0-53.0) % MCHC 28.7 L (31.0-37.0) g/dL RDW 25.3 H (11.5-15.5) % Lymphocytes # 0.6 L (1.0-4.8) k/uL BUN 52 H (9-20) mg/dL Creatinine 1.86 H (0.66-1.25) mg/dL Total Bilirubin 2.6 H (0.2-1.3) mg/dL Alkaline Phosphatase 263 H (38-126) U/L Assessment and Plan Assessment: #1 chronic anemia, cause is unclear, will admit to inpatient, will check iron levels vitamin B12 level and folate level, will give IV iron if iron level is low, consultation for gastroenterology and hematology were initiated, patient had extensive workup in the last 3 months by hematology and gastroenterology. Per GI EGD video capsule study negative for any pathology to explain anemia #2 severe weakness likely related to anemia will monitor progress closely #3 infiltrate on chest x-ray without any clinical evidence of pneumonia will use incentive spirometry and recheck chest x-ray in a.m. no need for antibiotic at this time no evidence of pneumonia clinically. Repeat chest x-ray completed showing cardiomegaly, elevated right hemidiaphragm. Correlate to exclude pulmonary venous hypertension edema, possible underlining interstitial lung disease. #4 underlying history of hypothyroidism maintained on Synthroid 200 g. TSH level 7.50. Synthroid increased to 225 #5 underlying history of atrial fibrillation, heart rate was elevated on presentation, also patient had abnormal EKG with T-wave inversion in anterior and inferior leads, cardiology consult was initiated. At this time cardiology recommended to hold Xarelto. 2-D echo has been ordered. Per cardiology continue to hold anticoagulation. Plan to follow-up with Dr. Marin office in one week for discussion of watchman procedure. Per cardiology risk of holding anticoagulation explained to the patient. Xarelto has been resumed per oncology recommendation due to upper extremity venous Doppler result. Discussed case with oncology services. Patient has been switched to eliquis for anticoagulation and will most likely be DC'd with anticoagulation and further workup outpatient. #6 acute on chronic chronic kidney disease. Per nephrology etiologies nephrosclerosis. Creatinine staying around 1.65 #7 underlying history of hypertension well-controlled continue on Lopressor #8 underlying history of hyperlipidemia #9 previous history of prostate cancer with history of prostatectomy #10. Increased peripheral edema. Patient currently on scheduled by mouth Lasix. Patient did receive an additional IV Lasix per nephrology services today. Patient is now scheduled Lasix twice a day IV per nephrology. Patient did have significant weight loss with IV Lasix. Discussed case with Dr. Lange per nephrology services recommending we keep patient another 24-hour's on IV Lasix and possible DC tomorrow with Lasix 40 twice a day. Metolazone also has been added per nephrology #11 increased upper extremity edema to the left arm. Venous Doppler completed showing partial occlusive thrombus in the branch vessels are felt to the left jugular vein. Focal completely occlusive thrombus in the superficial left cephalic vein. Subcutaneous edema confirmed in the left upper extremity near superficial basilic and cephalic veins. Discussed case with Elisabeth EDEN per oncology services and cardiology services. Oncology recommending we restart patient Xarelto. Discussed case with oncology services. Patient has been switched to eliquis for anticoagulation and will most likely be DC'd with anticoagulation and further workup outpatient. #12. Increased right forearm pain and redness. This was likely due to previous IV site. Will obtain venous Doppler study to rule out DVT due to patient's significant history DVT prophylaxis eliquis. GI prophylaxis Protonix I performed an examination of the patient and discussed their management with the Nurse Practitioner. I have reviewed the Nurse Practitioner's notes and agree with the documented findings and plan of care
[2018-10-26] MEDS: SPIRONOLACTONE 25 MG TAB PO SCH ×2 (11:30→20:23)
[2018-10-26] MEDS: METOLAZONE 2.5 MG TAB PO SCH ×2 (11:40→22:10)
[2018-10-26] MEDS ORDERED: SODIUM FERRIC GLUCONAT-SUCROSE 125 MG in SODIUM CHLORIDE 0.9% 100 ML IVPB ONE (11:43)
--- NOTE | 2018-10-26 17:18 | P.PN ---
Subjective Progress Note Date: 10/26/18 Principal diagnosis: anemia Patient stated he is still having black tarry stools, Stool for OB Positive today and with being on AC therapy, low hemoglobin and history of GI bleeding with AVMS we rec to hold Eliquis and have GI reassess. Objective - Vital Signs Vital signs: Vital Signs Temp 97.9 F 10/26/18 14:28 Pulse 110 H 10/26/18 16:13 Resp 16 10/26/18 14:28 BP 102/67 10/26/18 16:13 Pulse Ox 98 10/26/18 14:28 Intake & Output 10/25/18 10/26/18 10/26/18 18:59 06:59 18:59 Intake Total 100 1000 100 Output Total 1 Balance 100 999 100 Weight 117.9 kg 117.9 kg Intake: Intake, IV Titration 100 100 Amount Sodium Ferric Gluconat- 100 100 Sucrose 125 mg In Sodium Chloride 0.9% 100 ml @ 100 mls/hr IVPB ONCE ONE Rx#:[id number] Oral 1000 Output: Stool 1 Other: Voiding Method Toilet Toilet # Voids 3 3 - Exam Constitutional General appearance: Present: cooperative, morbidly obese, no acute distress - EENT Eyes: Present: anicteric sclerae, EOMI ENT: Present: hearing grossly normal - Respiratory Respiratory: bilateral: CTA - Cardiovascular Heart sounds: normal: S1, S2 - Peripheral edema leg Peripheral Edema: bilateral: 4+ - Gastrointestinal General gastrointestinal: Present: distended, normal bowel sounds, soft - Integumentary Integumentary: Present: pale - Neurologic Neurologic: Present: CNII-XII intact - Musculoskeletal Musculoskeletal: Present: generalized weakness, strength equal bilaterally - Psychiatric Psychiatric: Present: A&O x's 3, appropriate affect, intact judgment & insight - Labs CBC & Chem 7: 10/26/18 07:13 10/26/18 07:13 Labs: Abnormal Lab Results - Last 24 Hours (Table) 10/26/18 10/26/18 Range/Units 07:13 07:13 RBC 2.99 L (4.30-5.90) m/uL Hgb 7.7 L (13.0-17.5) gm/dL Hct 26.8 L (39.0-53.0) % MCHC 28.7 L (31.0-37.0) g/dL RDW 25.3 H (11.5-15.5) % Lymphocytes # 0.6 L (1.0-4.8) k/uL BUN 52 H (9-20) mg/dL Creatinine 1.86 H (0.66-1.25) mg/dL Total Bilirubin 2.6 H (0.2-1.3) mg/dL Alkaline Phosphatase 263 H (38-126) U/L Assessment and Plan Plan: (1) Symptomatic anemia Narrative/Plan: - Iron Deficiency Component without evidence of acute bleeding maybe related to AVM GI Blood loss component. - Hemoglobin 7.2 today, no transfusion needed. CBC in am - Anemia workup suggestive of chronic blood loss related to chronic anticoagulation. - Patient has required iron infusions in the past and these have improved his hemoglobin. Patient also has a degree of renal insufficiency that may be contributing. - Continue to monitor daily CBC (2) Chronic atrial fibrillation (3) Acute on Chronic Renal Failure: - Nephrology Following - Will switch Anticoagulation to Eliquis Current Visit: Yes Status: Chronic Priority: Medium Code(s): I48.2 - CHRONIC ATRIAL FIBRILLATION SNOMED Code(s): 858747068 Plan: - Hold eliquis and GI Evaluation as history of AVMs and GI Bleeding - New SVT, not a concern in comparison to GI bleeding and iron deficiency anemia from GI blood Loss - Monitor CBC, may need to resume anticoagulation slowly with Heparin and monitor for bleeding prior to switching back to oral therapy - Black Tarry Stools started on Xarelto, before switch to eliquis. Eliquis initiated with renal function dosing available.
[2018-10-27] MEDS: LEVOTHYROXINE 125 MCG TAB PO SCH (05:31)
[2018-10-27] MEDS: LEVOTHYROXINE 100 MCG TAB PO SCH (05:31)
[2018-10-27] MEDS: FUROSEMIDE 10 MG/ML 4 ML VIAL IV SCH ×2 (05:34→15:14)
[2018-10-27 08:07] LABS: Albumin 3.6 g/dL (3.5-5.0); Calcium 9.6 mg/dL (8.4-10.2); Potassium 3.7 mmol/L (3.5-5.1); Total Bilirubin 2.6 mg/dL (0.2-1.3); Total Protein 6.6 g/dL (6.3-8.2)
[2018-10-27 08:10] LABS: Anisocytosis Marked; Basophils % (A) 1 %; Eosinophils # (A) 0.1 k/uL (0-0.7); Eosinophils % (A) 3 %; HCT 27.2 % (39.0-53.0); HGB 7.8 gm/dL (13.0-17.5); Hypochromasia Marked; Lymphocytes # (A) 0.5 k/uL (1.0-4.8); Lymphocytes % (A) 12 %; MCH 25.5 pg (25.0-35.0); MCHC 28.7 g/dL (31.0-37.0); MCV 88.7 fL (80.0-100.0); Macrocytosis Slight; Mean Platelet Volume 8.4; Microcytosis Slight; Monocytes # (A) 0.6 k/uL (0-1.0); Monocytes % (A) 13 %; Neutrophils # (A) 2.8 k/uL (1.3-7.7); Neutrophils % (A) 66 %; Platelet Count 220 k/uL (150-450); Poikilocytosis Slight; RBC 3.07 m/uL (4.30-5.90); WBC 4.2 k/uL (3.8-10.6)
[2018-10-27 08:21] LABS: RDW 26.1 % (11.5-15.5)
[2018-10-27] MEDS: CYANOCOBALAMIN 500 MCG TAB PO SCH (08:59)
[2018-10-27] MEDS: PANTOPRAZOLE 40 MG TABLET PO SCH (08:59)
[2018-10-27] MEDS: MIDODRINE 5 MG TAB PO SCH ×3 (08:59→17:00)
[2018-10-27] MEDS: METOLAZONE 2.5 MG TAB PO SCH (08:59)
[2018-10-27] MEDS: METOPROLOL TARTRATE 50 MG TAB PO SCH ×2 (08:59→22:02)
[2018-10-27] MEDS: SPIRONOLACTONE 25 MG TAB PO SCH ×2 (09:01→22:02)
[2018-10-27 09:45] LABS: Mixed Population RBC Present; Polychromasia Present
--- NOTE | 2018-10-27 11:43 | P.PN ---
Subjective Progress Note Date: 10/27/18 Principal diagnosis: Anemia elevated liver enzymes 73-year-old male history of atrial fibrillation maintained on anticoagulation chronic iron deficiency anemia status post unremarkable EGD and small bowel capsule endoscopy. Request for GI evaluation today in regards to positive FOBT. Patient states his bowel movements are dark but no gross hematochezia or hematemesis. Denies abdominal pain. Hemoglobin range over the last week between 7.2-7.8. Venous Doppler bilateral upper extremities reported no evidence of DVT but positive for superficial venous thrombosis of the right forearm in the patient' s area of recent IV. Objective - Vital Signs Vital signs: Vital Signs Temp 97.9 F 10/27/18 07:23 Pulse 109 H 10/27/18 07:23 Resp 18 10/27/18 07:23 BP 104/69 10/27/18 07:23 Pulse Ox 97 10/27/18 07:23 Intake & Output 10/26/18 10/27/18 10/27/18 18:59 06:59 18:59 Intake Total 700 300 Output Total 1 Balance 700 300 -1 Weight 117.9 kg 115.7 kg Intake: Intake, IV Titration 100 Amount Sodium Ferric Gluconat- 100 Sucrose 125 mg In Sodium Chloride 0.9% 100 ml @ 100 mls/hr IVPB ONCE ONE Rx#:[id number] Oral 600 300 Output: Stool 1 Other: Voiding Method Toilet Toilet # Voids 1 2 - Exam General appearance: The patient is alert, oriented, in no acute distress. HET: Head is normocephalic and atraumatic. Pupils are equal and reactive. Oropharynx is clear without lesions. Neck: Supple without lymphadenopathy. Trachea midline. Heart: S1 S2. Regular rate and rhythm. Lungs: No crackles or wheezes are heard. Abdomen: Soft, nontender, nondistended with bowel sounds. No peritoneal signs. No palpable organomegaly or masses. Extremities: + lower extremity edema. Neurological: No focal deficits. Strength and sensation are grossly intact. - Labs CBC & Chem 7: 10/27/18 06:59 10/27/18 06:59 Labs: Abnormal Lab Results - Last 24 Hours (Table) 10/27/18 10/27/18 Range/Units 06:59 06:59 RBC 3.07 L (4.30-5.90) m/uL Hgb 7.8 L (13.0-17.5) gm/dL Hct 27.2 L (39.0-53.0) % MCHC 28.7 L (31.0-37.0) g/dL RDW 26.1 H (11.5-15.5) % Lymphocytes # 0.5 L (1.0-4.8) k/uL Chloride 94 L (98-107) mmol/L Carbon Dioxide 33 H (22-30) mmol/L BUN 53 H (9-20) mg/dL Creatinine 2.06 H (0.66-1.25) mg/dL Total Bilirubin 2.6 H (0.2-1.3) mg/dL Alkaline Phosphatase 248 H (38-126) U/L Assessment and Plan (1) Symptomatic anemia Narrative/Plan: Symptomatic iron deficiency anemia without overt bleeding such as hematemesis hematochezia or melena status post recent EGD moderate antral gastritis. Colonoscopy December 2017 polypectomy no significant findings. Small bowel capsule endoscopy completed last week unremarkable for acute bleeding or bleeding sources. Positive FOBT with stable hemoglobin over the last week with reported darker looking bowel movements maintained on anti-correlation. Suspect intermittent slow GI bleed from possible telangiectasia exacerbated by anticoagulation within the GI tract unable to identify per endoscopy and capsule study. Current Visit: Yes Status: Acute Priority: High Code(s): D64.9 - ANEMIA, UNSPECIFIED SNOMED Code(s): 966156942 (2) Elevated liver enzymes Current Visit: No Status: Acute Code(s): R74.8 - ABNORMAL LEVELS OF OTHER SERUM ENZYMES SNOMED Code(s): 176809498 (3) Chronic kidney disease, stage 3 Current Visit: Yes Status: Acute Code(s): N18.3 - CHRONIC KIDNEY DISEASE, STAGE 3 (MODERATE) SNOMED Code(s): 409800047 (4) Chronic atrial fibrillation Current Visit: Yes Status: Chronic Priority: Medium Code(s): I48.2 - CHRONIC ATRIAL FIBRILLATION SNOMED Code(s): 763574778 Plan: 1. From a GI standpoint repeat endoscopy capsule study is not advised. We'll defer to medicine and hematology for recommendations on anticoagulation. Continue with IV iron. Close monitoring of CBC. Assessment and plan a care discussed with Dr. Blunt
--- NOTE | 2018-10-27 14:12 | P.PN ---
Subjective Patient is seen in follow-up for acute kidney injury on chronic kidney disease. Patient has chronic kidney disease stage III with baseline creatinine in the range of 1.4-1.5 secondary to nephrosclerosis. Patient has history of diastolic CHF. Edema is gradually improving. Admits to good urine output. Currently maintained on Lasix 40 mg IV twice daily. Also on Aldactone and metolazone. Renal function worsened with creatinine at 2.06 today. Vital signs are stable. General: The patient appeared well nourished and normally developed. HEENT: Head exam is unremarkable. Neck is without jugular venous distension. LUNGS: Breath sounds decreased. HEART: Rate and Rhythm are regular. First and second heart sounds normal. No murmurs, rubs or gallops. ABDOMEN: Abdominal exam reveals normal bowel sounds. Non-tender and non- distended. No evidence of peritonitis. EXTREMITITES: 2+ edema. Objective - Vital Signs Vital signs: Vital Signs Temp 97.9 F 10/27/18 07:23 Pulse 109 H 10/27/18 07:23 Resp 18 10/27/18 07:23 BP 104/69 10/27/18 07:23 Pulse Ox 97 10/27/18 07:23 Intake & Output 10/26/18 10/27/18 10/27/18 18:59 06:59 18:59 Intake Total 700 300 500 Output Total 1 Balance 700 300 499 Weight 117.9 kg 115.7 kg Intake: Intake, IV Titration 100 Amount Sodium Ferric Gluconat- 100 Sucrose 125 mg In Sodium Chloride 0.9% 100 ml @ 100 mls/hr IVPB ONCE ONE Rx#:[id number] Oral 600 300 500 Output: Stool 1 Other: Voiding Method Toilet Toilet # Voids 1 2 3 - Labs CBC & Chem 7: 10/27/18 06:59 10/27/18 06:59 Labs: Abnormal Lab Results - Last 24 Hours (Table) 10/27/18 10/27/18 Range/Units 06:59 06:59 RBC 3.07 L (4.30-5.90) m/uL Hgb 7.8 L (13.0-17.5) gm/dL Hct 27.2 L (39.0-53.0) % MCHC 28.7 L (31.0-37.0) g/dL RDW 26.1 H (11.5-15.5) % Lymphocytes # 0.5 L (1.0-4.8) k/uL Chloride 94 L (98-107) mmol/L Carbon Dioxide 33 H (22-30) mmol/L BUN 53 H (9-20) mg/dL Creatinine 2.06 H (0.66-1.25) mg/dL Total Bilirubin 2.6 H (0.2-1.3) mg/dL Alkaline Phosphatase 248 H (38-126) U/L Assessment and Plan Plan: Assessment: 1. Acute kidney injury mostly prerenal secondary to cardiorenal syndrome. Renal function worsened with creatinine at 2.06 today. 2. Diastolic CHF. 3. Volume overload. No evidence of DVT. Gradually improving. 4. Chronic kidney disease stage III with baseline creatinine in the range of 1.4-1.5 secondary to nephrosclerosis. 5. Hypotension maintained on midodrine. Plan: Maintain Lasix 40 mg IV twice daily - can change to oral diuretics tomorrow if renal function continues to worsen. Decrease metolazone to once daily. Maintain Aldactone. Hold if systolic blood pressure less than 110. Low-salt diet and 1.5 L fluid restriction. Avoid nephrotoxins. Repeat electrolytes in the morning.
[2018-10-27 14:16] VITALS: BMI 33.6
--- NOTE | 2018-10-27 16:27 | P.PN ---
Subjective Progress Note Date: 10/27/18 Walker Hopper is a 73-year-old male who presented to [facility] emergency room with a chief complaint of severe weakness, and shortness of breath, patient has a known history of anemia he has required multiple red blood cell transfusions, in fact he had 6 transfusion in the last 1 year 2 of them were in [place] where he partially lives, he has multiple antibodies and blood for transfusion is extremely hard to get. Patient also has a known history of atrial fibrillation he is maintained on Xarelto, he does not have any evidence of gastrointestinal bleeding, he is followed as outpatient by gastroenterology for evaluation of his chronic anemia he had an EGD and colonoscopy recently biopsies were done and results are still pending he also had an MRI of the abdomen on 10/12/2018 results are still pending. Patient was evaluated in the emergency room he had evidence of atrial fibrillation was rapid ventricular response heart rate improved gradually, his hemoglobin on presentation was 7.2, BUN and creatinine were elevated at 37 and 1.46 he was admitted to medical floor gastroenterology consultation and hematology consultation were requested. On presentation patient had a chest x-ray that revealed evidence of a small infiltrate versus atelectasis patient does not have any clinical symptoms of pneumonia there is no fever or cough his white blood count is 5.6 at this time will withhold antibiotics will use incentive spirometry and recheck chest x-ray in a.m.. On 10/15/2018 patient was seen and examined on the medical floor he is alert and oriented 3 in no apparent distress he is still complaining of severe weakness and complaining of lower extremity edema otherwise he denies any other complaint there is no fever or chills no headache or dizziness no chest pain no shortness of breath at rest he has shortness of breath with activity there is no cough no nausea or vomiting no abdominal pain no diarrhea and no urinary symptoms. On 10/16/2018 patient is alert and oriented 3. Still complaining of some weakness. At this time patient denies chest pain or shortness of breath. Patient denies nausea vomiting or diarrhea. Patient denies any urinary burning or frequency On 10/17/2018 patient is alert and oriented 3. Hemoglobin slightly improving to 6.9. Possible capsule study per GI services. Patient is still complaining of significant lower extremity edema. Patient did receive an additional 40 mg of IV Lasix history per nephrology services. At this time patient denies chest pain or shortness of breath. Patient denies nausea vomiting or diarrhea. Patient denies any urinary burning or frequency or frequency On 10/18/2018 patient is alert and oriented 3. Capsule study currently in progress. Slight improvement with lower extremity edema. At this time patient denies chest pain or shortness of breath. Patient denies nausea vomiting or diarrhea. Patient denies urinary burning or frequency. On 10/19/2018 patient is alert and oriented 3. Still awaiting results on capsule study. Hemoglobin stable at 7.5. Patient is still having significant lower extremity edema. Patient is also having increasing creatinine IV Lasix DC 'd patient remains on by mouth Lasix. Patient denies chest pain or shortness of breath. Denies any urinary burning or frequency. She also having increased edema to left upper extremity venous Doppler study has been ordered. On 10/20/2018 patient is alert and oriented 3. Patient was found to have left upper extremity DVT. Discussed case and topically with oncology services and per oncology patient was started back on Xarelto. Venous Doppler of lower extremities were negative for DVT bilaterally. Awaiting final results from capsule study. Hemoglobin stable at 7.8 patient rated. Patient did receive IV iron yesterday. Creatinine increasing to 1.82. Nephrology services are following. At this time patient denies chest pain or shortness breath. Patient denies nausea vomiting or diarrhea. Patient denies any urinary burning or frequency. Patient is still complaining of significant lower extremity edema. Patient does remain on by mouth Lasix. IV Lasix DC'd due to increasing creatinine. On 10/21/2018 patient is alert and oriented 3. Patient remains on Xarelto for DVT in left upper extremity. Creatinine improving to 1.54. Patient has received a one-time dose of Lasix IV per nephrology services. Hemoglobin 7.8 will repeat today and tomorrow. This time patient denies chest pain or shortness of breath. Patient denies nausea vomiting or diarrhea. Patient denies any urinary burning or frequency. On 10/22/2018 patient is alert and oriented 3. Patient is currently on IV Lasix twice a day per nephrology services. Hemoglobin 7.3. At this time patient denies chest pain or shortness breath. Patient denies nausea vomiting or diarrhea. Patient denies any urinary burning or frequency On 10/23/2018 patient remains alert and oriented 3. Patient did have significant weight loss from 125.3 kg to 122.8. Patient remains on IV Lasix twice a day per nephrology services. Creatinine remained stable. Patient does still have significant peripheral edema recommending an additional 24 hours of IV Lasix at this time. Discussed case with oncology services Dr. Wright in regards to venous Doppler ultrasound of the left upper extremity and patient Xarelto with chronic anemia. Awaiting oncology's final recommendation in regards to continuing anticoagulation versus DC'd. At this time patient denies chest pain or shortness breath. Patient denies nausea vomiting or diarrhea. Patient denies any urinary burning or frequency. On 10/24/2018 patient remains alert and oriented 3 sitting up at site of bed. Patient's weight continues to drop from 122.8 kg 121.7 kg. patient still has significant edema to lower extremities. Patient remains on IV Lasix 40 mg twice a day at this time. Creatinine slightly increased to 1.70. Hemoglobin 7.2. Patient's Xarelto has been decreased to 15 mg. Awaiting oncology's final recommendation for anticoagulation first. At this time patient denies chest pain or shortness breath. Patient denies any urinary burning or frequency. On 10/25/2018 patient is alert and oriented 3 resting comfortably in bed. Weight is continuing to decrease. Patient remains on IV Lasix per nephrology. Discussed case in topically with oncology services per oncology discussing switching patient to eliquis instead of Xarelto for anticoagulation due to kidney function. At this time patient denies chest pain or shortness of breath. Patient denies nausea vomiting or diarrhea. Patient denies any urinary burning or frequency On 10/26/2018 patient's alert and oriented 3. Patient's weight has decreased from 121.7-117.9. Discussed case with nephrology services recommending patient stay on IV Lasix for an additional 24 hours and possible DC tomorrow with Lasix 40 mg twice a day. Per oncology patient has been switched to eliquis for anticoagulation. At this time plans are to DC patient with anticoagulation. Concerns for right forearm swelling. Will obtain venous Doppler to rule out DVT. At this time patient denies chest pain or shortness of breath. Patient denies nausea vomiting or diarrhea. Denies any urinary burning or frequency. On 10/27/2018. Patient's alert and oriented 3 patient remains on IV Lasix per nephrology. Weight continues to decrease along with peripheral edema. Anticoagulation currently on hold per oncology due to positive occult stool. Discussed case with GI services no further workup at this time due to previous testing completed. Hemoglobin remained stable at 7.8. Will discuss with oncology service in regards to restarting anticoagulation versus to be DC'd Objective - Vital Signs Vital signs: Vital Signs Temp 98.7 F 10/27/18 14:49 Pulse 98 10/27/18 14:49 Resp 12 10/27/18 14:49 BP 99/64 10/27/18 14:49 Pulse Ox 96 10/27/18 14:49 Intake & Output 10/26/18 10/27/18 10/27/18 18:59 06:59 18:59 Intake Total 700 300 500 Output Total 1 Balance 700 300 499 Weight 117.9 kg 115.7 kg 115.7 kg Intake: Intake, IV Titration 100 Amount Sodium Ferric Gluconat- 100 Sucrose 125 mg In Sodium Chloride 0.9% 100 ml @ 100 mls/hr IVPB ONCE ONE Rx#:[id number] Oral 600 300 500 Output: Stool 1 Other: Voiding Method Toilet Toilet # Voids 1 2 3 - Exam In general patient is alert and oriented 3 in no apparent distress HEENT head normocephalic and atraumatic Neck is supple no JVD no goiter no lymphadenopathy Chest exam reveals a few scattered rhonchi bilaterally no wheezing Cardiac exam reveals irregular heart sounds S1 and S2 no gallops no murmurs Abdomen is soft nontender no organomegaly with normal bowel sounds Extremity exam reveals 3+ edema bilaterally no cyanosis or clubbing Neurological examination reveals no gross focal deficit - Labs CBC & Chem 7: 10/27/18 06:59 10/27/18 06:59 Labs: Abnormal Lab Results - Last 24 Hours (Table) 10/27/18 10/27/18 Range/Units 06:59 06:59 RBC 3.07 L (4.30-5.90) m/uL Hgb 7.8 L (13.0-17.5) gm/dL Hct 27.2 L (39.0-53.0) % MCHC 28.7 L (31.0-37.0) g/dL RDW 26.1 H (11.5-15.5) % Lymphocytes # 0.5 L (1.0-4.8) k/uL Chloride 94 L (98-107) mmol/L Carbon Dioxide 33 H (22-30) mmol/L BUN 53 H (9-20) mg/dL Creatinine 2.06 H (0.66-1.25) mg/dL Total Bilirubin 2.6 H (0.2-1.3) mg/dL Alkaline Phosphatase 248 H (38-126) U/L Assessment and Plan Assessment: #1 chronic anemia, cause is unclear, will admit to inpatient, will check iron levels vitamin B12 level and folate level, will give IV iron if iron level is low, consultation for gastroenterology and hematology were initiated, patient had extensive workup in the last 3 months by hematology and gastroenterology. Per GI EGD video capsule study negative for any pathology to explain anemia #2 severe weakness likely related to anemia will monitor progress closely #3 infiltrate on chest x-ray without any clinical evidence of pneumonia will use incentive spirometry and recheck chest x-ray in a.m. no need for antibiotic at this time no evidence of pneumonia clinically. Repeat chest x-ray completed showing cardiomegaly, elevated right hemidiaphragm. Correlate to exclude pulmonary venous hypertension edema, possible underlining interstitial lung disease. #4 underlying history of hypothyroidism maintained on Synthroid 200 g. TSH level 7.50. Synthroid increased to 225 #5 underlying history of atrial fibrillation, heart rate was elevated on presentation, also patient had abnormal EKG with T-wave inversion in anterior and inferior leads, cardiology consult was initiated. At this time cardiology recommended to hold Xarelto. 2-D echo has been ordered. Per cardiology continue to hold anticoagulation. Plan to follow-up with Dr. Marin office in one week for discussion of watchman procedure. Per cardiology risk of holding anticoagulation explained to the patient. Xarelto has been resumed per oncology recommendation due to upper extremity venous Doppler result. Discussed case with oncology services. Anticoagulation currently on hold per oncology #6 acute on chronic chronic kidney disease. Per nephrology etiologies nephrosclerosis. Creatinine increasing to 2.06. Nephrology services are following patient remains on IV Lasix at this time #7 underlying history of hypertension well-controlled continue on Lopressor #8 underlying history of hyperlipidemia #9 previous history of prostate cancer with history of prostatectomy #10. Increased peripheral edema. Patient currently on scheduled by mouth Lasix. Patient did receive an additional IV Lasix per nephrology services today. Patient is now scheduled Lasix twice a day IV per nephrology. Patient did have significant weight loss with IV Lasix. Discussed case with Dr. Lange per nephrology services recommending we keep patient another 24-hour's on IV Lasix and possible DC tomorrow with Lasix 40 twice a day. Metolazone also has been added per nephrology #11 increased upper extremity edema to the left arm. Venous Doppler completed showing partial occlusive thrombus in the branch vessels are felt to the left jugular vein. Focal completely occlusive thrombus in the superficial left cephalic vein. Subcutaneous edema confirmed in the left upper extremity near superficial basilic and cephalic veins. Discussed case with Elisabeth EDEN per oncology services and cardiology services. Oncology recommending we restart patient Xarelto. Discussed case with oncology services. Patient has been switched to eliquis for anticoagulation and will most likely be DC'd with anticoagulation and further workup outpatient. #12. Increased right forearm pain and redness. This was likely due to previous IV site. Venous Doppler completed showing no sonographic evidence of deep vein thrombosis within either upper patient however exam is positive in both venous thrombosis of the right forearm patient's area of recent IV. #13 positive occult stool. Hemoglobin remained stable at 7.8. No plans for any signs further testing per GI due to previous testing been completed. Anticoagulation on hold per oncology. Will discuss with oncology services about restarting first vs anticoagulation DC'd at this time DVT prophylaxis eliquis on hold per oncology. GI prophylaxis Protonix I performed an examination of the patient and discussed their management with the Nurse Practitioner. I have reviewed the Nurse Practitioner's notes and agree with the documented findings and plan of care
[2018-10-27] MEDS ORDERED: SODIUM FERRIC GLUCONAT-SUCROSE 125 MG in SODIUM CHLORIDE 0.9% 100 ML IVPB ONE (17:30)
--- NOTE | 2018-10-27 17:38 | P.PN ---
Subjective Progress Note Date: 10/27/18 Principal diagnosis: anemia Patient is feeling ok overall, although with his known on and off probable AVM GI bleeding the risk with anticogulation versus the risk from atrial fibrillation need to be further considered. We discussed risks and benefits of both with patient, and will ask Cardiology and Primary team to further discuss. If it is decided that patient will require full preventative dose anticoagulation I recommend Heparin drip and close monitoring 24-48 hours prior to re-converting to PO prior to discharge, he will also likely benefit from monthly or every other month Iron infusions in the office as we would like to decrease the possibility emergent blood transfusion with his antibodies to blood products, as this may be delayed. Objective - Vital Signs Vital signs: Vital Signs Temp 98.7 F 10/27/18 14:49 Pulse 98 10/27/18 14:49 Resp 12 10/27/18 14:49 BP 99/64 10/27/18 14:49 Pulse Ox 96 10/27/18 14:49 Intake & Output 10/26/18 10/27/18 10/27/18 18:59 06:59 18:59 Intake Total 700 300 500 Output Total 1 Balance 700 300 499 Weight 117.9 kg 115.7 kg 115.7 kg Intake: Intake, IV Titration 100 Amount Sodium Ferric Gluconat- 100 Sucrose 125 mg In Sodium Chloride 0.9% 100 ml @ 100 mls/hr IVPB ONCE ONE Rx#:[id number] Oral 600 300 500 Output: Stool 1 Other: Voiding Method Toilet Toilet # Voids 1 2 3 - Exam Constitutional General appearance: Present: cooperative, morbidly obese, no acute distress - EENT Eyes: Present: anicteric sclerae, EOMI ENT: Present: hearing grossly normal - Respiratory Respiratory: bilateral: CTA - Cardiovascular Heart sounds: normal: S1, S2 - Peripheral edema leg Peripheral Edema: bilateral: 4+ - Gastrointestinal General gastrointestinal: Present: distended, normal bowel sounds, soft - Integumentary Integumentary: Present: pale - Neurologic Neurologic: Present: CNII-XII intact - Musculoskeletal Musculoskeletal: Present: generalized weakness, strength equal bilaterally - Psychiatric Psychiatric: Present: A&O x's 3, appropriate affect, intact judgment & insight - Labs CBC & Chem 7: 10/27/18 06:59 10/27/18 06:59 Labs: Abnormal Lab Results - Last 24 Hours (Table) 10/27/18 10/27/18 Range/Units 06:59 06:59 RBC 3.07 L (4.30-5.90) m/uL Hgb 7.8 L (13.0-17.5) gm/dL Hct 27.2 L (39.0-53.0) % MCHC 28.7 L (31.0-37.0) g/dL RDW 26.1 H (11.5-15.5) % Lymphocytes # 0.5 L (1.0-4.8) k/uL Chloride 94 L (98-107) mmol/L Carbon Dioxide 33 H (22-30) mmol/L BUN 53 H (9-20) mg/dL Creatinine 2.06 H (0.66-1.25) mg/dL Total Bilirubin 2.6 H (0.2-1.3) mg/dL Alkaline Phosphatase 248 H (38-126) U/L Assessment and Plan Plan: (1) Symptomatic anemia Narrative/Plan: - Iron Deficiency Component without evidence of acute bleeding maybe related to AVM GI Blood loss component. - Hemoglobin 7.8 today, no transfusion needed. CBC in am - Anemia workup suggestive of chronic blood loss related to chronic anticoagulation. - Patient has required iron infusions in the past and these have improved his hemoglobin. Patient also has a degree of renal insufficiency that may be contributing. - Continue to monitor daily CBC (2) Chronic atrial fibrillation (3) Acute on Chronic Renal Failure: - Nephrology Following - Will switch Anticoagulation to Eliquis Current Visit: Yes Status: Chronic Priority: Medium Code(s): I48.2 - CHRONIC ATRIAL FIBRILLATION SNOMED Code(s): 481971991 Plan: - Rec to continue holding Eliquis until re-evaluated by Cardiology for potential other options (procedural, ?ASA) - Although with his known on and off probable AVM GI bleeding the risk with anticogulation versus the risk from atrial fibrillation need to be further considered. We discussed risks and benefits of both with patient, and will ask Cardiology and Primary team to further discuss. If it is decided that patient will require full preventative dose anticoagulation I recommend Heparin drip and close monitoring 24-48 hours prior to re-converting to PO prior to discharge , he will also likely benefit from monthly or every other month Iron infusions in the office as we would like to decrease the possibility emergent blood transfusion with his antibodies to blood products, as this may be delayed.
[2018-10-28] MEDS: FUROSEMIDE 10 MG/ML 4 ML VIAL IV SCH ×2 (05:14→15:54)
[2018-10-28] MEDS: LEVOTHYROXINE 100 MCG TAB PO SCH (05:18)
[2018-10-28] MEDS: LEVOTHYROXINE 125 MCG TAB PO SCH (05:19)
[2018-10-28 08:35] LABS: Anisocytosis Marked; Basophils % (A) 1 %; Eosinophils # (A) 0.2 k/uL (0-0.7); Eosinophils % (A) 4 %; HCT 28.7 % (39.0-53.0); HGB 8.2 gm/dL (13.0-17.5); Hypochromasia Marked; Lymphocytes # (A) 0.5 k/uL (1.0-4.8); Lymphocytes % (A) 12 %; MCH 25.5 pg (25.0-35.0); MCHC 28.6 g/dL (31.0-37.0); MCV 89.1 fL (80.0-100.0); Macrocytosis Slight; Mean Platelet Volume 7.2; Microcytosis Slight; Monocytes # (A) 0.4 k/uL (0-1.0); Monocytes % (A) 9 %; Neutrophils # (A) 3.1 k/uL (1.3-7.7); Neutrophils % (A) 72 %; Platelet Count 249 k/uL (150-450); Poikilocytosis Slight; RBC 3.22 m/uL (4.30-5.90); WBC 4.3 k/uL (3.8-10.6)
[2018-10-28 08:45] LABS: Calcium 9.7 mg/dL (8.4-10.2); Magnesium 2.2 mg/dL (1.6-2.3); Potassium 3.6 mmol/L (3.5-5.1)
[2018-10-28 09:06] LABS: RDW 26.3 % (11.5-15.5)
[2018-10-28] MEDS: CYANOCOBALAMIN 500 MCG TAB PO SCH (10:04)
[2018-10-28] MEDS: METOLAZONE 2.5 MG TAB PO SCH (10:04)
[2018-10-28] MEDS: MIDODRINE 5 MG TAB PO SCH ×3 (10:04→17:07)
[2018-10-28] MEDS: METOPROLOL TARTRATE 50 MG TAB PO SCH ×2 (10:05→20:28)
[2018-10-28] MEDS: PANTOPRAZOLE 40 MG TABLET PO SCH (10:05)
[2018-10-28 11:36] LABS: RBC Fragments Present
[2018-10-28] MEDS: SPIRONOLACTONE 25 MG TAB PO SCH ×2 (12:57→20:13)
--- NOTE | 2018-10-28 13:42 | P.PN ---
Subjective Progress Note Date: 10/28/18 Principal diagnosis: anemia Hemoglobin stable at 8.2 today. That is two days off anticoagulation Objective - Vital Signs Vital signs: Vital Signs Temp 98.4 F 10/28/18 08:00 Pulse 98 10/28/18 08:00 Resp 15 10/28/18 08:00 BP 112/75 10/28/18 08:00 Pulse Ox 100 10/28/18 08:00 Intake & Output 10/27/18 10/28/18 10/28/18 18:59 06:59 18:59 Intake Total 500 100 Output Total 1 Balance 499 100 Weight 115.7 kg 113.8 kg Intake: Intake, IV Titration 100 Amount Sodium Ferric Gluconat- 100 Sucrose 125 mg In Sodium Chloride 0.9% 100 ml @ 100 mls/hr IVPB ONCE ONE Rx#:[id number] Oral 500 Output: Stool 1 Other: Voiding Method Toilet Toilet # Voids 3 2 1 - Exam Constitutional General appearance: Present: cooperative, morbidly obese, no acute distress - EENT Eyes: Present: anicteric sclerae, EOMI ENT: Present: hearing grossly normal - Respiratory Respiratory: bilateral: CTA - Cardiovascular Heart sounds: normal: S1, S2 - Peripheral edema leg Peripheral Edema: bilateral: 4+ - Gastrointestinal General gastrointestinal: Present: distended, normal bowel sounds, soft - Integumentary Integumentary: Present: pale - Neurologic Neurologic: Present: CNII-XII intact - Musculoskeletal Musculoskeletal: Present: generalized weakness, strength equal bilaterally - Psychiatric Psychiatric: Present: A&O x's 3, appropriate affect, intact judgment & insight - Labs CBC & Chem 7: 10/28/18 07:48 10/28/18 07:48 Labs: Abnormal Lab Results - Last 24 Hours (Table) 10/28/18 10/28/18 Range/Units 07:48 07:48 RBC 3.22 L (4.30-5.90) m/uL Hgb 8.2 L (13.0-17.5) gm/dL Hct 28.7 L (39.0-53.0) % MCHC 28.6 L (31.0-37.0) g/dL RDW 26.3 H (11.5-15.5) % Lymphocytes # 0.5 L (1.0-4.8) k/uL Chloride 93 L (98-107) mmol/L Carbon Dioxide 36 H (22-30) mmol/L BUN 57 H (9-20) mg/dL Creatinine 2.04 H (0.66-1.25) mg/dL Glucose 123 H (74-99) mg/dL Assessment and Plan Plan: (1) Symptomatic anemia: - Iron Deficiency Component without evidence of acute bleeding maybe related to AVM GI Blood loss component. - Hemoglobin 8.2 today, no transfusion needed. CBC in am - Anemia workup suggestive of chronic blood loss related to chronic anticoagulation. - Patient has required iron infusions in the past and these have improved his hemoglobin. Patient also has a degree of renal insufficiency that may be contributing. - Continue to monitor daily CBC (2) Chronic atrial fibrillation: - Was on Xarelto per Cardio, switched to Eliquis for renal dosing, now on hold until recs from Cardio. (3) Acute on Chronic Renal Failure: - Nephrology Following - Will switch Anticoagulation to Eliquis Plan: - Rec to continue holding Eliquis until re-evaluated by Cardiology for potential other options (procedural, ?ASA) - Although with his known on and off probable AVM GI bleeding the risk with anticogulation versus the risk from atrial fibrillation need to be further considered. We discussed risks and benefits of both with patient, and will ask Cardiology and Primary team to further discuss. If it is decided that patient will require full preventative dose anticoagulation I recommend Heparin drip and close monitoring 24-48 hours prior to re-converting to PO prior to discharge , he will also likely benefit from monthly or every other month Iron infusions in the office as we would like to decrease the possibility emergent blood transfusion with his antibodies to blood products, as this may be delayed. - Cardiology has been re-consulted, await their input regarding anticoagulatio. In the mean time patient is stable.
--- NOTE | 2018-10-28 16:10 | P.PN ---
Subjective Progress Note Date: 10/28/18 Walker Hopper is a 73-year-old male who presented to [facility] emergency room with a chief complaint of severe weakness, and shortness of breath, patient has a known history of anemia he has required multiple red blood cell transfusions, in fact he had 6 transfusion in the last 1 year 2 of them were in [place] where he partially lives, he has multiple antibodies and blood for transfusion is extremely hard to get. Patient also has a known history of atrial fibrillation he is maintained on Xarelto, he does not have any evidence of gastrointestinal bleeding, he is followed as outpatient by gastroenterology for evaluation of his chronic anemia he had an EGD and colonoscopy recently biopsies were done and results are still pending he also had an MRI of the abdomen on 10/12/2018 results are still pending. Patient was evaluated in the emergency room he had evidence of atrial fibrillation was rapid ventricular response heart rate improved gradually, his hemoglobin on presentation was 7.2, BUN and creatinine were elevated at 37 and 1.46 he was admitted to medical floor gastroenterology consultation and hematology consultation were requested. On presentation patient had a chest x-ray that revealed evidence of a small infiltrate versus atelectasis patient does not have any clinical symptoms of pneumonia there is no fever or cough his white blood count is 5.6 at this time will withhold antibiotics will use incentive spirometry and recheck chest x-ray in a.m.. On 10/15/2018 patient was seen and examined on the medical floor he is alert and oriented 3 in no apparent distress he is still complaining of severe weakness and complaining of lower extremity edema otherwise he denies any other complaint there is no fever or chills no headache or dizziness no chest pain no shortness of breath at rest he has shortness of breath with activity there is no cough no nausea or vomiting no abdominal pain no diarrhea and no urinary symptoms. On 10/16/2018 patient is alert and oriented 3. Still complaining of some weakness. At this time patient denies chest pain or shortness of breath. Patient denies nausea vomiting or diarrhea. Patient denies any urinary burning or frequency On 10/17/2018 patient is alert and oriented 3. Hemoglobin slightly improving to 6.9. Possible capsule study per GI services. Patient is still complaining of significant lower extremity edema. Patient did receive an additional 40 mg of IV Lasix history per nephrology services. At this time patient denies chest pain or shortness of breath. Patient denies nausea vomiting or diarrhea. Patient denies any urinary burning or frequency or frequency On 10/18/2018 patient is alert and oriented 3. Capsule study currently in progress. Slight improvement with lower extremity edema. At this time patient denies chest pain or shortness of breath. Patient denies nausea vomiting or diarrhea. Patient denies urinary burning or frequency. On 10/19/2018 patient is alert and oriented 3. Still awaiting results on capsule study. Hemoglobin stable at 7.5. Patient is still having significant lower extremity edema. Patient is also having increasing creatinine IV Lasix DC 'd patient remains on by mouth Lasix. Patient denies chest pain or shortness of breath. Denies any urinary burning or frequency. She also having increased edema to left upper extremity venous Doppler study has been ordered. On 10/20/2018 patient is alert and oriented 3. Patient was found to have left upper extremity DVT. Discussed case and topically with oncology services and per oncology patient was started back on Xarelto. Venous Doppler of lower extremities were negative for DVT bilaterally. Awaiting final results from capsule study. Hemoglobin stable at 7.8 patient rated. Patient did receive IV iron yesterday. Creatinine increasing to 1.82. Nephrology services are following. At this time patient denies chest pain or shortness breath. Patient denies nausea vomiting or diarrhea. Patient denies any urinary burning or frequency. Patient is still complaining of significant lower extremity edema. Patient does remain on by mouth Lasix. IV Lasix DC'd due to increasing creatinine. On 10/21/2018 patient is alert and oriented 3. Patient remains on Xarelto for DVT in left upper extremity. Creatinine improving to 1.54. Patient has received a one-time dose of Lasix IV per nephrology services. Hemoglobin 7.8 will repeat today and tomorrow. This time patient denies chest pain or shortness of breath. Patient denies nausea vomiting or diarrhea. Patient denies any urinary burning or frequency. On 10/22/2018 patient is alert and oriented 3. Patient is currently on IV Lasix twice a day per nephrology services. Hemoglobin 7.3. At this time patient denies chest pain or shortness breath. Patient denies nausea vomiting or diarrhea. Patient denies any urinary burning or frequency On 10/23/2018 patient remains alert and oriented 3. Patient did have significant weight loss from 125.3 kg to 122.8. Patient remains on IV Lasix twice a day per nephrology services. Creatinine remained stable. Patient does still have significant peripheral edema recommending an additional 24 hours of IV Lasix at this time. Discussed case with oncology services Dr. Wright in regards to venous Doppler ultrasound of the left upper extremity and patient Xarelto with chronic anemia. Awaiting oncology's final recommendation in regards to continuing anticoagulation versus DC'd. At this time patient denies chest pain or shortness breath. Patient denies nausea vomiting or diarrhea. Patient denies any urinary burning or frequency. On 10/24/2018 patient remains alert and oriented 3 sitting up at site of bed. Patient's weight continues to drop from 122.8 kg 121.7 kg. patient still has significant edema to lower extremities. Patient remains on IV Lasix 40 mg twice a day at this time. Creatinine slightly increased to 1.70. Hemoglobin 7.2. Patient's Xarelto has been decreased to 15 mg. Awaiting oncology's final recommendation for anticoagulation first. At this time patient denies chest pain or shortness breath. Patient denies any urinary burning or frequency. On 10/25/2018 patient is alert and oriented 3 resting comfortably in bed. Weight is continuing to decrease. Patient remains on IV Lasix per nephrology. Discussed case in topically with oncology services per oncology discussing switching patient to eliquis instead of Xarelto for anticoagulation due to kidney function. At this time patient denies chest pain or shortness of breath. Patient denies nausea vomiting or diarrhea. Patient denies any urinary burning or frequency On 10/26/2018 patient's alert and oriented 3. Patient's weight has decreased from 121.7-117.9. Discussed case with nephrology services recommending patient stay on IV Lasix for an additional 24 hours and possible DC tomorrow with Lasix 40 mg twice a day. Per oncology patient has been switched to eliquis for anticoagulation. At this time plans are to DC patient with anticoagulation. Concerns for right forearm swelling. Will obtain venous Doppler to rule out DVT. At this time patient denies chest pain or shortness of breath. Patient denies nausea vomiting or diarrhea. Denies any urinary burning or frequency. On 10/27/2018. Patient's alert and oriented 3 patient remains on IV Lasix per nephrology. Weight continues to decrease along with peripheral edema. Anticoagulation currently on hold per oncology due to positive occult stool. Discussed case with GI services no further workup at this time due to previous testing completed. Hemoglobin remained stable at 7.8. Will discuss with oncology service in regards to restarting anticoagulation versus to be DC'd On 10/28/2018 shouldn't was seen and examined on the medical floor he is alert and oriented 3 in no apparent distress his weight continues to decrease down to 113 kg today his shortness of breath is improving he is off anticoagulation at this time hemoglobin is up to 8.2 Objective - Vital Signs Vital signs: Vital Signs Temp 98.4 F 10/28/18 15:00 Pulse 120 H 10/28/18 15:00 Resp 16 10/28/18 15:00 BP 104/69 10/28/18 15:00 Pulse Ox 95 10/28/18 15:00 Intake & Output 10/27/18 10/28/18 10/28/18 18:59 06:59 18:59 Intake Total 500 100 Output Total 1 Balance 499 100 Weight 115.7 kg 113.8 kg Intake: Intake, IV Titration 100 Amount Sodium Ferric Gluconat- 100 Sucrose 125 mg In Sodium Chloride 0.9% 100 ml @ 100 mls/hr IVPB ONCE ONE Rx#:[id number] Oral 500 Output: Stool 1 Other: Voiding Method Toilet Toilet # Voids 3 2 1 - Exam In general patient is alert and oriented 3 in no apparent distress HEENT head normocephalic and atraumatic Neck is supple no JVD no goiter no lymphadenopathy Chest exam reveals a few scattered rhonchi bilaterally no wheezing Cardiac exam reveals irregular heart sounds S1 and S2 no gallops no murmurs Abdomen is soft nontender no organomegaly with normal bowel sounds Extremity exam reveals 3+ edema bilaterally no cyanosis or clubbing Neurological examination reveals no gross focal deficit - Labs CBC & Chem 7: 10/28/18 07:48 10/28/18 07:48 Labs: Abnormal Lab Results - Last 24 Hours (Table) 10/28/18 10/28/18 Range/Units 07:48 07:48 RBC 3.22 L (4.30-5.90) m/uL Hgb 8.2 L (13.0-17.5) gm/dL Hct 28.7 L (39.0-53.0) % MCHC 28.6 L (31.0-37.0) g/dL RDW 26.3 H (11.5-15.5) % Lymphocytes # 0.5 L (1.0-4.8) k/uL Chloride 93 L (98-107) mmol/L Carbon Dioxide 36 H (22-30) mmol/L BUN 57 H (9-20) mg/dL Creatinine 2.04 H (0.66-1.25) mg/dL Glucose 123 H (74-99) mg/dL Assessment and Plan Plan: #1 chronic anemia, cause is unclear, will admit to inpatient, will check iron levels vitamin B12 level and folate level, will give IV iron if iron level is low, consultation for gastroenterology and hematology were initiated, patient had extensive workup in the last 3 months by hematology and gastroenterology. Per GI EGD video capsule study negative for any pathology to explain anemia #2 severe weakness likely related to anemia will monitor progress closely #3 infiltrate on chest x-ray without any clinical evidence of pneumonia will use incentive spirometry and recheck chest x-ray in a.m. no need for antibiotic at this time no evidence of pneumonia clinically. Repeat chest x-ray completed showing cardiomegaly, elevated right hemidiaphragm. Correlate to exclude pulmonary venous hypertension edema, possible underlining interstitial lung disease. #4 underlying history of hypothyroidism maintained on Synthroid 200 g. TSH level 7.50. Synthroid increased to 225 #5 underlying history of atrial fibrillation, heart rate was elevated on presentation, also patient had abnormal EKG with T-wave inversion in anterior and inferior leads, cardiology consult was initiated. At this time cardiology recommended to hold Xarelto. 2-D echo has been ordered. Per cardiology continue to hold anticoagulation. Plan to follow-up with Dr. Marin office in one week for discussion of watchman procedure. Per cardiology risk of holding anticoagulation explained to the patient. Xarelto has been resumed per oncology recommendation due to upper extremity venous Doppler result. Discussed case with oncology services. Anticoagulation currently on hold per oncology #6 acute on chronic chronic kidney disease. Per nephrology etiologies nephrosclerosis. Creatinine increasing to 2.06. Nephrology services are following patient remains on IV Lasix at this time #7 underlying history of hypertension well-controlled continue on Lopressor #8 underlying history of hyperlipidemia #9 previous history of prostate cancer with history of prostatectomy #10. Increased peripheral edema. Patient currently on scheduled by mouth Lasix. Patient did receive an additional IV Lasix per nephrology services today. Patient is now scheduled Lasix twice a day IV per nephrology. Patient did have significant weight loss with IV Lasix. Discussed case with Dr. Lange per nephrology services recommending we keep patient another 24-hour's on IV Lasix and possible DC tomorrow with Lasix 40 twice a day. Metolazone also has been added per nephrology #11 increased upper extremity edema to the left arm. Venous Doppler completed showing partial occlusive thrombus in the branch vessels are felt to the left jugular vein. Focal completely occlusive thrombus in the superficial left cephalic vein. Subcutaneous edema confirmed in the left upper extremity near superficial basilic and cephalic veins. Discussed case with Elisabeth EDEN per oncology services and cardiology services. Oncology recommending we restart patient Xarelto. Discussed case with oncology services. Patient has been switched to eliquis for anticoagulation and will most likely be DC'd with anticoagulation and further workup outpatient. #12. Increased right forearm pain and redness. This was likely due to previous IV site. Venous Doppler completed showing no sonographic evidence of deep vein thrombosis within either upper patient however exam is positive in both venous thrombosis of the right forearm patient's area of recent IV. #13 positive occult stool. Hemoglobin remained stable at 7.8. No plans for any signs further testing per GI due to previous testing been completed. Anticoagulation on hold per oncology. Will discuss with oncology services about restarting first vs anticoagulation DC'd at this time DVT prophylaxis eliquis on hold per oncology as risk of bleeding outweigh the benefit of anticoagulation at this time GI prophylaxis Protonix
--- NOTE | 2018-10-28 18:22 | PN ---
PROGRESS NOTE Patient is seen for followup for acute kidney injury on top of chronic kidney disease and volume overload. Currently, patient is maintained on IV Lasix 40 mg IV q.12 hours. PHYSICAL EXAMINATION: Blood pressure was 112/75, heart rate 98 per minute. Patient is afebrile. Examination of the Heart: S1, S2. Examination of the Lungs: Bilateral breath sounds are heard. Abdomen is soft, nontender. Examination lower extremities shows edema 3+ bilaterally. [employer] POCKET [employer]IMMER exam is grossly intact. LABS: Show sodium 140, potassium 3.6, chloride 93, BUN 57, serum creatinine 2.04, hemoglobin at 8.2 g/dL. ASSESSMENT: 1. Acute kidney injury, stable, mainly cardiorenal. Continue with current dose of Lasix. 2. Diastolic heart failure. 3. Chronic kidney disease stage 3, baseline creatinine 1.4, mainly secondary to nephrosclerosis. 4. Hypotension, maintained on midodrine. PLAN: Continue with IV Lasix and metolazone. Patient's weight has decreased. Repeat labs in a.m. MMODL / IJN: [id number] /
[2018-10-29] MEDS: LEVOTHYROXINE 100 MCG TAB PO SCH (05:48)
[2018-10-29] MEDS: LEVOTHYROXINE 125 MCG TAB PO SCH (05:48)
[2018-10-29] MEDS: FUROSEMIDE 10 MG/ML 4 ML VIAL IV SCH ×2 (05:49→16:51)
[2018-10-29 08:35] LABS: Albumin 3.8 g/dL (3.5-5.0); Calcium 9.8 mg/dL (8.4-10.2); Potassium 3.4 mmol/L (3.5-5.1)
[2018-10-29 08:59] LABS: Anisocytosis Marked; Basophils % (A) 1 %; Eosinophils # (A) 0.1 k/uL (0-0.7); Eosinophils % (A) 4 %; HCT 28.8 % (39.0-53.0); HGB 8.4 gm/dL (13.0-17.5); Hypochromasia Marked; Lymphocytes # (A) 0.5 k/uL (1.0-4.8); Lymphocytes % (A) 14 %; MCH 26.1 pg (25.0-35.0); MCHC 29.1 g/dL (31.0-37.0); MCV 89.5 fL (80.0-100.0); Macrocytosis Slight; Mean Platelet Volume 6.8; Microcytosis Slight; Monocytes # (A) 0.5 k/uL (0-1.0); Monocytes % (A) 13 %; Neutrophils # (A) 2.4 k/uL (1.3-7.7); Neutrophils % (A) 64 %; Platelet Count 254 k/uL (150-450); Poikilocytosis Slight; RBC 3.22 m/uL (4.30-5.90); WBC 3.8 k/uL (3.8-10.6)
[2018-10-29 09:06] LABS: RDW 26.3 % (11.5-15.5)
[2018-10-29 09:27] LABS: RBC Fragments Present; Target Cells Present
[2018-10-29] MEDS: MIDODRINE 5 MG TAB PO SCH ×3 (09:27→18:09)
[2018-10-29] MEDS: PANTOPRAZOLE 40 MG TABLET PO SCH (09:27)
[2018-10-29] MEDS: METOPROLOL TARTRATE 50 MG TAB PO SCH ×2 (09:27→21:51)
[2018-10-29] MEDS: METOLAZONE 2.5 MG TAB PO SCH (09:27)
[2018-10-29] MEDS: SPIRONOLACTONE 25 MG TAB PO SCH ×2 (09:28→21:51)
[2018-10-29] MEDS: CYANOCOBALAMIN 500 MCG TAB PO SCH (09:28)
[2018-10-29] MEDS: DARBEPOETIN ALFA 40 MCG/0.4 ML SYRINGE SQ SCH (13:46)
[2018-10-29] MEDS ORDERED: SODIUM FERRIC GLUCONAT-SUCROSE 125 MG in SODIUM CHLORIDE 0.9% 100 ML IVPB ONE (14:14)
--- NOTE | 2018-10-29 14:15 | P.PN ---
Subjective Progress Note Date: 10/29/18 Walker Hopper is a 73-year-old male who presented to [facility] emergency room with a chief complaint of severe weakness, and shortness of breath, patient has a known history of anemia he has required multiple red blood cell transfusions, in fact he had 6 transfusion in the last 1 year 2 of them were in [place] where he partially lives, he has multiple antibodies and blood for transfusion is extremely hard to get. Patient also has a known history of atrial fibrillation he is maintained on Xarelto, he does not have any evidence of gastrointestinal bleeding, he is followed as outpatient by gastroenterology for evaluation of his chronic anemia he had an EGD and colonoscopy recently biopsies were done and results are still pending he also had an MRI of the abdomen on 10/12/2018 results are still pending. Patient was evaluated in the emergency room he had evidence of atrial fibrillation was rapid ventricular response heart rate improved gradually, his hemoglobin on presentation was 7.2, BUN and creatinine were elevated at 37 and 1.46 he was admitted to medical floor gastroenterology consultation and hematology consultation were requested. On presentation patient had a chest x-ray that revealed evidence of a small infiltrate versus atelectasis patient does not have any clinical symptoms of pneumonia there is no fever or cough his white blood count is 5.6 at this time will withhold antibiotics will use incentive spirometry and recheck chest x-ray in a.m.. On 10/15/2018 patient was seen and examined on the medical floor he is alert and oriented 3 in no apparent distress he is still complaining of severe weakness and complaining of lower extremity edema otherwise he denies any other complaint there is no fever or chills no headache or dizziness no chest pain no shortness of breath at rest he has shortness of breath with activity there is no cough no nausea or vomiting no abdominal pain no diarrhea and no urinary symptoms. On 10/16/2018 patient is alert and oriented 3. Still complaining of some weakness. At this time patient denies chest pain or shortness of breath. Patient denies nausea vomiting or diarrhea. Patient denies any urinary burning or frequency On 10/17/2018 patient is alert and oriented 3. Hemoglobin slightly improving to 6.9. Possible capsule study per GI services. Patient is still complaining of significant lower extremity edema. Patient did receive an additional 40 mg of IV Lasix history per nephrology services. At this time patient denies chest pain or shortness of breath. Patient denies nausea vomiting or diarrhea. Patient denies any urinary burning or frequency or frequency On 10/18/2018 patient is alert and oriented 3. Capsule study currently in progress. Slight improvement with lower extremity edema. At this time patient denies chest pain or shortness of breath. Patient denies nausea vomiting or diarrhea. Patient denies urinary burning or frequency. On 10/19/2018 patient is alert and oriented 3. Still awaiting results on capsule study. Hemoglobin stable at 7.5. Patient is still having significant lower extremity edema. Patient is also having increasing creatinine IV Lasix DC 'd patient remains on by mouth Lasix. Patient denies chest pain or shortness of breath. Denies any urinary burning or frequency. She also having increased edema to left upper extremity venous Doppler study has been ordered. On 10/20/2018 patient is alert and oriented 3. Patient was found to have left upper extremity DVT. Discussed case and topically with oncology services and per oncology patient was started back on Xarelto. Venous Doppler of lower extremities were negative for DVT bilaterally. Awaiting final results from capsule study. Hemoglobin stable at 7.8 patient rated. Patient did receive IV iron yesterday. Creatinine increasing to 1.82. Nephrology services are following. At this time patient denies chest pain or shortness breath. Patient denies nausea vomiting or diarrhea. Patient denies any urinary burning or frequency. Patient is still complaining of significant lower extremity edema. Patient does remain on by mouth Lasix. IV Lasix DC'd due to increasing creatinine. On 10/21/2018 patient is alert and oriented 3. Patient remains on Xarelto for DVT in left upper extremity. Creatinine improving to 1.54. Patient has received a one-time dose of Lasix IV per nephrology services. Hemoglobin 7.8 will repeat today and tomorrow. This time patient denies chest pain or shortness of breath. Patient denies nausea vomiting or diarrhea. Patient denies any urinary burning or frequency. On 10/22/2018 patient is alert and oriented 3. Patient is currently on IV Lasix twice a day per nephrology services. Hemoglobin 7.3. At this time patient denies chest pain or shortness breath. Patient denies nausea vomiting or diarrhea. Patient denies any urinary burning or frequency On 10/23/2018 patient remains alert and oriented 3. Patient did have significant weight loss from 125.3 kg to 122.8. Patient remains on IV Lasix twice a day per nephrology services. Creatinine remained stable. Patient does still have significant peripheral edema recommending an additional 24 hours of IV Lasix at this time. Discussed case with oncology services Dr. Wright in regards to venous Doppler ultrasound of the left upper extremity and patient Xarelto with chronic anemia. Awaiting oncology's final recommendation in regards to continuing anticoagulation versus DC'd. At this time patient denies chest pain or shortness breath. Patient denies nausea vomiting or diarrhea. Patient denies any urinary burning or frequency. On 10/24/2018 patient remains alert and oriented 3 sitting up at site of bed. Patient's weight continues to drop from 122.8 kg 121.7 kg. patient still has significant edema to lower extremities. Patient remains on IV Lasix 40 mg twice a day at this time. Creatinine slightly increased to 1.70. Hemoglobin 7.2. Patient's Xarelto has been decreased to 15 mg. Awaiting oncology's final recommendation for anticoagulation first. At this time patient denies chest pain or shortness breath. Patient denies any urinary burning or frequency. On 10/25/2018 patient is alert and oriented 3 resting comfortably in bed. Weight is continuing to decrease. Patient remains on IV Lasix per nephrology. Discussed case in topically with oncology services per oncology discussing switching patient to eliquis instead of Xarelto for anticoagulation due to kidney function. At this time patient denies chest pain or shortness of breath. Patient denies nausea vomiting or diarrhea. Patient denies any urinary burning or frequency On 10/26/2018 patient's alert and oriented 3. Patient's weight has decreased from 121.7-117.9. Discussed case with nephrology services recommending patient stay on IV Lasix for an additional 24 hours and possible DC tomorrow with Lasix 40 mg twice a day. Per oncology patient has been switched to eliquis for anticoagulation. At this time plans are to DC patient with anticoagulation. Concerns for right forearm swelling. Will obtain venous Doppler to rule out DVT. At this time patient denies chest pain or shortness of breath. Patient denies nausea vomiting or diarrhea. Denies any urinary burning or frequency. On 10/27/2018. Patient's alert and oriented 3 patient remains on IV Lasix per nephrology. Weight continues to decrease along with peripheral edema. Anticoagulation currently on hold per oncology due to positive occult stool. Discussed case with GI services no further workup at this time due to previous testing completed. Hemoglobin remained stable at 7.8. Will discuss with oncology service in regards to restarting anticoagulation versus to be DC'd On 10/28/2018 Patient was seen and examined on the medical floor he is alert and oriented 3 in no apparent distress his weight continues to decrease down to 113 kg today his shortness of breath is improving he is off anticoagulation at this time hemoglobin is up to 8.2 On 10/29/2018 patient was seen and examined on the medical floor he is alert and oriented 3 his weight is down from 113.8 kg to 110.7 kilograms shortness of breath improved lower extremity edema improved hemoglobin is stable and is up to 8.4 today there is no fever or chills no headache or dizziness no chest pain no cough no nausea or vomiting no abdominal pain no diarrhea and no urinary symptoms. Objective - Vital Signs Vital signs: Vital Signs Temp 97.6 F 10/29/18 07:00 Pulse 105 H 10/29/18 08:26 Resp 16 10/29/18 07:00 BP 104/70 10/29/18 07:00 Pulse Ox 99 10/29/18 07:00 Intake & Output 10/28/18 10/29/18 10/29/18 18:59 06:59 18:59 Weight 110.733 kg Other: Voiding Method Toilet Indwelling Catheter # Voids 1 1 - Exam In general patient is alert and oriented 3 in no apparent distress HEENT head normocephalic and atraumatic Neck is supple no JVD no goiter no lymphadenopathy Chest exam reveals a few scattered rhonchi bilaterally no wheezing Cardiac exam reveals irregular heart sounds S1 and S2 no gallops no murmurs Abdomen is soft nontender no organomegaly with normal bowel sounds Extremity exam reveals 3+ edema bilaterally no cyanosis or clubbing Neurological examination reveals no gross focal deficit - Labs CBC & Chem 7: 10/29/18 07:12 10/29/18 07:12 Labs: Abnormal Lab Results - Last 24 Hours (Table) 10/29/18 10/29/18 Range/Units 07:12 07:12 RBC 3.22 L (4.30-5.90) m/uL Hgb 8.4 L (13.0-17.5) gm/dL Hct 28.8 L (39.0-53.0) % MCHC 29.1 L (31.0-37.0) g/dL RDW 26.3 H (11.5-15.5) % Lymphocytes # 0.5 L (1.0-4.8) k/uL Potassium 3.4 L (3.5-5.1) mmol/L Chloride 91 L (98-107) mmol/L Carbon Dioxide 40 H (22-30) mmol/L BUN 57 H (9-20) mg/dL Creatinine 1.97 H (0.66-1.25) mg/dL Total Bilirubin 3.0 H (0.2-1.3) mg/dL Alkaline Phosphatase 257 H (38-126) U/L Assessment and Plan Plan: #1 chronic anemia, cause is unclear, will admit to inpatient, will check iron levels vitamin B12 level and folate level, will give IV iron if iron level is low, consultation for gastroenterology and hematology were initiated, patient had extensive workup in the last 3 months by hematology and gastroenterology. Per GI EGD video capsule study negative for any pathology to explain anemia #2 severe weakness likely related to anemia will monitor progress closely #3 infiltrate on chest x-ray without any clinical evidence of pneumonia will use incentive spirometry and recheck chest x-ray in a.m. no need for antibiotic at this time no evidence of pneumonia clinically. Repeat chest x-ray completed showing cardiomegaly, elevated right hemidiaphragm. Correlate to exclude pulmonary venous hypertension edema, possible underlining interstitial lung disease. #4 underlying history of hypothyroidism maintained on Synthroid 200 g. TSH level 7.50. Synthroid increased to 225 #5 underlying history of atrial fibrillation, heart rate was elevated on presentation, also patient had abnormal EKG with T-wave inversion in anterior and inferior leads, cardiology consult was initiated. At this time cardiology recommended to hold Xarelto. 2-D echo has been ordered. Per cardiology continue to hold anticoagulation. Plan to follow-up with Dr. Marin office in one week for discussion of watchman procedure. Per cardiology risk of holding anticoagulation explained to the patient. Xarelto has been resumed per oncology recommendation due to upper extremity venous Doppler result. Discussed case with oncology services. Anticoagulation currently on hold per oncology #6 acute on chronic chronic kidney disease. Per nephrology etiologies nephrosclerosis. Creatinine increasing to 2.06. Nephrology services are following patient remains on IV Lasix at this time #7 underlying history of hypertension well-controlled continue on Lopressor #8 underlying history of hyperlipidemia #9 previous history of prostate cancer with history of prostatectomy #10. Increased peripheral edema. Patient currently on scheduled by mouth Lasix. Patient did receive an additional IV Lasix per nephrology services today. Patient is now scheduled Lasix twice a day IV per nephrology. Patient did have significant weight loss with IV Lasix. Discussed case with Dr. Lange per nephrology services recommending we keep patient another 24-hour's on IV Lasix and possible DC tomorrow with Lasix 40 twice a day. Metolazone also has been added per nephrology #11 increased upper extremity edema to the left arm. Venous Doppler completed showing partial occlusive thrombus in the branch vessels are felt to the left jugular vein. Focal completely occlusive thrombus in the superficial left cephalic vein. Subcutaneous edema confirmed in the left upper extremity near superficial basilic and cephalic veins. Discussed case with Elisabeth EDEN per oncology services and cardiology services. Oncology recommending we restart patient Xarelto. Discussed case with oncology services. Patient has been switched to eliquis for anticoagulation and will most likely be DC'd with anticoagulation and further workup outpatient. #12. Increased right forearm pain and redness. This was likely due to previous IV site. Venous Doppler completed showing no sonographic evidence of deep vein thrombosis within either upper patient however exam is positive in both venous thrombosis of the right forearm patient's area of recent IV. #13 positive occult stool. Hemoglobin remained stable at 7.8. No plans for any signs further testing per GI due to previous testing been completed. Anticoagulation on hold per oncology. Will discuss with oncology services about restarting first vs anticoagulation DC'd at this time DVT prophylaxis eliquis on hold per oncology as risk of bleeding outweigh the benefit of anticoagulation at this time GI prophylaxis Protonix
[2018-10-29] MEDS ORDERED: POTASSIUM CHLORIDE ER 20 MEQ TAB.ER PO STA (14:54)
--- NOTE | 2018-10-29 15:10 | P.PN ---
Subjective Progress Note Date: 10/29/18 Principal diagnosis: anemia Hemoglobin stable today. weight is decreasing, no signs of bleeding Objective - Vital Signs Vital signs: Vital Signs Temp 97.6 F 10/29/18 07:00 Pulse 105 H 10/29/18 08:26 Resp 16 10/29/18 07:00 BP 104/70 10/29/18 07:00 Pulse Ox 99 10/29/18 07:00 Intake & Output 10/28/18 10/29/18 10/29/18 18:59 06:59 18:59 Weight 110.733 kg Other: Voiding Method Toilet Indwelling Catheter # Voids 1 1 - Exam Constitutional General appearance: Present: cooperative, morbidly obese, no acute distress - EENT Eyes: Present: anicteric sclerae, EOMI ENT: Present: hearing grossly normal - Respiratory Respiratory: bilateral: CTA - Cardiovascular Heart sounds: normal: S1, S2 - Peripheral edema leg Peripheral Edema: bilateral: 4+ - Gastrointestinal General gastrointestinal: Present: distended, normal bowel sounds, soft - Integumentary Integumentary: Present: pale - Neurologic Neurologic: Present: CNII-XII intact - Musculoskeletal Musculoskeletal: Present: generalized weakness, strength equal bilaterally - Psychiatric Psychiatric: Present: A&O x's 3, appropriate affect, intact judgment & insight - Labs CBC & Chem 7: 10/29/18 07:12 10/29/18 07:12 Labs: Abnormal Lab Results - Last 24 Hours (Table) 10/29/18 10/29/18 Range/Units 07:12 07:12 RBC 3.22 L (4.30-5.90) m/uL Hgb 8.4 L (13.0-17.5) gm/dL Hct 28.8 L (39.0-53.0) % MCHC 29.1 L (31.0-37.0) g/dL RDW 26.3 H (11.5-15.5) % Lymphocytes # 0.5 L (1.0-4.8) k/uL Potassium 3.4 L (3.5-5.1) mmol/L Chloride 91 L (98-107) mmol/L Carbon Dioxide 40 H (22-30) mmol/L BUN 57 H (9-20) mg/dL Creatinine 1.97 H (0.66-1.25) mg/dL Total Bilirubin 3.0 H (0.2-1.3) mg/dL Alkaline Phosphatase 257 H (38-126) U/L Assessment and Plan Plan: (1) Symptomatic anemia: - Iron Deficiency Component without evidence of acute bleeding maybe related to AVM GI Blood loss component. - Hemoglobin 8.2 today, no transfusion needed. CBC in am - Anemia workup suggestive of chronic blood loss related to chronic anticoagulation. - Patient has required iron infusions in the past and these have improved his hemoglobin. Patient also has a degree of renal insufficiency that may be contributing. - Continue to monitor daily CBC (2) Chronic atrial fibrillation: - Was on Xarelto per Cardio, switched to Eliquis for renal dosing, now on hold until recs from Cardio. (3) Acute on Chronic Renal Failure: - Nephrology Following - Will switch Anticoagulation to Eliquis Plan: - Rec to continue holding Eliquis until re-evaluated by Cardiology for potential other options (procedural, ?ASA) - Although with his known on and off probable AVM GI bleeding the risk with anticogulation versus the risk from atrial fibrillation need to be further considered. We discussed risks and benefits of both with patient, and will ask Cardiology and Primary team to further discuss. If it is decided that patient will require full preventative dose anticoagulation I recommend Heparin drip and close monitoring 24-48 hours prior to re-converting to PO prior to discharge , he will also likely benefit from monthly or every other month Iron infusions in the office as we would like to decrease the possibility emergent blood transfusion with his antibodies to blood products, as this may be delayed. - Cardiology has been re-consulted, await their input regarding anticoagulatio. In the mean time patient is stable. - Will continue to follow and monitor CBC and Await Cardiology recs regarding Anticoagulation
--- NOTE | 2018-10-29 19:08 | PN ---
PROGRESS NOTE The patient is seen for followup for acute kidney injury on top of chronic kidney disease and fluid overload. He is currently maintained on IV Lasix and Zaroxolyn. He has been losing weight. Serum creatinine is actually slightly better at 1.9 from 2.04 yesterday. Overall, patient states he is feeling well. PHYSICAL EXAMINATION: Blood pressure was 104/70, heart rate 105 per minute. He is afebrile. Weight is down to 110 kg from 123.5 on 10/27/2017. Examination of the heart S1, S2. Examination lungs bilateral breath sounds are heard. Abdomen is soft, nontender, obese. Examination lower extremity shows edema 2+ bilaterally. SOD FARMER exam is grossly intact. LAB: Show sodium 139, potassium 3.4, chloride 91, BUN 57, serum creatinine 1.97, hemoglobin 8.4 g/dL. ASSESSMENT: 1. Acute kidney injury, nonoliguric, associated with hypotension/hypoperfusion, currently stable. 2. Chronic kidney disease, NKF stage III, secondary to nephrosclerosis. 3. Volume overload maintained on IV push Lasix along with a small dose of Zaroxolyn, which we will continue. 4. Hypotension maintained on midodrine. 5. Hypokalemia, will replace. 6. History of atrial fibrillation. 7. Anemia with no active bleeding noted, being followed by Hematology. Maintained on Aranesp. PLAN: Continue with current dose of Lasix. Continue with the Zaroxolyn. Repeat labs in a.m. MMODL / IJN: [id number] /
[2018-10-30] MEDS: FUROSEMIDE 10 MG/ML 4 ML VIAL IV SCH (07:22)
[2018-10-30] MEDS: LEVOTHYROXINE 125 MCG TAB PO SCH (07:22)
[2018-10-30] MEDS: LEVOTHYROXINE 100 MCG TAB PO SCH (07:22)
[2018-10-30 09:39] LABS: Albumin 3.9 g/dL (3.5-5.0); Calcium 9.8 mg/dL (8.4-10.2); Potassium 3.1 mmol/L (3.5-5.1); Total Bilirubin 2.9 mg/dL (0.2-1.3); Total Protein 7.1 g/dL (6.3-8.2)
[2018-10-30 09:40] LABS: Anisocytosis Marked; Basophils % (A) 1 %; Eosinophils # (A) 0.1 k/uL (0-0.7); Eosinophils % (A) 3 %; HCT 29.5 % (39.0-53.0); Hypochromasia Marked; Lymphocytes # (A) 0.4 k/uL (1.0-4.8); Lymphocytes % (A) 14 %; MCH 24.7 pg (25.0-35.0); MCHC 27.2 g/dL (31.0-37.0); MCV 90.7 fL (80.0-100.0); Macrocytosis Moderate; Mean Platelet Volume 6.8; Microcytosis Slight; Monocytes # (A) 0.2 k/uL (0-1.0); Monocytes % (A) 7 %; Neutrophils # (A) 2.3 k/uL (1.3-7.7); Neutrophils % (A) 71 %; Platelet Count 262 k/uL (150-450); Poikilocytosis Slight; RBC 3.26 m/uL (4.30-5.90); WBC 3.2 k/uL (3.8-10.6)
[2018-10-30 09:53] LABS: RDW 26.4 % (11.5-15.5)
[2018-10-30] MEDS: SPIRONOLACTONE 25 MG TAB PO SCH ×2 (09:58→21:33)
[2018-10-30] MEDS: METOLAZONE 2.5 MG TAB PO SCH (10:02)
[2018-10-30] MEDS: PANTOPRAZOLE 40 MG TABLET PO SCH (10:02)
[2018-10-30] MEDS: CYANOCOBALAMIN 500 MCG TAB PO SCH (10:02)
[2018-10-30] MEDS: MIDODRINE 5 MG TAB PO SCH ×3 (10:02→17:23)
[2018-10-30] MEDS: METOPROLOL TARTRATE 50 MG TAB PO SCH ×2 (10:02→21:33)
[2018-10-30 10:24] LABS: Large Platelets Present; Polychromasia Present; RBC Fragments Present; Target Cells Present
[2018-10-30] MEDS ORDERED: POTASSIUM CHLORIDE ER 20 MEQ TAB.ER PO STA (11:00)
--- NOTE | 2018-10-30 11:03 | P.PN ---
Subjective Patient is seen in follow-up for acute kidney injury on chronic kidney disease. Patient has chronic kidney disease stage III with baseline creatinine in the range of 1.4-1.5 secondary to nephrosclerosis. Patient has history of diastolic CHF. Edema is gradually improving. Admits to good urine output. Currently maintained on Lasix 40 mg IV twice daily. Also on Aldactone and metolazone. Renal function better. Potassium 3.1 today. Vital signs are stable. General: The patient appeared well nourished and normally developed. HEENT: Head exam is unremarkable. Neck is without jugular venous distension. LUNGS: Breath sounds decreased. HEART: Rate and Rhythm are regular. First and second heart sounds normal. No murmurs, rubs or gallops. ABDOMEN: Abdominal exam reveals normal bowel sounds. Non-tender and non- distended. No evidence of peritonitis. EXTREMITITES: Trace edema. Objective - Vital Signs Vital signs: Vital Signs Temp 97 F L 10/30/18 08:00 Pulse 98 10/30/18 08:00 Resp 18 10/30/18 08:00 BP 107/76 10/30/18 08:00 Pulse Ox 100 10/30/18 08:00 Intake & Output 10/29/18 10/30/18 10/30/18 18:59 06:59 18:59 Intake Total 540 Output Total 1 Balance 540 -1 Weight 107.9 kg Intake: Oral 540 Output: Stool 1 Other: Voiding Method Indwelling Catheter Toilet Toilet # Voids 3 - Labs CBC & Chem 7: 10/30/18 09:00 10/30/18 09:00 Labs: Abnormal Lab Results - Last 24 Hours (Table) 10/30/18 10/30/18 Range/Units 09:00 09:00 WBC 3.2 L (3.8-10.6) k/uL RBC 3.26 L (4.30-5.90) m/uL Hgb 8.0 L (13.0-17.5) gm/dL Hct 29.5 L (39.0-53.0) % MCH 24.7 L (25.0-35.0) pg MCHC 27.2 L (31.0-37.0) g/dL RDW 26.4 H (11.5-15.5) % Lymphocytes # 0.4 L (1.0-4.8) k/uL Potassium 3.1 L (3.5-5.1) mmol/L Chloride 92 L (98-107) mmol/L Carbon Dioxide 37 H (22-30) mmol/L BUN 54 H (9-20) mg/dL Creatinine 1.79 H (0.66-1.25) mg/dL Glucose 115 H (74-99) mg/dL Total Bilirubin 2.9 H (0.2-1.3) mg/dL Alkaline Phosphatase 254 H (38-126) U/L Assessment and Plan Plan: Assessment: 1. Acute kidney injury mostly prerenal secondary to cardiorenal syndrome. Renal function better today. 2. Diastolic CHF. 3. Volume overload. No evidence of DVT. Gradually improving. 4. Chronic kidney disease stage III with baseline creatinine in the range of 1.4-1.5 secondary to nephrosclerosis. 5. Hypotension maintained on midodrine. Plan: I will change Lasix to 40 mg orally twice daily. Replace potassium. 60 mEq today. I advised him to follow a low-salt diet and 70 ounces fluid restriction upon discharge. He will need to follow-up as an outpatient in the next 2 weeks. Repeat BMP in 2-3 days postdischarge.
--- NOTE | 2018-10-30 15:29 | P.PN ---
Subjective Progress Note Date: 10/30/18 Walker Hopper is a 73-year-old male who presented to [facility] emergency room with a chief complaint of severe weakness, and shortness of breath, patient has a known history of anemia he has required multiple red blood cell transfusions, in fact he had 6 transfusion in the last 1 year 2 of them were in [place] where he partially lives, he has multiple antibodies and blood for transfusion is extremely hard to get. Patient also has a known history of atrial fibrillation he is maintained on Xarelto, he does not have any evidence of gastrointestinal bleeding, he is followed as outpatient by gastroenterology for evaluation of his chronic anemia he had an EGD and colonoscopy recently biopsies were done and results are still pending he also had an MRI of the abdomen on 10/12/2018 results are still pending. Patient was evaluated in the emergency room he had evidence of atrial fibrillation was rapid ventricular response heart rate improved gradually, his hemoglobin on presentation was 7.2, BUN and creatinine were elevated at 37 and 1.46 he was admitted to medical floor gastroenterology consultation and hematology consultation were requested. On presentation patient had a chest x-ray that revealed evidence of a small infiltrate versus atelectasis patient does not have any clinical symptoms of pneumonia there is no fever or cough his white blood count is 5.6 at this time will withhold antibiotics will use incentive spirometry and recheck chest x-ray in a.m.. On 10/15/2018 patient was seen and examined on the medical floor he is alert and oriented 3 in no apparent distress he is still complaining of severe weakness and complaining of lower extremity edema otherwise he denies any other complaint there is no fever or chills no headache or dizziness no chest pain no shortness of breath at rest he has shortness of breath with activity there is no cough no nausea or vomiting no abdominal pain no diarrhea and no urinary symptoms. On 10/16/2018 patient is alert and oriented 3. Still complaining of some weakness. At this time patient denies chest pain or shortness of breath. Patient denies nausea vomiting or diarrhea. Patient denies any urinary burning or frequency On 10/17/2018 patient is alert and oriented 3. Hemoglobin slightly improving to 6.9. Possible capsule study per GI services. Patient is still complaining of significant lower extremity edema. Patient did receive an additional 40 mg of IV Lasix history per nephrology services. At this time patient denies chest pain or shortness of breath. Patient denies nausea vomiting or diarrhea. Patient denies any urinary burning or frequency or frequency On 10/18/2018 patient is alert and oriented 3. Capsule study currently in progress. Slight improvement with lower extremity edema. At this time patient denies chest pain or shortness of breath. Patient denies nausea vomiting or diarrhea. Patient denies urinary burning or frequency. On 10/19/2018 patient is alert and oriented 3. Still awaiting results on capsule study. Hemoglobin stable at 7.5. Patient is still having significant lower extremity edema. Patient is also having increasing creatinine IV Lasix DC 'd patient remains on by mouth Lasix. Patient denies chest pain or shortness of breath. Denies any urinary burning or frequency. She also having increased edema to left upper extremity venous Doppler study has been ordered. On 10/20/2018 patient is alert and oriented 3. Patient was found to have left upper extremity DVT. Discussed case and topically with oncology services and per oncology patient was started back on Xarelto. Venous Doppler of lower extremities were negative for DVT bilaterally. Awaiting final results from capsule study. Hemoglobin stable at 7.8 patient rated. Patient did receive IV iron yesterday. Creatinine increasing to 1.82. Nephrology services are following. At this time patient denies chest pain or shortness breath. Patient denies nausea vomiting or diarrhea. Patient denies any urinary burning or frequency. Patient is still complaining of significant lower extremity edema. Patient does remain on by mouth Lasix. IV Lasix DC'd due to increasing creatinine. On 10/21/2018 patient is alert and oriented 3. Patient remains on Xarelto for DVT in left upper extremity. Creatinine improving to 1.54. Patient has received a one-time dose of Lasix IV per nephrology services. Hemoglobin 7.8 will repeat today and tomorrow. This time patient denies chest pain or shortness of breath. Patient denies nausea vomiting or diarrhea. Patient denies any urinary burning or frequency. On 10/22/2018 patient is alert and oriented 3. Patient is currently on IV Lasix twice a day per nephrology services. Hemoglobin 7.3. At this time patient denies chest pain or shortness breath. Patient denies nausea vomiting or diarrhea. Patient denies any urinary burning or frequency On 10/23/2018 patient remains alert and oriented 3. Patient did have significant weight loss from 125.3 kg to 122.8. Patient remains on IV Lasix twice a day per nephrology services. Creatinine remained stable. Patient does still have significant peripheral edema recommending an additional 24 hours of IV Lasix at this time. Discussed case with oncology services Dr. Wright in regards to venous Doppler ultrasound of the left upper extremity and patient Xarelto with chronic anemia. Awaiting oncology's final recommendation in regards to continuing anticoagulation versus DC'd. At this time patient denies chest pain or shortness breath. Patient denies nausea vomiting or diarrhea. Patient denies any urinary burning or frequency. On 10/24/2018 patient remains alert and oriented 3 sitting up at site of bed. Patient's weight continues to drop from 122.8 kg 121.7 kg. patient still has significant edema to lower extremities. Patient remains on IV Lasix 40 mg twice a day at this time. Creatinine slightly increased to 1.70. Hemoglobin 7.2. Patient's Xarelto has been decreased to 15 mg. Awaiting oncology's final recommendation for anticoagulation first. At this time patient denies chest pain or shortness breath. Patient denies any urinary burning or frequency. On 10/25/2018 patient is alert and oriented 3 resting comfortably in bed. Weight is continuing to decrease. Patient remains on IV Lasix per nephrology. Discussed case in topically with oncology services per oncology discussing switching patient to eliquis instead of Xarelto for anticoagulation due to kidney function. At this time patient denies chest pain or shortness of breath. Patient denies nausea vomiting or diarrhea. Patient denies any urinary burning or frequency On 10/26/2018 patient's alert and oriented 3. Patient's weight has decreased from 121.7-117.9. Discussed case with nephrology services recommending patient stay on IV Lasix for an additional 24 hours and possible DC tomorrow with Lasix 40 mg twice a day. Per oncology patient has been switched to eliquis for anticoagulation. At this time plans are to DC patient with anticoagulation. Concerns for right forearm swelling. Will obtain venous Doppler to rule out DVT. At this time patient denies chest pain or shortness of breath. Patient denies nausea vomiting or diarrhea. Denies any urinary burning or frequency. On 10/27/2018. Patient's alert and oriented 3 patient remains on IV Lasix per nephrology. Weight continues to decrease along with peripheral edema. Anticoagulation currently on hold per oncology due to positive occult stool. Discussed case with GI services no further workup at this time due to previous testing completed. Hemoglobin remained stable at 7.8. Will discuss with oncology service in regards to restarting anticoagulation versus to be DC'd On 10/28/2018 Patient was seen and examined on the medical floor he is alert and oriented 3 in no apparent distress his weight continues to decrease down to 113 kg today his shortness of breath is improving he is off anticoagulation at this time hemoglobin is up to 8.2 On 10/29/2018 patient was seen and examined on the medical floor he is alert and oriented 3 his weight is down from 113.8 kg to 110.7 kilograms shortness of breath improved lower extremity edema improved hemoglobin is stable and is up to 8.4 today there is no fever or chills no headache or dizziness no chest pain no cough no nausea or vomiting no abdominal pain no diarrhea and no urinary symptoms. 10/30/2018 patient sitting in bed comfortably. Patient's hemoglobin is 8. Potassium 3.1. Creatinine down to 1.79. He is receiving potassium supplement. Patient reports that his lower extremity edema has shown some improvement. He does still have edema most legs. He denies any chest pain shortness breath. Denies any nausea or vomiting. Reports having bowel movements. Denies any difficulty urinating. Objective - Vital Signs Vital signs: Vital Signs Temp 97 F L 10/30/18 08:00 Pulse 98 10/30/18 08:00 Resp 18 10/30/18 08:00 BP 107/76 10/30/18 08:00 Pulse Ox 100 10/30/18 08:00 Intake & Output 10/29/18 10/30/18 10/30/18 18:59 06:59 18:59 Intake Total 540 500 Output Total 1 Balance 540 -1 500 Weight 107.9 kg Intake: Oral 540 500 Output: Stool 1 Other: Voiding Method Indwelling Catheter Toilet Toilet # Voids 3 2 - Exam Head normocephalic Neck supple Lungs clear to auscultation bilaterally no wheezing or crackles Heart regular rate and rhythm S1-S2, no rub or gallop Abdomen is soft nontender nondistended positive bowel sounds no hepatosplenomegaly Extremities 2+ pitting edema bilateral extremities Neuro alert and orientated to 3 - Labs CBC & Chem 7: 10/30/18 09:00 10/30/18 09:00 Labs: Abnormal Lab Results - Last 24 Hours (Table) 10/29/18 10/30/18 10/30/18 Range/Units 07:12 09:00 09:00 WBC 3.2 L (3.8-10.6) k/uL RBC 3.26 L (4.30-5.90) m/uL Hgb 8.0 L (13.0-17.5) gm/dL Hct 29.5 L (39.0-53.0) % MCH 24.7 L (25.0-35.0) pg MCHC 27.2 L (31.0-37.0) g/dL RDW 26.4 H (11.5-15.5) % Lymphocytes # 0.4 L (1.0-4.8) k/uL Potassium 3.1 L (3.5-5.1) mmol/L Chloride 92 L (98-107) mmol/L Carbon Dioxide 37 H (22-30) mmol/L BUN 54 H (9-20) mg/dL Creatinine 1.79 H (0.66-1.25) mg/dL Glucose 115 H (74-99) mg/dL Iron 30 L (65-175) ug/dL Total Bilirubin 2.9 H (0.2-1.3) mg/dL Alkaline Phosphatase 254 H (38-126) U/L Assessment and Plan Assessment: #1 iron deficiency anemia without evidence of acute bleeding may be related to AVM GI blood loss component. Per GI suspect intermittent slow GI bleed from possible telangiectasia exacerbated by anticoagulation within the GI tract unable to identify per endoscopy and capsule study . Patient has received iron supplements in the past. Also on Aranesp for underlying kidney disease contributing to his anemia. EGD moderate antral gastritis. Colonoscopy in December 2017 had showed polypectomy and no significant findings. Small bowel capsule endoscopy unremarkable for acute bleeding or bleeding sources. #2 severe weakness likely related to anemia will monitor progress closely #3 acute diastolic CHF exacerbation. Patient currently on oral Lasix #4 underlying history of hypothyroidism maintained on Synthroid 200 g. TSH level 7.50. Synthroid increased to 225 #5 chronic persistent atrial fibrillation, anticoagulation on hold. Per cardiology the recommending patient to follow-up with Dr. Em in the office in one week for discussion of watchman procedure. #6 acute on chronic chronic kidney disease. Acute kidney injury mostly prerenal secondary to cardiorenal syndrome. Patient is currently on Lasix 40 mg twice a day #7 underlying history of hypertension well-controlled continue on Lopressor #8 underlying history of hyperlipidemia #9 previous history of prostate cancer with history of prostatectomy #10. Bilateral lower extremity edema. Continue diuretics #11 SVT right arm #12 hypokalemia patient receiving potassium supplement Possible discharge tomorrow DVT prophylaxis eliquis on hold per oncology and cardiology as risk of bleeding outweigh the benefit of anticoagulation at this time GI prophylaxis Protonix I performed an examination of the patient and discussed their management with the physician Churn Driller. I have reviewed the Physician Churn Driller's notes and agree with the documented findings and plan of care
[2018-10-30] MEDS: FUROSEMIDE 40 MG TAB PO SCH (16:41)
[2018-10-30] MEDS ORDERED: SODIUM FERRIC GLUCONAT-SUCROSE 125 MG in SODIUM CHLORIDE 0.9% 100 ML IVPB ONE (20:00)
[2018-10-31] MEDS: LEVOTHYROXINE 100 MCG TAB PO SCH (05:32)
[2018-10-31] MEDS: LEVOTHYROXINE 125 MCG TAB PO SCH (05:32)
[2018-10-31 07:19] VITALS: BP 94/65; PULSE 71; RESP 17; TEMP 97.5
[2018-10-31] MEDS: METOPROLOL TARTRATE 50 MG TAB PO SCH (07:20)
[2018-10-31] MEDS: FUROSEMIDE 40 MG TAB PO SCH (07:20)
[2018-10-31] MEDS: PANTOPRAZOLE 40 MG TABLET PO SCH (07:20)
[2018-10-31] MEDS: CYANOCOBALAMIN 500 MCG TAB PO SCH (07:20)
[2018-10-31] MEDS: MIDODRINE 5 MG TAB PO SCH ×2 (07:20→12:06)
[2018-10-31] MEDS: SPIRONOLACTONE 25 MG TAB PO SCH (07:21)
[2018-10-31] MEDS: METOLAZONE 2.5 MG TAB PO SCH (07:21)
--- NOTE | 2018-10-31 07:46 | P.PN ---
Subjective Progress Note Date: 10/30/18 Principal diagnosis: Anemia, elevated liver enzymes Patient sitting in bed with no acute complaints. Tolerating diet. No abdominal pain or signs or symptoms of GI bleeding. He reports that swelling of the legs is significantly improved since presentation. Objective - Vital Signs Vital signs: Vital Signs Temp 97.5 F L 10/31/18 07:00 Pulse 71 10/31/18 07:00 Resp 17 10/31/18 07:00 BP 94/65 10/31/18 07:00 Pulse Ox 97 10/31/18 07:00 Intake & Output 10/30/18 10/31/18 10/31/18 18:59 06:59 18:59 Intake Total 500 600 Balance 500 600 Weight 107.9 kg Intake: Intake, IV Titration 100 Amount Sodium Ferric Gluconat- 100 Sucrose 125 mg In Sodium Chloride 0.9% 100 ml @ 100 mls/hr IVPB ONCE ONE Rx#:[id number] Oral 500 500 Other: Voiding Method Toilet # Voids 2 1 - Exam On physical examination, patient appears comfortable in no apparent distress. HEAD: Normocephalic, atraumatic. EYES: No scleral icterus. No conjunctival injection. MOUTH: No lesions, tongue midline. NECK: Trachea midline, no gross abnormalities. CHEST: Clear to auscultation with no wheezing or rhonchi appreciated. ABDOMEN: Soft, obese. Bowel sounds are positive. No organomegaly. No guarding or rigidity. EXTREMITIES: 2+ Bilateral lower extremity edema. SKIN: No rashes, no jaundice. NEUROLOGIC: Alert and oriented x3. No focal deficits. - Labs CBC & Chem 7: 10/30/18 09:00 10/30/18 09:00 Labs: Abnormal Lab Results - Last 24 Hours (Table) 10/29/18 10/30/18 10/30/18 Range/Units 07:12 09:00 09:00 WBC 3.2 L (3.8-10.6) k/uL RBC 3.26 L (4.30-5.90) m/uL Hgb 8.0 L (13.0-17.5) gm/dL Hct 29.5 L (39.0-53.0) % MCH 24.7 L (25.0-35.0) pg MCHC 27.2 L (31.0-37.0) g/dL RDW 26.4 H (11.5-15.5) % Lymphocytes # 0.4 L (1.0-4.8) k/uL Potassium 3.1 L (3.5-5.1) mmol/L Chloride 92 L (98-107) mmol/L Carbon Dioxide 37 H (22-30) mmol/L BUN 54 H (9-20) mg/dL Creatinine 1.79 H (0.66-1.25) mg/dL Glucose 115 H (74-99) mg/dL Iron 30 L (65-175) ug/dL Total Bilirubin 2.9 H (0.2-1.3) mg/dL Alkaline Phosphatase 254 H (38-126) U/L Assessment and Plan (1) Symptomatic anemia Narrative/Plan: Symptomatic anemia of unknown etiology. Evaluation for GI bleed with colonoscopy and EGD has been negative. Capsule endoscopy which was performed during this admission also was negative for any pathology that could explain anemia. Would recommend continued evaluation by the hematology service. Current Visit: Yes Status: Acute Priority: High Code(s): D64.9 - ANEMIA, UNSPECIFIED SNOMED Code(s): 180250351 (2) Elevated liver enzymes Narrative/Plan: Predominantly cholestatic pattern of unknown etiology. MRI of the abdomen essentially negative for biliary etiology. Full serology was ordered an outpatient setting and is pending. Current Visit: No Status: Acute Code(s): R74.8 - ABNORMAL LEVELS OF OTHER SERUM ENZYMES SNOMED Code(s): 317931170 Plan: Supportive care Okay for diet Monitor hemoglobin and transfuse as needed Liver serology pending, patient is scheduled to follow up in the outpatient setting EGD and colonoscopy negative for GI bleed, with video capsule endoscopy on this admission also negative for any pathology to explain anemia Would recommend continued evaluation by hematology service Recommend follow-up with gastroenterology after discharge Patient will need repeat computed tomography scan or MRI in 3 months for evaluation of possible liver lesion Thank you for allowing us to participate in the care of the patient, the gastroenterology service will stand by at this time, please call us back with any questions or concerns
[2018-10-31 08:53] LABS: Anisocytosis Marked; HCT 28.7 % (39.0-53.0); HGB 8.4 gm/dL (13.0-17.5); Hypochromasia Marked; MCH 26.7 pg (25.0-35.0); MCHC 29.3 g/dL (31.0-37.0); Macrocytosis Slight; Mean Platelet Volume 7.2; Microcytosis Slight; Platelet Count 227 k/uL (150-450); Poikilocytosis Slight; RBC 3.16 m/uL (4.30-5.90); WBC 3.7 k/uL (3.8-10.6)
[2018-10-31 09:09] LABS: Calcium 9.5 mg/dL (8.4-10.2); Magnesium 2.1 mg/dL (1.6-2.3); Potassium 3.4 mmol/L (3.5-5.1)
[2018-10-31] MEDS ORDERED: POTASSIUM CHLORIDE ER 20 MEQ TAB.ER PO ONE (10:00)
--- NOTE | 2018-10-31 10:33 | P.PN ---
Subjective Patient is seen in follow-up for acute kidney injury on chronic kidney disease. Patient has chronic kidney disease stage III with baseline creatinine in the range of 1.4-1.5 secondary to nephrosclerosis. Patient has history of diastolic CHF. Edema is gradually improving. Admits to good urine output. Currently maintained on Lasix 40 mg orally twice daily. Also on Aldactone and metolazone. Renal function stable. Potassium 3.4 today. Vital signs are stable. General: The patient appeared well nourished and normally developed. HEENT: Head exam is unremarkable. Neck is without jugular venous distension. LUNGS: Breath sounds decreased. HEART: Rate and Rhythm are regular. First and second heart sounds normal. No murmurs, rubs or gallops. ABDOMEN: Abdominal exam reveals normal bowel sounds. Non-tender and non- distended. No evidence of peritonitis. EXTREMITITES: Trace edema. Objective - Vital Signs Vital signs: Vital Signs Temp 97.5 F L 10/31/18 07:00 Pulse 71 10/31/18 07:15 Resp 17 10/31/18 07:15 BP 94/65 10/31/18 07:00 Pulse Ox 97 10/31/18 07:00 Intake & Output 10/30/18 10/31/18 10/31/18 18:59 06:59 18:59 Intake Total 500 600 Output Total 1 Balance 500 600 -1 Weight 107.9 kg 108 kg Intake: Intake, IV Titration 100 Amount Sodium Ferric Gluconat- 100 Sucrose 125 mg In Sodium Chloride 0.9% 100 ml @ 100 mls/hr IVPB ONCE ONE Rx#:[id number] Oral 500 500 Output: Stool 1 Other: Voiding Method Toilet Toilet # Voids 2 1 - Labs CBC & Chem 7: 10/31/18 07:47 10/31/18 07:47 Labs: Abnormal Lab Results - Last 24 Hours (Table) 10/29/18 10/31/18 10/31/18 Range/Units 07:12 07:47 07:47 WBC 3.7 L (3.8-10.6) k/uL RBC 3.16 L (4.30-5.90) m/uL Hgb 8.4 L (13.0-17.5) gm/dL Hct 28.7 L (39.0-53.0) % MCHC 29.3 L (31.0-37.0) g/dL RDW 26.0 H (11.5-15.5) % Potassium 3.4 L (3.5-5.1) mmol/L Chloride 92 L (98-107) mmol/L Carbon Dioxide 37 H (22-30) mmol/L BUN 58 H (9-20) mg/dL Creatinine 1.82 H (0.66-1.25) mg/dL Iron 30 L (65-175) ug/dL Assessment and Plan Plan: Assessment: 1. Acute kidney injury mostly prerenal secondary to cardiorenal syndrome. Renal function stable. 2. Diastolic CHF. 3. Volume overload. No evidence of DVT. Gradually improving. 4. Chronic kidney disease stage III with baseline creatinine in the range of 1.4-1.5 secondary to nephrosclerosis. 5. Hypotension maintained on midodrine. 6. Anemia of chronic kidney disease maintained on Aranesp. Plan: Maintain Lasix 40 mg orally twice daily. Replace potassium. 40 mEq today. Add maintenance potassium supplementation 10 mEq twice daily. I advised him to follow a low-salt diet and 70 ounces fluid restriction upon discharge. He will need to follow-up as an outpatient in the next 2 weeks. Repeat BMP in 2-3 days postdischarge.
[2018-10-31 11:00] LABS: Eosinophils # (M) 0.04 k/uL (0-0.7); Lymphocytes # (M) 0.37 k/uL (1.0-4.8); Monocytes # (M) 0.63 k/uL (0-1.0); Neutrophils # (M) 2.66 k/uL (1.3-7.7); Neutrophils % (M) 72 %; Nucleated Red Blood Cells 0 /100 WBC (0-0); Total Cells Counted 100
[2018-10-31 11:01] LABS: Mixed Population RBC Present; Polychromasia Present
--- NOTE | 2018-10-31 12:12 | P.DS ---
Providers Date of admission: 10/13/18 17:14 Expected date of discharge: 10/31/18 Attending physician: Misha Noonan Consults: 10/13/18 17:12 Consult Physician Routine Consulting Provider: Ismael Wright Consult Reason/Comments: Anemia Do you want consulting provider notified?: Yes 10/14/18 11:20 Consult Physician Routine Consulting Provider: Stacy Em Consult Reason/Comments: a fib with RVR on admission, abnormal EKG Do you want consulting provider notified?: Yes 10/14/18 11:21 Consult Physician Routine Consulting Provider: Yenny Nelson Consult Reason/Comments: CKD Do you want consulting provider notified?: Yes 10/27/18 16:37 Consult Physician Routine Consulting Provider: Stacy Em Consult Reason/Comments: reevaluate anticoagulation Do you want consulting provider notified?: Yes Primary care physician: [facility] Course: #1 iron deficiency anemia without evidence of acute bleeding may be related to AVM GI blood loss component. Per GI suspect intermittent slow GI bleed from possible telangiectasia exacerbated by anticoagulation within the GI tract unable to identify per endoscopy and capsule study . Patient has received iron supplements in the past. Also on Aranesp for underlying kidney disease contributing to his anemia. EGD moderate antral gastritis. Colonoscopy in December 2017 had showed polypectomy and no significant findings. Small bowel capsule endoscopy unremarkable for acute bleeding or bleeding sources. #2 severe weakness likely related to anemia will monitor progress closely #3 acute diastolic CHF exacerbation. Patient currently on oral Lasix #4 underlying history of hypothyroidism maintained on Synthroid 200 g. TSH level 7.50. Synthroid increased to 225 #5 chronic persistent atrial fibrillation, anticoagulation on hold. Per cardiology the recommending patient to follow-up with Dr. Em in the office in one week for discussion of watchman procedure. #6 acute on chronic chronic kidney disease. Acute kidney injury mostly prerenal secondary to cardiorenal syndrome. Patient is currently on Lasix 40 mg twice a day #7 underlying history of hypertension well-controlled continue on Lopressor #8 underlying history of hyperlipidemia #9 previous history of prostate cancer with history of prostatectomy #10. Bilateral lower extremity edema. Continue diuretics #11 SVT right arm #12 hypokalemia patient receiving potassium supplement Hospital course Walker Hopper is a 73-year-old male who presented to [facility] emergency room with a chief complaint of severe weakness, and shortness of breath, patient has a known history of anemia he has required multiple red blood cell transfusions, in fact he had 6 transfusion in the last 1 year 2 of them were in [place] where he partially lives, he has multiple antibodies and blood for transfusion is extremely hard to get. Patient also has a known history of atrial fibrillation he is maintained on Xarelto, he does not have any evidence of gastrointestinal bleeding, he is followed as outpatient by gastroenterology for evaluation of his chronic anemia he had an EGD and colonoscopy recently biopsies were done and results are still pending he also had an MRI of the abdomen on 10/12/2018 results are still pending. Patient was evaluated in the emergency room he had evidence of atrial fibrillation was rapid ventricular response heart rate improved gradually, his hemoglobin on presentation was 7.2, BUN and creatinine were elevated at 37 and 1.46 he was admitted to medical floor gastroenterology consultation and hematology consultation were requested. On presentation patient had a chest x-ray that revealed evidence of a small infiltrate versus atelectasis patient does not have any clinical symptoms of pneumonia there is no fever or cough his white blood count is 5.6 at this time will withhold antibiotics will use incentive spirometry and recheck chest x-ray in a.m.. On 10/15/2018 patient was seen and examined on the medical floor he is alert and oriented 3 in no apparent distress he is still complaining of severe weakness and complaining of lower extremity edema otherwise he denies any other complaint there is no fever or chills no headache or dizziness no chest pain no shortness of breath at rest he has shortness of breath with activity there is no cough no nausea or vomiting no abdominal pain no diarrhea and no urinary symptoms. On 10/16/2018 patient is alert and oriented 3. Still complaining of some weakness. At this time patient denies chest pain or shortness of breath. Patient denies nausea vomiting or diarrhea. Patient denies any urinary burning or frequency On 10/17/2018 patient is alert and oriented 3. Hemoglobin slightly improving to 6.9. Possible capsule study per GI services. Patient is still complaining of significant lower extremity edema. Patient did receive an additional 40 mg of IV Lasix history per nephrology services. At this time patient denies chest pain or shortness of breath. Patient denies nausea vomiting or diarrhea. Patient denies any urinary burning or frequency or frequency On 10/18/2018 patient is alert and oriented 3. Capsule study currently in progress. Slight improvement with lower extremity edema. At this time patient denies chest pain or shortness of breath. Patient denies nausea vomiting or diarrhea. Patient denies urinary burning or frequency. On 10/19/2018 patient is alert and oriented 3. Still awaiting results on capsule study. Hemoglobin stable at 7.5. Patient is still having significant lower extremity edema. Patient is also having increasing creatinine IV Lasix DC 'd patient remains on by mouth Lasix. Patient denies chest pain or shortness of breath. Denies any urinary burning or frequency. She also having increased edema to left upper extremity venous Doppler study has been ordered. On 10/20/2018 patient is alert and oriented 3. Patient was found to have left upper extremity DVT. Discussed case and topically with oncology services and per oncology patient was started back on Xarelto. Venous Doppler of lower extremities were negative for DVT bilaterally. Awaiting final results from capsule study. Hemoglobin stable at 7.8 patient rated. Patient did receive IV iron yesterday. Creatinine increasing to 1.82. Nephrology services are following. At this time patient denies chest pain or shortness breath. Patient denies nausea vomiting or diarrhea. Patient denies any urinary burning or frequency. Patient is still complaining of significant lower extremity edema. Patient does remain on by mouth Lasix. IV Lasix DC'd due to increasing creatinine. On 10/21/2018 patient is alert and oriented 3. Patient remains on Xarelto for DVT in left upper extremity. Creatinine improving to 1.54. Patient has received a one-time dose of Lasix IV per nephrology services. Hemoglobin 7.8 will repeat today and tomorrow. This time patient denies chest pain or shortness of breath. Patient denies nausea vomiting or diarrhea. Patient denies any urinary burning or frequency. On 10/22/2018 patient is alert and oriented 3. Patient is currently on IV Lasix twice a day per nephrology services. Hemoglobin 7.3. At this time patient denies chest pain or shortness breath. Patient denies nausea vomiting or diarrhea. Patient denies any urinary burning or frequency On 10/23/2018 patient remains alert and oriented 3. Patient did have significant weight loss from 125.3 kg to 122.8. Patient remains on IV Lasix twice a day per nephrology services. Creatinine remained stable. Patient does still have significant peripheral edema recommending an additional 24 hours of IV Lasix at this time. Discussed case with oncology services Dr. Wright in regards to venous Doppler ultrasound of the left upper extremity and patient Xarelto with chronic anemia. Awaiting oncology's final recommendation in regards to continuing anticoagulation versus DC'd. At this time patient denies chest pain or shortness breath. Patient denies nausea vomiting or diarrhea. Patient denies any urinary burning or frequency. On 10/24/2018 patient remains alert and oriented 3 sitting up at site of bed. Patient's weight continues to drop from 122.8 kg 121.7 kg. patient still has significant edema to lower extremities. Patient remains on IV Lasix 40 mg twice a day at this time. Creatinine slightly increased to 1.70. Hemoglobin 7.2. Patient's Xarelto has been decreased to 15 mg. Awaiting oncology's final recommendation for anticoagulation first. At this time patient denies chest pain or shortness breath. Patient denies any urinary burning or frequency. On 10/25/2018 patient is alert and oriented 3 resting comfortably in bed. Weight is continuing to decrease. Patient remains on IV Lasix per nephrology. Discussed case in topically with oncology services per oncology discussing switching patient to eliquis instead of Xarelto for anticoagulation due to kidney function. At this time patient denies chest pain or shortness of breath. Patient denies nausea vomiting or diarrhea. Patient denies any urinary burning or frequency On 10/26/2018 patient's alert and oriented 3. Patient's weight has decreased from 121.7-117.9. Discussed case with nephrology services recommending patient stay on IV Lasix for an additional 24 hours and possible DC tomorrow with Lasix 40 mg twice a day. Per oncology patient has been switched to eliquis for anticoagulation. At this time plans are to DC patient with anticoagulation. Concerns for right forearm swelling. Will obtain venous Doppler to rule out DVT. At this time patient denies chest pain or shortness of breath. Patient denies nausea vomiting or diarrhea. Denies any urinary burning or frequency. On 10/27/2018. Patient's alert and oriented 3 patient remains on IV Lasix per nephrology. Weight continues to decrease along with peripheral edema. Anticoagulation currently on hold per oncology due to positive occult stool. Discussed case with GI services no further workup at this time due to previous testing completed. Hemoglobin remained stable at 7.8. Will discuss with oncology service in regards to restarting anticoagulation versus to be DC'd On 10/28/2018 Patient was seen and examined on the medical floor he is alert and oriented 3 in no apparent distress his weight continues to decrease down to 113 kg today his shortness of breath is improving he is off anticoagulation at this time hemoglobin is up to 8.2 On 10/29/2018 patient was seen and examined on the medical floor he is alert and oriented 3 his weight is down from 113.8 kg to 110.7 kilograms shortness of breath improved lower extremity edema improved hemoglobin is stable and is up to 8.4 today there is no fever or chills no headache or dizziness no chest pain no cough no nausea or vomiting no abdominal pain no diarrhea and no urinary symptoms. 10/30/2018 patient sitting in bed comfortably. Patient's hemoglobin is 8. Potassium 3.1. Creatinine down to 1.79. He is receiving potassium supplement. Patient reports that his lower extremity edema has shown some improvement. He does still have edema most legs. He denies any chest pain shortness breath. Denies any nausea or vomiting. Reports having bowel movements. Denies any difficulty urinating. 10/31/2018 patient has been cleared by all consulting physicians for discharge. Patient initially came in with anemia as stated above exact etiology of the anemia is still unclear. Possibly related to some bleeding from AVM GI blood loss component. Per GI suspect intermittent slow GI bleed from possible telangiectasia exacerbated by anticoagulation within the GI tract unable to identify per endoscopy and capsule study . Patient has received iron supplements in the past. Also on Aranesp for underlying kidney disease contributing to his anemia. EGD moderate antral gastritis. Colonoscopy in December 2017 had showed polypectomy and no significant findings. Small bowel capsule endoscopy unremarkable for acute bleeding or bleeding sources. Patient will continue on iron supplement. Anticoagulation discontinued during this admission. Cardiology evaluated patient and recommending to remain off of the anticoagulation for his A. fib and he'll follow-up with him in the office to discuss the watchman procedure. Patient also needs to follow-up with hematology for further workup and patient's anemia. He'll follow up with GI service regarding the liver lesion and they are recommending a 3 month MRI check. Patient's liver enzymes are normalized. He'll also be following up with nephrology for close continue monitoring. Creatinine at discharge is 1.82. Potassium was 3.1. Case discussed with nephrology the recommending Lasix 40 mg twice a day and potassium K-Dur 10 milliequivalents twice a day. Patient is also on Aldactone and Zaroxolyn. He is on Midodrine to help with the hypotension. Patient will need further workup outpatient. He is medically stable for discharge. Please refer to chart for any further details. Patient also received IV iron during this admission. I performed an examination of the patient and discussed their management with the physician Home Care Scheduler. I have reviewed the Physician Home Care Scheduler's notes and agree with the documented findings and plan of care Patient Condition at Discharge: Stable Plan - Discharge Summary Discharge Rx Participant: No New Discharge Prescriptions: New Furosemide [Lasix] 40 mg PO BID@0900,1600 #60 tab Levothyroxine Sodium [Synthroid] 100 mcg PO DAILY@0630 #30 tab Levothyroxine Sodium [Synthroid] 125 mcg PO DAILY@0630 #30 tab Metolazone [Zaroxolyn] 2.5 mg PO DAILY #30 tab Midodrine [ProAmatine] 10 mg PO AC-TID #90 tab Spironolactone [Aldactone] 25 mg PO BID #60 tab Potassium Chloride ER [K-Dur 10] 10 meq PO BID #60 tab Ferrous Sulfate [Feosol] 325 mg PO BID #60 tab Continue Ubidecarenone [Co Q-10] 100 mg PO BID Metoprolol Tartrate [Lopressor] 50 mg PO BID tab Cholecalciferol [Vitamin D3] 1,000 unit PO DAILY Cyanocobalamin (Vitamin B-12) [Vitamin B-12] 1,000 mcg PO DAILY Discontinued Rivaroxaban [Xarelto] 20 mg PO AC-SUPPER Furosemide [Lasix] 40 mg PO DAILY@0530 Levothyroxine Sodium [Synthroid] 200 mcg PO DAILY@0530 Discharge Medication List Ubidecarenone [Co Q-10] 100 mg PO BID 10/19/17 [History] Metoprolol Tartrate [Lopressor] 50 mg PO BID tab 10/22/17 [Rx] Cholecalciferol [Vitamin D3] 1,000 unit PO DAILY 12/13/17 [History] Cyanocobalamin (Vitamin B-12) [Vitamin B-12] 1,000 mcg PO DAILY 12/13/17 [ History] Ferrous Sulfate [Feosol] 325 mg PO BID #60 tab 10/31/18 [Rx] Furosemide [Lasix] 40 mg PO BID@0900,1600 #60 tab 10/31/18 [Rx] Levothyroxine Sodium [Synthroid] 100 mcg PO DAILY@0630 #30 tab 10/31/18 [Rx] Levothyroxine Sodium [Synthroid] 125 mcg PO DAILY@0630 #30 tab 10/31/18 [Rx] Metolazone [Zaroxolyn] 2.5 mg PO DAILY #30 tab 10/31/18 [Rx] Midodrine [ProAmatine] 10 mg PO AC-TID #90 tab 10/31/18 [Rx] Potassium Chloride ER [K-Dur 10] 10 meq PO BID #60 tab 10/31/18 [Rx] Spironolactone [Aldactone] 25 mg PO BID #60 tab 10/31/18 [Rx] Follow up Appointment(s)/Referral(s): Ismeal Wright MD [STAFF PHYSICIAN] - 2 Weeks Stacy Em MD [STAFF PHYSICIAN] - 10/24/18 10:45 am Dave Blunt MD [STAFF PHYSICIAN] - 2 Weeks Misha Noonan MD [Primary Care Provider] - 3 Days Dennys Lange DO [STAFF PHYSICIAN] - 2 Weeks Ambulatory/Diagnostic Orders: Basic Metabolic Panel [LAB.AMB] Time Frame: 3 Days, Location: None Selected Complete Blood Count w/diff [LAB.AMB] Time Frame: 3 Days, Location: None Selected Activity/Diet/Wound Care/Special Instructions: Patient will be started on by mouth ferrous sulfate 325 twice a day upon discharge Discharge Disposition: HOME WITH HOME HEALTH SERVICES
== END 2018-10-31 13:24 | disposition home health service (06) | DRG 812 ==
LOC: EC 14:32 → 4SSUR 17:14
PROVIDERS: ADMIT Internal Medicine; ATTEND Internal Medicine
DX: D50.9 Iron deficiency anemia, unspecified (principal); I48.1 Persistent atrial fibrillation; N17.9 Acute kidney failure, unspecified; I13.0 Hypertensive heart and chronic kidney disease with heart failure and stage 1 through stage 4 chronic kidney disease, or unspecified chronic kidney disease; I82.611 Acute embolism and thrombosis of superficial veins of right upper extremity; K55.20 Angiodysplasia of colon without hemorrhage; K29.70 Gastritis, unspecified, without bleeding; E03.9 Hypothyroidism, unspecified; E78.5 Hyperlipidemia, unspecified; E87.6 Hypokalemia; F40.240 Claustrophobia; I87.2 Venous insufficiency (chronic) (peripheral); N18.3 Chronic kidney disease, stage 3 (moderate); K74.60 Unspecified cirrhosis of liver; D63.1 Anemia in chronic kidney disease; T50.2X5A Adverse effect of carbonic-anhydrase inhibitors, benzothiadiazides and other diuretics, initial encounter; I95.9 Hypotension, unspecified; Z90.79 Acquired absence of other genital organ(s); Z86.010 Personal history of colon polyps; Z85.46 Personal history of malignant neoplasm of prostate; Z79.899 Other long term (current) drug therapy; Z79.890 Hormone replacement therapy; Z79.01 Long term (current) use of anticoagulants; Z80.42 Family history of malignant neoplasm of prostate
CPT/HCPCS: 36415; 71046; 74183; 80048; 80053; 81003; 82272; 82550; 82553; 82565; 82570; 82607; 82728; 82746; 83010; 83540; 83550; 83615; 83735; 83880; 84156; 84439; 84443; 84484; 85025; 85045; 85610; 85730; 86850; 86870; 86880; 86900; 86901; 86920; 88184; 88185; 91110; 93005; 93970; 94760; 99285

== ENCOUNTER → 2018-11-20 | Outpatient (CLI) | payer MEDICARE, BC ==
[2018-11-20 16:13] LABS: Prothrombin Time 10.7 sec (9.0-12.0); WBC 4.6 k/uL (3.8-10.6)
[2018-11-20 16:14] LABS: Anisocytosis Moderate; Hypochromasia Moderate; MCH 29.7 pg (25.0-35.0); MCV 92.8 fL (80.0-100.0); Macrocytosis Slight; Mean Platelet Volume 7.3; Microcytosis Slight; Platelet Count 220 k/uL (150-450); RBC 4.74 m/uL (4.30-5.90); RDW 23.7 % (11.5-15.5)
[2018-11-20 16:17] LABS: HGB 14.1 gm/dL (13.0-17.5)
[2018-11-21 01:04] LABS: HIV 1 AB Non-Reactive (Non-Reactive); HIV AB P24 Non-Reactive (Non-Reactive); HIV P24 AG Non-Reactive (Non-Reactive)
[2018-11-21 01:31] LABS: EBV-VCA (IgG) >8.0 AI
[2018-11-21 02:33] LABS: Albumin 4.6 g/dL (3.80-4.90); Albumin/Globulin Ratio 1.35 (1.60-3.17); Anion Gap 11.1 mmol/L (4.00-12.00); Bilirubin, Conjugated 1.3 mg/dL (0.20-0.40); Bilirubin,Unconjugated 0.8 mg/dL; Calcium 10.6 mg/dL (8.7-10.3); Carbon Dioxide 30.9 mmol/L (21.6-31.8); Globulin 3.4 g/dL (1.6-3.3); Potassium 5.2 mmol/L (3.5-5.5); Total Bilirubin 2.1 mg/dL (0.3-1.2)
[2018-11-21 11:47] LABS: Liver/Kidney Microsome Antibod 1.8 UNITS (<=20)
[2018-11-21 12:07] LABS: Ceruloplasmin 43.7 mg/dL (20.0-60.0)
[2018-11-22 06:30] LABS: Herpes simplex I and/or II IgM 0.66 INDEX (<=0.90); Herpes simplex IgG I Ab 0.03 (< or = 0.90); Herpes simplex IgG II Ab 19.2 (< or = 0.90)
== END | disposition home or self-care (01) ==
LOC: LABWHC1 14:31
PROVIDERS: ATTEND Internal Medicine
DX: R74.8 Abnormal levels of other serum enzymes (principal)
CPT/HCPCS: 36415; 80053; 82103; 82248; 82390; 82728; 83540; 83550; 85027; 85610; 86038; 86376; 86644; 86645; 86663; 86664; 86665; 86694; 86695; 86696; 87390

== ENCOUNTER → 2018-12-01 | Outpatient (CLI) | payer MEDICARE, BC ==
[2018-12-01 23:49] LABS: Anion Gap 12.3 mmol/L (4.00-12.00); Calcium 10.5 mg/dL (8.7-10.3); Carbon Dioxide 28.7 mmol/L (21.6-31.8); Potassium 4.6 mmol/L (3.5-5.5)
== END | disposition home or self-care (01) ==
LOC: LABWHC1 16:19
PROVIDERS: ATTEND Physician Assistant
DX: N18.9 Chronic kidney disease, unspecified (principal)
CPT/HCPCS: 36415; 80048

== ENCOUNTER → 2018-12-15 | Outpatient (CLI) | payer MEDICARE, BC ==
[2018-12-15 20:25] LABS: Anion Gap 13.7 mmol/L (4.00-12.00); Calcium 10.5 mg/dL (8.7-10.3); Carbon Dioxide 29.3 mmol/L (21.6-31.8); Potassium 4.7 mmol/L (3.5-5.5)
== END | disposition home or self-care (01) ==
LOC: LABWHC1 14:40
PROVIDERS: ATTEND Physician Assistant
DX: N17.9 Acute kidney failure, unspecified (principal)
CPT/HCPCS: 36415; 80048

== ENCOUNTER → 2019-02-16 | Outpatient (CLI) | payer MEDICARE, BC ==
--- NOTE | 2019-02-16 15:31 | MR ---
EXAMINATION TYPE: MR abdomen wo/w con DATE OF EXAM: 02/16/2019 COMPARISON: Prior MRI abdomen October 12, 2018 HISTORY: F/U for abnormal imaging of the pancreas. Prior abnormal MRI. CONTRAST: Standard multiplanar, multisequence MRI departmental protocol utilizing 10 mL intravenous Gadavist ga dolinium contrast. FINDINGS: Pancreas: Pancreas overall is normal in size. Postcontrast images show fairly homogeneous enhancement . There is no concerning solid or cystic mass with particular attention to the pancreatic tail which is slightly more rounded in contour but not significant change from prior. No ductal dilatation is pr esent. Other: There is partial visualization of suspected bilateral gynecomastia. Correlate clinically. Pectus excavatum deformity is felt present. There is moderate to severe right atrial dilatation noted . The liver, gallbladder, spleen, and both adrenal glands are normal in size. Stable small inferior spl enule axial image 18 just over 1 cm. There is no concerning renal mass or hydronephrosis bilaterally. Some cortical thinning in both kidne ys is seen. There is 1.5 cm simple appearing exophytic cyst lower pole level left kidney coronal imag e 20. Few tiny subcentimeter cysts scattered throughout the right kidney are noted. No suspicious small or large bowel dilatation. No new abdominal adenopathy. IMPRESSION: Stable finding of pancreatic tail favors normal tissue. No mass is identified. No MRI evidence for co mplication related to acute pancreatitis. Suspect some right hilar failure causing prominence of the suprahepatic IVC as there is moderate to severe right atrial dilatation. Correlate clinically.
== END | disposition home or self-care (01) ==
LOC: RADMRIMAIN 14:20
PROVIDERS: ATTEND Internal Medicine
DX: R93.3 Abnormal findings on diagnostic imaging of other parts of digestive tract (principal); K76.0 Fatty (change of) liver, not elsewhere classified
CPT/HCPCS: 74183; A9585

== ENCOUNTER → 2019-03-07 | Outpatient (CLI) | payer MEDICARE, BC ==
--- NOTE | 2019-03-07 11:45 | US ---
EXAMINATION TYPE: US kidneys/renal and bladder DATE OF EXAM: 03/07/2019 COMPARISON: MRI 02/16/19, US 08/29/18 CLINICAL HISTORY: N17.9 Acute kidney injury. EXAM MEASUREMENTS: Right Kidney: 11.4 x 5.6 x 5.0 cm Left Kidney: 11.1 x 5.4 x 5.2 cm Post Void Residual Volume: 15.4 mL Right Kidney: decreased renal cortex,No hydronephrosis or masses seen Left Kidney: No hydronephrosis , lower pole cyst = 2.2 x 1.8 x 1.8 cm Bladder: with internal echos/? septations. Fluid collection superior to bladder with internal echos, and shadowing. This area unchanged after post void. Bilateral Jets seen: No left only (weak) Normal Post Void Residual: Yes There is no evidence for hydronephrosis at this point in time. No nephrolithiasis is seen. No cody s are identified. The urinary bladder is anechoic. Bilateral ureteral jets are seen. IMPRESSION: 1. Simple cyst lower pole left kidney. 2. Complex fluid collection superior to the urinary bladder. Correlate clinically. Consider CT correl ation.
== END | disposition home or self-care (01) ==
LOC: RADUSWWP 10:50
PROVIDERS: ATTEND Internal Medicine
DX: N28.1 Cyst of kidney, acquired (principal)
CPT/HCPCS: 76770

== ENCOUNTER → 2019-08-13 | Outpatient (CLI) | payer MEDICARE, BC ==
[2019-08-13 15:29] LABS: HCT 47.8 % (39.0-53.0); HGB 15.6 gm/dL (13.0-17.5); MCH 32.4 pg (25.0-35.0); MCHC 32.6 g/dL (31.0-37.0); MCV 99.3 fL (80.0-100.0); Mean Platelet Volume 6.7; Platelet Count 164 k/uL (150-450); RBC 4.82 m/uL (4.30-5.90); RDW 13.8 % (11.5-15.5); WBC 6.1 k/uL (3.8-10.6)
[2019-08-13 15:39] LABS: Appearance,Urine Clear (Clear); Bilirubin,Urine Negative (Negative); Blood,Urine Negative (Negative); Color,Urine Yellow; Glucose,Urine (UA) Negative (Negative); Hyaline Casts,Urine 27 /lpf (0-2); Ketones,Urine Negative (Negative); Leukocyte Esterase,Urine Trace (Negative); Mucus,Urine Rare /hpf; Nitrite,Urine Negative (Negative); Protein,Urine Negative (Negative); RBC,Urine <1 /hpf (0-5); Specific Gravity,Urine 1.011 (1.001-1.035); Urobilinogen,Urine <2.0 mg/dL (<2.0); WBC,Urine 5 /hpf (0-5)
[2019-08-14 01:09] LABS: Ferritin 223.2 ng/mL (22.0-322.0)
[2019-08-14 01:20] LABS: % Iron Saturation 30.07 (15.00-50.00); African American GFR (CKD) 57.8 (60.0-200.0); Albumin 4.5 g/dL (3.80-4.90); Albumin/Globulin Ratio 1.67 (1.60-3.17); Anion Gap 9.9 mmol/L (4.00-12.00); BUN/Creat Ratio 30.71 Ratio (12.00-20.00); Bilirubin, Conjugated 1.2 mg/dL (0.20-0.40); Bilirubin,Unconjugated 1.5 mg/dL; Calcium 10.1 mg/dL (8.7-10.3); Carbon Dioxide 29.1 mmol/L (21.6-31.8); Globulin 2.7 g/dL (1.6-3.3); Magnesium 1.9 mg/dL (1.5-2.4); Phosphorus 3.7 mg/dL (2.4-5.1); Potassium 4.3 mmol/L (3.5-5.5); Total Bilirubin 2.7 mg/dL (0.3-1.2); Total Protein 7.2 g/dL (6.2-8.2); Uric Acid 9.6 mg/dL (3.7-8.7)
== END | disposition home or self-care (01) ==
LOC: LABWHC1 14:47
PROVIDERS: ATTEND Internal Medicine
DX: N39.0 Urinary tract infection, site not specified (principal); N25.81 Secondary hyperparathyroidism of renal origin; E55.9 Vitamin D deficiency, unspecified; M10.9 Gout, unspecified; N18.3 Chronic kidney disease, stage 3 (moderate); D63.1 Anemia in chronic kidney disease
CPT/HCPCS: 36415; 80053; 81001; 82248; 82306; 82728; 83540; 83550; 83735; 83970; 84100; 84550; 85027